=== PATIENT | female | born 1940 | race Caucasian/White ===

== ENCOUNTER → 2018-02-09 07:37 | Outpatient (CLI) | payer MEDICARE, SELFPAY ==
[2018-02-09 08:52] LABS: Add Manual Diff / Slide Review NO; Basophils Percent Auto 0.4 % (0-2); Eosinophils Percent Auto 2.8 % (2-4); Hematocrit 38.1 % (36-46); Lymphocytes Percent Auto 39.2 % (25-40); Mean Corpuscular HGB Conc 34.2 % (30-36); Mean Corpuscular Hemoglobin 33.1 PG (26-34); Mean Corpuscular Volume 96.9 fL (80-100); Monocytes Percent Auto 11.1 % (3-14); Neutrophils Absolute Auto 1200 /uL (3000-5900); Neutrophils Percent Auto 46.5 % (50-75); Platelet Count 122 X10^3/uL (150-400); Red Blood Cell Count 3.93 X10^6/uL (4.0-5.2); Red Cell Distribution Width 13.3 % (11.6-14.8); White Blood Cell Count 2.5 X10^3/uL (4.5-11.0)
[2018-02-09 09:10] LABS: Alanine Aminotransferase 30 IU/L (9-52); Albumin 4.1 g/dL (3.5-5.0); Albumin Globulin Ratio 1.4 (1.0-2.8); Alkaline Phosphatase 63 U/L (38-126); Aspartate Aminotransferase 25 IU/L (14-36); BUN Creatinine Ratio 22.5 (6-22); Bilirubin Total 0.6 mg/dL (0.2-1.3); Blood Urea Nitrogen 18 mg/dL (7-17); Calcium 9.6 mg/dL (8.4-10.2); Carbon Dioxide 32 mmol/L (22-32); Chloride 103 mmol/L (98-107); Cholesterol 183 mg/dL (140-199); Estimated Glomerular Filt Rate > 60.0 mL/min (>60); Glucose 110 mg/dL (80-110); HDL Cholesterol 53 mg/dL (40-60); HEMOLYSIS < 15 (0-50); LDL Cholesterol Calculated 109 mg/dL (<100); Potassium 4.5 mmol/L (3.4-5.1); Sodium 142 mmol/L (137-145); Total Protein 7.1 g/dL (6.3-8.2); Triglycerides 105 mg/dL (35-150)
[2018-02-09 09:37] LABS: TSH w/ Reflex to FT4 2.13 uIU/mL (0.47-4.68)
== END ==
PROVIDERS: PCP Family Medicine; Visit Provider Family Medicine
DX: D72.819 Decreased white blood cell count, unspecified (principal); D69.6 Thrombocytopenia, unspecified; R73.01 Impaired fasting glucose; E78.5 Hyperlipidemia, unspecified
CPT/HCPCS: 36415; 80053; 80061; 84443; 85025

== ENCOUNTER 2018-02-26 13:00 | Outpatient (RCR) | payer MEDICARE, SELFPAY ==
--- NOTE | 2017-12-31 15:03 | PT.OIE ---
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) Osteopenia (Chronic 02/21/17) Past Surgical History History of tonsillectomy S/P total abdominal hysterectomy and bilateral salpingo-oophorectomy Status post appendectomy Status post arthroscopy Status post biopsy Status post colonoscopy Status post hysterectomy Provider Visit Care Team Role Provider Type Iwona Samaniego MD Other Providers Physician Specialty: Orthopedic Surgery Address: [address] [place] [address], [id number] Email: [email or web address] Fabiana Brink DO Family Provider Physician Primary Care Provider Specialty: Family Practice Address: [address] [place] [address], [facility] Email: [email or web address] Geo Burkett MD Attending Provider Physician Specialty: Orthopedics Address: [address] [place] [address], [phone] Email: [email or web address] Physical Therapy Initial Evaluation PT-OP-A Visit Information Start: 12/31/17 07:26 Freq: Status: Active Protocol: Document 12/31/17 14:05 [facility] (Rec: 12/31/17 15:03 [facility] [id number]) Out-Patient Physical Therapy Visit Information Visit Information Visit Type Initial Evaluation Visit Note 2 visits this year Visit Start Time 13:45 Visit Stop Time 14:30 Total Visit Minutes 45 Visit Number G code 1 Number of NIGHT ASSISTANT Visits 0 PT-OP-B Current Condition Start: 12/31/17 07:26 Freq: Status: Active Protocol: Document 12/31/17 14:05 [facility] (Rec: 12/31/17 15:03 [facility] [id number]) Current Condition History of Current Condition History of Current Condition Pt had knee pain that started in September and reported she tried 1 PT session, which she had a lot of swelling after so stopped. She had a menisectomy on December 16 and followed up with her MD 2 days ago who took off the bandages . Pt is typically very active and is looking foward to being more functional. Treatment Goals Patient/Caregiver Goals To be able to do yoga, do full walk on [place] trail & up/down hill, do aqua aerobics. PT-OP-C Subjective Start: 12/31/17 07:26 Freq: Status: Active Protocol: Document 12/31/17 14:05 [facility] (Rec: 12/31/17 15:03 [facility] [id number]) Patient Questionnaires Lower Extremity Functional Scale LEFS Score 55 LEFS Impairment 20 to 39% Impaired (Score 48- 62) OP-PT Pain Assessment Location Left Knee Pain Location Details ant Intensity 5 Scale Used Numeric (1 - 10) Description Aching Frequency Occasional Other Pain Aggravating Factors at night after extended activity, stairs, walking faster Pain Alleviating Factors Cold Other Pain Alleviating Factors aspirin PT-OP-G Mobility & Gait Start: 12/31/17 07:26 Freq: Status: Active Protocol: Document 12/31/17 14:05 [facility] (Rec: 12/31/17 14:32 [facility] [id number]) OP Gait Assessment Comments Gait Comments Inc lat lean over LLE with dec push off and stance time PT-OP-J Posture/Palpation/Skin Start: 12/31/17 07:26 Freq: Status: Active Protocol: Document 12/31/17 14:05 [facility] (Rec: 12/31/17 15:03 [facility] [id number]) Skin Assessment Circumference Measurement 3 Location sup patella Measurement (Centimeters) 48.4 Comments 44.8 R 2 Location fib head Measurement (Centimeters) 42 Comments R 40 1 Location joint line Measurement (Centimeters) 43.2 Comments 40.2 R PT-OP-K Range of Motion Start: 12/31/17 07:26 Freq: Status: Active Protocol: Document 12/31/17 14:05 [facility] (Rec: 12/31/17 14:32 [facility] [id number]) Knee Goniometric Range of Motion Knee Measured in Degrees Left Patient Position Supine Flexion Active (degrees) 106 Extension Active (degrees) 8 PT-OP-M Strength Start: 12/31/17 07:26 Freq: Status: Active Protocol: Document 12/31/17 14:05 [facility] (Rec: 12/31/17 14:32 [facility] [id number]) Hip Strength Hip Manual Muscle Testing Right Flexion (L2) 5 Normal Extension (S1) 4- Good- Abduction 4- Good- External Rotation 4+ Good+ Internal Rotation 4+ Good+ Left Flexion (L2) 4- Good- Extension (S1) 4- Good- Abduction 4- Good- External Rotation 4- Good- Internal Rotation 4- Good- Knee Strength Knee Manual Muscle Testing Left Flexion (S2) 5 Normal Extension (L3) 4- Good- Comments R WNL Ankle/Foot Strength Ankle and Foot Manual Muscle Testing Right Reason Not Measured WFL Left Reason Not Measured WFL PT-OP-Q Treatments Start: 12/31/17 07:26 Freq: Status: Active Protocol: Document 12/31/17 14:05 [facility] (Rec: 12/31/17 14:32 [facility] [id number]) Therapeutic Exercises Supine Exercises 3 Supine Exercise Name heel slides w/core tight & 5 sec hold Side left Reps/Minutes 10 2 Supine Exercise Name quad set Side left Reps/Minutes 10 1 Supine Exercise Name SLR w/core activation Side left Reps/Minutes 10 Sidelying Exercises 1 Sidelying Exercise Name hip abd Side bilateral Reps/Minutes 10 Sitting Exercises 1 Sitting Exercise Name mini squat Side bilateral Therapeutic Activity Therapeutic Activity 1 Name sleeping Comments s/l and prone sleeping position PT-OP-T Assessment and Plan Start: 12/31/17 07:26 Freq: Status: Active Protocol: Document 12/31/17 14:05 [facility] (Rec: 12/31/17 15:03 [facility] [id number]) Physical Therapy Assessment Rehab Potential Rehabilitation Potential Good Evaluation Complexity Number of Personal Factors/Comorbidities 3 or More Number of Body Systems Impaired 4 or More Clinical Presentation at Evaluation Evolving Impairments Impairments Balance Edema Gait Pain ROM Soft Tissue Mobility Strength Goals Five Impairment rec activities Short Term Goal (STG) Pt will be able to participate in yoga exercises without inc pain. STG Duration 01/30/18 [employer] Goal (LTG) Pt will be able to participate in full walk with hills & [place] trail & do yoga & aqua aerobics. LTG Duration 03/02/18 Four Impairment MMT [employer] Goal (LTG) / to allow return to rec activities. LTG Duration 03/01/18 Three Impairment ROM Long-Term Goal (LTG) WNL to allow pt go up/down stairs LTG Duration 01/30/18 Two Impairment swelling Short Term Goal (STG) WNL circumference with pt doing appropriate edema management. STG Duration 01/30/18 One Impairment LEFS Long-Term Goal (LTG) Pt will have improved functional mobility as demonstrated by scoring 68/80. LTG Duration 03/02/18 Physical Therapy Plan Frequency and Duration Frequency of Treatment 2x/Week Duration of Treatment 2 months Plan of Care Start Date 12/31/17 Plan of Care End Date 03/02/18 Therapeutic Interventions Therapeutic Interventions Aquatic Therapy Balance Training Gait Training Home Exercise Program Joint Mobilizations Manual Therapy Soft Tissue Mobilization Taping Therapeutic Exercises Modalities Cold Pack/Ice Massage Electric Stimulation Hot Packs Ultrasound Next Visit Focus/Plan Next Note Type Treatment Note Next Visit Plan Recumbant bike, shuttle leg press, tball knee flex & glute strength Please Sign and Return: I have reviewed this Plan of Care and certify that the skilled therapy services above are required to meet the patient?s needs. Physician Signature Date Printed Name and Credentials Clinical Instructor Signature Printed Name and Credentials
--- NOTE | 2017-12-31 15:03 | PT.OPPOC ---
Current Diagnoses Complex tear of medial meniscus, current injury, left knee, initial encounter (12/31/17) Other tear of lateral meniscus, current injury, left knee, initial encounter (12/31/17) Provider Visit Care Team Role Provider Type Iwona Samaniego MD Other Providers Physician Specialty: Orthopedic Surgery Address: [address] [place] [address], [id number] Email: [email or web address] Fabiana Brink DO Family Provider Physician Primary Care Provider Specialty: Family Practice Address: [address] [place] [address], [id number] Email: [email or web address] Geo Burkett MD Attending Provider Physician Specialty: Orthopedics Address: [address] [place] [address], [id number] Email: [email or web address] Plan Of Care PT-OP-T Assessment and Plan Start: 12/31/17 07:26 Freq: Status: Active Protocol: Document 12/31/17 14:05 [facility] (Rec: 12/31/17 15:03 [facility] [id number]) Physical Therapy Assessment Rehab Potential Rehabilitation Potential Good Evaluation Complexity Number of Personal Factors/Comorbidities 3 or More Number of Body Systems Impaired 4 or More Clinical Presentation at Evaluation Evolving Impairments Impairments Balance Edema Gait Pain ROM Soft Tissue Mobility Strength Goals Five Impairment rec activities Short Term Goal (STG) Pt will be able to participate in yoga exercises without inc pain. STG Duration 01/30/18 [facility] Goal (LTG) Pt will be able to participate in full walk with hills & [place] [address] & do yoga & aqua aerobics. LTG Duration 03/02/18 Four Impairment MMT Wound Care Nurse Goal (LTG) 5/5 to allow return to rec activities. LTG Duration 03/01/18 Three Impairment ROM [facility] Goal (LTG) WNL to allow pt go up/down stairs LTG Duration 01/30/18 Two Impairment swelling Short Term Goal (STG) WNL circumference with pt doing appropriate edema management. STG Duration 01/30/18 One Impairment LEFS Wound Care Nurse Goal (LTG) Pt will have improved functional mobility as demonstrated by scoring 68/80. LTG Duration 03/02/18 Physical Therapy Plan Frequency and Duration Frequency of Treatment 2x/Week Duration of Treatment 2 months Plan of Care Start Date 12/31/17 Plan of Care End Date 03/02/18 Therapeutic Interventions Therapeutic Interventions Aquatic Therapy Balance Training Gait Training Home Exercise Program Joint Mobilizations Manual Therapy Soft Tissue Mobilization Taping Therapeutic Exercises Modalities Cold Pack/Ice Massage Electric Stimulation Hot Packs Ultrasound Next Visit Focus/Plan Next Note Type Treatment Note Next Visit Plan Recumbant bike, shuttle leg press, tball knee flex & glute strength Plan of Care Dates Plan of Care Start Date 12/31/17 Plan of Care End Date 03/02/18 Please Sign and Return: I have reviewed this Plan of Care and certify that the skilled therapy services above are required to meet the patient?s needs. Physician Signature Date Printed Name and Credentials Clinical Instructor Signature Printed Name and Credentials
--- NOTE | 2017-12-31 16:55 | PT.OTRE ---
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) Osteopenia (Chronic 02/21/17) Surgical History History of tonsillectomy S/P total abdominal hysterectomy and bilateral salpingo-oophorectomy Status post appendectomy Status post arthroscopy Status post biopsy Status post colonoscopy Status post hysterectomy Provider Visit Care Team Role Provider Type Iwona Samaniego MD Other Providers Physician Specialty: Orthopedic Surgery Address: [address] [place] [address], [phone] Email: [email or web address] Fabiana Brink DO Family Provider Physician Primary Care Provider Specialty: Family Practice Address: [address] [place] [address], [facility] Email: [email or web address] Geo Burkett MD Attending Provider Physician Specialty: Orthopedics Address: [address] [place] [address], [id number] Email: [email or web address] Physical Therapy Re-Evaluation PT-OP-A Visit Information Start: 12/31/17 07:26 Freq: Status: Active Protocol: Document 12/31/17 14:05 [facility] (Rec: 12/31/17 15:03 [facility] [id number]) Out-Patient Physical Therapy Visit Information Visit Information Visit Type Initial Evaluation Visit Note 2 visits this year Visit Start Time 13:45 Visit Stop Time 14:30 Total Visit Minutes 45 Visit Number G code 1 Number of LIMO DRIVER Visits 0 PT-OP-B Current Condition Start: 12/31/17 07:26 Freq: Status: Active Protocol: Document 12/31/17 14:05 [facility] (Rec: 12/31/17 15:03 [facility] [id number]) Current Condition History of Current Condition History of Current Condition Pt had knee pain that started in September and reported she tried 1 PT session, which she had a lot of swelling after so stopped. She had a menisectomy on December 16 and followed up with her MD 2 days ago who took off the bandages . Pt is typically very active and is looking foward to being more functional. Treatment Goals Patient/Caregiver Goals To be able to do yoga, do full walk on [place] [address] [place] & up/down hill, do aqua aerobics. PT-OP-C Subjective Start: 12/31/17 07:26 Freq: Status: Active Protocol: Document 12/31/17 14:05 [facility] (Rec: 12/31/17 15:03 [facility] [email or web address]) Patient Questionnaires Lower Extremity Functional Scale LEFS Score 55 LEFS Impairment 20 to 39% Impaired (Score 48- 62) OP-PT Pain Assessment Location Left Knee Pain Location Details ant Intensity 5 Scale Used Numeric (1 - 10) Description Aching Frequency Occasional Other Pain Aggravating Factors at night after extended activity, stairs, walking faster Pain Alleviating Factors Cold Other Pain Alleviating Factors aspirin PT-OP-G Mobility & Gait Start: 12/31/17 07:26 Freq: Status: Active Protocol: Document 12/31/17 14:05 [facility] (Rec: 12/31/17 14:32 [facility] [id number]) OP Gait Assessment Comments Gait Comments Inc lat lean over LLE with dec push off and stance time PT-OP-J Posture/Palpation/Skin Start: 12/31/17 07:26 Freq: Status: Active Protocol: Document 12/31/17 14:05 [facility] (Rec: 12/31/17 15:03 [facility] [email or web address]) Skin Assessment Circumference Measurement 3 Location sup patella Measurement (Centimeters) 48.4 Comments 44.8 R 2 Location fib head Measurement (Centimeters) 42 Comments R 40 1 Location joint line Measurement (Centimeters) 43.2 Comments 40.2 R PT-OP-K Range of Motion Start: 12/31/17 07:26 Freq: Status: Active Protocol: Document 12/31/17 14:05 [facility] (Rec: 12/31/17 14:32 [facility] [id number]) Knee Goniometric Range of Motion Knee Measured in Degrees Left Patient Position Supine Flexion Active (degrees) 106 Extension Active (degrees) 8 PT-OP-M Strength Start: 12/31/17 07:26 Freq: Status: Active Protocol: Document 12/31/17 14:05 [facility] (Rec: 12/31/17 14:32 [facility] [id number]) Hip Strength Hip Manual Muscle Testing Right Flexion (L2) 5 Normal Extension (S1) 4- Good- Abduction 4- Good- External Rotation 4+ Good+ Internal Rotation 4+ Good+ Left Flexion (L2) 4- Good- Extension (S1) 4- Good- Abduction 4- Good- External Rotation 4- Good- Internal Rotation 4- Good- Knee Strength Knee Manual Muscle Testing Left Flexion (S2) 5 Normal Extension (L3) 4- Good- Comments R WNL Ankle/Foot Strength Ankle and Foot Manual Muscle Testing Right Reason Not Measured WFL Left Reason Not Measured WFL PT-OP-Q Treatments Start: 12/31/17 07:26 Freq: Status: Active Protocol: Document 12/31/17 14:05 [facility] (Rec: 12/31/17 14:32 [facility] [id number]) Therapeutic Exercises Supine Exercises 3 Supine Exercise Name heel slides w/core tight & 5 sec hold Side left Reps/Minutes 10 2 Supine Exercise Name quad set Side left Reps/Minutes 10 1 Supine Exercise Name SLR w/core activation Side left Reps/Minutes 10 Sidelying Exercises 1 Sidelying Exercise Name hip abd Side bilateral Reps/Minutes 10 Sitting Exercises 1 Sitting Exercise Name mini squat Side bilateral Therapeutic Activity Therapeutic Activity 1 Name sleeping Comments s/l and prone sleeping position PT-OP-T Assessment and Plan Start: 12/31/17 07:26 Freq: Status: Active Protocol: Document 12/31/17 14:05 [facility] (Rec: 12/31/17 15:03 [facility] [id number]) Physical Therapy Assessment Rehab Potential Rehabilitation Potential Good Evaluation Complexity Number of Personal Factors/Comorbidities 3 or More Number of Body Systems Impaired 4 or More Clinical Presentation at Evaluation Evolving Impairments Impairments Balance Edema Gait Pain ROM Soft Tissue Mobility Strength Goals Five Impairment rec activities Short Term Goal (STG) Pt will be able to participate in yoga exercises without inc pain. STG Duration 01/30/18 Care Home Goal (LTG) Pt will be able to participate in full walk with hills & [place] [address] & do yoga & aqua aerobics. LTG Duration 03/02/18 Four Impairment MMT Project Consultant Goal (LTG) / to allow return to rec activities. LTG Duration 03/01/18 Three Impairment ROM Care Home Goal (LTG) WNL to allow pt go up/down stairs LTG Duration 01/30/18 Two Impairment swelling Short Term Goal (STG) WNL circumference with pt doing appropriate edema management. STG Duration 01/30/18 One Impairment LEFS Care Home Goal (LTG) Pt will have improved functional mobility as demonstrated by scoring 68/80. LTG Duration 03/02/18 Physical Therapy Plan Frequency and Duration Frequency of Treatment 2x/Week Duration of Treatment 2 months Plan of Care Start Date 12/31/17 Plan of Care End Date 03/02/18 Therapeutic Interventions Therapeutic Interventions Aquatic Therapy Balance Training Gait Training Home Exercise Program Joint Mobilizations Manual Therapy Soft Tissue Mobilization Taping Therapeutic Exercises Modalities Cold Pack/Ice Massage Electric Stimulation Hot Packs Ultrasound Next Visit Focus/Plan Next Note Type Treatment Note Next Visit Plan Recumbant bike, shuttle leg press, tball knee flex & glute strength Please Sign and Return: I have reviewed this Plan of Care and certify that the skilled therapy services above are required to meet the patient?s needs. Physician Signature Date Printed Name and Credentials Clinical Instructor Signature Printed Name and Credentials
--- NOTE | 2018-01-07 12:18 | PT.OTN ---
Current Diagnoses Complex tear of medial meniscus, current injury, left knee, initial encounter (01/06/18) Other tear of lateral meniscus, current injury, left knee, initial encounter (01/06/18) Physical Therapy Treatment Note PT-OP-A Visit Information Start: 12/31/17 07:26 Freq: Status: Active Protocol: Document 01/06/18 13:45 [facility] (Rec: 01/07/18 12:18 [facility] [id number]) Out-Patient Physical Therapy Visit Information Visit Information Visit Type Treatment Note Visit Note 3 visits this year ( one visit prior to surgery) Visit Start Time 13:45 Visit Stop Time 14:45 Total Visit Minutes 60 Visit Number 2 Number of PATTERN ATTENDANT Visits 0 PT-OP-B Current Condition Start: 12/31/17 07:26 Freq: Status: Active Protocol: Document 12/31/17 14:05 [facility] (Rec: 12/31/17 15:03 [facility] [id number]) Current Condition History of Current Condition History of Current Condition Pt had knee pain that started in September and reported she tried 1 PT session, which she had a lot of swelling after so stopped. She had a menisectomy on December 16 and followed up with her MD 2 days ago who took off the bandages . Pt is typically very active and is looking foward to being more functional. Treatment Goals Patient/Caregiver Goals To be able to do yoga, do full walk on [place] & up/down hill, do aqua aerobics. PT-OP-C Subjective Start: 12/31/17 07:26 Freq: Status: Active Protocol: Document 01/06/18 13:45 [facility] (Rec: 01/07/18 12:18 [facility] [email or web address]) OP-PT Subjective Patient Comments Patient Comments Rosalina reports her chief complaint of pain today is below her knee cap. She points to the patella tendon areal PT-OP-G Mobility & Gait Start: 12/31/17 07:26 Freq: Status: Active Protocol: Document 12/31/17 14:05 [facility] (Rec: 12/31/17 14:32 [facility] [id number]) OP Gait Assessment Comments Gait Comments Inc lat lean over LLE with dec push off and stance time PT-OP-J Posture/Palpation/Skin Start: 12/31/17 07:26 Freq: Status: Active Protocol: Document 12/31/17 14:05 [facility] (Rec: 12/31/17 15:03 [facility] [id number]) Skin Assessment Circumference Measurement 3 Location sup patella Measurement (Centimeters) 48.4 Comments 44.8 R 2 Location fib head Measurement (Centimeters) 42 Comments R 40 1 Location joint line Measurement (Centimeters) 43.2 Comments 40.2 R PT-OP-K Range of Motion Start: 12/31/17 07:26 Freq: Status: Active Protocol: Document 01/06/18 13:45 [facility] (Rec: 01/07/18 12:18 [facility] [email or web address]) Knee Goniometric Range of Motion Knee Measured in Degrees Left Flexion Active (degrees) 110 Extension Active (degrees) 8 PT-OP-M Strength Start: 12/31/17 07:26 Freq: Status: Active Protocol: Document 12/31/17 14:05 [facility] (Rec: 12/31/17 14:32 [facility] [id number]) Hip Strength Hip Manual Muscle Testing Right Flexion (L2) 5 Normal Extension (S1) 4- Good- Abduction 4- Good- External Rotation 4+ Good+ Internal Rotation 4+ Good+ Left Flexion (L2) 4- Good- Extension (S1) 4- Good- Abduction 4- Good- External Rotation 4- Good- Internal Rotation 4- Good- Knee Strength Knee Manual Muscle Testing Left Flexion (S2) 5 Normal Extension (L3) 4- Good- Comments R WNL Ankle/Foot Strength Ankle and Foot Manual Muscle Testing Right Reason Not Measured WFL Left Reason Not Measured WFL PT-OP-Q Treatments Start: 12/31/17 07:26 Freq: Status: Active Protocol: Document 01/06/18 13:45 [facility] (Rec: 01/07/18 12:18 [facility] [email or web address]) Cardio Equipment Recumbent Elliptical (Biodex) Duration (Minutes) 5 Resistance level 2 Gym Equipment Shuttle Rebound 1 Exercise Details shuttle squats Reps/Duration 50 # 20 reps B, 25# 15 reps left knee Therapeutic Exercises Supine Exercises 6 Supine Exercise Name long sitting calf stretch with strap Reps/Minutes hold 2 minutes 5 Supine Exercise Name bridges Reps/Minutes 2 sets of 10 reps 4 Supine Exercise Name TKE over ball Reps/Minutes 2 sets of 10 reps Comments emphasis on full knee extension and quad set 3 Supine Exercise Name heel slides w/core tight & 5 sec hold Side left Reps/Minutes 10 2 Supine Exercise Name quad set Side left Reps/Minutes 10 1 Supine Exercise Name SLR w/core activation Side left Reps/Minutes 10 Standing Exercises 1 Standing Exercise Name standing squats at bar Comments emphasis on hip hinge and proper knee aligment Manual Therapy Treatment Soft Tissue Mobilization 1 Body Location patella tendon TFM and patella mobs, STM left quadraceps Body Position Supine PT-OP-R Modalities Start: 12/31/17 07:26 Freq: Status: Active Protocol: Document 01/07/18 12:18 [facility] (Rec: 01/07/18 12:18 [facility] [email or web address]) Electric Stimulation Electric Stimulation Interferential Current (IFC) Body Location left knee Duration (Minutes) 15 Comments Ice on top and bottom of the knee during IFC PT-OP-T Assessment and Plan Start: 12/31/17 07:26 Freq: Status: Active Protocol: Document 01/06/18 13:45 [facility] (Rec: 01/07/18 12:18 [facility] [email or web address]) Physical Therapy Assessment Assessment Summary Assessment Rosalina responded well to the new exercises today and notes after her stretching and exercises she had decreased pain in her knee. I also did a trial of ICE and IFC following treatment today. Her knee flexion is better, she is still limited in extension so this was emphasized with today's treatment Physical Therapy Plan Frequency and Duration Frequency of Treatment 2x/Week Duration of Treatment 2 months Plan of Care Start Date 12/31/17 Plan of Care End Date 03/02/18 Therapeutic Interventions Therapeutic Interventions Aquatic Therapy Balance Training Gait Training Home Exercise Program Joint Mobilizations Manual Therapy Soft Tissue Mobilization Taping Therapeutic Exercises Modalities Cold Pack/Ice Massage Electric Stimulation Hot Packs Ultrasound Next Visit Focus/Plan Next Visit Plan continue progressing knee ROM and strengthening as tolerated Please Sign and Return: I have reviewed this Plan of Care and certify that the skilled therapy services above are required to meet the patient?s needs. Physician Signature Date Printed Name and Credentials Clinical Instructor Signature Printed Name and Credentials
--- NOTE | 2018-01-09 07:13 | PT.OTN ---
Current Diagnoses Complex tear of medial meniscus, current injury, left knee, initial encounter (01/08/18) Other tear of lateral meniscus, current injury, left knee, initial encounter (01/08/18) Physical Therapy Treatment Note PT-OP-A Visit Information Start: 12/31/17 07:26 Freq: Status: Active Protocol: Document 01/08/18 09:45 [facility] (Rec: 01/08/18 09:57 [facility]B [id number]) Out-Patient Physical Therapy Visit Information Visit Information Visit Type Treatment Note Visit Note 4 visits this year ( one visit prior to surgery) Visit Start Time 13:45 Visit Stop Time 14:45 Total Visit Minutes 60 Visit Number 3 Number of SNOW TECHNICIAN Visits 0 PT-OP-B Current Condition Start: 12/31/17 07:26 Freq: Status: Active Protocol: Document 12/31/17 14:05 [facility] (Rec: 12/31/17 15:03 [facility] [email or web address]) Current Condition History of Current Condition History of Current Condition Pt had knee pain that started in September and reported she tried 1 PT session, which she had a lot of swelling after so stopped. She had a menisectomy on December 16 and followed up with her MD 2 days ago who took off the bandages . Pt is typically very active and is looking foward to being more functional. Treatment Goals Patient/Caregiver Goals To be able to do yoga, do full walk on [place] [address] [place] & up/down hill, do aqua aerobics. PT-OP-C Subjective Start: 12/31/17 07:26 Freq: Status: Active Protocol: Document 01/08/18 09:45 [facility] (Rec: 01/08/18 09:57 AMB [id number]) OP-PT Subjective Patient Comments Patient Comments Yesterday went down to the [facility] and was on her feet for 5-6 hours, so knee is a bit swollen today. PT-OP-G Mobility & Gait Start: 12/31/17 07:26 Freq: Status: Active Protocol: Document 12/31/17 14:05 [facility] (Rec: 12/31/17 14:32 [facility] [id number]) OP Gait Assessment Comments Gait Comments Inc lat lean over LLE with dec push off and stance time PT-OP-J Posture/Palpation/Skin Start: 12/31/17 07:26 Freq: Status: Active Protocol: Document 12/31/17 14:05 [facility] (Rec: 12/31/17 15:03 [facility] [email or web address]) Skin Assessment Circumference Measurement 3 Location sup patella Measurement (Centimeters) 48.4 Comments 44.8 R 2 Location fib head Measurement (Centimeters) 42 Comments R 40 1 Location joint line Measurement (Centimeters) 43.2 Comments 40.2 R PT-OP-K Range of Motion Start: 12/31/17 07:26 Freq: Status: Active Protocol: Document 01/06/18 13:45 [facility] (Rec: 01/07/18 12:18 [facility] [email or web address]) Knee Goniometric Range of Motion Knee Measured in Degrees Left Flexion Active (degrees) 110 Extension Active (degrees) 8 PT-OP-M Strength Start: 12/31/17 07:26 Freq: Status: Active Protocol: Document 12/31/17 14:05 [facility] (Rec: 12/31/17 14:32 [facility] [id number]) Hip Strength Hip Manual Muscle Testing Right Flexion (L2) 5 Normal Extension (S1) 4- Good- Abduction 4- Good- External Rotation 4+ Good+ Internal Rotation 4+ Good+ Left Flexion (L2) 4- Good- Extension (S1) 4- Good- Abduction 4- Good- External Rotation 4- Good- Internal Rotation 4- Good- Knee Strength Knee Manual Muscle Testing Left Flexion (S2) 5 Normal Extension (L3) 4- Good- Comments R WNL Ankle/Foot Strength Ankle and Foot Manual Muscle Testing Right Reason Not Measured WFL Left Reason Not Measured WFL PT-OP-Q Treatments Start: 12/31/17 07:26 Freq: Status: Active Protocol: Document 01/08/18 09:45 [facility] (Rec: 01/08/18 10:27 AMB [id number]) Cardio Equipment Recumbent Elliptical (Biodex) Duration (Minutes) 5 Resistance level 4 Gym Equipment Shuttle Rebound 1 Exercise Details shuttle squats Reps/Duration 50 # 20 reps B, 25# 15 reps left knee Therapeutic Exercises Supine Exercises 5 Supine Exercise Name bridges Reps/Minutes 2 sets of 10 reps 2 Supine Exercise Name quad set Side left Reps/Minutes 10 1 Supine Exercise Name SLR w/core activation Side left Reps/Minutes 10 Standing Exercises 1 Standing Exercise Name standing squats at bar Comments emphasis on hip hinge and proper knee aligment Manual Therapy Treatment Soft Tissue Mobilization 1 Body Location patella tendon TFM and patella mobs, STM left quadraceps Body Position Supine PT-OP-R Modalities Start: 12/31/17 07:26 Freq: Status: Active Protocol: Document 01/08/18 09:45 [facility] (Rec: 01/09/18 07:13 [facility] [email or web address]) Electric Stimulation Electric Stimulation Interferential Current (IFC) Body Location left knee Duration (Minutes) 10 Comments Ice on top and bottom of the knee during IFC PT-OP-T Assessment and Plan Start: 12/31/17 07:26 Freq: Status: Active Protocol: Document 01/08/18 09:45 [facility] (Rec: 01/09/18 07:13 [facility] [email or web address]) Physical Therapy Assessment Goals Five Impairment rec activities Short Term Goal (STG) Pt will be able to participate in yoga exercises without inc pain. STG Duration 01/30/18 Mark Up Designer Goal (LTG) Pt will be able to participate in full walk with hills & [place] & do yoga & aqua aerobics. LTG Duration 03/02/18 Four Impairment MMT Fpc Goal (LTG) 5/5 to allow return to rec activities. LTG Duration 03/01/18 Three Impairment ROM Mark Up Designer Goal (LTG) WNL to allow pt go up/down stairs LTG Duration 01/30/18 Two Impairment swelling Short Term Goal (STG) WNL circumference with pt doing appropriate edema management. STG Duration 01/30/18 One Impairment LEFS Mark Up Designer Goal (LTG) Pt will have improved functional mobility as demonstrated by scoring 68/80. LTG Duration 03/02/18 Assessment Summary Assessment Rosalina with increased edema today after extensive walking/ stairs yesterday. Tolerated exercises well, to continue to work on knee ext. Physical Therapy Plan Frequency and Duration Frequency of Treatment 2x/Week Duration of Treatment 2 months Plan of Care Start Date 12/31/17 Plan of Care End Date 03/02/18 Next Visit Focus/Plan Next Note Type Treatment Note Next Visit Plan Progress knee range, squat form, glute strength Please Sign and Return: I have reviewed this Plan of Care and certify that the skilled therapy services above are required to meet the patient?s needs. Physician Signature Date Printed Name and Credentials Clinical Instructor Signature Printed Name and Credentials
--- NOTE | 2018-01-13 12:45 | PT.OTN ---
Current Diagnoses Complex tear of medial meniscus, current injury, left knee, initial encounter (01/13/18) Other tear of lateral meniscus, current injury, left knee, initial encounter (01/13/18) Physical Therapy Treatment Note PT-OP-A Visit Information Start: 12/31/17 07:26 Freq: Status: Active Protocol: Document 01/13/18 12:38 [facility] (Rec: 01/13/18 12:44 [facility] [email or web address]) Out-Patient Physical Therapy Visit Information Visit Information Visit Type Treatment Note Visit Note 4 visits this year ( one visit prior to surgery) Visit Start Time 11:15 Visit Stop Time 12:10 Total Visit Minutes 55 Visit Number 4 Number of HOME HEALTH SCHEDULER Visits 1 Evaluation Information Evaluation Date 12/31/17 PT-OP-B Current Condition Start: 12/31/17 07:26 Freq: Status: Active Protocol: Document 12/31/17 14:05 [facility] (Rec: 12/31/17 15:03 [facility] [email or web address]) Current Condition History of Current Condition History of Current Condition Pt had knee pain that started in September and reported she tried 1 PT session, which she had a lot of swelling after so stopped. She had a menisectomy on December 16 and followed up with her MD 2 days ago who took off the bandages . Pt is typically very active and is looking foward to being more functional. Treatment Goals Patient/Caregiver Goals To be able to do yoga, do full walk on [place] [address] [place] & up/down hill, do aqua aerobics. PT-OP-C Subjective Start: 12/31/17 07:26 Freq: Status: Active Protocol: Document 01/13/18 12:38 [facility] (Rec: 01/13/18 12:44 [facility] [email or web address]) OP-PT Subjective Patient Comments Patient Comments Pt states she was able to walk about a mile. She still sore and swollen, but improving overall. PT-OP-G Mobility & Gait Start: 12/31/17 07:26 Freq: Status: Active Protocol: Document 12/31/17 14:05 [facility] (Rec: 12/31/17 14:32 [facility] [id number]) OP Gait Assessment Comments Gait Comments Inc lat lean over LLE with dec push off and stance time PT-OP-J Posture/Palpation/Skin Start: 12/31/17 07:26 Freq: Status: Active Protocol: Document 12/31/17 14:05 [facility] (Rec: 12/31/17 15:03 [facility] [email or web address]) Skin Assessment Circumference Measurement 3 Location sup patella Measurement (Centimeters) 48.4 Comments 44.8 R 2 Location fib head Measurement (Centimeters) 42 Comments R 40 1 Location joint line Measurement (Centimeters) 43.2 Comments 40.2 R PT-OP-K Range of Motion Start: 12/31/17 07:26 Freq: Status: Active Protocol: Document 01/06/18 13:45 [facility] (Rec: 01/07/18 12:18 [facility] [email or web address]) Knee Goniometric Range of Motion Knee Measured in Degrees Left Flexion Active (degrees) 110 Extension Active (degrees) 8 PT-OP-M Strength Start: 12/31/17 07:26 Freq: Status: Active Protocol: Document 12/31/17 14:05 [facility] (Rec: 12/31/17 14:32 [facility] [id number]) Hip Strength Hip Manual Muscle Testing Right Flexion (L2) 5 Normal Extension (S1) 4- Good- Abduction 4- Good- External Rotation 4+ Good+ Internal Rotation 4+ Good+ Left Flexion (L2) 4- Good- Extension (S1) 4- Good- Abduction 4- Good- External Rotation 4- Good- Internal Rotation 4- Good- Knee Strength Knee Manual Muscle Testing Left Flexion (S2) 5 Normal Extension (L3) 4- Good- Comments R WNL Ankle/Foot Strength Ankle and Foot Manual Muscle Testing Right Reason Not Measured WFL Left Reason Not Measured WFL PT-OP-Q Treatments Start: 12/31/17 07:26 Freq: Status: Active Protocol: Document 01/13/18 12:38 [facility] (Rec: 01/13/18 12:44 [facility] [email or web address]) Cardio Equipment Recumbent Elliptical (Biodex) Duration (Minutes) 5 Resistance level 4 Gym Equipment Shuttle Rebound 1 Exercise Details shuttle squats Reps/Duration 67# 20 reps B, 37# 15 reps left knee Therapeutic Exercises Supine Exercises 5 Supine Exercise Name bridges Reps/Minutes 2 sets of 10 reps 1 Supine Exercise Name SLR w/core activation Side left Reps/Minutes 10 Sidelying Exercises 1 Sidelying Exercise Name hip abd Side bilateral Reps/Minutes 10 Standing Exercises 2 Standing Exercise Name TKE Side left Resistance level 2 Equipment Used Thera band Reps/Minutes 10 1 Standing Exercise Name standing squats at bar Comments emphasis on hip hinge and proper knee aligment Manual Therapy Treatment Soft Tissue Mobilization 1 Body Location patella tendon TFM and patella mobs, STM left quadraceps Body Position Supine PT-OP-R Modalities Start: 12/31/17 07:26 Freq: Status: Active Protocol: Document 01/13/18 12:38 [facility] (Rec: 01/13/18 12:44 [facility] [email or web address]) Electric Stimulation Electric Stimulation Interferential Current (IFC) Body Location left knee Duration (Minutes) 10 Patient Position Hooklying Combined With Heat/Cold Cold Pack Comments Ice on top and bottom of the knee during IFC PT-OP-T Assessment and Plan Start: 12/31/17 07:26 Freq: Status: Active Protocol: Document 01/13/18 12:38 [facility] (Rec: 01/13/18 12:44 [facility] [email or web address]) Physical Therapy Assessment Assessment Summary Assessment Pt progressing with ROM and strengthening. She need cues for squat form. Physical Therapy Plan Frequency and Duration Frequency of Treatment 2x/Week Duration of Treatment 2 months Plan of Care Start Date 12/31/17 Plan of Care End Date 03/02/18 Next Visit Focus/Plan Next Note Type Treatment Note Next Visit Plan Progress knee range, squat form, glute strength
--- NOTE | 2018-01-21 10:24 | PT.OTN ---
Current Diagnoses Complex tear of medial meniscus, current injury, left knee, initial encounter (01/21/18) Other tear of lateral meniscus, current injury, left knee, initial encounter (01/21/18) Physical Therapy Treatment Note PT-OP-A Visit Information Start: 12/31/17 07:26 Freq: Status: Active Protocol: Document 01/21/18 09:45 [facility] (Rec: 01/21/18 10:24 DCW [id number]) Out-Patient Physical Therapy Visit Information Visit Information Visit Type Treatment Note Visit Note 6 visits this year ( one visit prior to surgery) Visit Start Time 09:45 Visit Stop Time 10:40 Total Visit Minutes 55 Visit Number 5 Number of SHEET METAL DUCT INSTALLER Visits 1 Evaluation Information Evaluation Date 12/31/17 PT-OP-B Current Condition Start: 12/31/17 07:26 Freq: Status: Active Protocol: Document 12/31/17 14:05 [facility] (Rec: 12/31/17 15:03 [facility] [id number]) Current Condition History of Current Condition History of Current Condition Pt had knee pain that started in September and reported she tried 1 PT session, which she had a lot of swelling after so stopped. She had a menisectomy on December 16 and followed up with her MD 2 days ago who took off the bandages . Pt is typically very active and is looking foward to being more functional. Treatment Goals Patient/Caregiver Goals To be able to do yoga, do full walk on [place] & up/down hill, do aqua aerobics. PT-OP-C Subjective Start: 12/31/17 07:26 Freq: Status: Active Protocol: Document 01/21/18 09:45 [facility] (Rec: 01/21/18 10:24 DCW [id number]) OP-PT Subjective Patient Comments Patient Comments I think my swelling is finally going down, and I'm having less aching, so I think I'm finally on the road to recovery. PT-OP-G Mobility & Gait Start: 12/31/17 07:26 Freq: Status: Active Protocol: Document 12/31/17 14:05 [facility] (Rec: 12/31/17 14:32 [facility] [id number]) OP Gait Assessment Comments Gait Comments Inc lat lean over LLE with dec push off and stance time PT-OP-J Posture/Palpation/Skin Start: 12/31/17 07:26 Freq: Status: Active Protocol: Document 12/31/17 14:05 [facility] (Rec: 12/31/17 15:03 [facility] [email or web address]) Skin Assessment Circumference Measurement 3 Location sup patella Measurement (Centimeters) 48.4 Comments 44.8 R 2 Location fib head Measurement (Centimeters) 42 Comments R 40 1 Location joint line Measurement (Centimeters) 43.2 Comments 40.2 R PT-OP-K Range of Motion Start: 12/31/17 07:26 Freq: Status: Active Protocol: Document 01/06/18 13:45 [facility] (Rec: 01/07/18 12:18 [facility] [id number]) Knee Goniometric Range of Motion Knee Measured in Degrees Left Flexion Active (degrees) 110 Extension Active (degrees) 8 PT-OP-M Strength Start: 12/31/17 07:26 Freq: Status: Active Protocol: Document 12/31/17 14:05 [facility] (Rec: 12/31/17 14:32 [facility] [id number]) Hip Strength Hip Manual Muscle Testing Right Flexion (L2) 5 Normal Extension (S1) 4- Good- Abduction 4- Good- External Rotation 4+ Good+ Internal Rotation 4+ Good+ Left Flexion (L2) 4- Good- Extension (S1) 4- Good- Abduction 4- Good- External Rotation 4- Good- Internal Rotation 4- Good- Knee Strength Knee Manual Muscle Testing Left Flexion (S2) 5 Normal Extension (L3) 4- Good- Comments R WNL Ankle/Foot Strength Ankle and Foot Manual Muscle Testing Right Reason Not Measured WFL Left Reason Not Measured WFL PT-OP-Q Treatments Start: 12/31/17 07:26 Freq: Status: Active Protocol: Document 01/21/18 09:45 [facility] (Rec: 01/21/18 10:24 DCW [id number]) Cardio Equipment Recumbent Elliptical (Biodex) Duration (Minutes) 5 Resistance level 4 Gym Equipment Shuttle Rebound 1 Exercise Details shuttle squats Reps/Duration 67# 20 reps B, 37# 15 reps left knee Therapeutic Exercises Supine Exercises 5 Supine Exercise Name bridges Reps/Minutes 2 sets of 15 reps 1 Supine Exercise Name SLR w/core activation Side left Reps/Minutes 10 Sidelying Exercises 1 Sidelying Exercise Name hip abd Side bilateral Reps/Minutes 10 Standing Exercises 2 Standing Exercise Name TKE Side left Resistance level 3 Equipment Used Thera band Reps/Minutes 10 1 Standing Exercise Name standing squats at bar Comments emphasis on hip hinge and proper knee aligment Manual Therapy Treatment Soft Tissue Mobilization 1 Body Location patella tendon TFM and patella mobs, STM left quadraceps Body Position Supine PT-OP-R Modalities Start: 12/31/17 07:26 Freq: Status: Active Protocol: Document 01/21/18 09:45 [facility] (Rec: 01/21/18 10:24 [facility] [id number]) Electric Stimulation Electric Stimulation Interferential Current (IFC) Body Location left knee Duration (Minutes) 10 Patient Position Hooklying Combined With Heat/Cold Cold Pack Comments Ice on top and bottom of the knee during IFC PT-OP-T Assessment and Plan Start: 12/31/17 07:26 Freq: Status: Active Protocol: Document 01/21/18 09:45 [facility] (Rec: 01/21/18 10:24 [facility] [id number]) Physical Therapy Assessment Goals Five Impairment rec activities Short Term Goal (STG) Pt will be able to participate in yoga exercises without inc pain. STG Duration 01/30/18 Gliding Pilot Instructor Goal (LTG) Pt will be able to participate in full walk with hills & [place] & do yoga & aqua aerobics. LTG Duration 03/02/18 Four Impairment MMT Gliding Pilot Instructor Goal (LTG) 5/5 to allow return to rec activities. LTG Duration 03/01/18 Three Impairment ROM Jail Goal (LTG) WNL to allow pt go up/down stairs LTG Duration 01/30/18 Two Impairment swelling Short Term Goal (STG) WNL circumference with pt doing appropriate edema management. STG Duration 01/30/18 One Impairment LEFS Gliding Pilot Instructor Goal (LTG) Pt will have improved functional mobility as demonstrated by scoring 68/80. LTG Duration 03/02/18 Assessment Summary Assessment Pt continues to improve with strength and ROM, improved squat form with minimal verbal cues. Physical Therapy Plan Frequency and Duration Frequency of Treatment 2x/Week Duration of Treatment 2 months Plan of Care Start Date 12/31/17 Plan of Care End Date 03/02/18 Therapeutic Interventions Therapeutic Interventions Aquatic Therapy Balance Training Gait Training Home Exercise Program Joint Mobilizations Manual Therapy Soft Tissue Mobilization Taping Therapeutic Exercises Modalities Cold Pack/Ice Massage Electric Stimulation Hot Packs Ultrasound Next Visit Focus/Plan Next Note Type Treatment Note Next Visit Plan Progress knee range, squat form, glute strength
--- NOTE | 2018-01-26 16:20 | PT.OTN ---
Current Diagnoses Complex tear of medial meniscus, current injury, left knee, initial encounter (01/26/18) Other tear of lateral meniscus, current injury, left knee, initial encounter (01/26/18) Physical Therapy Treatment Note PT-OP-A Visit Information Start: 12/31/17 07:26 Freq: Status: Active Protocol: Document 01/26/18 16:14 [facility] (Rec: 01/26/18 16:20 [facility] [email or web address]) Out-Patient Physical Therapy Visit Information Visit Information Visit Type Treatment Note Visit Note 7 visits this year ( one visit prior to surgery) Visit Start Time 09:45 Visit Stop Time 10:40 Total Visit Minutes 55 Visit Number 6 Number of RAILROAD TRACK MECHANIC Visits 0 PT-OP-B Current Condition Start: 12/31/17 07:26 Freq: Status: Active Protocol: Document 12/31/17 14:05 [facility] (Rec: 12/31/17 15:03 [facility] [id number]) Current Condition History of Current Condition History of Current Condition Pt had knee pain that started in September and reported she tried 1 PT session, which she had a lot of swelling after so stopped. She had a menisectomy on December 16 and followed up with her MD 2 days ago who took off the bandages . Pt is typically very active and is looking foward to being more functional. Treatment Goals Patient/Caregiver Goals To be able to do yoga, do full walk on [place] & up/down hill, do aqua aerobics. PT-OP-C Subjective Start: 12/31/17 07:26 Freq: Status: Active Protocol: Document 01/26/18 16:14 [facility] (Rec: 01/26/18 16:20 [facility] [email or web address]) OP-PT Subjective Patient Comments Patient Comments Reports she feels like her progress is slower than she'd hope. She went to a [employer] game and stairs were difficult PT-OP-G Mobility & Gait Start: 12/31/17 07:26 Freq: Status: Active Protocol: Document 12/31/17 14:05 [facility] (Rec: 12/31/17 14:32 [facility] [id number]) OP Gait Assessment Comments Gait Comments Inc lat lean over LLE with dec push off and stance time PT-OP-J Posture/Palpation/Skin Start: 12/31/17 07:26 Freq: Status: Active Protocol: Document 12/31/17 14:05 [facility] (Rec: 12/31/17 15:03 [facility] [email or web address]) Skin Assessment Circumference Measurement 3 Location sup patella Measurement (Centimeters) 48.4 Comments 44.8 R 2 Location fib head Measurement (Centimeters) 42 Comments R 40 1 Location joint line Measurement (Centimeters) 43.2 Comments 40.2 R PT-OP-K Range of Motion Start: 12/31/17 07:26 Freq: Status: Active Protocol: Document 01/06/18 13:45 [facility] (Rec: 01/07/18 12:18 [facility] [email or web address]) Knee Goniometric Range of Motion Knee Measured in Degrees Left Flexion Active (degrees) 110 Extension Active (degrees) 8 PT-OP-M Strength Start: 12/31/17 07:26 Freq: Status: Active Protocol: Document 12/31/17 14:05 [facility] (Rec: 12/31/17 14:32 [facility] [id number]) Hip Strength Hip Manual Muscle Testing Right Flexion (L2) 5 Normal Extension (S1) 4- Good- Abduction 4- Good- External Rotation 4+ Good+ Internal Rotation 4+ Good+ Left Flexion (L2) 4- Good- Extension (S1) 4- Good- Abduction 4- Good- External Rotation 4- Good- Internal Rotation 4- Good- Knee Strength Knee Manual Muscle Testing Left Flexion (S2) 5 Normal Extension (L3) 4- Good- Comments R WNL Ankle/Foot Strength Ankle and Foot Manual Muscle Testing Right Reason Not Measured WFL Left Reason Not Measured WFL PT-OP-Q Treatments Start: 12/31/17 07:26 Freq: Status: Active Protocol: Document 01/26/18 16:14 [facility] (Rec: 01/26/18 16:20 [facility] [email or web address]) Therapeutic Exercises Standing Exercises 1 Standing Exercise Name standing squats at bar Comments emphasis on hip hinge and proper knee aligment Gait Training Gait Activity 1 Description up/down 6 in steps Device Used 1 rail Comments cueing for form & demo on form & importance Manual Therapy Treatment Soft Tissue Mobilization 2 Body Location HS Mobilization Type Rolling Sustained Pressure Comments FM with knee ext/flex 1 Body Location ant knee Mobilization Type Myofascial Release Comments plunger, circumfrential FM, over patellar mobs Self-Care/Home Management Treatment Education Other Education edu on knee mechanics & range PT-OP-R Modalities Start: 12/31/17 07:26 Freq: Status: Active Protocol: Document 01/26/18 16:14 [facility] (Rec: 01/26/18 16:20 [facility] [email or web address]) Hot Pack/Cold Pack Treatment Cold Pack Location knee Patient Position Hooklying Treatment Duration (minutes) 10 PT-OP-T Assessment and Plan Start: 12/31/17 07:26 Freq: Status: Active Protocol: Document 01/26/18 16:14 [facility] (Rec: 01/26/18 16:20 [facility] [email or web address]) Physical Therapy Assessment Goals Five Impairment rec activities Short Term Goal (STG) Pt will be able to participate in yoga exercises without inc pain. STG Duration 01/30/18 Pbx Supervisor Goal (LTG) Pt will be able to participate in full walk with hills & [place] & do yoga & aqua aerobics. LTG Duration 03/02/18 Four Impairment MMT Penitentiary Goal (LTG) 5/ to allow return to rec activities. LTG Duration 03/01/18 Three Impairment ROM Pbx Supervisor Goal (LTG) WNL to allow pt go up/down stairs LTG Duration 01/30/18 Two Impairment swelling Short Term Goal (STG) WNL circumference with pt doing appropriate edema management. STG Duration 01/30/18 One Impairment LEFS Pbx Supervisor Goal (LTG) Pt will have improved functional mobility as demonstrated by scoring 68/80. LTG Duration 03/02/18 Assessment Summary Assessment Pt improved with ROM & pain with ROM & stairs after manual therapy. With edu on positioning, pt was able to go up/down stairs & squat without pain. Physical Therapy Plan Frequency and Duration Frequency of Treatment 2x/Week Duration of Treatment 2 months Plan of Care Start Date 12/31/17 Plan of Care End Date 03/02/18 Next Visit Focus/Plan Next Note Type Treatment Note Next Visit Plan Progress knee range into ext & cont to work on squat & stair form
--- NOTE | 2018-01-29 10:33 | PT.OTN ---
Current Diagnoses Complex tear of medial meniscus, current injury, left knee, initial encounter (01/29/18) Other tear of lateral meniscus, current injury, left knee, initial encounter (01/29/18) Physical Therapy Treatment Note PT-OP-A Visit Information Start: 12/31/17 07:26 Freq: Status: Active Protocol: Document 01/29/18 09:46 [facility] (Rec: 01/29/18 10:32 [facility] [id number]) Out-Patient Physical Therapy Visit Information Visit Information Visit Type Treatment Note Visit Note 8 visits this year ( one visit prior to surgery) Visit Start Time 09:45 Visit Stop Time 10:40 Total Visit Minutes 55 Visit Number 7/ Number of MANAGING PRINCIPAL Visits 0 PT-OP-B Current Condition Start: 12/31/17 07:26 Freq: Status: Active Protocol: Document 12/31/17 14:05 [facility] (Rec: 12/31/17 15:03 [facility] [id number]) Current Condition History of Current Condition History of Current Condition Pt had knee pain that started in September and reported she tried 1 PT session, which she had a lot of swelling after so stopped. She had a menisectomy on December 16 and followed up with her MD 2 days ago who took off the bandages . Pt is typically very active and is looking foward to being more functional. Treatment Goals Patient/Caregiver Goals To be able to do yoga, do full walk on [place] & up/down hill, do aqua aerobics. PT-OP-C Subjective Start: 12/31/17 07:26 Freq: Status: Active Protocol: Document 01/29/18 09:46 [facility] (Rec: 01/29/18 10:33 [facility] [id number]) OP-PT Subjective Patient Comments Patient Comments Compliance with HEP & has been working on stairs Patient Reported Progress Improving PT-OP-G Mobility & Gait Start: 12/31/17 07:26 Freq: Status: Active Protocol: Document 12/31/17 14:05 [facility] (Rec: 12/31/17 14:32 [facility] [id number]) OP Gait Assessment Comments Gait Comments Inc lat lean over LLE with dec push off and stance time PT-OP-J Posture/Palpation/Skin Start: 12/31/17 07:26 Freq: Status: Active Protocol: Document 12/31/17 14:05 [facility] (Rec: 12/31/17 15:03 [facility] [email or web address]) Skin Assessment Circumference Measurement 3 Location sup patella Measurement (Centimeters) 48.4 Comments 44.8 R 2 Location fib head Measurement (Centimeters) 42 Comments R 40 1 Location joint line Measurement (Centimeters) 43.2 Comments 40.2 R PT-OP-K Range of Motion Start: 12/31/17 07:26 Freq: Status: Active Protocol: Document 01/06/18 13:45 [facility] (Rec: 01/07/18 12:18 [facility] [email or web address]) Knee Goniometric Range of Motion Knee Measured in Degrees Left Flexion Active (degrees) 110 Extension Active (degrees) 8 PT-OP-M Strength Start: 12/31/17 07:26 Freq: Status: Active Protocol: Document 12/31/17 14:05 [facility] (Rec: 12/31/17 14:32 [facility] [id number]) Hip Strength Hip Manual Muscle Testing Right Flexion (L2) 5 Normal Extension (S1) 4- Good- Abduction 4- Good- External Rotation 4+ Good+ Internal Rotation 4+ Good+ Left Flexion (L2) 4- Good- Extension (S1) 4- Good- Abduction 4- Good- External Rotation 4- Good- Internal Rotation 4- Good- Knee Strength Knee Manual Muscle Testing Left Flexion (S2) 5 Normal Extension (L3) 4- Good- Comments R WNL Ankle/Foot Strength Ankle and Foot Manual Muscle Testing Right Reason Not Measured WFL Left Reason Not Measured WFL PT-OP-Q Treatments Start: 12/31/17 07:26 Freq: Status: Active Protocol: Document 01/29/18 09:46 [facility] (Rec: 01/29/18 10:32 [facility] [id number]) Manual Therapy Treatment Soft Tissue Mobilization 2 Body Location HS Mobilization Type Rolling Sustained Pressure Comments FM with knee ext/flex & praying mantus 1 Body Location ant knee Mobilization Type Myofascial Release Comments In bertha test position Joint Mobilizations 2 Joint tibiofemoral Direction AP on femur & tibia with AP FM Comments w/neuro re edu for quad facilitation 1 Joint PF Direction med, sup, inf PT-OP-R Modalities Start: 12/31/17 07:26 Freq: Status: Active Protocol: Document 01/29/18 09:46 [facility] (Rec: 01/29/18 10:32 [facility] [id number]) Hot Pack/Cold Pack Treatment Cold Pack Location knee Patient Position Hooklying Treatment Duration (minutes) 10 PT-OP-T Assessment and Plan Start: 12/31/17 07:26 Freq: Status: Active Protocol: Document 01/29/18 09:46 [facility] (Rec: 01/29/18 10:32 [facility] [id number]) Physical Therapy Assessment Goals Five Impairment rec activities Short Term Goal (STG) Pt will be able to participate in yoga exercises without inc pain. STG Duration 01/30/18 Correction Goal (LTG) Pt will be able to participate in full walk with hills & [place] & do yoga & aqua aerobics. LTG Duration 03/02/18 Four Impairment MMT Correction Goal (LTG) 5/5 to allow return to rec activities. LTG Duration 03/01/18 Three Impairment ROM Char Belt Operator Goal (LTG) WNL to allow pt go up/down stairs LTG Duration 01/30/18 Two Impairment swelling Short Term Goal (STG) WNL circumference with pt doing appropriate edema management. STG Duration 01/30/18 One Impairment LEFS Char Belt Operator Goal (LTG) Pt will have improved functional mobility as demonstrated by scoring 68/80. LTG Duration 03/02/18 Assessment Summary Assessment Pt had improved quad activiation after manual rx & improved ext. She cont to have lack of terminal ext strength & ROM & is encouraged to cont her HEP. Physical Therapy Plan Frequency and Duration Frequency of Treatment 2x/Week Duration of Treatment 2 months Plan of Care Start Date 12/31/17 Plan of Care End Date 03/02/18 Next Visit Focus/Plan Next Note Type Treatment Note Next Visit Plan Progress knee range into ext & cont to work on squat & stair form
--- NOTE | 2018-02-11 16:53 | PT.OTN ---
Current Diagnoses Complex tear of medial meniscus, current injury, left knee, initial encounter (02/11/18) Other tear of lateral meniscus, current injury, left knee, initial encounter (02/11/18) Physical Therapy Treatment Note PT-OP-A Visit Information Start: 12/31/17 07:26 Freq: Status: Active Protocol: Document 02/11/18 16:32 [facility] (Rec: 02/11/18 16:53 [facility] [id number]) Out-Patient Physical Therapy Visit Information Visit Information Visit Type Treatment Note Visit Note 9 visits this year ( one visit prior to surgery) Visit Start Time 09:45 Visit Stop Time 10:40 Total Visit Minutes 55 Visit Number 8/10 Number of BUSINESS OFFICE SPECIALIST Visits 0 PT-OP-B Current Condition Start: 12/31/17 07:26 Freq: Status: Active Protocol: Document 12/31/17 14:05 [facility] (Rec: 12/31/17 15:03 [facility] [id number]) Current Condition History of Current Condition History of Current Condition Pt had knee pain that started in September and reported she tried 1 PT session, which she had a lot of swelling after so stopped. She had a menisectomy on December 16 and followed up with her MD 2 days ago who took off the bandages . Pt is typically very active and is looking foward to being more functional. Treatment Goals Patient/Caregiver Goals To be able to do yoga, do full walk on [place] & up/down hill, do aqua aerobics. PT-OP-C Subjective Start: 12/31/17 07:26 Freq: Status: Active Protocol: Document 02/11/18 16:32 [facility] (Rec: 02/11/18 16:53 [facility] [id number]) OP-PT Subjective Patient Comments Patient Comments Pt reports she has been doing very well since last sesison. Patient Reported Progress Improving PT-OP-G Mobility & Gait Start: 12/31/17 07:26 Freq: Status: Active Protocol: Document 12/31/17 14:05 [facility] (Rec: 12/31/17 14:32 [facility] [id number]) OP Gait Assessment Comments Gait Comments Inc lat lean over LLE with dec push off and stance time PT-OP-J Posture/Palpation/Skin Start: 12/31/17 07:26 Freq: Status: Active Protocol: Document 12/31/17 14:05 [facility] (Rec: 12/31/17 15:03 [facility] [id number]) Skin Assessment Circumference Measurement 3 Location sup patella Measurement (Centimeters) 48.4 Comments 44.8 R 2 Location fib head Measurement (Centimeters) 42 Comments R 40 1 Location joint line Measurement (Centimeters) 43.2 Comments 40.2 R PT-OP-K Range of Motion Start: 12/31/17 07:26 Freq: Status: Active Protocol: Document 01/06/18 13:45 [facility] (Rec: 01/07/18 12:18 [facility] [id number]) Knee Goniometric Range of Motion Knee Measured in Degrees Left Flexion Active (degrees) 110 Extension Active (degrees) 8 PT-OP-M Strength Start: 12/31/17 07:26 Freq: Status: Active Protocol: Document 12/31/17 14:05 [facility] (Rec: 12/31/17 14:32 [facility] [id number]) Hip Strength Hip Manual Muscle Testing Right Flexion (L2) 5 Normal Extension (S1) 4- Good- Abduction 4- Good- External Rotation 4+ Good+ Internal Rotation 4+ Good+ Left Flexion (L2) 4- Good- Extension (S1) 4- Good- Abduction 4- Good- External Rotation 4- Good- Internal Rotation 4- Good- Knee Strength Knee Manual Muscle Testing Left Flexion (S2) 5 Normal Extension (L3) 4- Good- Comments R WNL Ankle/Foot Strength Ankle and Foot Manual Muscle Testing Right Reason Not Measured WFL Left Reason Not Measured WFL PT-OP-Q Treatments Start: 12/31/17 07:26 Freq: Status: Active Protocol: Document 02/11/18 16:32 [facility] (Rec: 02/11/18 16:53 [facility] [id number]) Therapeutic Exercises Supine Exercises 6 Supine Exercise Name bertha test stretch Standing Exercises 3 Standing Exercise Name SLS Comments with proper alignment for stairs 1 Standing Exercise Name standing squats Comments chair behind Manual Therapy Treatment Soft Tissue Mobilization 2 Body Location HS Mobilization Type Rolling Sustained Pressure Comments FM with knee ext/flex & praying mantus 1 Body Location ant knee Mobilization Type Myofascial Release Comments in prone quad stretch Joint Mobilizations 3 Joint tib fib Direction PA FM 2 Joint tibiofemoral Direction AP on femur & tibia with AP& PA FM Comments w/neuro re edu for quad facilitation PT-OP-R Modalities Start: 12/31/17 07:26 Freq: Status: Active Protocol: Document 02/11/18 16:32 [facility] (Rec: 02/11/18 16:53 [facility] [id number]) Hot Pack/Cold Pack Treatment Cold Pack Location knee Patient Position Hooklying Treatment Duration (minutes) 10 PT-OP-T Assessment and Plan Start: 12/31/17 07:26 Freq: Status: Active Protocol: Document 02/11/18 16:32 [facility] (Rec: 02/11/18 16:53 [facility] [id number]) Physical Therapy Assessment Goals Five Impairment rec activities Short Term Goal (STG) Pt will be able to participate in yoga exercises without inc pain. STG Duration 01/30/18 Stone Setter Apprentice Goal (LTG) Pt will be able to participate in full walk with hills & [place] [address] & do yoga & aqua aerobics. LTG Duration 03/02/18 Four Impairment MMT Usp Goal (LTG) 11/29 to allow return to rec activities. LTG Duration 03/01/18 Two Impairment swelling Short Term Goal (STG) WNL circumference with pt doing appropriate edema management. STG Duration 01/30/18 One Impairment LEFS Stone Setter Apprentice Goal (LTG) Pt will have improved functional mobility as demonstrated by scoring 68/80. LTG Duration 03/02/18 Assessment Summary Assessment Pt is improving with range with therapy with start of 4- 120 and ending with 0-125. Pt improving with stairs, but has dec balance, making a controlled decent difficult. Physical Therapy Plan Frequency and Duration Frequency of Treatment 2x/Week Duration of Treatment 2 months Plan of Care Start Date 12/31/17 Plan of Care End Date 03/02/18 Next Visit Focus/Plan Next Note Type Treatment Note Next Visit Plan Advance ROM & try single leg squat
--- NOTE | 2018-02-18 14:50 | PT.OTN ---
Current Diagnoses Complex tear of medial meniscus, current injury, left knee, initial encounter (02/18/18) Other tear of lateral meniscus, current injury, left knee, initial encounter (02/18/18) Physical Therapy Treatment Note PT-OP-A Visit Information Start: 12/31/17 07:26 Freq: Status: Active Protocol: Document 02/18/18 12:20 [facility] (Rec: 02/18/18 14:48 [facility] [id number]) Out-Patient Physical Therapy Visit Information Visit Information Visit Type Progress Note Visit Note 10 visits this year ( one visit prior to surgery) Visit Start Time 12:15 Visit Stop Time 13:10 Total Visit Minutes 55 Visit Number 08/06 Number of PATIENT CASE COORDINATOR Visits 0 PT-OP-B Current Condition Start: 12/31/17 07:26 Freq: Status: Active Protocol: Document 12/31/17 14:05 [facility] (Rec: 12/31/17 15:03 [facility] [id number]) Current Condition History of Current Condition History of Current Condition Pt had knee pain that started in September and reported she tried 1 PT session, which she had a lot of swelling after so stopped. She had a menisectomy on December 16 and followed up with her MD 2 days ago who took off the bandages . Pt is typically very active and is looking foward to being more functional. Treatment Goals Patient/Caregiver Goals To be able to do yoga, do full walk on [place] [address] & up/down hill, do aqua aerobics. PT-OP-C Subjective Start: 12/31/17 07:26 Freq: Status: Active Protocol: Document 02/18/18 12:20 [facility] (Rec: 02/18/18 14:48 [facility] [id number]) Patient Questionnaires Lower Extremity Functional Scale LEFS Score 73 LEFS Impairment 1 to 19% Impaired (Score 63-79 ) PT-OP-G Mobility & Gait Start: 12/31/17 07:26 Freq: Status: Active Protocol: Document 12/31/17 14:05 [facility] (Rec: 12/31/17 14:32 [facility] [id number]) OP Gait Assessment Comments Gait Comments Inc lat lean over LLE with dec push off and stance time PT-OP-J Posture/Palpation/Skin Start: 12/31/17 07:26 Freq: Status: Active Protocol: Document 12/31/17 14:05 [facility] (Rec: 12/31/17 15:03 [facility] [id number]) Skin Assessment Circumference Measurement 3 Location sup patella Measurement (Centimeters) 48.4 Comments 44.8 R 2 Location fib head Measurement (Centimeters) 42 Comments R 40 1 Location joint line Measurement (Centimeters) 43.2 Comments 40.2 R PT-OP-K Range of Motion Start: 12/31/17 07:26 Freq: Status: Active Protocol: Document 02/18/18 12:20 [facility] (Rec: 02/18/18 14:48 [facility] [id number]) Knee Goniometric Range of Motion Knee Measured in Degrees Left Patient Position Supine Flexion Active (degrees) 127 Extension Active (degrees) 3 PT-OP-M Strength Start: 12/31/17 07:26 Freq: Status: Active Protocol: Document 02/18/18 12:20 [facility] (Rec: 02/18/18 14:48 [facility] [id number]) Hip Strength Hip Manual Muscle Testing Right Flexion (L2) 5 Normal Extension (S1) 4 Good Abduction 4 Good External Rotation 5 Normal Internal Rotation 5 Normal Left Flexion (L2) 5 Normal Extension (S1) 4 Good Abduction 4 Good Adduction 5 Normal External Rotation 4 Good Internal Rotation 5 Normal Knee Strength Knee Manual Muscle Testing Right Flexion (S2) 5 Normal Extension (L3) 5 Normal Left Flexion (S2) 5 Normal Extension (L3) 5 Normal Ankle/Foot Strength Ankle and Foot Manual Muscle Testing Right Dorsiflexion (L4) 5 Normal Plantarflexion (S1) 5 Normal Left Dorsiflexion (L4) 5 Normal Plantarflexion (S1) 5 Normal PT-OP-Q Treatments Start: 12/31/17 07:26 Freq: Status: Active Protocol: Document 02/18/18 12:20 [facility] (Rec: 02/18/18 14:48 [facility] [id number]) Therapeutic Exercises Supine Exercises 5 Supine Exercise Name bridge w/ alt march Sidelying Exercises 2 Sidelying Exercise Name clamshells Equipment Used L2 1 Sidelying Exercise Name abd along wall Reps/Minutes 10 Standing Exercises 4 Standing Exercise Name single leg heel raises Reps/Minutes 20 3 Standing Exercise Name SLS Comments with proper alignment for stairs 2 Standing Exercise Name tandem 1 Standing Exercise Name standing squats Equipment Used L1 around thighs Comments chair behind Gait Training Gait Activity 2 Description gait in mirror Comments cueing for toe off and push off without pelvis ER 1 Description up/down 6 in steps Device Used no rail Comments cueing for form & demo on form & importance & use of mirror Manual Therapy Treatment Soft Tissue Mobilization 1 Body Location ant knee Mobilization Type Myofascial Release Comments in prone quad stretch PT-OP-R Modalities Start: 12/31/17 07:26 Freq: Status: Active Protocol: Document 02/18/18 12:20 [facility] (Rec: 02/18/18 14:50 [facility] [id number]) Hot Pack/Cold Pack Treatment Cold Pack Location knee Patient Position Hooklying Treatment Duration (minutes) 10 PT-OP-T Assessment and Plan Start: 12/31/17 07:26 Freq: Status: Active Protocol: Document 02/18/18 12:20 [facility] (Rec: 02/18/18 14:48 [facility] [id number]) Physical Therapy Assessment Impairments Impairments Balance Edema Gait Pain ROM Soft Tissue Mobility Strength Goals Five Impairment rec activities Short Term Goal (STG) Pt will be able to participate in yoga exercises without inc pain. STG Duration 01/30/18 Sr. Pricing Analyst Goal (LTG) Pt will be able to participate in full walk with hills & [place] [address] & do yoga & aqua aerobics. LTG Duration 03/02/18 Four Impairment MMT Snf Goal (LTG) 5/ to allow return to rec activities. LTG Duration 03/01/18-progressing Three Impairment ROM Snf Goal (LTG) WNL to allow pt go up/down stairs LTG Duration achieved Two Impairment swelling Short Term Goal (STG) WNL circumference with pt doing appropriate edema management. STG Duration achieved One Impairment LEFS Snf Goal (LTG) Pt will have improved functional mobility as demonstrated by scoring 68/80. LTG Duration achieved Assessment Summary Assessment Pt had good range of 2-127 today. she was able to improve to better gait and stair pattern with edu and cueing. Physical Therapy Plan Frequency and Duration Frequency of Treatment 2x/Week Duration of Treatment 2 months Plan of Care Start Date 12/31/17 Plan of Care End Date 03/02/18 Next Visit Focus/Plan Next Note Type Treatment Note Next Visit Plan Advance ROM & try single leg squat
--- NOTE | 2018-02-18 14:53 | PT.OPPN ---
Current Diagnoses Complex tear of medial meniscus, current injury, left knee, initial encounter (02/18/18) Other tear of lateral meniscus, current injury, left knee, initial encounter (02/18/18) Physical Therapy Progress Note PT-OP-A Visit Information Start: 12/31/17 07:26 Freq: Status: Active Protocol: Document 02/18/18 12:20 [facility] (Rec: 02/18/18 14:48 [facility] [id number]) Out-Patient Physical Therapy Visit Information Visit Information Visit Type Progress Note Visit Note 10 visits this year ( one visit prior to surgery) Visit Start Time 12:15 Visit Stop Time 13:10 Total Visit Minutes 55 Visit Number 08/06 Number of CATH LAB TECH Visits 0 PT-OP-B Current Condition Start: 12/31/17 07:26 Freq: Status: Active Protocol: Document 12/31/17 14:05 [facility] (Rec: 12/31/17 15:03 [facility] [id number]) Current Condition History of Current Condition History of Current Condition Pt had knee pain that started in September and reported she tried 1 PT session, which she had a lot of swelling after so stopped. She had a menisectomy on December 16 and followed up with her MD 2 days ago who took off the bandages . Pt is typically very active and is looking foward to being more functional. Treatment Goals Patient/Caregiver Goals To be able to do yoga, do full walk on [place] [address] & up/down hill, do aqua aerobics. PT-OP-C Subjective Start: 12/31/17 07:26 Freq: Status: Active Protocol: Document 02/18/18 12:20 [facility] (Rec: 02/18/18 14:48 [facility] [id number]) Patient Questionnaires Lower Extremity Functional Scale LEFS Score 73 LEFS Impairment 1 to 19% Impaired (Score 63-79 ) PT-OP-G Mobility & Gait Start: 12/31/17 07:26 Freq: Status: Active Protocol: Document 12/31/17 14:05 [facility] (Rec: 12/31/17 14:32 [facility] [id number]) OP Gait Assessment Comments Gait Comments Inc lat lean over LLE with dec push off and stance time PT-OP-J Posture/Palpation/Skin Start: 12/31/17 07:26 Freq: Status: Active Protocol: Document 12/31/17 14:05 [facility] (Rec: 12/31/17 15:03 [facility] [id number]) Skin Assessment Circumference Measurement 3 Location sup patella Measurement (Centimeters) 48.4 Comments 44.8 R 2 Location fib head Measurement (Centimeters) 42 Comments R 40 1 Location joint line Measurement (Centimeters) 43.2 Comments 40.2 R PT-OP-K Range of Motion Start: 12/31/17 07:26 Freq: Status: Active Protocol: Document 02/18/18 12:20 [facility] (Rec: 02/18/18 14:48 [facility] [id number]) Knee Goniometric Range of Motion Knee Measured in Degrees Left Patient Position Supine Flexion Active (degrees) 127 Extension Active (degrees) 3 PT-OP-M Strength Start: 12/31/17 07:26 Freq: Status: Active Protocol: Document 02/18/18 12:20 [facility] (Rec: 02/18/18 14:48 [facility] [id number]) Hip Strength Hip Manual Muscle Testing Right Flexion (L2) 5 Normal Extension (S1) 4 Good Abduction 4 Good External Rotation 5 Normal Internal Rotation 5 Normal Left Flexion (L2) 5 Normal Extension (S1) 4 Good Abduction 4 Good Adduction 5 Normal External Rotation 4 Good Internal Rotation 5 Normal Knee Strength Knee Manual Muscle Testing Right Flexion (S2) 5 Normal Extension (L3) 5 Normal Left Flexion (S2) 5 Normal Extension (L3) 5 Normal Ankle/Foot Strength Ankle and Foot Manual Muscle Testing Right Dorsiflexion (L4) 5 Normal Plantarflexion (S1) 5 Normal Left Dorsiflexion (L4) 5 Normal Plantarflexion (S1) 5 Normal PT-OP-T Assessment and Plan Start: 12/31/17 07:26 Freq: Status: Active Protocol: Document 02/18/18 12:20 [facility] (Rec: 02/18/18 14:48 [facility] [id number]) Physical Therapy Assessment Impairments Impairments Balance Edema Gait Pain ROM Soft Tissue Mobility Strength Goals Five Impairment rec activities Short Term Goal (STG) Pt will be able to participate in yoga exercises without inc pain. STG Duration 03/14/18 Mcfp Goal (LTG) Pt will be able to participate in full walk with hills & [place] [address] & do yoga & aqua aerobics. LTG Duration 03/21/18 Four Impairment MMT Structural Design Engineer Goal (LTG) 5/5 to allow return to rec activities. LTG Duration 8/25/18-progressing Three Impairment ROM Structural Design Engineer Goal (LTG) WNL to allow pt go up/down stairs LTG Duration achieved Two Impairment swelling Short Term Goal (STG) WNL circumference with pt doing appropriate edema management. STG Duration achieved One Impairment LEFS Structural Design Engineer Goal (LTG) Pt will have improved functional mobility as demonstrated by scoring 68/80. LTG Duration achieved Assessment Summary Assessment Pt had good range of 2-127 today. she was able to improve to better gait and stair pattern with edu and cueing. Physical Therapy Plan Frequency and Duration Frequency of Treatment 1x/Week Duration of Treatment 1 months Plan of Care Start Date 02/18/18 Plan of Care End Date 03/21/18 Therapeutic Interventions Therapeutic Interventions Balance Training Gait Training Home Exercise Program Joint Mobilizations Manual Therapy Soft Tissue Mobilization Taping Therapeutic Exercises Modalities Cold Pack/Ice Massage Electric Stimulation Hot Packs Infrared Therapy Ultrasound Next Visit Focus/Plan Next Note Type Treatment Note Next Visit Plan Advance ROM & try single leg squat
--- NOTE | 2018-02-18 14:53 | PT.OPPOC ---
Current Diagnoses Complex tear of medial meniscus, current injury, left knee, initial encounter (02/18/18) Other tear of lateral meniscus, current injury, left knee, initial encounter (02/18/18) Provider Visit Care Team Role Provider Type Iwona Samaniego MD Other Providers Physician Specialty: Orthopedic Surgery Address: [address] [place] [address], [id number] Email: [email or web address] Fabiana Brink DO Family Provider Physician Primary Care Provider Specialty: Family Practice Address: [address] [place] [address], [id number] Email: [email or web address] Geo Burkett MD Attending Provider Physician Specialty: Orthopedics Address: [address] [place] [address], [id number] Email: [email or web address] Plan Of Care PT-OP-T Assessment and Plan Start: 12/31/17 07:26 Freq: Status: Active Protocol: Document 02/18/18 12:20 [facility] (Rec: 02/18/18 14:48 [facility] [id number]) Physical Therapy Assessment Impairments Impairments Balance Edema Gait Pain ROM Soft Tissue Mobility Strength Goals Five Impairment rec activities Short Term Goal (STG) Pt will be able to participate in yoga exercises without inc pain. STG Duration 03/14/18 Snf Goal (LTG) Pt will be able to participate in full walk with hills & [place] [address] & do yoga & aqua aerobics. LTG Duration 03/21/18 Four Impairment MMT Snf Goal (LTG) 5/5 to allow return to rec activities. LTG Duration 03/21/18-progressing Three Impairment ROM Specialist Physicians Goal (LTG) WNL to allow pt go up/down stairs LTG Duration achieved Two Impairment swelling Short Term Goal (STG) WNL circumference with pt doing appropriate edema management. STG Duration achieved One Impairment LEFS Snf Goal (LTG) Pt will have improved functional mobility as demonstrated by scoring 68/80. LTG Duration achieved Assessment Summary Assessment Pt had good range of 2-127 today. she was able to improve to better gait and stair pattern with edu and cueing. Physical Therapy Plan Frequency and Duration Frequency of Treatment 1x/Week Duration of Treatment 1 months Plan of Care Start Date 02/18/18 Plan of Care End Date 03/21/18 Therapeutic Interventions Therapeutic Interventions Balance Training Gait Training Home Exercise Program Joint Mobilizations Manual Therapy Soft Tissue Mobilization Taping Therapeutic Exercises Modalities Cold Pack/Ice Massage Electric Stimulation Hot Packs Infrared Therapy Ultrasound Next Visit Focus/Plan Next Note Type Treatment Note Next Visit Plan Advance ROM & try single leg squat Plan of Care Dates Plan of Care Start Date 02/18/18 Plan of Care End Date 03/21/18 Please Sign and Return: I have reviewed this Plan of Care and certify that the skilled therapy services above are required to meet the patient?s needs. Physician Signature Date Printed Name and Credentials Clinical Instructor Signature Printed Name and Credentials
--- NOTE | 2018-02-26 13:51 | PT.OTN ---
Current Diagnoses Complex tear of medial meniscus, current injury, left knee, initial encounter (02/26/18) Other tear of lateral meniscus, current injury, left knee, initial encounter (02/26/18) Physical Therapy Treatment Note PT-OP-A Visit Information Start: 12/31/17 07:26 Freq: Status: Active Protocol: Document 02/26/18 13:04 [facility] (Rec: 02/26/18 13:50 [facility] [id number]) Out-Patient Physical Therapy Visit Information Visit Information Visit Type Discharge Summary Visit Note 11 visits Visit Start Time 13:00 Visit Stop Time 13:43 Total Visit Minutes 43 Visit Number 09/06 PT-OP-B Current Condition Start: 12/31/17 07:26 Freq: Status: Active Protocol: Document 12/31/17 14:05 [facility] (Rec: 12/31/17 15:03 [facility] [id number]) Current Condition History of Current Condition History of Current Condition Pt had knee pain that started in September and reported she tried 1 PT session, which she had a lot of swelling after so stopped. She had a menisectomy on December 16 and followed up with her MD 2 days ago who took off the bandages . Pt is typically very active and is looking foward to being more functional. Treatment Goals Patient/Caregiver Goals To be able to do yoga, do full walk on [place] [address] [place] & up/down hill, do aqua aerobics. PT-OP-C Subjective Start: 12/31/17 07:26 Freq: Status: Active Protocol: Document 02/26/18 13:04 [facility] (Rec: 02/26/18 13:51 [facility] [id number]) OP-PT Subjective Patient Comments Patient Comments Reports Ravi TITUS has been sore w/ all time [place] her feet [place]. PT-OP-G Mobility & Gait Start: 12/31/17 07:26 Freq: Status: Active Protocol: Document 12/31/17 14:05 [facility] (Rec: 12/31/17 14:32 [facility] [id number]) OP Gait Assessment Comments Gait Comments Inc lat lean over LLE with dec push off and stance time PT-OP-J Posture/Palpation/Skin Start: 12/31/17 07:26 Freq: Status: Active Protocol: Document 12/31/17 14:05 [facility] (Rec: 12/31/17 15:03 [facility] [id number]) Skin Assessment Circumference Measurement 3 Location sup patella Measurement (Centimeters) 48.4 Comments 44.8 R 2 Location fib head Measurement (Centimeters) 42 Comments R 40 1 Location joint line Measurement (Centimeters) 43.2 Comments 40.2 R PT-OP-K Range of Motion Start: 12/31/17 07:26 Freq: Status: Active Protocol: Document 02/18/18 12:20 [facility] (Rec: 02/18/18 14:48 [facility] [id number]) Knee Goniometric Range of Motion Knee Measured in Degrees Left Patient Position Supine Flexion Active (degrees) 127 Extension Active (degrees) 3 PT-OP-M Strength Start: 12/31/17 07:26 Freq: Status: Active Protocol: Document 02/18/18 12:20 [facility] (Rec: 02/18/18 14:48 [facility] [id number]) Hip Strength Hip Manual Muscle Testing Right Flexion (L2) 5 Normal Extension (S1) 4 Good Abduction 4 Good External Rotation 5 Normal Internal Rotation 5 Normal Left Flexion (L2) 5 Normal Extension (S1) 4 Good Abduction 4 Good Adduction 5 Normal External Rotation 4 Good Internal Rotation 5 Normal Knee Strength Knee Manual Muscle Testing Right Flexion (S2) 5 Normal Extension (L3) 5 Normal Left Flexion (S2) 5 Normal Extension (L3) 5 Normal Ankle/Foot Strength Ankle and Foot Manual Muscle Testing Right Dorsiflexion (L4) 5 Normal Plantarflexion (S1) 5 Normal Left Dorsiflexion (L4) 5 Normal Plantarflexion (S1) 5 Normal PT-OP-Q Treatments Start: 12/31/17 07:26 Freq: Status: Active Protocol: Document 02/26/18 13:04 [facility] (Rec: 02/26/18 13:50 [facility] [id number]) Therapeutic Exercises Supine Exercises 2 Supine Exercise Name single leg diagonal abdominal series 1 Supine Exercise Name bridge with september Standing Exercises 5 Standing Exercise Name gait against wall. 1 Standing Exercise Name single leg squats Gait Training Gait Activity 2 Description gait in mirror Comments cueing for toe off and push off without pelvis ER Manual Therapy Treatment Soft Tissue Mobilization 3 Body Location L piriformis 2 Body Location HS Mobilization Type Rolling Sustained Pressure Comments FM with knee ext/flex & praying mantus Joint Mobilizations 5 Joint Sacrum Direction cadual FM 4 Joint hip L Direction on axis ER FM Comments neuro re edu after prolonged hold 1 Joint innominate L Direction caudal FM PT-OP-R Modalities Start: 12/31/17 07:26 Freq: Status: Active Protocol: Document 02/18/18 12:20 [facility] (Rec: 02/18/18 14:50 [facility] [id number]) Hot Pack/Cold Pack Treatment Cold Pack Location knee Patient Position Hooklying Treatment Duration (minutes) 10 PT-OP-T Assessment and Plan Start: 12/31/17 07:26 Freq: Status: Active Protocol: Document 02/26/18 13:04 [facility] (Rec: 02/26/18 13:50 [facility] [id number]) Physical Therapy Assessment Goals Five Impairment rec activities Short Term Goal (STG) Pt will be able to participate in yoga exercises without inc pain. STG Duration 03/14/18-has not tried yoga Ware[employer]ist Goal (LTG) Pt will be able to participate in full walk with hills & [place] & do yoga & aqua aerobics. LTG Duration 03/21/18- walking but has not tried yoga Four Impairment MMT [facility] Goal (LTG) 5/5 to allow return to rec activities. LTG Duration 03/21/1842-[id number] cont w/ HEP Assessment Summary Assessment Pt is indep with HEP and felt better in HS region after STM. pt to cont HEP at home. Physical Therapy Plan Discharge Physical Therapy Discharge Reasons Goals Met Discharge Comments most goals met and pt to cont with HEP for inc strength
== END 2018-03-02 16:11 ==
LOC: PHYS 13:00
PROVIDERS: Family Provider Family Medicine; PCP Family Medicine; Visit Provider Orthopaedic Surgery
DX: S83.282A Other tear of lateral meniscus, current injury, left knee, initial encounter (principal); S83.232A Complex tear of medial meniscus, current injury, left knee, initial encounter
CPT/HCPCS: 97014; 97110; 97116; 97140; 97164; G0283

== ENCOUNTER → 2018-10-09 12:08 | Outpatient (CLI) | payer MEDICARE, SELFPAY ==
[2018-10-09 12:47] LABS: Add Manual Diff / Slide Review NO; Basophils Absolute Auto 0 /uL (0-100); Basophils Percent Auto 0.2 % (0-2); Eosinophils Absolute Auto 100 /uL (0-450); Eosinophils Percent Auto 1.8 % (2-4); Hematocrit 38.5 % (36-46); Hemoglobin 13.1 g/dL (12.0-16.0); Lymphocytes Absolute Auto 1000 /uL (1100-4500); Mean Corpuscular HGB Conc 34.2 % (30-36); Mean Corpuscular Hemoglobin 33.6 PG (26-34); Mean Corpuscular Volume 98.3 fL (80-100); Monocytes Absolute Auto 500 /uL (0-900); Monocytes Percent Auto 10.8 % (3-14); Neutrophils Absolute Auto 2900 /uL (1500-7000); Neutrophils Percent Auto 65.2 % (50-75); Platelet Count 141 X10^3/uL (150-400); Red Blood Cell Count 3.91 X10^6/uL (4.0-5.2); Red Cell Distribution Width 13.1 % (11.6-14.8); White Blood Cell Count 4.4 X10^3/uL (4.5-11.0)
== END ==
PROVIDERS: PCP Family Medicine; Visit Provider Family Medicine
DX: D72.819 Decreased white blood cell count, unspecified (principal)
CPT/HCPCS: 36415; 85025

== ENCOUNTER 2019-01-06 06:58 | Emergency (ER) | payer MEDICARE, SELFPAY ==
[2019-01-06] VITALS (10 sets, daily range): BP systolic 125–153; BP diastolic 63–105; PULSE 54–61; RESP 11–24; TEMP 36.6; O2SAT 98–100; BMI 30.4
--- NOTE | 2019-01-06 07:08 | ED.CHESTPAIN ---
HPI - Chest Pain General Chief Complaint: Chest Pain Stated Complaint: Spasm in ribcage/chest area Time Seen by Provider: 01/06/19 07:03 Source: patient Mode of arrival: ambulatory Limitations: no limitations History of Present Illness HPI narrative: 78-year-old female who is relatively healthy here for evaluation of bilateral chest pain. Patient states that approximately 1 hour prior to arrival here in the emergency department she had a squeezing sensation in her bilateral chest. Not made worse by movement or breathing or palpation. She states that lasted approximately 20 minutes and then resolved completely on its own. Has never had anything like this in the past. She is currently symptom free. Related Data Home Medications Medication Instructions Recorded Confirmed cholecalciferol (vitamin D3) 1,000 1,000 unit PO DAILY 02/20/18 02/20/18 unit capsule cyanocobalamin (vitamin B-12) 1,000 mcg PO DAILY 02/20/18 02/20/18 1,000 mcg capsule Previous Rx's Medication Instructions Recorded rosuvastatin 5 mg tablet 5 mg PO DAILY #90 tab 04/13/18 Allergies Allergy/AdvReac Type Severity Reaction Status Date / Time No Known Drug Allergies Allergy Verified 02/20/18 10:53 Review of Systems Constitutional Denies fever(s) Cardiovascular Reports chest pain, Denies syncope, Denies rapid heart rate, Denies leg edema, Denies palpitations and Denies dyspnea Respiratory Denies cough and Denies dyspnea Gastrointestinal Gastrointestinal: Denies abdominal pain, Denies nausea and Denies vomiting Genitourinary Denies dysuria Musculoskeletal Denies myalgias and Denies arthralgias Integumentary/Breasts Denies rash Neurologic Denies confusion and Denies syncope Psychiatric Denies confusion Endocrine Denies palpitations Hematologic/Lymphatic Denies easy bleeding and Denies easy bruising Allergic/Immunologic Denies urticaria [facility] Medical History 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) Impaired fasting glucose (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) Hyperlipidemia (Chronic 04/14/14) 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) Osteopenia (Chronic 02/21/17) Abnormal Pap smear of cervix (Chronic ~1983) Cervicalgia (Chronic ~2013) Foot pain (Chronic ~2006) Goiter (Chronic ~2013) Neutropenia (Chronic ~2013) Other dietary vitamin B12 deficiency anemia (Chronic ~2013) Thrombocytopenia (Chronic) Vitamin B12 deficiency (Chronic ~2013) Basal cell carcinoma, leg (Resolved ~2013) Chickenpox (Resolved ~1949) Measles (Resolved ~1944) Mononucleosis (Resolved ~1979) Mumps (Resolved ~1946) Shingles (Resolved ~2013) Skin cancer (Resolved ~2013) Elevated LFTs (Inactive) Social History marital status: Smoking Status: Former smoker alcohol intake: current (1-2 A DAY ) substance use type: does not use Exam Initial Vital Signs Initial Vital Signs: Vital Signs Pulse Rate 61 01/06/19 07:00 Respiratory Rate 14 01/06/19 07:00 Blood Pressure 153/64 H 01/06/19 07:00 Pulse Oximetry 99 01/06/19 07:00 Const General: cooperative, comfortable, well developed, well groomed and No acute distress Orientation: alert, awake and oriented x3 HENMT Head: normal to inspection and normocephalic Resp Effort & Inspection: normal respiratory effort Auscultation: clear to auscultation bilaterally Cardio Rate: regular rate Rhythm: regular rhythm Pulses: radial pulses present GI Inspection: non-distended Palpation: soft Skin Lesions: no lesions Rashes: no rashes Neuro General: alert and awake Cognition: normal cognition Speech: speech normal Gait: normal gait Motor: muscle tone normal throughout Sensory Exam: no sensory deficits noted Extrem General: normal to inspection and capillary refill normal Psych Appearance: grossly normal and well kempt Scores GCS Renny coma scale eye opening: Spontaneous [place] coma scale verbal response: Orientated Renny coma scale motor response: Obey commands Renny coma scale total score: 15 HEART Score Heart Score history: Moderately Suspicious Heart Score EKG: Normal Heart Score Age: > or = 65 years old Heart Score risk factors: No known risk factors Heart Score troponin: < or = to normal limit Heart Score Total: 3 Course Orders Ordered: ED Orders 01/06/19 07:04 EKG-12 Lead Stat 01/06/19 07:08 XR chest 1V Stat 01/06/19 07:20 B Type Natriuretic Peptide Stat Complete Blood Count AUTO DIFF Stat Comprehensive Metabolic Panel Stat Lipase Stat Partial Thromboplastin Time Stat Prothrombin Time INR Stat Troponin I Stat 01/06/19 10:15 EKG-12 Lead Stat 01/06/19 10:16 Troponin I Stat Vital Signs - 8 hr 01/06/19 07:00 01/06/19 07:09 01/06/19 07:30 Temperature 97.8 F Pulse Rate 61 61 60 Respiratory Rate 14 20 16 Blood Pressure 153/64 H Blood Pressure [Right Arm] 153/64 H 133/64 Pulse Oximetry 99 98 99 01/06/19 08:00 01/06/19 08:30 01/06/19 09:00 Temperature Pulse Rate 57 L 55 L 56 L Respiratory Rate 14 12 11 L Blood Pressure Blood Pressure [Right Arm] 135/63 135/64 125/69 Pulse Oximetry 98 100 100 01/06/19 10:00 01/06/19 10:30 Temperature Pulse Rate 57 L 55 L Respiratory Rate 11 L 11 L Blood Pressure Blood Pressure [Right Arm] 140/65 133/63 Pulse Oximetry 100 100 MDM - Chest Pain Lab Data Attestation: I reviewed the patient's lab results. Result diagrams: 01/06/19 07:20 01/06/19 07:20 Lab Results 01/06/19 01/06/19 01/06/19 Range/Units 07:20 07:20 07:20 WBC 3.6 L (4.5-11.0) X10^3/uL RBC 3.88 L (4.0-5.2) X10^6/uL Hgb 13.2 (12.0-16.0) g/dL Hct 37.7 (36-46) % MCV 97.3 (80-100) fL MCH 34.1 H (26-34) PG MCHC 35.0 (30-36) % RDW 12.8 (11.6-14.8) % Plt Count 132 L (150-400) X10^3/uL Neut % (Auto) 51.0 (50-75) % Lymph % (Auto) 35.2 (25-40) % [place] % (Auto) 9.8 (3-14) % Eos % (Auto) 3.5 (2-4) % Baso % (Auto) 0.5 (0-2) % Neut # (Auto) 1800 (4667-3406) /uL Lymph # (Auto) 1300 (5699-0098) /uL [place] # (Auto) 300 (0-900) /uL Eos # (Auto) 100 (0-450) /uL Baso # (Auto) 0 (0-100) /uL PT 10.5 (10.1-12.7) SECONDS INR 0.9 (0.9-1.3) APTT 27 (26.4-36.2) SECONDS Sodium 140 (137-145) mmol/L Potassium 4.0 (3.4-5.1) mmol/L Chloride 103 (98-107) mmol/L Carbon Dioxide 30 (22-32) mmol/L BUN 21 H (7-17) mg/dL Creatinine 0.80 (0.52-1.04) mg/dL Estimated GFR > 60.0 (>60) mL/min BUN/Creatinine Ratio 26.3 H (6-22) Glucose 108 (80-110) mg/dL Calcium 9.9 (8.4-10.2) mg/dL Total Bilirubin 0.7 (0.2-1.3) mg/dL AST 124 H (14-36) IU/L ALT 80 H (9-52) IU/L Alkaline Phosphatase 73 (38-126) U/L Troponin I < 0.012 (0.01-0.034) ng/mL B-Natriuretic Peptide < 100 (<100) Total Protein 7.4 (6.3-8.2) g/dL Albumin 4.3 (3.5-5.0) g/dL Globulin 3.1 (1.7-4.1) g/dL Albumin/Globulin Ratio 1.4 (1.0-2.8) Lipase 869 H (23-300) U/L 01/06/19 Range/Units 10:16 WBC (4.5-11.0) X10^3/uL RBC (4.0-5.2) X10^6/uL Hgb (12.0-16.0) g/dL Hct (36-46) % MCV (80-100) fL MCH (26-34) PG MCHC (30-36) % RDW (11.6-14.8) % Plt Count (150-400) X10^3/uL Neut % (Auto) (50-75) % Lymph % (Auto) (25-40) % [place] % (Auto) (3-14) % Eos % (Auto) (2-4) % Baso % (Auto) (0-2) % Neut # (Auto) (6438-8961) /uL Lymph # (Auto) (8436-0601) /uL [place] # (Auto) (0-900) /uL Eos # (Auto) (0-450) /uL Baso # (Auto) (0-100) /uL PT (10.1-12.7) SECONDS INR (0.9-1.3) APTT (26.4-36.2) SECONDS Sodium (137-145) mmol/L Potassium (3.4-5.1) mmol/L Chloride (98-107) mmol/L Carbon Dioxide (22-32) mmol/L BUN (7-17) mg/dL Creatinine (0.52-1.04) mg/dL Estimated GFR (>60) mL/min BUN/Creatinine Ratio (6-22) Glucose (80-110) mg/dL Calcium (8.4-10.2) mg/dL Total Bilirubin (0.2-1.3) mg/dL AST (14-36) IU/L ALT (9-52) IU/L Alkaline Phosphatase (38-126) U/L Troponin I < 0.012 (0.01-0.034) ng/mL B-Natriuretic Peptide (<100) Total Protein (6.3-8.2) g/dL Albumin (3.5-5.0) g/dL Globulin (1.7-4.1) g/dL Albumin/Globulin Ratio (1.0-2.8) Lipase (23-300) U/L Imaging Data Chest x-ray: Radiologist's impression: [address] [address] XRay Report Signed Patient: Rosalina Mejia [facility]#: [id number] : 1940Acct:[id number] Age/Sex: 78 / FDate of Service: 01/06/19 Loc: ED Accession Number: [id number] Procedure: XR chest 1V Ordering Provider: Vinnie Ingram D.O. PROCEDURE: XR CHEST 1V INDICATIONS: Chest pain TECHNIQUE: One view of the chest was acquired. COMPARISON: None. FINDINGS: Surgical changes and devices: None. Lungs and pleura: Lungs are clear. No pleural effusions or pneumothorax. Mediastinum: Mediastinal contours appear normal. Heart size is normal. Bones and chest wall: No suspicious bony lesions. Overlying soft tissues appear unremarkable. IMPRESSION: No acute process. Dictated by: Pacheco Bridges M.D. on 01/06/2019 at 8:06 Approved by: Pacheco Bridges M.D. on 01/06/2019 at 8:07 ECG Data Attestation: I personally reviewed and interpreted this ECG as follows: Prior ECG tracings: not available for review Interpretation: Sinus bradycardia extend ventricular rate of 58 Normal axis Normal QRS Normal QTC No ST T wave changes Repeat EKG time 1007 hours Sinus bradycardia Ventricular rate of 52 Unchanged from prior EKG MDM Narrative Medical decision making narrative: Patient has been asymptomatic since being here in the emergency department. EKG is been negative x2. Troponins negative x2. Has a heart score of 3. We did discuss her elevated LFTs and lipase. She is not tender over these areas. Low suspicion for pancreatitis and gallbladder pathology. Informed her she needed to talk with her primary doctor regarding his potentially for a outpatient ultrasound. We also talked the importance of her following up with her primary doctor in order to obtain outpatient stress testing. We discussed return precautions and follow-up instructions. She expressed understanding and agreement plan. Discharge Plan Departure Patient Disposition: Home Clinical Impression: Atypical chest pain, Elevated lipase, Elevated liver enzymes Instructions: DI for Atypical Chest Pain Activity Restrictions/Additional Instructions: Recommend that you talk with your primary doctor regarding the indications for a stress test. If your symptoms worsen or return please return to the emergency department. Also talk with your primary doctor regarding your elevated liver enzymes and lipase. Prescriptions: No Action rosuvastatin [Crestor] 5 mg tablet 5 mg PO DAILY Qty: 90 RF: 0 cholecalciferol (vitamin D3) 1,000 unit capsule 1,000 unit PO DAILY RF: 0 cyanocobalamin (vitamin B-12) 1,000 mcg capsule 1,000 mcg PO DAILY RF: 0 Referrals: Fabiana Brink DO [Primary Care Provider] -
[2019-01-06 07:43] LABS: Add Manual Diff / Slide Review NO; Basophils Absolute Auto 0 /uL (0-100); Basophils Percent Auto 0.5 % (0-2); Eosinophils Absolute Auto 100 /uL (0-450); Eosinophils Percent Auto 3.5 % (2-4); Hematocrit 37.7 % (36-46); Hemoglobin 13.2 g/dL (12.0-16.0); Lymphocytes Absolute Auto 1300 /uL (1100-4500); Lymphocytes Percent Auto 35.2 % (25-40); Mean Corpuscular Hemoglobin 34.1 PG (26-34); Mean Corpuscular Volume 97.3 fL (80-100); Monocytes Absolute Auto 300 /uL (0-900); Monocytes Percent Auto 9.8 % (3-14); Neutrophils Absolute Auto 1800 /uL (1500-7000); Platelet Count 132 X10^3/uL (150-400); Red Blood Cell Count 3.88 X10^6/uL (4.0-5.2); Red Cell Distribution Width 12.8 % (11.6-14.8); White Blood Cell Count 3.6 X10^3/uL (4.5-11.0)
[2019-01-06 07:46] LABS: INR 0.9 (0.9-1.3); Prothrombin Time 10.5 SECONDS (10.1-12.7)
[2019-01-06 07:48] LABS: PTT Partial Thromboplastin Tim 27 SECONDS (26.4-36.2)
[2019-01-06 07:50] LABS: Alanine Aminotransferase 80 IU/L (9-52); Albumin 4.3 g/dL (3.5-5.0); Albumin Globulin Ratio 1.4 (1.0-2.8); Alkaline Phosphatase 73 U/L (38-126); Aspartate Aminotransferase 124 IU/L (14-36); BUN Creatinine Ratio 26.3 (6-22); Bilirubin Total 0.7 mg/dL (0.2-1.3); Blood Urea Nitrogen 21 mg/dL (7-17); Calcium 9.9 mg/dL (8.4-10.2); Carbon Dioxide 30 mmol/L (22-32); Chloride 103 mmol/L (98-107); Estimated Glomerular Filt Rate > 60.0 mL/min (>60); Globulin 3.1 g/dL (1.7-4.1); Glucose 108 mg/dL (80-110); HEMOLYSIS < 15 (0-50); Lipase 869 U/L (23-300); Sodium 140 mmol/L (137-145); Total Protein 7.4 g/dL (6.3-8.2)
[2019-01-06 07:56] LABS: B Type Natriuretic Peptide < 100 (<100)
[2019-01-06 08:02] LABS: Troponin I < 0.012 ng/mL (0.01-0.034)
--- NOTE | 2019-01-06 09:10 | PC.NURSE ---
MD wilfrid guerrero.
[2019-01-06 10:56] LABS: Troponin I < 0.012 ng/mL (0.01-0.034)
== END 2019-01-06 11:21 | disposition home or self-care (01) ==
PROVIDERS: Emergency Provider Emergency Medicine; PCP Family Medicine
DX: R07.89 Other chest pain (principal); R74.8 Abnormal levels of other serum enzymes; K85.90 Acute pancreatitis without necrosis or infection, unspecified; K86.1 Other chronic pancreatitis
CPT/HCPCS: 36415; 36591; 71045; 74177; 80053; 83690; 83880; 84484; 85025; 85610; 85730; 93005; 99283; 99285; Q9967

== ENCOUNTER → 2019-01-06 14:03 | Outpatient (CLI) | payer MEDICARE, SELFPAY ==
--- NOTE | 2019-01-06 | DI.CT.S_ITS ---
PROCEDURE: CT ABDOMEN PELVIS W CON INDICATIONS: Other chronic pancreatitis TECHNIQUE: After the administration of intravenous contrast, 5 mm thick sections acquired from the diaphragm to the symphysis. 5 mm coronal and sagittal reformats were acquired. For radiation dose reduction, the following was used: automated exposure control, adjustment of mA and/or kV according to patient size. COMPARISON: None. FINDINGS: Image quality: Excellent. ABDOMEN: Lung bases: Lung bases are clear. Heart size is normal. Solid organs: Liver is normal in size and enhancement. A 2.2 cm diameter calcified gallstone is present within the fundus. No gallbladder wall thickening or pericholecystic fluid.. Biliary system is non dilated. Pancreas enhances normally no findings to suggest pancreatic necrosis or peripancreatic free fluid. No pancreatic calcifications.. Spleen is normal in size and enhancement. No adrenal nodules. Kidneys demonstrate normal size and enhancement, without hydronephrosis. Peritoneum and bowel: Bowel loops demonstrate normal wall thickness and caliber. There are scattered sigmoid diverticula. No evidence for diverticulitis. No free fluid or air. Nodes and vessels: No retroperitoneal or mesenteric adenopathy by size criteria. Aorta and inferior vena cava are normal in size. Miscellaneous: No ventral hernias. PELVIS: Genitourinary: Bladder wall thickness is normal. Miscellaneous: No inguinal hernias or adenopathy. Bones: No suspicious bony lesions. No vertebral body compression fractures. IMPRESSION: 1. No acute intra-abdominal findings. Diverticulosis. No acute diverticulitis. 2. Normal CT appearance of the pancreas. No peripancreatic fluid collections, pancreatic necrosis, or pancreatic calcifications. 3. Cholelithiasis. No findings to suggest choledocholithiasis or acute cholecystitis. Dictated by: Stacy Oneal M.D. on 01/06/2019 at 16:13 Approved by: Stacy Oneal M.D. on 01/06/2019 at 16:18
== END ==
PROVIDERS: PCP Family Medicine; Visit Provider Family Medicine
DX: K86.1 Other chronic pancreatitis (principal)
CPT/HCPCS: 74177; Q9967

== ENCOUNTER → 2019-01-07 07:24 | Outpatient (CLI) | payer MEDICARE, SELFPAY ==
[2019-01-07 08:07] LABS: Alanine Aminotransferase 90 IU/L (9-52); Albumin 4.6 g/dL (3.5-5.0); Albumin Globulin Ratio 1.4 (1.0-2.8); Alkaline Phosphatase 75 U/L (38-126); Aspartate Aminotransferase 60 IU/L (14-36); BUN Creatinine Ratio 22.2 (6-22); Bilirubin Total 1.3 mg/dL (0.2-1.3); Blood Urea Nitrogen 20 mg/dL (7-17); Calcium 9.5 mg/dL (8.4-10.2); Carbon Dioxide 27 mmol/L (22-32); Chloride 102 mmol/L (98-107); Estimated Glomerular Filt Rate > 60.0 mL/min (>60); Globulin 3.4 g/dL (1.7-4.1); Glucose 105 mg/dL (80-110); Lipase 186 U/L (23-300); Sodium 139 mmol/L (137-145)
[2019-01-07 08:17] LABS: HEMOLYSIS 60 (0-50)
[2019-01-07 08:18] LABS: Potassium 4.6 mmol/L (3.4-5.1)
== END ==
PROVIDERS: PCP Family Medicine; Visit Provider Family Medicine
DX: K85.90 Acute pancreatitis without necrosis or infection, unspecified (principal)
CPT/HCPCS: 36415; 80053; 83690

== ENCOUNTER → 2019-01-07 14:28 | Outpatient (CLI) | payer MEDICARE, SELFPAY ==
--- NOTE | 2019-01-07 14:29 | DI.US.S_ITS ---
PROCEDURE: US ABDOMEN COMPLETE INDICATIONS: ELEVATED LFT'S, LIPASE TECHNIQUE: Real-time scanning was performed of the abdominal and retroperitoneal organs, with image documentation. COMPARISON: [facility], CT, CT ABDOMEN PELVIS W CON, 01/06/2019, 14:41. FINDINGS: Liver: The liver demonstrates normal size. The liver demonstrates generalized increased echogenicity. This decreases ultrasound sensitivity for detection of hepatic masses. Gallbladder: A gallstone is seen within the gallbladder. The gallbladder wall is not thickened, measuring 3 mm or less. No specific pericholecystic fluid is seen. The sonographic Pardo sign is negative. Biliary ducts: Intrahepatic bile ducts are non-dilated. Extrahepatic bile duct caliber measures 5-6 mm. Normal is 6-7 mm or less in diameter, or 10 mm or less post-cholecystectomy. Pancreas: Visualized portions of the pancreas are sonographically normal. Spleen: Spleen is normal in size and homogeneous in echotexture. Kidneys: Kidneys are normal in size and echotexture. Right kidney measures 9.9 cm long; left kidney measures 10.6 cm long. No hydronephrosis or nephrolithiasis. No solid masses. Aorta: Visualized aorta is normal in caliber at less than 3 cm. Iliacs: Proximal common iliac arteries are normal in caliber at less than 2.5 cm. IVC: Intrahepatic inferior vena cava is patent. Miscellaneous: No free abdominal fluid. IMPRESSION: A gallstone is seen, without additional sonographic signs of cholecystitis. Please correlate with physical examination findings, patient presentation, and laboratory values. The liver demonstrates increased echogenicity. This finding is nonspecific, yet it is most commonly attributed to fatty infiltration. Dictated by: Efrem Dailey M.D. on 01/07/2019 at 14:36 Approved by: Efrem Dailey M.D. on 01/07/2019 at 14:37
== END ==
PROVIDERS: PCP Family Medicine; Visit Provider Family Medicine
DX: R07.89 Other chest pain (principal); R74.8 Abnormal levels of other serum enzymes; K80.20 Calculus of gallbladder without cholecystitis without obstruction
CPT/HCPCS: 36415; 76700; 80053; 83690

== ENCOUNTER → 2019-02-17 08:28 | Outpatient (CLI) | payer MEDICARE, SELFPAY ==
[2019-02-17 09:42] LABS: Add Manual Diff / Slide Review NO; Basophils Absolute Auto 0 /uL (0-100); Basophils Percent Auto 0.5 % (0-2); Eosinophils Absolute Auto 100 /uL (0-450); Eosinophils Percent Auto 2.5 % (2-4); Hematocrit 36.9 % (36-46); Hemoglobin 12.9 g/dL (12.0-16.0); Lymphocytes Absolute Auto 900 /uL (1100-4500); Lymphocytes Percent Auto 27.3 % (25-40); Mean Corpuscular Hemoglobin 34.1 PG (26-34); Mean Corpuscular Volume 97.3 fL (80-100); Monocytes Absolute Auto 300 /uL (0-900); Monocytes Percent Auto 10.6 % (3-14); Neutrophils Absolute Auto 1900 /uL (1500-7000); Neutrophils Percent Auto 59.1 % (50-75); Platelet Count 120 X10^3/uL (150-400); Red Blood Cell Count 3.79 X10^6/uL (4.0-5.2); Red Cell Distribution Width 12.7 % (11.6-14.8); White Blood Cell Count 3.2 X10^3/uL (4.5-11.0)
[2019-02-17 09:52] LABS: Prothrombin Time 11.2 SECONDS (10.1-12.7)
[2019-02-17 09:55] LABS: PTT Partial Thromboplastin Tim 29 SECONDS (26.4-36.2)
[2019-02-17 10:20] LABS: Alanine Aminotransferase 20 IU/L (9-52); Albumin 4.2 g/dL (3.5-5.0); Albumin Globulin Ratio 1.3 (1.0-2.8); Alkaline Phosphatase 66 U/L (38-126); Aspartate Aminotransferase 28 IU/L (14-36); BUN Creatinine Ratio 24.4 (6-22); Bilirubin Total 0.7 mg/dL (0.2-1.3); Blood Urea Nitrogen 22 mg/dL (7-17); Calcium 9.7 mg/dL (8.4-10.2); Carbon Dioxide 30 mmol/L (22-32); Chloride 103 mmol/L (98-107); Cholesterol 190 mg/dL (140-199); Estimated Glomerular Filt Rate > 60.0 mL/min (>60); Globulin 3.3 g/dL (1.7-4.1); Glucose 114 mg/dL (80-110); HDL Cholesterol 54 mg/dL (40-60); HEMOLYSIS < 15 (0-50); LDL Cholesterol Calculated 113 mg/dL (<100); Potassium 4.4 mmol/L (3.4-5.1); Sodium 139 mmol/L (137-145); Total Protein 7.5 g/dL (6.3-8.2); Triglycerides 113 mg/dL (35-150)
[2019-02-17 10:42] LABS: Thyroid Stimulating Hormone 1.19 uIU/mL (0.47-4.68)
== END ==
PROVIDERS: PCP Family Medicine; Visit Provider Orthopaedic Surgery Orthopaedic Surgery of the Spine
DX: M43.16 Spondylolisthesis, lumbar region (principal); M48.062 Spinal stenosis, lumbar region with neurogenic claudication; Z01.818 Encounter for other preprocedural examination; D69.6 Thrombocytopenia, unspecified; D72.819 Decreased white blood cell count, unspecified; E78.5 Hyperlipidemia, unspecified
CPT/HCPCS: 80053; 80061; 84443; 85025; 85610; 85730; 93005

== ENCOUNTER 2019-03-04 06:22 | Inpatient (IN) | payer MEDICARE, SELFPAY ==
[2019-02-22 09:38] VITALS: BMI 29.6
[2019-03-04] VITALS (23 sets, daily range): BP systolic 108–131; BP diastolic 48–70; PULSE 63–77; RESP 8–20; TEMP 35.4–36.8; O2SAT 94–100; BMI 28.4
--- NOTE | 2019-03-04 | DI.RAD.S_ITS ---
PROCEDURE: XR LUMBAR SPINE 2-3V INDICATIONS: L2-3 TLIF TECHNIQUE: 2 fluoroscopic views of the lumbar spine were acquired intraoperatively. COMPARISON: CT abdomen and pelvis 01/06/2019. FINDINGS: Newly placed right paramedian intervertebral body spacer and pedicle screws at L2-L3. IMPRESSION: Satisfactory post procedural appearance. Dictated by: Amandeep Hearn M.D. on 03/04/2019 at 10:43 Approved by: Amandeep Hearn M.D. on 03/04/2019 at 10:47
[2019-03-04] MEDS: LACTATED RINGERS 1,000 ML 42 ML IV ×2 (07:10→10:22)
--- NOTE | 2019-03-04 07:37 | PM.PREOP ---
Pre-operative Note Interval Note History & Physical reviewed/Exam performed by Physician: Yes Changes to H&P: No
[2019-03-04] MEDS: CEFAZOLIN 2 GM/100 ML FROZ.PIGGY IV ×3 (07:47→23:35)
[2019-03-04] MEDS: ACETAMINOPHEN IV 1,000 MG/100 ML VIAL 400 MG IV (08:30)
--- NOTE | 2019-03-04 08:33 | SUR.OPER ---
Prone on spine table, head in foam head support, padded chest and pelvic supports, gel pad at knees, lower legs supported by pillows; nipples, genitalia and toes free of pressure, arms secured on foam padded arm boards at <90 degrees abduction. Tape over blanket at thigh secured to table.
[2019-03-04] MEDS: BUPIVACAINE 0.25% W/ EPI 30 ML VIAL INJ (08:43)
[2019-03-04] MEDS: BUPIVACAINE LIPOSOME 266 MG/20 ML VIAL INJ (08:46)
--- NOTE | 2019-03-04 10:36 | P.OP_ITS ---
Operative Date/Time/Diagnoses Date of procedure: 03/04/19 Time of procedure: 08:08 Pre-op diagnosis: 1. L2-3, L3-4 spinal stenosis 2. 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 L2-3 Postero-lateral and posterior interbody fusion 2. L2-3 interbody cage placement. 3. L2-3 decompressive laminectomy with bilateral facetecomies 4. L2-3 Posterior non-segmental instrumentation 5. L3-4 hemilaminectomy 6. [place] of bone marrow from iliac crest 7. Utilization of microsurgical technique and operating microscope Same procedure as scheduled: Yes Indications: Patient has been having chronic back pain and worsening lumbar radiculopathy. Patient failed multiple conservative management with worsening pain weakness and numbness in her lower extremity. Patient has been having difficulty performing activity of daily living. After discussing risks benefits of treatment options, patient elected proceed with surgery. Surgeon: Tasha Du Traffic Operations Manager: Eleni Arcos'Brien Click Yes if Unassisted: No Anesthesia Type: General Operative Notes Closure Type: primary Specimen(s): none sent Prosthetic devices, grafts, tissues, transplants, or devices: Globus revolve screws, Rise cage Estimated Blood Loss (mL): 50 Blood products transfused: none Procedure in detail: Patient was seen in the preoperative area. Risks and benefits of the surgery was discussed with the patient. Informed consent was obtained from the patient and placed in the chart. Surgical site was marked. Patient was taken to the operative room. General anesthesia was administered. Prophylactic antibiotic was given to the patient less than 30 min before the incision was made. Patient was placed into a prone position on the Flynn table. Patient's back was then prepped and draped in the sterile fashion. Time-out was performed at this time. Using AP and lateral C-arm imaging the interval between L2-3 L3-4 was identified and marked on patient's back. A 2 inch incision 2 in from midline was made on the right side first. The fascia was incised in line with skin incision. Globus MARS retractors was placed inside the incision and docked onto the L2 lamina. Using microsurgical technique and operating microscope, a L2 laminectomy and L2- 3 facetectomy was performed using a Kerrison rongeur. The disc space at L2-3 was identified. And a total diskectomy was performed at L2-3 level. The endplates were decorticated using a rasp and shaver. The total diskectomy and decortication was performed at L2-3 level in order to to accomplish a L2-3 fusion. The local bone from the laminectomy and facetectomy was saved for local bone grafting. After the total diskectomy and decortication was completed, Globus viacell bone graft material was combined with local bone that was harvested earlier. At this time, a separate skin is incision was made over the iliac crest. A Jamshidi needle was inserted into the iliac crest through a separate skin incision. 5 cc of bone marrow aspiration was obtained through the separate skin incision using a Jamshidi needle from the iliac crest. The bone marrow aspiration was combined with local bone and the via cell bone grafting material. The bone grafting material was placed into the L2-3 interbody space along with a expandable cage. The cage was expanded to its maximum height using the torque limiting screwdriver. At this time the MARS retractor was redirected over the L3 lamina. Using microsurgical technique and operating microscope, a L3-4 heminectomy was performed using the Kerrison rongeur. The ligamentum flavum was also resected at the side of the hemilaminectomy for further decompression of the epidural space. At this time a mirror image incision was made on the left side. The fascia was incised in line with the skin incision. Globus MARS retractor was inserted and docked onto the L2-3 posterolateral gutter. Using the power drill, posterior- lateral decortication was performed at L2-3 level until bleeding cortical bone was identified. The remaining bone grafting material was placed into the L2-3 posterior lateral gutter he order to accomplish posterolateral fusion at the L2- 3 level. Using the double C-arm technique, pedicle screws were placed into the L2 and L3 pedicles bilaterally. This was done by placing the Jamshidi needle into the pedicles, then placing the guidewires over the Jamshidi needle, and finally placing the cannulated screws over the guidewires bilaterally. After the pedicle screws were placed, 2 titanium rods was locked into the heads of the pedicle screws using locking caps and torque limiting screwdriver. After all the hardware was placed, and confirmed with AP and lateral C-arm imaging, the wound was then irrigated with sterile normal saline and packed with Ray-Morales gauze for 3 min to accomplish hemostasis. After the gauze was removed the deep fascia was closed with #1 Vicryl suture. The subcutaneous layer was closed with 2-0 Vicryl. The skin was closed with skin andrés. Patient tolerated the procedure well. There were no complications. Complications: none Condition: stable Disposition: PACU Plan for aftercare: Admit to inpatient hospital
[2019-03-04] MEDS: HYDROMORPHONE 2 MG INJ 0.25 MG IV ×8 (10:49→11:44)
[2019-03-04] MEDS: hydrOXYzine 50 MG/ML INJ 25 MG IM (11:20)
--- NOTE | 2019-03-04 11:37 | SUR.PHASEI ---
O2 sat 89-91% RA, 2lnc applied. sats 97%. Report to
--- NOTE | 2019-03-04 12:10 | SUR.PHASEI ---
Resumed care. VS stable.
--- NOTE | 2019-03-04 12:20 | SUR.PHASEI ---
Report called to Radha.
--- NOTE | 2019-03-04 12:27 | SUR.PHASEI ---
Pt RR 8 per min. Will keep pt in PACU per floor protocol.
--- NOTE | 2019-03-04 13:02 | SUR.PHASEI ---
pt awake, sats 99%ra. RR 12+/min.
--- NOTE | 2019-03-04 13:34 | SUR.PHASEI ---
Pt transferred to the floor. VS stable. IV saline locked. Belongings bag and black bag with patient. Report to Radha. Small amt of bloody drainage to steri-strips.
--- NOTE | 2019-03-04 13:53 | CM.DANOTE ---
DCP: Case received, EMR reviewed and met with patient. Introduced self and role. Family, and son and [id number] were also at bedside. Was able to obtain baseline health information from patient. DCP assessment completed with information currently available. Patient is a 78 year old female who admitted early this morning to the care of the orthopedic team. PCP: Dr. Brink. Payer: confirmed: Medicare/[employer]. Patient came to the hospital for a surgical procedure. She had a left hemilaminectomy L3-4. Patient had just come back from recovery. She had family in her room. , Leif, was at bedside. Also, son and [id number] were visiting from [place]. Patient is alert and oriented, was awake, laying in bed. She resides here in [place] with her spouse, Leif. Patient is independent at home, and has no DME at this time. They live in a home with a day-light basement, so she is able to stay on the main floor post surgery. P: DCP to follow closely. Goal of patient is home after surgery, with the support of her . Will see how patient does with physical therapy. Mirella Schmitt RN/Sexual Assault Nurse
[2019-03-04] MEDS: SODIUM CHLORIDE 0.9% 1,000 ML 100 ML IV (14:21)
[2019-03-04] MEDS: OXYCODONE IR 5 MG TABLET PO ×3 (16:33→23:22)
--- NOTE | 2019-03-04 17:35 | PT.IIE ---
Current Diagnoses Spondylolisthesis, lumbar region (03/04/19) Spinal stenosis, lumbar region with neurogenic claudication (03/04/19) Surgery Performed Operation Date: 03/04/19 07:45 Actual Procedures p L2-3 TLIF with posterior instrumentation, L3-4 hemilaminectomy Left - Tasha Du MD Surgical History (Last Updated 02/22/19 @ 10:07 by Rosalina Ahuja RN) Hx of arthroscopy of left knee (Acute ~2017) History of airway aspiration (Resolved ~07/19/14) History of tonsillectomy S/P total abdominal hysterectomy and bilateral salpingo-oophorectomy (~1989) Status post appendectomy (~1957) Status post arthroscopy (~2010) Status post biopsy (~2013) Status post colonoscopy (~2009) Status post hysterectomy (~1989) Medical History (Last Reviewed 01/06/19 @ 07:13 by Vinnie Ingram DO) 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) Impaired fasting glucose (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) Hyperlipidemia (Chronic 04/14/14) 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) Osteopenia (Chronic 02/21/17) Abnormal Pap smear of cervix (Chronic ~1983) Cervicalgia (Chronic ~2013) Foot pain (Chronic ~2006) Goiter (Chronic ~2013) Neutropenia (Chronic ~2013) Other dietary vitamin B12 deficiency anemia (Chronic ~2013) Thrombocytopenia (Chronic) Vitamin B12 deficiency (Chronic ~2013) Basal cell carcinoma, leg (Resolved ~2013) Chickenpox (Resolved ~1949) Measles (Resolved ~1944) Mononucleosis (Resolved ~1979) Mumps (Resolved ~1946) Shingles (Resolved ~2013) Skin cancer (Resolved ~2013) Elevated LFTs (Inactive) Physical Therapy Inpatient Evaluation/Re-Eval M1 PT/OT-IP Prior Functional Status Start: 03/04/19 17:25 Freq: NEEDED Status: Active Protocol: Document 03/04/19 17:25 BRITTANY (Rec: 03/04/19 17:35 BRITTANY [id number]) Medical Review Prior Functional Status Medical History Reviewed Yes Diet/Fluid Consistency Regular Communication Normal Mobility and Gait Indep Social History Household Members spouse Living Arrangements House Number of Floors (Floors) One Floor Home Environment Standard Height Toilet Home Equipment Front Wheel Walker Straight Cane Employment Status Retired M2 PT-IP Current Condition Start: 03/04/19 17:25 Freq: NEEDED Status: Active Protocol: Document 03/04/19 17:25 EA (Rec: 03/04/19 17:35 EA [id number]) Physical Therapy Current Condition Current Condition Evaluation Date 03/04/19 Onset Date s/p L2-L3, L3L-4 POSTELAT INTER BODY FUSION, W/ INSTRU AND LAMI Precautions Lumbar Precautions Log Roll Weight Bearing Status Weight Bearing Status Weight Bear as Tolerated M3 PT-IP Subjective Start: 03/04/19 17:25 Freq: NEEDED Status: Active Protocol: Document 03/04/19 17:25 EA (Rec: 03/04/19 17:35 EA [id number]) Subjective Physical Therapy Visit Type Type Initial Evaluation Visit Start Time 16:50 Visit Stop Time 17:20 Total Visit Minutes 30 Therapy Pain Assessment Pain When Pain Assessed At Rest M4 PT-IP Mobility and Gait Start: 03/04/19 17:25 Freq: NEEDED Status: Active Protocol: Document 03/04/19 17:25 EA (Rec: 03/04/19 17:35 EA [id number]) PT-Bed Mobility Assessment Rolling Type of Rolling Log Rolling Level of Assist Contact Guard Assistance Supine to Sit Supine to Sit Minimal Assistance Sit to Supine Sit to Supine Minimal Assistance Scooting Scooting to Edge of Bed Standby Assistance PT-Transfer Assessment Sit to and From Stand Sit to and from Stand Standby Assistance Equipment Transfer Assistive Device Front Wheeled Walker Orthotic/Prosthetic Devices or Brace: No Transfers Transfer Destination Bed Chair Toilet Transfer Ability Level of Assist Contact Guard Assistance Gait Assessment Gait Gait Assistance Required: Standby Assistance Able to Maintain Weight Bearing Status Yes During Gait Assistive Devices Assistive Device Front Wheeled Walker Gait Deviations General Gait Pattern Decreased Stride Length Decreased Feet Clearance Factors Limiting Gait Function Factors Limiting Gait Function Decreased Activity Tolerance PT-Balance Assessment Sitting Balance and Reactions Static Sitting Balance Ability Good Dynamic Sitting Balance Ability Good Standing Balance and Reactions Static Standing Balance Ability Good Dynamic Standing Balance Ability Fair M5 PT-IP Objective Assessments Start: 03/04/19 17:25 Freq: NEEDED Status: Active Protocol: Document 03/04/19 17:25 EA (Rec: 03/04/19 17:35 EA [id number]) Orientation Orientation/Cognition Level of Alertness Alert Orientation Name Month Year Language Function Ability No Deficits Noted Safety Awareness Understands Safety Issues Gross Range of Motion Upper Extremity ROM Assessment Within Functional Limits Lower Extremity ROM Assessment Within Functional Limits Strength Upper Extremity Strength Assessment Within Functional Limits Lower Extremity Strength Assessment Within Functional Limits Coordination Assessment Gross Coordination Gross Coordination WNL Assessment Foot Tapping Test Normal Performance Heel on Jose Test Normal Performance Sensation Assessment Sensation Gross Sensation WNL Light Touch Intact Proprioception (Position) Intact M6 PT-IP Treatment Start: 03/04/19 17:25 Freq: NEEDED Status: Active Protocol: Document 03/04/19 17:25 EA (Rec: 03/04/19 17:35 EA [id number]) Physical Therapy Treatment Exercises Exercises Ankle Pumps Education Education Provided Precautions Weight Bearing Status Post-Op Packet Safety M7 PT-IP Assessment and Plan Start: 03/04/19 17:25 Freq: NEEDED Status: Active Protocol: Document 03/04/19 17:25 EA (Rec: 03/04/19 17:35 EA [id number]) PT Summary Assessment and Plan Potential Rehabilitation Potential Good Status of Condition at Evaluation Stable Summary Impairments Pain Bed Mobility Transfers Gait Activity Tolerance Assessment Summary Pt demonstrates minimal difficulty with transfers and mobility due to pain and decreased tolerance. Pt requires assistance in all transfers and mobility for safety at this time. She will benefit with skilled PT to reach functional independence in transfers and mobility prior to discharge. She demonstrates good potential for recovery. Goals Bed Mobility Goal Independent Transfer Goal Independent Gait Goal Independent Gait Distance 70 FT Days to Meet Goals 2 Frequency of Treatment Frequency Of Treatment Twice a Day Treatment Plan Physical Therapy Treatment Plan Bed Mobility Training Transfer Training Gait Training Therapeutic Exercise Balance Retraining Post Op Education Discharge Planning Hot or Cold Pack Recommendations To Nursing Amount of Assist Needed 1 Person Assist Discharge Recommendations PT Discharge Recommendations Home with Assistance
[2019-03-04] MEDS: SENNOSIDES 8.6 MG TABLET 17.2 MG PO (20:02)
[2019-03-04] MEDS: DOCUSATE 100 MG CAPSULE PO (20:03)
--- NOTE | 2019-03-04 23:49 | PC.NURSE ---
Addendum entered by Maryjo Araiza R.N. 03/05/19 06:37: States pain is currently 5/10 after getting up to BSC; medicated with Oxycodone. Original Note: Patient is alert and oriented. Breath sounds CTA with RA sat of 99%. HRR. Denies nausea. BT present and states she has passed a little flatus. Able to turn self in bed. Gets up to BSC with walker and 1 assist; denies weakness/unsteadines. Dressing to back is CDI. CMS intact bilaterally. Complained of 5/10 sharp back/abdominal pain at shift change and was medicated with Oxycodone. Was wearing footie SCD's but refusing them overnight as they don't allow me to sleep; reminded of purpose and still declines so reminded to ankle wave when awake. Fall risk score is moderate; bed alarm is activated.
[2019-03-05] MEDS: SODIUM CHLORIDE 0.9% 1,000 ML 100 ML IV (01:29)
[2019-03-05 03:14] VITALS: BP 113/50; PULSE 71; RESP 18; TEMP 36.9; O2SAT 99
[2019-03-05] MEDS: OXYCODONE IR 5 MG TABLET PO ×2 (06:36→13:46)
[2019-03-05 08:00] VITALS: BP 126/55; PULSE 69; RESP 16; TEMP 37; O2SAT 95
[2019-03-05] MEDS: ROSUVASTATIN 10 MG TABLET 5 MG PO (08:58)
[2019-03-05] MEDS: CYANOCOBALAMIN (VITAMIN B-12) 500 MCG TABLET 1000 MCG PO (08:58)
[2019-03-05] MEDS: DOCUSATE 100 MG CAPSULE PO (08:58)
[2019-03-05] MEDS: CHOLECALCIFEROL (VITAMIN D3) 1,000 UNIT TABLET 5000 UNIT PO (08:59)
--- NOTE | 2019-03-05 09:19 | PM.PNPO.1 ---
Subjective Date Patient Seen: 03/05/19 Time Patient Seen: 09:19 Interval history: POD 1 s/p L2-[address] Du. Patient's pain has been well controlled. She has not been up with physical therapy yet. No complaints this morning. She is eating and voiding on her own. Exam Vital Signs (past 8 hours): - 03/05/19 03:14 03/05/19 08:00 Temperature 98.4 F 98.6 F Pulse Rate 71 69 Respiratory Rate 18 16 Blood Pressure 113/50 L 126/55 L Pulse Oximetry 99 95 Oxygen Delivery Method Room Air Oxygen Flow Rate 0 Narrative Exam Narrative: Patient is sitting up in bed in no acute distress. She is alert and oriented x3. Calves are soft, compressible, nontender bilaterally. Sensation intact to light touch throughout bilateral lower extremities. Dorsalis pedis pulses are symmetrical. Assessment & Plan Post-op Postoperative Procedures Operation Date: 03/04/19 07:45 Actual Procedures Side Surgeon p L2-3 TLIF with posterior instrumentation, L3-4 hemilaminectomy Left Tasha Du MD Patient will mobilize with physical therapy today. No excessive bending, lifting, or twisting. If patient's pain is adequately controlled, and she is mobilizing safely she should be able to go home either tonight or tomorrow morning. Quality VTE Deep Vein Thrombosis/Pulmonary Embolism Present on Admission: No
--- NOTE | 2019-03-05 09:53 | PT.IPTN ---
Current Diagnoses Spondylolisthesis, lumbar region (03/04/19) Spinal stenosis, lumbar region with neurogenic claudication (03/04/19) Surgery Performed Operation Date: 03/04/19 07:45 Actual Procedures p L2-3 TLIF with posterior instrumentation, L3-4 hemilaminectomy Left - Tasha Du MD Physical Therapy Treatment Note M2 PT-IP Current Condition Start: 03/04/19 17:25 Freq: NEEDED Status: Active Protocol: Document 03/04/19 17:25 EA (Rec: 03/04/19 17:35 EA [id number]) Physical Therapy Current Condition Current Condition Evaluation Date 03/04/19 Onset Date s/p L2-L3, L3L-4 POSTELAT INTER BODY FUSION, W/ INSTRU AND LAMI Precautions Lumbar Precautions Log Roll Weight Bearing Status Weight Bearing Status Weight Bear as Tolerated M3 PT-IP Subjective Start: 03/04/19 17:25 Freq: NEEDED Status: Active Protocol: Document 03/05/19 08:45 LJ (Rec: 03/05/19 09:53 LJ [id number]) Subjective Physical Therapy Visit Type Type Treatment Note Visit Start Time 08:45 Visit Stop Time 09:15 Total Visit Minutes 30 Notes Pt in bed willing to get up and walk M4 PT-IP Mobility and Gait Start: 03/04/19 17:25 Freq: NEEDED Status: Active Protocol: Document 03/05/19 08:45 LJ (Rec: 03/05/19 09:53 LJ [id number]) PT-Bed Mobility Assessment Rolling Type of Rolling Log Rolling Level of Assist Contact Guard Assistance Supine to Sit Supine to Sit Standby Assistance Head of Bed Elevated Bedrails Sit to Supine Sit to Supine Standby Assistance Head of Bed Elevated Bedrails Scooting Scooting to Edge of Bed Standby Assistance PT-Transfer Assessment Sit to and From Stand Sit to and from Stand Standby Assistance Equipment Transfer Assistive Device Front Wheeled Walker Orthotic/Prosthetic Devices or Brace: No Transfers Transfer Destination Bed Transfer Ability Level of Assist Contact Guard Assistance Comments Mobility Comments Pt moves slowly with SBA-CGA with bed mobility and transfers. No report of dizziness on standing. Requires rest breaks during activity d/t fatigue. Gait Assessment Gait Gait Assistance Required: Standby Assistance Able to Maintain Weight Bearing Status Yes During Gait Assistive Devices Assistive Device Front Wheeled Walker Gait Deviations General Gait Pattern Decreased Stride Length Decreased Feet Clearance Narrow Based Gait Factors Limiting Gait Function Factors Limiting Gait Function Decreased Activity Tolerance Decreased Strength Comments Gait Comments Pt ambulates slowly in hallway taking 2 standing rest breaks . Uses narrow DANIS but had no LOB. Fatigue quickly and requested to return to bed. Ambulated approx [address] M5 PT-IP Objective Assessments Start: 03/04/19 17:25 Freq: NEEDED Status: Active Protocol: Document 03/04/19 17:25 EA (Rec: 03/04/19 17:35 EA [id number]) Orientation Orientation/Cognition Level of Alertness Alert Orientation Name Month Year Language Function Ability No Deficits Noted Safety Awareness Understands Safety Issues Gross Range of Motion Upper Extremity ROM Assessment Within Functional Limits Lower Extremity ROM Assessment Within Functional Limits Strength Upper Extremity Strength Assessment Within Functional Limits Lower Extremity Strength Assessment Within Functional Limits Coordination Assessment Gross Coordination Gross Coordination WNL Assessment Foot Tapping Test Normal Performance Heel on Jose Test Normal Performance Sensation Assessment Sensation Gross Sensation WNL Light Touch Intact Proprioception (Position) Intact M6 PT-IP Treatment Start: 03/04/19 17:25 Freq: NEEDED Status: Active Protocol: Document 03/05/19 08:45 LJ (Rec: 03/05/19 09:53 LJ [id number]) Physical Therapy Treatment Exercises Exercises Ankle Pumps Gluteal Sets Quad Sets M7 PT-IP Assessment and Plan Start: 03/04/19 17:25 Freq: NEEDED Status: Active Protocol: Document 03/05/19 08:45 LJ (Rec: 03/05/19 09:53 LJ [id number]) PT Summary Assessment and Plan Potential Rehabilitation Potential Good Status of Condition at Evaluation Stable Summary Impairments Pain Bed Mobility Transfers Gait Activity Tolerance Assessment Summary Pt requiring SBA and cues with bed mobility and transfers. She moves slowly d/t fatigue. No complaint of dizziness or pain during bed mobility, transfers, or ambulation but gait distance is limited by weakness and fatigue. Goals Bed Mobility Goal Independent Transfer Goal Independent Gait Goal Independent Gait Distance 70 FT Days to Meet Goals 2 Frequency of Treatment Frequency Of Treatment Twice a Day Treatment Plan Physical Therapy Treatment Plan Bed Mobility Training Transfer Training Gait Training Therapeutic Exercise Balance Retraining Post Op Education Discharge Planning Hot or Cold Pack Discharge Recommendations PT Discharge Recommendations Home with Assistance
--- NOTE | 2019-03-05 10:12 | PC.NURSE ---
Pt is A&Ox3, she denies pain after having percolone at 0630. Ambulated in halls with P.T. and did well. Dressing to lower back with a couple of spots of drainage, extra dressing applied to back on noc shift to keep from soaking through old dressing. If pt goes home today, we will put a water proof dressing on her back for showering.
--- NOTE | 2019-03-05 14:47 | OT.IP.EVAL ---
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) Osteopenia (Chronic 02/21/17) Abnormal Pap smear of cervix (Chronic ~1983) Cervicalgia (Chronic ~2013) Foot pain (Chronic ~2006) Goiter (Chronic ~2013) Neutropenia (Chronic ~2013) Other dietary vitamin B12 deficiency anemia (Chronic ~2013) Thrombocytopenia (Chronic) Vitamin B12 deficiency (Chronic ~2013) Basal cell carcinoma, leg (Resolved ~2013) Chickenpox (Resolved ~1949) Measles (Resolved ~1944) Mononucleosis (Resolved ~1979) Mumps (Resolved ~1946) Shingles (Resolved ~2013) Skin cancer (Resolved ~2013) Elevated LFTs (Inactive) Surgical History (Last Updated 02/22/19 @ 10:07 by Rosalina Ahuja RN) Hx of arthroscopy of left knee (Acute ~2017) History of airway aspiration (Resolved ~07/19/14) History of tonsillectomy S/P total abdominal hysterectomy and bilateral salpingo-oophorectomy (~1989) Status post appendectomy (~1957) Status post arthroscopy (~2010) Status post biopsy (~2013) Status post colonoscopy (~2009) Status post hysterectomy (~1989) Occupational Therapy Inpatient Evaluation/Re-Eval M1 PT/OT-IP Prior Functional Status Start: 03/04/19 17:25 Freq: NEEDED Status: Active Protocol: Document 03/04/19 17:25 BRITTANY (Rec: 03/04/19 17:35 BRITTANY [id number]) Medical Review Prior Functional Status Medical History Reviewed Yes Diet/Fluid Consistency Regular Communication Normal Mobility and Gait Indep Social History Household Members spouse Living Arrangements House Number of Floors (Floors) One Floor Home Environment Standard Height Toilet Home Equipment Front Wheel Walker Straight Cane Employment Status Retired M1 PT/OT-IP Prior Functional Status Start: 03/05/19 13:55 Freq: NEEDED Status: Active Protocol: Document 03/05/19 13:55 [facility] (Rec: 03/05/19 14:43 [facility] [id number]) Medical Review Prior Functional Status Medical History Reviewed Yes Diet/Fluid Consistency Regular Communication Normal Mobility and Gait Indep Activities of Daily Living and IADL's Independent for ADL's and IADL 's with increased time. Social History Household Members spouse Living Arrangements House Number of Floors (Floors) One Floor Home Environment Standard Height Toilet Home Equipment Front Wheel Walker Straight Cane Employment Status Retired M2 OT-IP Current Condition Start: 03/05/19 13:55 Freq: Status: Active Protocol: Document 03/05/19 13:55 [facility] (Rec: 03/05/19 14:43 [facility] [id number]) Occupational Therapy Current Condition Current Condition Evaluation Date 03/05/19 Treatment Diagnosis L2-3, L3-4 post-lat body fusion. Decreased self care, weakness Diagnosis Onset Date 03/04/19 Post Operative Precautions Lumbar Precautions Log Roll No Twisting Limit Bending Lifting Restriction of 10 lbs Gait Belt above Incisional Area Weight Bearing Status Weight Bearing Status Weight Bear as Tolerated M3 OT- IP Subjective and Pain Start: 03/05/19 13:55 Freq: Status: Active Protocol: Document 03/05/19 13:55 [facility] (Rec: 03/05/19 14:43 [facility] [id number]) OT- Subjective Occupational Therapy Visit Type Type Initial Evaluation Visit Start Time 09:43 Visit Stop Time 10:40 Total Visit Minutes 96 Notes Pt seen for family training in PM from 1310 to 1349 for caregiver training. Occupational Therapy Visit Comments Patient Comments Pt agreeable to shower. Patient/Caregiver Goals Pt wants to go home today. OT Pain Assessment Pain When Pain Assessed During Mobility Pain Present Pain Present Pain Reported M4 OT- IP ADL's Start: 03/05/19 13:55 Freq: Status: Active Protocol: Document 03/05/19 13:55 [facility] (Rec: 03/05/19 14:43 [facility] [id number]) OT ADL-Grooming General Evaluation Grooming Ability Standby Assistance Areas Needing Assistance Retrieving/Set-up of Grooming Items Comments OT Grooming Comments Pt needing reminders to keep FWW in front of her . Suggested best to get FWW as able to get closer to the sink versus 4WW. OT ADL-Oral Care General Eval Oral Care Ability Independent OT ADL-Dressing General Eval Upper Body Dressing Ability Independent Lower Body Dressing Ability Moderate Assistance Areas Needing Assistance Socks Shoes Assistive Devices Dressing Assistive Devices Program Control Analyst Comments OT Dressing Comments Pt needing assist to get shoe up over her heel. Pt needing to use risk reduction counselor to assist to get pants/brief her feet. OT ADL-Toileting General Evaluation Toileting Ability Standby Assistance Comments OT Toileting Comments Pt has left counter to asisst and would best to have BSC as pt heavily use of hands to help get to standing. Pt's not able to find BSC, therefore for increased ease to stand educated to lean forwards at hips and asisst by pushing on FWW handles to stand while there to stabilize FWW and able to give pt assist form gait belt if needed. OT ADL-Bathing Bathing Type Bathing Type Shower General Evaluation Bathing Ability Moderate Assistance Areas Needing Assistance Wash/Dry Upper Body Wash/Dry Lower Extremities Devices Bathing Equipment Long Handled Sponge or Practical Nurse Clinical Coordinator Held Shower Sprayer Shower Chair with Arms Comments OT Bathing Comments Pt able to simulate stepping over tub but needing assist from therapist for balance and to also hold to shower wall. Suggested best to have shower chair and to assist due to decreased balance and ability to stand due to weakness in her legs. M5 OT- IP IADL's Start: 03/05/19 13:55 Freq: Status: Active Protocol: Document 03/05/19 13:55 [facility] (Rec: 03/05/19 14:43 [facility] [id number]) OT-Instrumental Activities of Daily Living Home Safety Awareness Home Safety Comments Pt a bit forgetful which may be influenced from medications , therefore Pt's will assist with all IADL needs. M6 OT- IP Functional Cognition Start: 03/05/19 13:55 Freq: Status: Active Protocol: Document 03/05/19 13:55 [facility] (Rec: 03/05/19 14:43 [facility] [id number]) Cognitive Factors Limiting Selfcare Function Cognitive Ability Level of Alertness Alert Confusional State Patient Orientation Name Age Birthday Month Date Year Day of Week Place Situation Attention Span Ability Capable of Focused Attention Capable of Sustained Attention Ability to Follow Commands Able to Follow One Step Commands Memory Description Short Term Impaired Safety Awareness Decreased Ability to Apply Precautions Underestimates Need for Assistance Problem Solving Ability Unable to Identify Errors Needs Assist to Identify Solutions Executive Function Ability Unable to Filter Distractions Unable to Remember Details Cognitive Comments Cognitive Assessment Comments Pt needing step by step instructions for safety and incorporation for back precautions. Pt's has good understanding for pt's mobility needs. OT- Vision and Hearing OT- Hearing Assessment OT- Hearing Assessment WFL M7 OT- IP Mobility and Balance Start: 03/05/19 13:55 Freq: Status: Active Protocol: Document 03/05/19 13:55 [facility] (Rec: 03/05/19 14:43 [facility] [id number]) OT- Bed Mobility Assessment Rolling Type of Rolling Roll to Left Level of Assistance Standby Assistance Supine to Sit Supine to Sit Assist Standby Assistance Minimal Assistance Sit to Supine Sit to Supine Assist Minimal Assistance OT-Transfer Assessment Sit to and From Stand Sit to and from Stand Contact Guard Assistance Minimal Assistance Transfers Transfer Ability Standby Assistance Contact Guard Assistance Technique Transfer Destination Bed Chair Shower Stall Toilet Transfer Technique Stand Step Pivot Devices Transfer Assistive Devices Gait Belt Front Wheeled Walker Comments Mobility Comments Pt has most difficulty coming to stand and tends to not be able to coordinate movements to lean forwards at the hip and straighten her legs to stand. Pt needing assist to stand from lower surfaces , educated and able to safely assist pt for needs. OT- Balance Assessment Sitting Balance and Reactions Static Sitting Balance Ability Normal Dynamic Sitting Balance Ability Normal Standing Balance and Reactions Static Standing Balance Ability Good Dynamic Standing Balance Ability Fair M8 OT- IP Objective Assessments Start: 03/05/19 13:55 Freq: Status: Active Protocol: Document 03/05/19 13:55 [facility] (Rec: 03/05/19 14:43 [facility] [id number]) OT Gross Range of Motion Upper Extremity Range of Motion Assessment Within Functional Limits OT Strength Upper Extremity Strength Assessment Within Functional Limits OT-Muscle Tone Assessment Muscle Tone WNL Yes M9 OT- IP Assessment and Plan Start: 03/05/19 13:55 Freq: Status: Active Protocol: Document 03/05/19 13:55 [facility] (Rec: 03/05/19 14:43 [facility] [id number]) OT Summary Assessment and Plan Potential Rehabilitation Potential Good Analytic Complexity at Evaluation Low Summary OT Impairments Pain Strength Balance Functional Cognition Functional Mobility Dressing Toileting Bathing Toilet Transfers Shower Transfers Progress Towards Goals Progressing Toward Goals Assessment Summary Pt low complexity and main barriers are decreased ability to come to stand due to BLE weakness and pain, decreased ability to do ADl's, and needing step by step instructions for safety, sequencing to come to stand. Pt would highly benefit from outpt PT to work on overall trunk control and BLE strenghtening pending surgeon' s follow up. Goals Dressing Goal Standby Assistance Toileting Goal Standby Assistance Bathing Goal Minimal Assistance Toilet Transfer Goal Standby Assistance Shower Transfer Goal Contact Guard Assistance Patient/Caregiver Education Goal Demonstrate Post-Op Precautions Caregiver Independent Assisting Patient Days to Meet Goals 2 Frequency of Treatment Frequency Of Treatment Once a Day Treatment Plan OT Treatment Plan ADL Training Functional Cognition Training Functional Mobility Patient/Family Education Discharge Planning Other Treatment Recommendations and Next Continue with family training Treatment Focus with emphasis on bed mobility and incorporation of back precautions. Discharge Recommendations OT Discharge Recommendations Home with Assistance Home Equipment Needs BSC, FWW, lower body adaptive equipment issued,
--- NOTE | 2019-03-05 15:17 | CM.DPC ---
Addendum entered by Jacquelyn Santo LPN 03/05/19 15:22: PRESTON#1: noted and with signature yester by pt [id number]. [facility]. Original Note: DCP: continued: cased received, EMR reviewed. Discussed in Team Rounds. PT and OT were ordered. updated EMR review now shows that josy Arreaga was here and ok'd pt for d/c. OT and PT supported this plan and worked with pt as well as with her today. Went to room to check in with pt and her . They had already left for home.
== END 2019-03-05 14:00 | disposition home or self-care (01) | DRG 455 ==
PROVIDERS: Admitting Provider Orthopaedic Surgery Orthopaedic Surgery of the Spine; PCP Family Medicine; Visit Provider Orthopaedic Surgery Orthopaedic Surgery of the Spine
PROC: 0SG00AJ Fusion of Lumbar Vertebral Joint with Interbody Fusion Device, Posterior Approach, Anterior Column, Open Approach (ICD-10-PCS; principal; 2019-03-04 07:45)
DX: M48.062 Spinal stenosis, lumbar region with neurogenic claudication (principal); M47.816 Spondylosis without myelopathy or radiculopathy, lumbar region; E78.5 Hyperlipidemia, unspecified; F17.210 Nicotine dependence, cigarettes, uncomplicated
CPT/HCPCS: 72100; 76000; 97110; 97116; 97161; 97165; 97530; 97535; C1776; C9290; J0131; J0330; J0690; J1100; J1170; J2405; J2704; J3010; J3410

== ENCOUNTER 2019-05-27 09:00 | Outpatient (RCR) | payer MEDICARE, SELFPAY ==
[2019-03-04 14:13] VITALS: BMI 28.4
--- NOTE | 2019-04-12 08:15 | PT.OPPOC ---
Current Diagnoses Spondylolisthesis, lumbar region (04/12/19) Spinal stenosis, lumbar region with neurogenic claudication (04/12/19) Visit Care Team Role Provider Type Fabiana Brink DO Primary Care Provider Physician Specialty: Family [facility] Address: [address] [place] [address], [address], [place], [address] Email: [email or web address] Tasha Du MD Attending Provider Physician Specialty: Orthopedic Surgery Address: [address] [place] [address], [id number] Email: [email or web address] Plan Of Care PT-OP-T Assessment and Plan Start: 04/12/19 08:03 Freq: Status: Active Protocol: Document 04/12/19 08:15 DLM (Rec: 04/12/19 11:49 [facility] [id number]) Physical Therapy Assessment Rehab Potential Rehabilitation Potential Good Evaluation Complexity Number of Personal Factors/Comorbidities 1-2 Number of Body Systems Impaired 4 or More Clinical Presentation at Evaluation Evolving Impairments Impairments Activity Tolerance,Functional Activities,Functional Mobility ,Gait,Pain,ROM,Soft Tissue Mobility,Strength Other Impairments post-op restrictions Goals Three Impairment No HEP Short Term Goal (STG) Tolerate regular exercises for HEP STG Duration 3 weeks Assistant Winemaker Goal (LTG) Independent with HEP LTG Duration 6 weeks Two Impairment Core Weakness with pain Short Term Goal (STG) Be able to sit-stand with good core stability and no increase in back pain STG Duration 4 weeks Detention Goal (LTG) Be able to get in/out of car without increased back pain LTG Duration 6 weeks One Impairment LE weakness Short Term Goal (STG) Increase LE strength to at least 4-/5 STG Duration 4 weeks Detention Goal (LTG) Increase LE strength to at least 4/5 LTG Duration 6 weeks Assessment Summary Assessment Rosalina presents to physical therapy s/p lumbar surgery. She reports her LE radicular symptoms fully resolves after surgery. She reports mild pain and weakness at this time. Clinical testing detected core weakness and LE weakness. She could benefit from Physical Therapy to address the identified impairments. Her strengthening will be progressed slowly due to post- op precautions. She verbalizes a good understanding of her current post-op restrictions. Physical Therapy Plan Frequency and Duration Frequency of Treatment 2x/Week Duration of Treatment 6 weeks Plan of Care Start Date 04/12/19 Plan of Care End Date 05/27/19 Therapeutic Interventions Therapeutic Interventions Gait Training,Home Exercise Program,Manual Therapy,Patient /Caregiver Education,Self-Care /Home Management,Soft Tissue Mobilization,Therapeutic Activities,Therapeutic Exercises Modalities Cold Pack/Ice Massage,Electric Stimulation,Hot Packs Next Visit Focus/Plan Next Note Type Treatment Note Next Visit Plan slowly advance her HEP, add gentle hip flexion stretch as tolerated by pain, add LE strengthening- heel raises, leg press with light weight, hip abduction... Plan of Care Dates Plan of Care Start Date 04/12/19 Plan of Care End Date 05/27/19
--- NOTE | 2019-04-12 08:15 | PT.OIE ---
Current Diagnoses Spondylolisthesis, lumbar region (04/12/19) Spinal stenosis, lumbar region with neurogenic claudication (04/12/19) Past Medical History (Last Updated 04/12/19 @ 11:04 by Julia Higgins, PT) Abnormal Pap smear of cervix (Chronic ~1983) Basal cell carcinoma, leg (Resolved ~2013) Cervicalgia (Chronic ~2013) Chickenpox (Resolved ~1949) Elevated LFTs (Inactive) Foot pain (Chronic ~2006) Goiter (Chronic ~2013) Hyperlipidemia (Chronic 04/14/14) Impaired fasting glucose (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) 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) Lumbago (Acute) Measles (Resolved ~1944) 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) Mononucleosis (Resolved ~1979) Mumps (Resolved ~1946) Neutropenia (Chronic ~2013) Osteopenia (Chronic 02/21/17) Other dietary vitamin B12 deficiency anemia (Chronic ~2013) Shingles (Resolved ~2013) Skin cancer (Resolved ~2013) Thrombocytopenia (Chronic) Vitamin B12 deficiency (Chronic ~2013) Past Surgical History (Last Updated 04/12/19 @ 11:05 by Julia Higgins, PT) History of airway aspiration (Resolved ~07/19/14) History of tonsillectomy Hx of arthroscopy of left knee (Acute ~2017) S/P total abdominal hysterectomy and bilateral salpingo-oophorectomy (~1989) Status post appendectomy (~1957) Status post arthroscopy (~2010) Status post biopsy (~2013) Status post colonoscopy (~2009) Status post hysterectomy (~1989) Status post lumbar surgery (Acute 03/04/19) Visit Care Team Role Provider Type Fabiana Brink DO Primary Care Provider Physician Specialty: Family Practice Address: [address] [place] [address], [facility] [address], [place], [address] Email: [email or web address] Tasha Du MD Attending Provider Physician Specialty: Orthopedic Surgery Address: [address] [place] [address], [id number] Email: [email or web address] Physical Therapy Initial Evaluation PT-OP-A Visit Information Start: 04/12/19 08:03 Freq: Status: Active Protocol: Document 04/12/19 08:15 DLM (Rec: 04/12/19 11:49 DLM [id number]) Out-Patient Physical Therapy Visit Information Visit Information Visit Type Initial Evaluation Visit Start Time 08:15 Visit Stop Time 09:05 Total Visit Minutes 50 Visit Number 1 Number of TON CONTAINER FILLER Visits 0 Evaluation Information Evaluation Date 04/12/19 Precautions Precautions Surgery 03/04/19- L2-3 TLIF with cage placement and non- segmental instrumentation, L3- 4 hemilaminectomy PT-OP-B Current Condition Start: 04/12/19 08:03 Freq: Status: Active Protocol: Document 04/12/19 08:15 DLM (Rec: 04/12/19 11:49 DL [id number]) Current Condition History of Current Condition Onset Date 03/04/19 Current Complaints low back pain and weakness History of Current Condition Before surgery she had low back pain and pain into bilateral LE's. After surgery her leg pain was gone. She feels she has been healing well. She continues to have mild back pain and describes leg weakness. Prior Treatments and Tests surgery 03/04/19 Future Testing and Treatments Planned Has follow-up with surgeon in 2 months Treatment Goals Patient/Caregiver Goals She wants her legs to be stronger, less pain getting out of bed, easier to stand up Prior Functional Status Baseline Function- ADL's Independent Baseline Function- Mobility Independent Baseline Function- Gait Independent without device, community distances Baseline Function- Work/School retired Current Functional Impairments (Reported) Functional Limitations- ADL's Independent with modifications , uses a senior security analyst, has rigger helper for cleaning the house, she can not pick things up from the floor, she is limited in her ability to bend over Functional Limitations- Mobility/Gait Independent gait without device, has gradually been increasing her distances since surgery. She is having difficulty getting out of bed. She is having difficulty with sit to stand. Leg weakness makes getting out of car difficult. Functional Limitations- Work/School retired Functional Limitations- Other Having some back pain at night when sleeping that wakes her up, especially when changing positions Personal Factors Other Personal Factors That May Effect seen in PT in 2018 for knee Therapy/Recovery pain PT-OP-C Subjective Start: 04/12/19 08:03 Freq: Status: Active Protocol: Document 04/12/19 08:15 DLM (Rec: 04/12/19 11:49 [facility] [id number]) OP-PT Subjective Patient Comments Patient Comments Her surgeon progressed her lifting restriction to 20# at her follow-up visit. Patient Reported Progress Improving Patient Questionnaires Oswestry Low Back Index Oswestry Score 30% Oswestry Impairment 20 to 39% Impaired (Score 20- 39) OP-PT Pain Assessment Pain Assessment Grid Paper Pain Assessment Grid Completed Yes: copy in paper chart Location Lower Posterior Back Pain Location Details central Intensity 1 Scale Used Numeric (1 - 10) Description Aching,With Movement Frequency Intermittent Pain Aggravating Factors Changing Position,Activity, Bending Pain Alleviating Factors Sitting,Rest Home Pain Medication Use Pain Medications Used No Pain Behaviors Pain Behaviors Facial Grimacing PT-OP-F Manual Assessment Start: 04/12/19 08:03 Freq: Status: Active Protocol: Document 04/12/19 08:15 DLM (Rec: 04/12/19 11:49 [facility] [id number]) Manual Assessments Soft Tissue Assessment Soft Tissue Mobility Assessment Incisions are closed, mild tightness around incisions PT-OP-G Mobility & Gait Start: 04/12/19 08:03 Freq: Status: Active Protocol: Document 04/12/19 08:15 DLM (Rec: 04/12/19 11:49 [facility] [id number]) OP Mobility Evaluation Bed Mobility Rolling Independent, slow pace, mild pain Supine to and from Sit independent, no increase pain with sit to sidelying, increased pain with sidelying to sit, she is unable to bridge to change positions with back pain Transfers Sit to Stand increased back pain with sit to stand Floor Transfers pt reports she can not currently do this, will hold this activity until back surgery has healed more OP Gait Assessment Gait Gait Assistance Required: Independent Assistive Devices Assistive Device None Gait Deviations General Gait Pattern Antalgic Factors Limiting Gait Function Factors Limiting Gait Function Decreased Strength Comments Gait Comments decreased push-off on left PT-OP-J Posture/Palpation/Skin Start: 04/12/19 08:03 Freq: Status: Active Protocol: Document 04/12/19 08:15 DLM (Rec: 04/12/19 11:49 [facility] [id number]) Posture Evaluation Position Standing Evaluation View Posterior Comments Posture Comments erect posture PT-OP-K Range of Motion Start: 04/12/19 08:03 Freq: Status: Active Protocol: Document 04/12/19 08:15 DLM (Rec: 04/12/19 11:49 DLM [id number]) Lumbar Spine Range of Motion Lumbar Spine Active ROM Limitations Pain Comments post-op precautions, she has increased back pain with flexion sitting and standing , all motions are functional for mobility, did not assess end range motions this visit Shoulder Goniometric Range of Motion Shoulder ROM Limitations Comments mild shoulder end range stiffness with elevation, no pain reported PT-OP-L Special Tests Start: 04/12/19 08:03 Freq: Status: Active Protocol: Document 04/12/19 08:15 DLM (Rec: 04/13/19 19:18 DLM [id number]) Special Tests Lumbar Spine Special Tests Darren Test Results tightness bilaterally Straight Leg Raise Test Results negative bilaterally PT-OP-M Strength Start: 04/12/19 08:03 Freq: Status: Active Protocol: Document 04/12/19 08:15 DLM (Rec: 04/12/19 11:49 DLM [id number]) Trunk Strength Trunk Manual Muscle Testing Testing Position Sitting Flexion 4- Good- Extension 3+ Fair+ Rotation Left 4 Good Rotation Right 4 Good Lateral Flexion Left 4 Good Lateral Flexion Right 4 Good Comments caution used to avoid pain due to post-op precautions Hip Strength Hip Manual Muscle Testing Right Flexion (L2) 3+ Fair+ Extension (S1) 3+ Fair+ Abduction 3 Fair Adduction 4 Good Left Flexion (L2) 3+ Fair+ Extension (S1) 4- Good- Abduction 3+ Fair+ Adduction 4 Good Comments pain with resisted hip flexion Knee Strength Knee Manual Muscle Testing Right Flexion (S2) 5 Normal Extension (L3) 5 Normal Left Flexion (S2) 5 Normal Extension (L3) 5 Normal Ankle/Foot Strength Ankle and Foot Manual Muscle Testing Right Dorsiflexion (L4) 5 Normal Left Dorsiflexion (L4) 5 Normal Plantarflexion (S1) 4 Good PT-OP-Q Treatments Start: 04/12/19 08:03 Freq: Status: Active Protocol: Document 04/12/19 08:15 DLM (Rec: 04/12/19 11:49 DLM [id number]) Therapeutic Exercises Supine Exercises 4 Supine Exercise Name Hamstring stretch Resistance active Reps/Minutes 3 reps each side, 20 sec hold Comments foot to ceiling, knee flexion to rest between reps 3 Supine Exercise Name Hip adduction in hooklying Side bilateral Resistance isometric Equipment Used pillow between knees Reps/Minutes 5 sec hold, 10 reps 2 Supine Exercise Name Hip abduction in hooklying Side bilateral Resistance L1 exercise band Reps/Minutes 10 reps Comments focus on control 1 Supine Exercise Name Core, TVA isometric Resistance isometric Equipment Used Hooklying Reps/Minutes 5 sec hold, 10 reps Sitting Exercises 1 Sitting Exercise Name hip hinge with core isometric Comments to use functionally during sit to stand to decrease back pain Therapeutic Activity Therapeutic Activity 1 Name safe body mechanics for mobility Comments reviewed sidelying to/from sit and sit-stand to minimize back pain, verbally reviewed car transfers to manage back pain Self-Care/Home Management Treatment Education Patient Education Home Exercise Program,Pain Management,Posture Other Education provided L1 exercise band for home use PT-OP-T Assessment and Plan Start: 04/12/19 08:03 Freq: Status: Active Protocol: Document 04/12/19 08:15 DLM (Rec: 04/12/19 11:49 DL [id number]) Physical Therapy Assessment Rehab Potential Rehabilitation Potential Good Evaluation Complexity Number of Personal Factors/Comorbidities 1-2 Number of Body Systems Impaired 4 or More Clinical Presentation at Evaluation Evolving Impairments Impairments Activity Tolerance,Functional Activities,Functional Mobility ,Gait,Pain,ROM,Soft Tissue Mobility,Strength Other Impairments post-op restrictions Goals Three Impairment No HEP Short Term Goal (STG) Tolerate regular exercises for HEP STG Duration 3 weeks Longterm Goal (LTG) Independent with HEP LTG Duration 6 weeks Two Impairment Core Weakness with pain Short Term Goal (STG) Be able to sit-stand with good core stability and no increase in back pain STG Duration 4 weeks Longterm Goal (LTG) Be able to get in/out of car without increased back pain LTG Duration 6 weeks One Impairment LE weakness Short Term Goal (STG) Increase LE strength to at least 4-/5 STG Duration 4 weeks Friction Paint Machine Tender Goal (LTG) Increase LE strength to at least 4/5 LTG Duration 6 weeks Assessment Summary Assessment Rosalina presents to physical therapy s/p lumbar surgery. She reports her LE radicular symptoms fully resolves after surgery. She reports mild pain and weakness at this time. Clinical testing detected core weakness and LE weakness. She could benefit from Physical Therapy to address the identified impairments. Her strengthening will be progressed slowly due to post- op precautions. She verbalizes a good understanding of her current post-op restrictions. Physical Therapy Plan Frequency and Duration Frequency of Treatment 2x/Week Duration of Treatment 6 weeks Plan of Care Start Date 04/12/19 Plan of Care End Date 05/27/19 Therapeutic Interventions Therapeutic Interventions Gait Training,Home Exercise Program,Manual Therapy,Patient /Caregiver Education,Self-Care /Home Management,Soft Tissue Mobilization,Therapeutic Activities,Therapeutic Exercises Modalities Cold Pack/Ice Massage,Electric Stimulation,Hot Packs Next Visit Focus/Plan Next Note Type Treatment Note Next Visit Plan slowly advance her HEP, add gentle hip flexion stretch as tolerated by pain, add LE strengthening- heel raises, leg press with light weight, hip abduction...
--- NOTE | 2019-04-14 17:43 | PT.OTN ---
Current Diagnoses Spondylolisthesis, lumbar region (04/14/19) Spinal stenosis, lumbar region with neurogenic claudication (04/14/19) Physical Therapy Treatment Note PT-OP-A Visit Information Start: 04/12/19 08:03 Freq: Status: Active Protocol: Document 04/14/19 15:55 HH (Rec: 04/14/19 17:42 HH [email or web address]) Out-Patient Physical Therapy Visit Information Visit Information Visit Type Treatment Note Visit Start Time 15:55 Visit Stop Time 16:50 Total Visit Minutes 55 Visit Number 2 Number of NEUROLOGY SPECIALIST Visits 0 PT-OP-B Current Condition Start: 04/12/19 08:03 Freq: Status: Active Protocol: Document 04/12/19 08:15 DLM (Rec: 04/12/19 11:49 DLM [id number]) Current Condition History of Current Condition Onset Date 03/04/19 Current Complaints low back pain and weakness History of Current Condition Before surgery she had low back pain and pain into bilateral LE's. After surgery her leg pain was gone. She feels she has been healing well. She continues to have mild back pain and describes leg weakness. Prior Treatments and Tests surgery 03/04/19 Future Testing and Treatments Planned Has follow-up with surgeon in 2 months Treatment Goals Patient/Caregiver Goals She wants her legs to be stronger, less pain getting out of bed, easier to stand up Prior Functional Status Baseline Function- ADL's Independent Baseline Function- Mobility Independent Baseline Function- Gait Independent without device, community distances Baseline Function- Work/School retired Current Functional Impairments (Reported) Functional Limitations- ADL's Independent with modifications , uses a underwear finisher, has substation operator helper generation for cleaning the house, she can not pick things up from the floor, she is limited in her ability to bend over Functional Limitations- Mobility/Gait Independent gait without device, has gradually been increasing her distances since surgery. She is having difficulty getting out of bed. She is having difficulty with sit to stand. Leg weakness makes getting out of car difficult. Functional Limitations- Work/School retired Functional Limitations- Other Having some back pain at night when sleeping that wakes her up, especially when changing positions Personal Factors Other Personal Factors That May Effect seen in PT in 2018 for knee Therapy/Recovery pain PT-OP-C Subjective Start: 04/12/19 08:03 Freq: Status: Active Protocol: Document 04/14/19 15:55 HH (Rec: 04/14/19 17:42 HH [email or web address]) OP-PT Subjective Patient Comments Patient Comments pt saw Dr. Du last Friday who is pleased of her progress. No restrictions at this point except lifting >20 lbs. Pt's primary concern at this point is sit <>stand and car transfer. PT-OP-F Manual Assessment Start: 04/12/19 08:03 Freq: Status: Active Protocol: Document 04/12/19 08:15 DLM (Rec: 04/12/19 11:49 DLM [id number]) Manual Assessments Soft Tissue Assessment Soft Tissue Mobility Assessment Incisions are closed, mild tightness around incisions PT-OP-G Mobility & Gait Start: 04/12/19 08:03 Freq: Status: Active Protocol: Document 04/12/19 08:15 DLM (Rec: 04/12/19 11:49 DLM [id number]) OP Mobility Evaluation Bed Mobility Rolling Independent, slow pace, mild pain Supine to and from Sit independent, no increase pain with sit to sidelying, increased pain with sidelying to sit, she is unable to bridge to change positions with back pain Transfers Sit to Stand increased back pain with sit to stand Floor Transfers pt reports she can not currently do this, will hold this activity until back surgery has healed more OP Gait Assessment Gait Gait Assistance Required: Independent Assistive Devices Assistive Device None Gait Deviations General Gait Pattern Antalgic Factors Limiting Gait Function Factors Limiting Gait Function Decreased Strength Comments Gait Comments decreased push-off on left PT-OP-J Posture/Palpation/Skin Start: 04/12/19 08:03 Freq: Status: Active Protocol: Document 04/12/19 08:15 DLM (Rec: 04/12/19 11:49 DLM [id number]) Posture Evaluation Position Standing Evaluation View Posterior Comments Posture Comments erect posture PT-OP-K Range of Motion Start: 04/12/19 08:03 Freq: Status: Active Protocol: Document 04/12/19 08:15 DLM (Rec: 04/12/19 11:49 DLM [id number]) Lumbar Spine Range of Motion Lumbar Spine Active ROM Limitations Pain Comments post-op precautions, she has increased back pain with flexion sitting and standing , all motions are functional for mobility, did not assess end range motions this visit Shoulder Goniometric Range of Motion Shoulder ROM Limitations Comments mild shoulder end range stiffness with elevation, no pain reported PT-OP-L Special Tests Start: 04/12/19 08:03 Freq: Status: Active Protocol: Document 04/12/19 08:15 DLM (Rec: 04/13/19 19:18 DL [id number]) Special Tests Lumbar Spine Special Tests Darren Test Results tightness bilaterally Straight Leg Raise Test Results negative bilaterally PT-OP-M Strength Start: 04/12/19 08:03 Freq: Status: Active Protocol: Document 04/12/19 08:15 DLM (Rec: 04/12/19 11:49 DL [id number]) Trunk Strength Trunk Manual Muscle Testing Testing Position Sitting Flexion 4- Good- Extension 3+ Fair+ Rotation Left 4 Good Rotation Right 4 Good Lateral Flexion Left 4 Good Lateral Flexion Right 4 Good Comments caution used to avoid pain due to post-op precautions Hip Strength Hip Manual Muscle Testing Right Flexion (L2) 3+ Fair+ Extension (S1) 3+ Fair+ Abduction 3 Fair Adduction 4 Good Left Flexion (L2) 3+ Fair+ Extension (S1) 4- Good- Abduction 3+ Fair+ Adduction 4 Good Comments pain with resisted hip flexion Knee Strength Knee Manual Muscle Testing Right Flexion (S2) 5 Normal Extension (L3) 5 Normal Left Flexion (S2) 5 Normal Extension (L3) 5 Normal Ankle/Foot Strength Ankle and Foot Manual Muscle Testing Right Dorsiflexion (L4) 5 Normal Left Dorsiflexion (L4) 5 Normal Plantarflexion (S1) 4 Good PT-OP-Q Treatments Start: 04/12/19 08:03 Freq: Status: Active Protocol: Document 04/14/19 15:55 HH (Rec: 04/14/19 17:42 HH [email or web address]) Cardio Equipment Recumbent Stepper (Sci-Fit) Duration (Minutes) 6 Gym Equipment Shuttle Recovery B squat Resistance #62 Shuttle Recovery Platform Stable Reps/Time heel push off Therapeutic Exercises Supine Exercises bridge with PPT Supine Exercise Name ball squeeze Side bilateral Reps/Minutes 8 x 4 Comments butt slightly off table only 4 Supine Exercise Name Hamstring stretch Resistance active Reps/Minutes 3 reps each side, 20 sec hold Comments foot to ceiling, knee flexion to rest between reps Sidelying Exercises clamshell Side bilateral Reps/Minutes 8 x2 Comments cues on hip block and keeping neutral spine Sitting Exercises 1 Sitting Exercise Name hip hinge with core isometric Equipment Used from 23 inches table Reps/Minutes 4 x 2 Comments to use functionally during sit to stand to decrease back pain Standing Exercises heel raise Side bilateral Equipment Used stairs Reps/Minutes 12 x 2 Manual Therapy Treatment Soft Tissue Mobilization QL Mobilization Type Sustained Pressure,Trigger Point Release Intensity/Depth Moderate Body Position Sidelying scar mob Mobilization Type Instrument Assisted Intensity/Depth Moderate Body Position Sidelying PT-OP-R Modalities Start: 04/12/19 08:03 Freq: Status: Active Protocol: Document 04/14/19 15:55 HH (Rec: 04/14/19 17:43 HH [email or web address]) Hot Pack/Cold Pack Treatment moist heat Patient Position Hooklying Treatment Duration (minutes) 11 Patient Tolerance Good PT-OP-T Assessment and Plan Start: 04/12/19 08:03 Freq: Status: Active Protocol: Document 04/14/19 15:55 HH (Rec: 04/14/19 17:42 [email or web address]) Physical Therapy Assessment Goals Three Impairment No HEP Short Term Goal (STG) Tolerate regular exercises for HEP STG Duration 3 weeks Military Communications Specialist Goal (LTG) Independent with HEP LTG Duration 6 weeks Two Impairment Core Weakness with pain Short Term Goal (STG) Be able to sit-stand with good core stability and no increase in back pain STG Duration 4 weeks Military Communications Specialist Goal (LTG) Be able to get in/out of car without increased back pain LTG Duration 6 weeks One Impairment LE weakness Short Term Goal (STG) Increase LE strength to at least 4-/5 STG Duration 4 weeks Military Communications Specialist Goal (LTG) Increase LE strength to at least 4/5 LTG Duration 6 weeks Assessment Summary Assessment Pt magy tx well with manual therapy on surgical area. Primarily focused on IASTM to reduce tissue sensitivity. Pt did c/o back discomfort / pain during STS from regular chair and leg press >62 lbs, but no pain during STS from 24inch table and leg press for 62#. HEP includes STS, bridge with ball squeeze, heel raise and clamshell. Physical Therapy Plan Next Visit Focus/Plan Next Note Type Treatment Note Next Visit Plan assess pt's symptoms and review HEP slowly advance her HEP, add gentle hip flexion stretch as tolerated by pain, add LE strengthening- heel raises, leg press with light weight, hip abduction...
--- NOTE | 2019-04-20 16:42 | PT.OTN ---
Current Diagnoses Spondylolisthesis, lumbar region (04/20/19) Spinal stenosis, lumbar region with neurogenic claudication (04/20/19) Physical Therapy Treatment Note PT-OP-A Visit Information Start: 04/12/19 08:03 Freq: Status: Active Protocol: Document 04/20/19 13:50 HH (Rec: 04/20/19 16:42 HH [email or web address]) Out-Patient Physical Therapy Visit Information Visit Information Visit Type Treatment Note Visit Start Time 13:50 Visit Stop Time 14:36 Total Visit Minutes 46 Visit Number 3 Number of STEM MAKER Visits 0 PT-OP-B Current Condition Start: 04/12/19 08:03 Freq: Status: Active Protocol: Document 04/12/19 08:15 DLM (Rec: 04/12/19 11:49 DLM [id number]) Current Condition History of Current Condition Onset Date 03/04/19 Current Complaints low back pain and weakness History of Current Condition Before surgery she had low back pain and pain into bilateral LE's. After surgery her leg pain was gone. She feels she has been healing well. She continues to have mild back pain and describes leg weakness. Prior Treatments and Tests surgery 03/04/19 Future Testing and Treatments Planned Has follow-up with surgeon in 2 months Treatment Goals Patient/Caregiver Goals She wants her legs to be stronger, less pain getting out of bed, easier to stand up Prior Functional Status Baseline Function- ADL's Independent Baseline Function- Mobility Independent Baseline Function- Gait Independent without device, community distances Baseline Function- Work/School retired Current Functional Impairments (Reported) Functional Limitations- ADL's Independent with modifications , uses a pbx teacher, has drop hammer operator helper for cleaning the house, she can not pick things up from the floor, she is limited in her ability to bend over Functional Limitations- Mobility/Gait Independent gait without device, has gradually been increasing her distances since surgery. She is having difficulty getting out of bed. She is having difficulty with sit to stand. Leg weakness makes getting out of car difficult. Functional Limitations- Work/School retired Functional Limitations- Other Having some back pain at night when sleeping that wakes her up, especially when changing positions Personal Factors Other Personal Factors That May Effect seen in PT in 2018 for knee Therapy/Recovery pain PT-OP-C Subjective Start: 04/12/19 08:03 Freq: Status: Active Protocol: Document 04/20/19 13:50 HH (Rec: 04/20/19 16:42 HH [email or web address]) OP-PT Subjective Patient Comments Patient Comments Itzel been doing my exercises but my back is getting sore on L side. PT-OP-F Manual Assessment Start: 04/12/19 08:03 Freq: Status: Active Protocol: Document 04/12/19 08:15 DLM (Rec: 04/12/19 11:49 DLM [id number]) Manual Assessments Soft Tissue Assessment Soft Tissue Mobility Assessment Incisions are closed, mild tightness around incisions PT-OP-G Mobility & Gait Start: 04/12/19 08:03 Freq: Status: Active Protocol: Document 04/12/19 08:15 DLM (Rec: 04/12/19 11:49 DLM [id number]) OP Mobility Evaluation Bed Mobility Rolling Independent, slow pace, mild pain Supine to and from Sit independent, no increase pain with sit to sidelying, increased pain with sidelying to sit, she is unable to bridge to change positions with back pain Transfers Sit to Stand increased back pain with sit to stand Floor Transfers pt reports she can not currently do this, will hold this activity until back surgery has healed more OP Gait Assessment Gait Gait Assistance Required: Independent Assistive Devices Assistive Device None Gait Deviations General Gait Pattern Antalgic Factors Limiting Gait Function Factors Limiting Gait Function Decreased Strength Comments Gait Comments decreased push-off on left PT-OP-J Posture/Palpation/Skin Start: 04/12/19 08:03 Freq: Status: Active Protocol: Document 04/12/19 08:15 DLM (Rec: 04/12/19 11:49 DLM [id number]) Posture Evaluation Position Standing Evaluation View Posterior Comments Posture Comments erect posture PT-OP-K Range of Motion Start: 04/12/19 08:03 Freq: Status: Active Protocol: Document 04/12/19 08:15 DLM (Rec: 04/12/19 11:49 DLM [id number]) Lumbar Spine Range of Motion Lumbar Spine Active ROM Limitations Pain Comments post-op precautions, she has increased back pain with flexion sitting and standing , all motions are functional for mobility, did not assess end range motions this visit Shoulder Goniometric Range of Motion Shoulder ROM Limitations Comments mild shoulder end range stiffness with elevation, no pain reported PT-OP-L Special Tests Start: 04/12/19 08:03 Freq: Status: Active Protocol: Document 04/12/19 08:15 DLM (Rec: 04/13/19 19:18 DLM [id number]) Special Tests Lumbar Spine Special Tests Darren Test Results tightness bilaterally Straight Leg Raise Test Results negative bilaterally PT-OP-M Strength Start: 04/12/19 08:03 Freq: Status: Active Protocol: Document 04/12/19 08:15 DLM (Rec: 04/12/19 11:49 DLM [id number]) Trunk Strength Trunk Manual Muscle Testing Testing Position Sitting Flexion 4- Good- Extension 3+ Fair+ Rotation Left 4 Good Rotation Right 4 Good Lateral Flexion Left 4 Good Lateral Flexion Right 4 Good Comments caution used to avoid pain due to post-op precautions Hip Strength Hip Manual Muscle Testing Right Flexion (L2) 3+ Fair+ Extension (S1) 3+ Fair+ Abduction 3 Fair Adduction 4 Good Left Flexion (L2) 3+ Fair+ Extension (S1) 4- Good- Abduction 3+ Fair+ Adduction 4 Good Comments pain with resisted hip flexion Knee Strength Knee Manual Muscle Testing Right Flexion (S2) 5 Normal Extension (L3) 5 Normal Left Flexion (S2) 5 Normal Extension (L3) 5 Normal Ankle/Foot Strength Ankle and Foot Manual Muscle Testing Right Dorsiflexion (L4) 5 Normal Left Dorsiflexion (L4) 5 Normal Plantarflexion (S1) 4 Good PT-OP-Q Treatments Start: 04/12/19 08:03 Freq: Status: Active Protocol: Document 04/20/19 13:50 HH (Rec: 04/20/19 16:42 HH [email or web address]) Cardio Equipment Recumbent Stepper (Sci-Fit) Duration (Minutes) 6 Gym Equipment Shuttle Recovery B squat Resistance #75 Shuttle Recovery Platform Stable Reps/Time 10 x3 heel push off Therapeutic Exercises Supine Exercises bridge with PPT Supine Exercise Name ball squeeze Side bilateral Reps/Minutes 8 x 4 Comments butt slightly off table only Sidelying Exercises clamshell Side bilateral Reps/Minutes 8 x2 Comments cues to prevent hip and trunk rotation Standing Exercises sit to stand Standing Exercise Name with hands touched on grab bar Side bilateral Equipment Used grab bar Reps/Minutes 6 x 5 Comments cues on hip hinge and rpevent knee valgus Manual Therapy Treatment Soft Tissue Mobilization QL Body Location on L side Mobilization Type Sustained Pressure,Trigger Point Release Intensity/Depth Moderate Body Position Sidelying scar mob Mobilization Type Instrument Assisted Intensity/Depth Moderate Body Position Sidelying PT-OP-R Modalities Start: 04/12/19 08:03 Freq: Status: Active Protocol: Document 04/20/19 13:50 HH (Rec: 04/20/19 16:42 HH [email or web address]) Hot Pack/Cold Pack Treatment moist heat Patient Position Hooklying Treatment Duration (minutes) 10 Patient Tolerance Good PT-OP-T Assessment and Plan Start: 04/12/19 08:03 Freq: Status: Active Protocol: Document 04/20/19 13:50 HH (Rec: 04/20/19 16:42 HH [email or web address]) Physical Therapy Assessment Goals Three Impairment No HEP Short Term Goal (STG) Tolerate regular exercises for HEP STG Duration 3 weeks Jail Goal (LTG) Independent with HEP LTG Duration 6 weeks Two Impairment Core Weakness with pain Short Term Goal (STG) Be able to sit-stand with good core stability and no increase in back pain STG Duration 4 weeks Jail Goal (LTG) Be able to get in/out of car without increased back pain LTG Duration 6 weeks One Impairment LE weakness Short Term Goal (STG) Increase LE strength to at least 4-/5 STG Duration 4 weeks Jail Goal (LTG) Increase LE strength to at least 4/5 LTG Duration 6 weeks Assessment Summary Assessment Found pt has poor single leg balance bilaterally along with trendenlenberg gait on L side (R=5s, L= 2 s). Pt explained she never noticed. Pt c/o increased soreness since last visit and from HEP. Pt used trunk rotation during clamshell today and was corrected after. Recommended her to add pain free STS from high chair with UE support if needed. Physical Therapy Plan Next Visit Focus/Plan Next Note Type Treatment Note Next Visit Plan assess pt's symptoms and review HEP slowly advance her HEP, add gentle hip flexion stretch as tolerated by pain, add LE strengthening- heel raises, leg press with light weight, hip abduction... single balance ex with hurdles
--- NOTE | 2019-04-22 15:37 | PT.OTN ---
Current Diagnoses Spondylolisthesis, lumbar region (04/22/19) Spinal stenosis, lumbar region with neurogenic claudication (04/22/19) Physical Therapy Treatment Note PT-OP-A Visit Information Start: 04/12/19 08:03 Freq: Status: Active Protocol: Document 04/22/19 13:47 HH (Rec: 04/22/19 15:37 HH [email or web address]) Out-Patient Physical Therapy Visit Information Visit Information Visit Type Treatment Note Visit Start Time 13:47 Visit Stop Time 14:35 Total Visit Minutes 48 Visit Number 4 Number of CITY DISPATCHER Visits 0 PT-OP-B Current Condition Start: 04/12/19 08:03 Freq: Status: Active Protocol: Document 04/12/19 08:15 DLM (Rec: 04/12/19 11:49 DLM [id number]) Current Condition History of Current Condition Onset Date 03/04/19 Current Complaints low back pain and weakness History of Current Condition Before surgery she had low back pain and pain into bilateral LE's. After surgery her leg pain was gone. She feels she has been healing well. She continues to have mild back pain and describes leg weakness. Prior Treatments and Tests surgery 03/04/19 Future Testing and Treatments Planned Has follow-up with surgeon in 2 months Treatment Goals Patient/Caregiver Goals She wants her legs to be stronger, less pain getting out of bed, easier to stand up Prior Functional Status Baseline Function- ADL's Independent Baseline Function- Mobility Independent Baseline Function- Gait Independent without device, community distances Baseline Function- Work/School retired Current Functional Impairments (Reported) Functional Limitations- ADL's Independent with modifications , uses a nail specialist, has pumper helper for cleaning the house, she can not pick things up from the floor, she is limited in her ability to bend over Functional Limitations- Mobility/Gait Independent gait without device, has gradually been increasing her distances since surgery. She is having difficulty getting out of bed. She is having difficulty with sit to stand. Leg weakness makes getting out of car difficult. Functional Limitations- Work/School retired Functional Limitations- Other Having some back pain at night when sleeping that wakes her up, especially when changing positions Personal Factors Other Personal Factors That May Effect seen in PT in 2018 for knee Therapy/Recovery pain PT-OP-C Subjective Start: 04/12/19 08:03 Freq: Status: Active Protocol: Document 04/22/19 13:47 HH (Rec: 04/22/19 15:37 HH [email or web address]) OP-PT Subjective Patient Comments Patient Comments My back didnt bother me after i fixed my clamshell and doing STS with hip hinge. Patient Reported Progress Improving PT-OP-F Manual Assessment Start: 04/12/19 08:03 Freq: Status: Active Protocol: Document 04/12/19 08:15 DLM (Rec: 04/12/19 11:49 DLM [id number]) Manual Assessments Soft Tissue Assessment Soft Tissue Mobility Assessment Incisions are closed, mild tightness around incisions PT-OP-G Mobility & Gait Start: 04/12/19 08:03 Freq: Status: Active Protocol: Document 04/12/19 08:15 DLM (Rec: 04/12/19 11:49 DLM [id number]) OP Mobility Evaluation Bed Mobility Rolling Independent, slow pace, mild pain Supine to and from Sit independent, no increase pain with sit to sidelying, increased pain with sidelying to sit, she is unable to bridge to change positions with back pain Transfers Sit to Stand increased back pain with sit to stand Floor Transfers pt reports she can not currently do this, will hold this activity until back surgery has healed more OP Gait Assessment Gait Gait Assistance Required: Independent Assistive Devices Assistive Device None Gait Deviations General Gait Pattern Antalgic Factors Limiting Gait Function Factors Limiting Gait Function Decreased Strength Comments Gait Comments decreased push-off on left PT-OP-J Posture/Palpation/Skin Start: 04/12/19 08:03 Freq: Status: Active Protocol: Document 04/12/19 08:15 DLM (Rec: 04/12/19 11:49 DLM [id number]) Posture Evaluation Position Standing Evaluation View Posterior Comments Posture Comments erect posture PT-OP-K Range of Motion Start: 04/12/19 08:03 Freq: Status: Active Protocol: Document 04/12/19 08:15 DLM (Rec: 04/12/19 11:49 DLM [id number]) Lumbar Spine Range of Motion Lumbar Spine Active ROM Limitations Pain Comments post-op precautions, she has increased back pain with flexion sitting and standing , all motions are functional for mobility, did not assess end range motions this visit Shoulder Goniometric Range of Motion Shoulder ROM Limitations Comments mild shoulder end range stiffness with elevation, no pain reported PT-OP-L Special Tests Start: 04/12/19 08:03 Freq: Status: Active Protocol: Document 04/12/19 08:15 DLM (Rec: 04/13/19 19:18 DLM [id number]) Special Tests Lumbar Spine Special Tests Darren Test Results tightness bilaterally Straight Leg Raise Test Results negative bilaterally PT-OP-M Strength Start: 04/12/19 08:03 Freq: Status: Active Protocol: Document 04/12/19 08:15 DLM (Rec: 04/12/19 11:49 DLM [id number]) Trunk Strength Trunk Manual Muscle Testing Testing Position Sitting Flexion 4- Good- Extension 3+ Fair+ Rotation Left 4 Good Rotation Right 4 Good Lateral Flexion Left 4 Good Lateral Flexion Right 4 Good Comments caution used to avoid pain due to post-op precautions Hip Strength Hip Manual Muscle Testing Right Flexion (L2) 3+ Fair+ Extension (S1) 3+ Fair+ Abduction 3 Fair Adduction 4 Good Left Flexion (L2) 3+ Fair+ Extension (S1) 4- Good- Abduction 3+ Fair+ Adduction 4 Good Comments pain with resisted hip flexion Knee Strength Knee Manual Muscle Testing Right Flexion (S2) 5 Normal Extension (L3) 5 Normal Left Flexion (S2) 5 Normal Extension (L3) 5 Normal Ankle/Foot Strength Ankle and Foot Manual Muscle Testing Right Dorsiflexion (L4) 5 Normal Left Dorsiflexion (L4) 5 Normal Plantarflexion (S1) 4 Good PT-OP-Q Treatments Start: 04/12/19 08:03 Freq: Status: Active Protocol: Document 04/22/19 13:47 HH (Rec: 04/22/19 15:37 HH [email or web address]) Cardio Equipment Recumbent Stepper (Sci-Fit) Duration (Minutes) 6 Gym Equipment Shuttle Recovery B squat Resistance #100 Shuttle Recovery Platform Stable Reps/Time 12 x3 heel push off Therapeutic Exercises Standing Exercises hip hinge Side bilateral Equipment Used with PVC pipe Reps/Minutes 5 mins Comments cues on hip and knee bent with neutral spine. sit to stand Standing Exercise Name without UE Side bilateral Equipment Used grab bar Reps/Minutes 6 x 5 Comments cues on hip hinge and rpevent knee valgus Neuro Re-Education Treatment Balance Activities marching in place Equipment within //bars Reps/Duration 10 mins Comments cues on maintaining straightline without lateral weight shift. hurdles Details for single leg balance Surface ground level Equipment within //bars Reps/Duration 14 mins Comments cues on maintaining straightline without lateral weight shift. PT-OP-R Modalities Start: 04/12/19 08:03 Freq: Status: Active Protocol: Document 04/20/19 13:50 HH (Rec: 04/20/19 16:42 HH [email or web address]) Hot Pack/Cold Pack Treatment moist heat Patient Position Hooklying Treatment Duration (minutes) 10 Patient Tolerance Good PT-OP-T Assessment and Plan Start: 04/12/19 08:03 Freq: Status: Active Protocol: Document 04/22/19 13:47 HH (Rec: 04/22/19 15:37 HH [email or web address]) Physical Therapy Assessment Goals Three Impairment No HEP Short Term Goal (STG) Tolerate regular exercises for HEP STG Duration 3 weeks Airdrop Systems Technician Goal (LTG) Independent with HEP LTG Duration 6 weeks Two Impairment Core Weakness with pain Short Term Goal (STG) Be able to sit-stand with good core stability and no increase in back pain STG Duration 4 weeks Airdrop Systems Technician Goal (LTG) Be able to get in/out of car without increased back pain LTG Duration 6 weeks One Impairment LE weakness Short Term Goal (STG) Increase LE strength to at least 4-/5 STG Duration 4 weeks [facility] Goal (LTG) Increase LE strength to at least 4/5 LTG Duration 6 weeks Assessment Summary Assessment Pt showed improved B leg strength on leg press. Pt reports her L back pain/ soreness tends to go away with abdominal brace. Practiced single leg stance and hip hinge pattern today. Noticeable lateral weight shift who needs cues to maintain straight upright posture. Physical Therapy Plan Next Visit Focus/Plan Next Note Type Treatment Note Next Visit Plan assess pt's symptoms and review HEP( hip hinge) slowly advance her HEP, add gentle hip flexion stretch as tolerated by pain, add LE strengthening- heel raises, leg press with light weight, hip abduction... single balance ex with hurdles gait training
--- NOTE | 2019-04-27 17:15 | PT.OTN ---
Current Diagnoses Spondylolisthesis, lumbar region (04/27/19) Spinal stenosis, lumbar region with neurogenic claudication (04/27/19) Physical Therapy Treatment Note PT-OP-A Visit Information Start: 04/12/19 08:03 Freq: Status: Active Protocol: Document 04/27/19 17:11 GGD (Rec: 04/27/19 17:15 GGD [email or web address]) Out-Patient Physical Therapy Visit Information Visit Information Visit Type Treatment Note Visit Start Time 15:15 Visit Stop Time 16:00 Total Visit Minutes 45 Visit Number 5 Number of COUNTERSINKER BALANCE SCREW HOLE Visits 1 Evaluation Information Evaluation Date 04/12/19 PT-OP-B Current Condition Start: 04/12/19 08:03 Freq: Status: Active Protocol: Document 04/12/19 08:15 DLM (Rec: 04/12/19 11:49 DLM [id number]) Current Condition History of Current Condition Onset Date 03/04/19 Current Complaints low back pain and weakness History of Current Condition Before surgery she had low back pain and pain into bilateral LE's. After surgery her leg pain was gone. She feels she has been healing well. She continues to have mild back pain and describes leg weakness. Prior Treatments and Tests surgery 03/04/19 Future Testing and Treatments Planned Has follow-up with surgeon in 2 months Treatment Goals Patient/Caregiver Goals She wants her legs to be stronger, less pain getting out of bed, easier to stand up Prior Functional Status Baseline Function- ADL's Independent Baseline Function- Mobility Independent Baseline Function- Gait Independent without device, community distances Baseline Function- Work/School retired Current Functional Impairments (Reported) Functional Limitations- ADL's Independent with modifications , uses a creative art director, has drier helper for cleaning the house, she can not pick things up from the floor, she is limited in her ability to bend over Functional Limitations- Mobility/Gait Independent gait without device, has gradually been increasing her distances since surgery. She is having difficulty getting out of bed. She is having difficulty with sit to stand. Leg weakness makes getting out of car difficult. Functional Limitations- Work/School retired Functional Limitations- Other Having some back pain at night when sleeping that wakes her up, especially when changing positions Personal Factors Other Personal Factors That May Effect seen in PT in 2018 for knee Therapy/Recovery pain PT-OP-C Subjective Start: 04/12/19 08:03 Freq: Status: Active Protocol: Document 04/27/19 17:11 GGD (Rec: 04/27/19 17:15 GGD [email or web address]) OP-PT Subjective Patient Comments Patient Comments Pt states her back hurt after doing HEP last night. PT-OP-F Manual Assessment Start: 04/12/19 08:03 Freq: Status: Active Protocol: Document 04/12/19 08:15 DLM (Rec: 04/12/19 11:49 DLM [id number]) Manual Assessments Soft Tissue Assessment Soft Tissue Mobility Assessment Incisions are closed, mild tightness around incisions PT-OP-G Mobility & Gait Start: 04/12/19 08:03 Freq: Status: Active Protocol: Document 04/12/19 08:15 DLM (Rec: 04/12/19 11:49 DLM [id number]) OP Mobility Evaluation Bed Mobility Rolling Independent, slow pace, mild pain Supine to and from Sit independent, no increase pain with sit to sidelying, increased pain with sidelying to sit, she is unable to bridge to change positions with back pain Transfers Sit to Stand increased back pain with sit to stand Floor Transfers pt reports she can not currently do this, will hold this activity until back surgery has healed more OP Gait Assessment Gait Gait Assistance Required: Independent Assistive Devices Assistive Device None Gait Deviations General Gait Pattern Antalgic Factors Limiting Gait Function Factors Limiting Gait Function Decreased Strength Comments Gait Comments decreased push-off on left PT-OP-J Posture/Palpation/Skin Start: 04/12/19 08:03 Freq: Status: Active Protocol: Document 04/12/19 08:15 DLM (Rec: 04/12/19 11:49 DLM [id number]) Posture Evaluation Position Standing Evaluation View Posterior Comments Posture Comments erect posture PT-OP-K Range of Motion Start: 04/12/19 08:03 Freq: Status: Active Protocol: Document 04/12/19 08:15 DLM (Rec: 04/12/19 11:49 DLM [id number]) Lumbar Spine Range of Motion Lumbar Spine Active ROM Limitations Pain Comments post-op precautions, she has increased back pain with flexion sitting and standing , all motions are functional for mobility, did not assess end range motions this visit Shoulder Goniometric Range of Motion Shoulder ROM Limitations Comments mild shoulder end range stiffness with elevation, no pain reported PT-OP-L Special Tests Start: 04/12/19 08:03 Freq: Status: Active Protocol: Document 04/12/19 08:15 DLM (Rec: 04/13/19 19:18 DLM [id number]) Special Tests Lumbar Spine Special Tests Darren Test Results tightness bilaterally Straight Leg Raise Test Results negative bilaterally PT-OP-M Strength Start: 04/12/19 08:03 Freq: Status: Active Protocol: Document 04/12/19 08:15 DLM (Rec: 04/12/19 11:49 DLM [id number]) Trunk Strength Trunk Manual Muscle Testing Testing Position Sitting Flexion 4- Good- Extension 3+ Fair+ Rotation Left 4 Good Rotation Right 4 Good Lateral Flexion Left 4 Good Lateral Flexion Right 4 Good Comments caution used to avoid pain due to post-op precautions Hip Strength Hip Manual Muscle Testing Right Flexion (L2) 3+ Fair+ Extension (S1) 3+ Fair+ Abduction 3 Fair Adduction 4 Good Left Flexion (L2) 3+ Fair+ Extension (S1) 4- Good- Abduction 3+ Fair+ Adduction 4 Good Comments pain with resisted hip flexion Knee Strength Knee Manual Muscle Testing Right Flexion (S2) 5 Normal Extension (L3) 5 Normal Left Flexion (S2) 5 Normal Extension (L3) 5 Normal Ankle/Foot Strength Ankle and Foot Manual Muscle Testing Right Dorsiflexion (L4) 5 Normal Left Dorsiflexion (L4) 5 Normal Plantarflexion (S1) 4 Good PT-OP-Q Treatments Start: 04/12/19 08:03 Freq: Status: Active Protocol: Document 04/27/19 17:11 GGD (Rec: 04/27/19 17:15 GGD [email or web address]) Gym Equipment Shuttle Recovery B squat Resistance #100 Shuttle Recovery Platform Stable Reps/Time 12 x3 heel push off Therapeutic Exercises Supine Exercises LTR Supine Exercise Name Lower trunk rotation Side bilateral Reps/Minutes 10 bridge with PPT Supine Exercise Name ball squeeze Side bilateral Reps/Minutes 10 Comments cues 3 Supine Exercise Name Hip adduction in hooklying Side bilateral Resistance isometric Equipment Used pillow between knees Reps/Minutes 5 sec hold, 10 reps 1 Supine Exercise Name Core, TVA isometric Resistance isometric Equipment Used Hooklying Reps/Minutes 5 sec hold, 10 reps Sidelying Exercises clamshell Side bilateral Reps/Minutes 20 Comments cues to prevent hip and trunk rotation Standing Exercises sit to stand Standing Exercise Name without UE Side bilateral Comments cues on hip hinge and rpevent knee valgus Self-Care/Home Management Treatment Education Patient Education Body Mechanics,Posture Other Education sleep posture and body mechanics PT-OP-R Modalities Start: 04/12/19 08:03 Freq: Status: Active Protocol: Document 04/20/19 13:50 HH (Rec: 04/20/19 16:42 HH [email or web address]) Hot Pack/Cold Pack Treatment moist heat Patient Position Hooklying Treatment Duration (minutes) 10 Patient Tolerance Good PT-OP-T Assessment and Plan Start: 04/12/19 08:03 Freq: Status: Active Protocol: Document 04/27/19 17:11 GGD (Rec: 04/27/19 17:15 GGD [email or web address]) Physical Therapy Assessment Goals Three Impairment No HEP Short Term Goal (STG) Tolerate regular exercises for HEP STG Duration 3 weeks Correction Goal (LTG) Independent with HEP LTG Duration 6 weeks Two Impairment Core Weakness with pain Short Term Goal (STG) Be able to sit-stand with good core stability and no increase in back pain STG Duration 4 weeks Correction Goal (LTG) Be able to get in/out of car without increased back pain LTG Duration 6 weeks One Impairment LE weakness Short Term Goal (STG) Increase LE strength to at least 4-/5 STG Duration 4 weeks Erp Implementation Consultant Goal (LTG) Increase LE strength to at least 4/5 LTG Duration 6 weeks Physical Therapy Plan Frequency and Duration Frequency of Treatment 2x/Week Duration of Treatment 6 weeks Plan of Care Start Date 04/12/19 Plan of Care End Date 05/27/19 Next Visit Focus/Plan Next Note Type Treatment Note Next Visit Plan assess pt's symptoms and review HEP( hip hinge) slowly advance her HEP, add gentle hip flexion stretch as tolerated by pain, review sleep position
--- NOTE | 2019-05-06 11:32 | PT.OTN ---
Current Diagnoses Spondylolisthesis, lumbar region (05/06/19) Spinal stenosis, lumbar region with neurogenic claudication (05/06/19) Physical Therapy Treatment Note PT-OP-A Visit Information Start: 04/12/19 08:03 Freq: Status: Active Protocol: Document 05/06/19 10:30 HH (Rec: 05/06/19 11:32 HH [email or web address]) Out-Patient Physical Therapy Visit Information Visit Information Visit Type Treatment Note Visit Start Time 10:30 Visit Stop Time 11:17 Total Visit Minutes 47 Visit Number 6 Number of METAL MOULDER'S ASSISTANT Visits 0 PT-OP-B Current Condition Start: 04/12/19 08:03 Freq: Status: Active Protocol: Document 04/12/19 08:15 DLM (Rec: 04/12/19 11:49 DLM [id number]) Current Condition History of Current Condition Onset Date 03/04/19 Current Complaints low back pain and weakness History of Current Condition Before surgery she had low back pain and pain into bilateral LE's. After surgery her leg pain was gone. She feels she has been healing well. She continues to have mild back pain and describes leg weakness. Prior Treatments and Tests surgery 03/04/19 Future Testing and Treatments Planned Has follow-up with surgeon in 2 months Treatment Goals Patient/Caregiver Goals She wants her legs to be stronger, less pain getting out of bed, easier to stand up Prior Functional Status Baseline Function- ADL's Independent Baseline Function- Mobility Independent Baseline Function- Gait Independent without device, community distances Baseline Function- Work/School retired Current Functional Impairments (Reported) Functional Limitations- ADL's Independent with modifications , uses a computer forensic examiner, has assayer helper for cleaning the house, she can not pick things up from the floor, she is limited in her ability to bend over Functional Limitations- Mobility/Gait Independent gait without device, has gradually been increasing her distances since surgery. She is having difficulty getting out of bed. She is having difficulty with sit to stand. Leg weakness makes getting out of car difficult. Functional Limitations- Work/School retired Functional Limitations- Other Having some back pain at night when sleeping that wakes her up, especially when changing positions Personal Factors Other Personal Factors That May Effect seen in PT in 2018 for knee Therapy/Recovery pain PT-OP-C Subjective Start: 04/12/19 08:03 Freq: Status: Active Protocol: Document 05/06/19 10:30 HH (Rec: 05/06/19 11:32 HH [email or web address]) OP-PT Subjective Patient Comments Patient Comments 'My back is still getting sore from doing bridging and clam shell. But overall im getting stronger and balance seems to get better PT-OP-F Manual Assessment Start: 04/12/19 08:03 Freq: Status: Active Protocol: Document 04/12/19 08:15 DLM (Rec: 04/12/19 11:49 DLM [id number]) Manual Assessments Soft Tissue Assessment Soft Tissue Mobility Assessment Incisions are closed, mild tightness around incisions PT-OP-G Mobility & Gait Start: 04/12/19 08:03 Freq: Status: Active Protocol: Document 04/12/19 08:15 DLM (Rec: 04/12/19 11:49 DLM [id number]) OP Mobility Evaluation Bed Mobility Rolling Independent, slow pace, mild pain Supine to and from Sit independent, no increase pain with sit to sidelying, increased pain with sidelying to sit, she is unable to bridge to change positions with back pain Transfers Sit to Stand increased back pain with sit to stand Floor Transfers pt reports she can not currently do this, will hold this activity until back surgery has healed more OP Gait Assessment Gait Gait Assistance Required: Independent Assistive Devices Assistive Device None Gait Deviations General Gait Pattern Antalgic Factors Limiting Gait Function Factors Limiting Gait Function Decreased Strength Comments Gait Comments decreased push-off on left PT-OP-J Posture/Palpation/Skin Start: 04/12/19 08:03 Freq: Status: Active Protocol: Document 04/12/19 08:15 DLM (Rec: 04/12/19 11:49 DLM [id number]) Posture Evaluation Position Standing Evaluation View Posterior Comments Posture Comments erect posture PT-OP-K Range of Motion Start: 04/12/19 08:03 Freq: Status: Active Protocol: Document 04/12/19 08:15 DLM (Rec: 04/12/19 11:49 DLM [id number]) Lumbar Spine Range of Motion Lumbar Spine Active ROM Limitations Pain Comments post-op precautions, she has increased back pain with flexion sitting and standing , all motions are functional for mobility, did not assess end range motions this visit Shoulder Goniometric Range of Motion Shoulder ROM Limitations Comments mild shoulder end range stiffness with elevation, no pain reported PT-OP-L Special Tests Start: 04/12/19 08:03 Freq: Status: Active Protocol: Document 04/12/19 08:15 DLM (Rec: 04/13/19 19:18 DLM [id number]) Special Tests Lumbar Spine Special Tests Darren Test Results tightness bilaterally Straight Leg Raise Test Results negative bilaterally PT-OP-M Strength Start: 04/12/19 08:03 Freq: Status: Active Protocol: Document 04/12/19 08:15 DLM (Rec: 04/12/19 11:49 DLM [id number]) Trunk Strength Trunk Manual Muscle Testing Testing Position Sitting Flexion 4- Good- Extension 3+ Fair+ Rotation Left 4 Good Rotation Right 4 Good Lateral Flexion Left 4 Good Lateral Flexion Right 4 Good Comments caution used to avoid pain due to post-op precautions Hip Strength Hip Manual Muscle Testing Right Flexion (L2) 3+ Fair+ Extension (S1) 3+ Fair+ Abduction 3 Fair Adduction 4 Good Left Flexion (L2) 3+ Fair+ Extension (S1) 4- Good- Abduction 3+ Fair+ Adduction 4 Good Comments pain with resisted hip flexion Knee Strength Knee Manual Muscle Testing Right Flexion (S2) 5 Normal Extension (L3) 5 Normal Left Flexion (S2) 5 Normal Extension (L3) 5 Normal Ankle/Foot Strength Ankle and Foot Manual Muscle Testing Right Dorsiflexion (L4) 5 Normal Left Dorsiflexion (L4) 5 Normal Plantarflexion (S1) 4 Good PT-OP-Q Treatments Start: 04/12/19 08:03 Freq: Status: Active Protocol: Document 05/06/19 10:30 HH (Rec: 05/06/19 11:32 HH [email or web address]) Cardio Equipment Recumbent Stepper (Sci-Fit) Duration (Minutes) 6 Therapeutic Exercises Supine Exercises LTR Supine Exercise Name Lower trunk rotation for HEP Side bilateral Reps/Minutes 10 Comments cues on flat back against table Sitting Exercises seated trunk extension Sitting Exercise Name arms acrossed shoulders Side bilateral Reps/Minutes 8 x 2 Comments cues on isolated thoracic extension Standing Exercises standing hip external rotation Side bilateral Equipment Used yellow band Reps/Minutes 10 x 4 Comments hip hinge position sit to stand Standing Exercise Name without UE Side bilateral Comments cues on hip hinge and rpevent knee valgus Neuro Re-Education Treatment Balance Activities single leg stance Details with mirror for visual cues Surface ground level Equipment within //bars Comments cues on maintaining straightline without lateral weight shift. marching in place Equipment within //bars Reps/Duration 10 mins Comments cues on maintaining straightline without lateral weight shift. hurdles Details for single leg balance Surface ground level Equipment within //bars Reps/Duration 10 mins Comments cues on maintaining straightline without lateral weight shift. PT-OP-R Modalities Start: 04/12/19 08:03 Freq: Status: Active Protocol: Document 04/20/19 13:50 HH (Rec: 04/20/19 16:42 HH [email or web address]) Hot Pack/Cold Pack Treatment moist heat Patient Position Hooklying Treatment Duration (minutes) 10 Patient Tolerance Good PT-OP-T Assessment and Plan Start: 04/12/19 08:03 Freq: Status: Active Protocol: Document 05/06/19 10:30 HH (Rec: 05/06/19 11:32 HH [email or web address]) Physical Therapy Assessment Goals Three Impairment No HEP Short Term Goal (STG) Tolerate regular exercises for HEP STG Duration 3 weeks Parimutuel Ticket Seller Goal (LTG) Independent with HEP LTG Duration 6 weeks Two Impairment Core Weakness with pain Short Term Goal (STG) Be able to sit-stand with good core stability and no increase in back pain STG Duration 4 weeks Fpc Goal (LTG) Be able to get in/out of car without increased back pain LTG Duration 6 weeks One Impairment LE weakness Short Term Goal (STG) Increase LE strength to at least 4-/5 STG Duration 4 weeks Fpc Goal (LTG) Increase LE strength to at least 4/5 LTG Duration 6 weeks Assessment Summary Assessment Pt cont c/o back discomfort during bridging and clamshell. Noticed pt tends to have lumbar spine involvements during any hip strengthening/ ROM ex. Replaced HEP with new standing hip ER, single leg stance, sit to stand, LTR, and seated trunk extension to improve movement isolation and hip stability. Physical Therapy Plan Next Visit Focus/Plan Next Note Type Treatment Note Next Visit Plan assess pt's symptoms and review new HEPs slowly advance her HEP, progress balance ex/ hip strengthening ex as magy trunk stability ex as magy, bird dog, cat camel...
--- NOTE | 2019-05-10 12:44 | PT.OTN ---
Current Diagnoses Spondylolisthesis, lumbar region (05/10/19) Spinal stenosis, lumbar region with neurogenic claudication (05/10/19) Physical Therapy Treatment Note PT-OP-A Visit Information Start: 04/12/19 08:03 Freq: Status: Active Protocol: Document 05/10/19 12:00 DCW (Rec: 05/10/19 12:42 DCW [id number]) Out-Patient Physical Therapy Visit Information Visit Information Visit Type Treatment Note Visit Start Time 12:00 Visit Stop Time 12:45 Total Visit Minutes 45 Visit Number 7 Number of AERIAL APPLICATOR PILOT Visits 0 Evaluation Information Evaluation Date 04/12/19 PT-OP-B Current Condition Start: 04/12/19 08:03 Freq: Status: Active Protocol: Document 04/12/19 08:15 DLM (Rec: 04/12/19 11:49 DLM [id number]) Current Condition History of Current Condition Onset Date 03/04/19 Current Complaints low back pain and weakness History of Current Condition Before surgery she had low back pain and pain into bilateral LE's. After surgery her leg pain was gone. She feels she has been healing well. She continues to have mild back pain and describes leg weakness. Prior Treatments and Tests surgery 03/04/19 Future Testing and Treatments Planned Has follow-up with surgeon in 2 months Treatment Goals Patient/Caregiver Goals She wants her legs to be stronger, less pain getting out of bed, easier to stand up Prior Functional Status Baseline Function- ADL's Independent Baseline Function- Mobility Independent Baseline Function- Gait Independent without device, community distances Baseline Function- Work/School retired Current Functional Impairments (Reported) Functional Limitations- ADL's Independent with modifications , uses a c architect, has shop mechanic helper for cleaning the house, she can not pick things up from the floor, she is limited in her ability to bend over Functional Limitations- Mobility/Gait Independent gait without device, has gradually been increasing her distances since surgery. She is having difficulty getting out of bed. She is having difficulty with sit to stand. Leg weakness makes getting out of car difficult. Functional Limitations- Work/School retired Functional Limitations- Other Having some back pain at night when sleeping that wakes her up, especially when changing positions Personal Factors Other Personal Factors That May Effect seen in PT in 2018 for knee Therapy/Recovery pain PT-OP-C Subjective Start: 04/12/19 08:03 Freq: Status: Active Protocol: Document 05/10/19 12:00 DCW (Rec: 05/10/19 12:42 DCW [id number]) OP-PT Subjective Patient Comments Patient Comments Pt reports she was doing vacuuming over the weekend, which really bothered her back . PT-OP-F Manual Assessment Start: 04/12/19 08:03 Freq: Status: Active Protocol: Document 04/12/19 08:15 DLM (Rec: 04/12/19 11:49 DLM [id number]) Manual Assessments Soft Tissue Assessment Soft Tissue Mobility Assessment Incisions are closed, mild tightness around incisions PT-OP-G Mobility & Gait Start: 04/12/19 08:03 Freq: Status: Active Protocol: Document 04/12/19 08:15 DLM (Rec: 04/12/19 11:49 DLM [id number]) OP Mobility Evaluation Bed Mobility Rolling Independent, slow pace, mild pain Supine to and from Sit independent, no increase pain with sit to sidelying, increased pain with sidelying to sit, she is unable to bridge to change positions with back pain Transfers Sit to Stand increased back pain with sit to stand Floor Transfers pt reports she can not currently do this, will hold this activity until back surgery has healed more OP Gait Assessment Gait Gait Assistance Required: Independent Assistive Devices Assistive Device None Gait Deviations General Gait Pattern Antalgic Factors Limiting Gait Function Factors Limiting Gait Function Decreased Strength Comments Gait Comments decreased push-off on left PT-OP-J Posture/Palpation/Skin Start: 04/12/19 08:03 Freq: Status: Active Protocol: Document 04/12/19 08:15 DLM (Rec: 04/12/19 11:49 DLM [id number]) Posture Evaluation Position Standing Evaluation View Posterior Comments Posture Comments erect posture PT-OP-K Range of Motion Start: 04/12/19 08:03 Freq: Status: Active Protocol: Document 04/12/19 08:15 DLM (Rec: 04/12/19 11:49 DLM [id number]) Lumbar Spine Range of Motion Lumbar Spine Active ROM Limitations Pain Comments post-op precautions, she has increased back pain with flexion sitting and standing , all motions are functional for mobility, did not assess end range motions this visit Shoulder Goniometric Range of Motion Shoulder ROM Limitations Comments mild shoulder end range stiffness with elevation, no pain reported PT-OP-L Special Tests Start: 04/12/19 08:03 Freq: Status: Active Protocol: Document 04/12/19 08:15 DLM (Rec: 04/13/19 19:18 DLM [id number]) Special Tests Lumbar Spine Special Tests Darren Test Results tightness bilaterally Straight Leg Raise Test Results negative bilaterally PT-OP-M Strength Start: 04/12/19 08:03 Freq: Status: Active Protocol: Document 04/12/19 08:15 DLM (Rec: 04/12/19 11:49 DL [id number]) Trunk Strength Trunk Manual Muscle Testing Testing Position Sitting Flexion 4- Good- Extension 3+ Fair+ Rotation Left 4 Good Rotation Right 4 Good Lateral Flexion Left 4 Good Lateral Flexion Right 4 Good Comments caution used to avoid pain due to post-op precautions Hip Strength Hip Manual Muscle Testing Right Flexion (L2) 3+ Fair+ Extension (S1) 3+ Fair+ Abduction 3 Fair Adduction 4 Good Left Flexion (L2) 3+ Fair+ Extension (S1) 4- Good- Abduction 3+ Fair+ Adduction 4 Good Comments pain with resisted hip flexion Knee Strength Knee Manual Muscle Testing Right Flexion (S2) 5 Normal Extension (L3) 5 Normal Left Flexion (S2) 5 Normal Extension (L3) 5 Normal Ankle/Foot Strength Ankle and Foot Manual Muscle Testing Right Dorsiflexion (L4) 5 Normal Left Dorsiflexion (L4) 5 Normal Plantarflexion (S1) 4 Good PT-OP-Q Treatments Start: 04/12/19 08:03 Freq: Status: Active Protocol: Document 05/10/19 12:00 DCW (Rec: 05/10/19 12:42 DCW [id number]) Cardio Equipment Recumbent Stepper (Sci-Fit) Duration (Minutes) 6 Resistance 3 Seat Position 12 Gym Equipment Shuttle Recovery B squat Resistance #100 Shuttle Recovery Platform Stable Reps/Time 12 x3 heel push off Therapeutic Ball Seated Trunk Rotation Exercise Details Trunk Rotation vs Resistance Ball Size/Color Green - 65 cm Lv 1 T-band Body Position Sitting Therapeutic Exercises Supine Exercises LTR Supine Exercise Name Lower trunk rotation for HEP Side bilateral Reps/Minutes 10 Comments cues on flat back against table 1 Supine Exercise Name Core, TVA isometric Resistance isometric Equipment Used Hooklying Reps/Minutes 5 sec hold, 10 reps Standing Exercises sit to stand Standing Exercise Name without UE Side bilateral Comments cues on hip hinge and prevent knee valgus 5 Standing Exercise Name Resisted Side-stepping Resistance Yellow Equipment Used T-band Neuro Re-Education Treatment Balance Activities single leg stance Details with mirror for visual cues Surface ground level Equipment within //bars Comments cues on maintaining straightline without lateral weight shift. marching in place Equipment within //bars Reps/Duration 10 mins Comments cues on maintaining straightline without lateral weight shift. hurdles Details for single leg balance Surface ground level Equipment within //bars Reps/Duration 10 mins Comments cues on maintaining straightline without lateral weight shift. PT-OP-R Modalities Start: 04/12/19 08:03 Freq: Status: Active Protocol: Document 04/20/19 13:50 HH (Rec: 04/20/19 16:42 HH [email or web address]) Hot Pack/Cold Pack Treatment moist heat Patient Position Hooklying Treatment Duration (minutes) 10 Patient Tolerance Good PT-OP-T Assessment and Plan Start: 04/12/19 08:03 Freq: Status: Active Protocol: Document 05/10/19 12:00 DCW (Rec: 05/10/19 12:42 DCW [id number]) Physical Therapy Assessment Goals Three Impairment No HEP Short Term Goal (STG) Tolerate regular exercises for HEP STG Duration 3 weeks Government Relations Manager Goal (LTG) Independent with HEP LTG Duration 6 weeks Two Impairment Core Weakness with pain Short Term Goal (STG) Be able to sit-stand with good core stability and no increase in back pain STG Duration 4 weeks Mcfp Goal (LTG) Be able to get in/out of car without increased back pain LTG Duration 6 weeks One Impairment LE weakness Short Term Goal (STG) Increase LE strength to at least 4-/5 STG Duration 4 weeks Government Relations Manager Goal (LTG) Increase LE strength to at least 4/5 LTG Duration 6 weeks Assessment Summary Assessment Pt tolerated treatment very well today, had no complaints of pain or difficulty during her exercises today. Physical Therapy Plan Frequency and Duration Frequency of Treatment 2x/Week Duration of Treatment 6 weeks Plan of Care Start Date 04/12/19 Plan of Care End Date 05/27/19 Next Visit Focus/Plan Next Note Type Treatment Note Next Visit Plan assess pt's symptoms and review HEP( hip hinge) slowly advance her HEP, add gentle hip flexion stretch as tolerated by pain, review sleep position
--- NOTE | 2019-05-12 16:45 | PT.OTN ---
Current Diagnoses Spondylolisthesis, lumbar region (05/12/19) Spinal stenosis, lumbar region with neurogenic claudication (05/12/19) Physical Therapy Treatment Note PT-OP-A Visit Information Start: 04/12/19 08:03 Freq: Status: Active Protocol: Document 05/12/19 13:03 JG (Rec: 05/12/19 15:37 JG [email or web address]) Out-Patient Physical Therapy Visit Information Visit Information Visit Type Treatment Note Visit Start Time 13:03 Visit Stop Time 13:48 Total Visit Minutes 45 Visit Number 8 Number of BOOK REVIEWER Visits 0 PT-OP-B Current Condition Start: 04/12/19 08:03 Freq: Status: Active Protocol: Document 04/12/19 08:15 DLM (Rec: 04/12/19 11:49 DLM [id number]) Current Condition History of Current Condition Onset Date 03/04/19 Current Complaints low back pain and weakness History of Current Condition Before surgery she had low back pain and pain into bilateral LE's. After surgery her leg pain was gone. She feels she has been healing well. She continues to have mild back pain and describes leg weakness. Prior Treatments and Tests surgery 03/04/19 Future Testing and Treatments Planned Has follow-up with surgeon in 2 months Treatment Goals Patient/Caregiver Goals She wants her legs to be stronger, less pain getting out of bed, easier to stand up Prior Functional Status Baseline Function- ADL's Independent Baseline Function- Mobility Independent Baseline Function- Gait Independent without device, community distances Baseline Function- Work/School retired Current Functional Impairments (Reported) Functional Limitations- ADL's Independent with modifications , uses a presentation designer, has refinery operator helper cracking unit for cleaning the house, she can not pick things up from the floor, she is limited in her ability to bend over Functional Limitations- Mobility/Gait Independent gait without device, has gradually been increasing her distances since surgery. She is having difficulty getting out of bed. She is having difficulty with sit to stand. Leg weakness makes getting out of car difficult. Functional Limitations- Work/School retired Functional Limitations- Other Having some back pain at night when sleeping that wakes her up, especially when changing positions Personal Factors Other Personal Factors That May Effect seen in PT in 2018 for knee Therapy/Recovery pain PT-OP-C Subjective Start: 04/12/19 08:03 Freq: Status: Active Protocol: Document 05/12/19 13:03 JG (Rec: 05/12/19 15:37 JG [id number]) OP-PT Subjective Patient Comments Patient Comments Pt reports overall back is feeling much better but still gets twinges in L/S with pressure when lying down and when getting in and out of car . Reports feeling good with HEP. PT-OP-F Manual Assessment Start: 04/12/19 08:03 Freq: Status: Active Protocol: Document 04/12/19 08:15 DLM (Rec: 04/12/19 11:49 DL [id number]) Manual Assessments Soft Tissue Assessment Soft Tissue Mobility Assessment Incisions are closed, mild tightness around incisions PT-OP-G Mobility & Gait Start: 04/12/19 08:03 Freq: Status: Active Protocol: Document 04/12/19 08:15 DLM (Rec: 04/12/19 11:49 DL [id number]) OP Mobility Evaluation Bed Mobility Rolling Independent, slow pace, mild pain Supine to and from Sit independent, no increase pain with sit to sidelying, increased pain with sidelying to sit, she is unable to bridge to change positions with back pain Transfers Sit to Stand increased back pain with sit to stand Floor Transfers pt reports she can not currently do this, will hold this activity until back surgery has healed more OP Gait Assessment Gait Gait Assistance Required: Independent Assistive Devices Assistive Device None Gait Deviations General Gait Pattern Antalgic Factors Limiting Gait Function Factors Limiting Gait Function Decreased Strength Comments Gait Comments decreased push-off on left PT-OP-J Posture/Palpation/Skin Start: 04/12/19 08:03 Freq: Status: Active Protocol: Document 04/12/19 08:15 DLM (Rec: 04/12/19 11:49 DL [id number]) Posture Evaluation Position Standing Evaluation View Posterior Comments Posture Comments erect posture PT-OP-K Range of Motion Start: 04/12/19 08:03 Freq: Status: Active Protocol: Document 04/12/19 08:15 DLM (Rec: 04/12/19 11:49 DLM [id number]) Lumbar Spine Range of Motion Lumbar Spine Active ROM Limitations Pain Comments post-op precautions, she has increased back pain with flexion sitting and standing , all motions are functional for mobility, did not assess end range motions this visit Shoulder Goniometric Range of Motion Shoulder ROM Limitations Comments mild shoulder end range stiffness with elevation, no pain reported PT-OP-L Special Tests Start: 04/12/19 08:03 Freq: Status: Active Protocol: Document 04/12/19 08:15 DLM (Rec: 04/13/19 19:18 DLM [id number]) Special Tests Lumbar Spine Special Tests Darren Test Results tightness bilaterally Straight Leg Raise Test Results negative bilaterally PT-OP-M Strength Start: 04/12/19 08:03 Freq: Status: Active Protocol: Document 04/12/19 08:15 DLM (Rec: 04/12/19 11:49 DL [id number]) Trunk Strength Trunk Manual Muscle Testing Testing Position Sitting Flexion 4- Good- Extension 3+ Fair+ Rotation Left 4 Good Rotation Right 4 Good Lateral Flexion Left 4 Good Lateral Flexion Right 4 Good Comments caution used to avoid pain due to post-op precautions Hip Strength Hip Manual Muscle Testing Right Flexion (L2) 3+ Fair+ Extension (S1) 3+ Fair+ Abduction 3 Fair Adduction 4 Good Left Flexion (L2) 3+ Fair+ Extension (S1) 4- Good- Abduction 3+ Fair+ Adduction 4 Good Comments pain with resisted hip flexion Knee Strength Knee Manual Muscle Testing Right Flexion (S2) 5 Normal Extension (L3) 5 Normal Left Flexion (S2) 5 Normal Extension (L3) 5 Normal Ankle/Foot Strength Ankle and Foot Manual Muscle Testing Right Dorsiflexion (L4) 5 Normal Left Dorsiflexion (L4) 5 Normal Plantarflexion (S1) 4 Good PT-OP-Q Treatments Start: 04/12/19 08:03 Freq: Status: Active Protocol: Document 05/12/19 13:03 JG (Rec: 05/12/19 15:37 JG [email or web address]) Cardio Equipment Treadmill Duration (Minutes) 7 Speed 1.5 Other Single hand hold support, cuing for even stride length Gym Equipment Shuttle Recovery B squat Resistance #100 Shuttle Recovery Platform Stable Reps/Time 1x20 50# followed by 3x20 100# with yellow band around knees Therapeutic Exercises Supine Exercises Marching Side bilateral Reps/Minutes 2x10 Comments cue to keep L/S flat, difficult with holding B LEs up LTR Supine Exercise Name Lower trunk rotation for HEP Side bilateral Reps/Minutes 2x10 Comments Started with hip/knee at 90, regressed to feet on table due to difficulty Standing Exercises high knee walk Side bilateral Equipment Used mirror for cueing Reps/Minutes 8 mins Comments cueing on avoiding excessive lateral weight shift Neuro Re-Education Treatment Balance Activities Toe taps Details with domes Surface ground level Equipment single bar Reps/Duration 10x3 Comments tap R/L/central, handhold support as needed single leg stance Surface green foam pad Equipment single bar Reps/Duration 5x10 bilateral Comments cues on maintaining level pelvis, fingertip support Movement Re-Education Movement Re-education Activities Slow walking with emphasis on keeping pelvis level, 10x4 steps bilateral PT-OP-R Modalities Start: 04/12/19 08:03 Freq: Status: Active Protocol: Document 04/20/19 13:50 HH (Rec: 04/20/19 16:42 HH [email or web address]) Hot Pack/Cold Pack Treatment moist heat Patient Position Hooklying Treatment Duration (minutes) 10 Patient Tolerance Good PT-OP-T Assessment and Plan Start: 04/12/19 08:03 Freq: Status: Active Protocol: Document 05/12/19 13:03 JG (Rec: 05/12/19 15:37 JG [email or web address]) Physical Therapy Assessment Goals Three Impairment No HEP Short Term Goal (STG) Tolerate regular exercises for HEP STG Duration 3 weeks Solar Installation Helper Goal (LTG) Independent with HEP LTG Duration 6 weeks Two Impairment Core Weakness with pain Short Term Goal (STG) Be able to sit-stand with good core stability and no increase in back pain STG Duration 4 weeks [facility]dc Goal (LTG) Be able to get in/out of car without increased back pain LTG Duration 6 weeks One Impairment LE weakness Short Term Goal (STG) Increase LE strength to at least 4-/5 STG Duration 4 weeks Solar Installation Helper Goal (LTG) Increase LE strength to at least 4/5 LTG Duration 6 weeks Assessment Summary Assessment Pt demonstrates improved hip control with single leg stance activities. Cont reliance on ankle and hip strategies for balance R>L. Pt demonstrates continued limitation with rotational core stability and endurance. Will focus on rotation control and strength, along with back extensors strength (maybe isometric) Physical Therapy Plan Next Visit Focus/Plan Next Note Type Treatment Note Next Visit Plan assess pt's symptoms and review HEP rotational stability slowly advance her HEP, progress balance ex/hip strengthening ex as magy by pain and strength/endurance Progress core rotational stability exercises
--- NOTE | 2019-05-18 09:47 | PT.OTN ---
Current Diagnoses Spondylolisthesis, lumbar region (05/18/19) Spinal stenosis, lumbar region with neurogenic claudication (05/18/19) Physical Therapy Treatment Note PT-OP-A Visit Information Start: 04/12/19 08:03 Freq: Status: Active Protocol: Document 05/18/19 09:00 HH (Rec: 05/18/19 09:47 HH [id number]) Out-Patient Physical Therapy Visit Information Visit Information Visit Type Progress Note Visit Start Time 09:00 Visit Stop Time 09:44 Total Visit Minutes 44 Visit Number 9 Number of POST MANAGER Visits 0 PT-OP-B Current Condition Start: 04/12/19 08:03 Freq: Status: Active Protocol: Document 04/12/19 08:15 DLM (Rec: 04/12/19 11:49 DLM [id number]) Current Condition History of Current Condition Onset Date 03/04/19 Current Complaints low back pain and weakness History of Current Condition Before surgery she had low back pain and pain into bilateral LE's. After surgery her leg pain was gone. She feels she has been healing well. She continues to have mild back pain and describes leg weakness. Prior Treatments and Tests surgery 03/04/19 Future Testing and Treatments Planned Has follow-up with surgeon in 2 months Treatment Goals Patient/Caregiver Goals She wants her legs to be stronger, less pain getting out of bed, easier to stand up Prior Functional Status Baseline Function- ADL's Independent Baseline Function- Mobility Independent Baseline Function- Gait Independent without device, community distances Baseline Function- Work/School retired Current Functional Impairments (Reported) Functional Limitations- ADL's Independent with modifications , uses a verification lead, has brewer helper for cleaning the house, she can not pick things up from the floor, she is limited in her ability to bend over Functional Limitations- Mobility/Gait Independent gait without device, has gradually been increasing her distances since surgery. She is having difficulty getting out of bed. She is having difficulty with sit to stand. Leg weakness makes getting out of car difficult. Functional Limitations- Work/School retired Functional Limitations- Other Having some back pain at night when sleeping that wakes her up, especially when changing positions Personal Factors Other Personal Factors That May Effect seen in PT in 2018 for knee Therapy/Recovery pain PT-OP-C Subjective Start: 04/12/19 08:03 Freq: Status: Active Protocol: Document 05/18/19 09:00 HH (Rec: 05/18/19 09:47 HH [id number]) OP-PT Subjective Patient Comments Patient Comments Its getting easier getting in and out of the car. No pain for standing up/ down. But i do want to work on my squat to poultry picking machine tender up objects easier. Patient Reported Progress Improving PT-OP-F Manual Assessment Start: 04/12/19 08:03 Freq: Status: Active Protocol: Document 04/12/19 08:15 DLM (Rec: 04/12/19 11:49 DL [id number]) Manual Assessments Soft Tissue Assessment Soft Tissue Mobility Assessment Incisions are closed, mild tightness around incisions PT-OP-G Mobility & Gait Start: 04/12/19 08:03 Freq: Status: Active Protocol: Document 04/12/19 08:15 DLM (Rec: 04/12/19 11:49 DL [id number]) OP Mobility Evaluation Bed Mobility Rolling Independent, slow pace, mild pain Supine to and from Sit independent, no increase pain with sit to sidelying, increased pain with sidelying to sit, she is unable to bridge to change positions with back pain Transfers Sit to Stand increased back pain with sit to stand Floor Transfers pt reports she can not currently do this, will hold this activity until back surgery has healed more OP Gait Assessment Gait Gait Assistance Required: Independent Assistive Devices Assistive Device None Gait Deviations General Gait Pattern Antalgic Factors Limiting Gait Function Factors Limiting Gait Function Decreased Strength Comments Gait Comments decreased push-off on left PT-OP-J Posture/Palpation/Skin Start: 04/12/19 08:03 Freq: Status: Active Protocol: Document 04/12/19 08:15 DLM (Rec: 04/12/19 11:49 DL [id number]) Posture Evaluation Position Standing Evaluation View Posterior Comments Posture Comments erect posture PT-OP-K Range of Motion Start: 04/12/19 08:03 Freq: Status: Active Protocol: Document 04/12/19 08:15 DLM (Rec: 04/12/19 11:49 DL [id number]) Lumbar Spine Range of Motion Lumbar Spine Active ROM Limitations Pain Comments post-op precautions, she has increased back pain with flexion sitting and standing , all motions are functional for mobility, did not assess end range motions this visit Shoulder Goniometric Range of Motion Shoulder ROM Limitations Comments mild shoulder end range stiffness with elevation, no pain reported PT-OP-L Special Tests Start: 04/12/19 08:03 Freq: Status: Active Protocol: Document 04/12/19 08:15 DLM (Rec: 04/13/19 19:18 DL [id number]) Special Tests Lumbar Spine Special Tests Darren Test Results tightness bilaterally Straight Leg Raise Test Results negative bilaterally PT-OP-M Strength Start: 04/12/19 08:03 Freq: Status: Active Protocol: Document 04/12/19 08:15 DLM (Rec: 04/12/19 11:49 DL [id number]) Trunk Strength Trunk Manual Muscle Testing Testing Position Sitting Flexion 4- Good- Extension 3+ Fair+ Rotation Left 4 Good Rotation Right 4 Good Lateral Flexion Left 4 Good Lateral Flexion Right 4 Good Comments caution used to avoid pain due to post-op precautions Hip Strength Hip Manual Muscle Testing Right Flexion (L2) 3+ Fair+ Extension (S1) 3+ Fair+ Abduction 3 Fair Adduction 4 Good Left Flexion (L2) 3+ Fair+ Extension (S1) 4- Good- Abduction 3+ Fair+ Adduction 4 Good Comments pain with resisted hip flexion Knee Strength Knee Manual Muscle Testing Right Flexion (S2) 5 Normal Extension (L3) 5 Normal Left Flexion (S2) 5 Normal Extension (L3) 5 Normal Ankle/Foot Strength Ankle and Foot Manual Muscle Testing Right Dorsiflexion (L4) 5 Normal Left Dorsiflexion (L4) 5 Normal Plantarflexion (S1) 4 Good PT-OP-Q Treatments Start: 04/12/19 08:03 Freq: Status: Active Protocol: Document 05/18/19 09:00 (Rec: 05/18/19 09:47 [id number]) Cardio Equipment Treadmill Duration (Minutes) 7 Speed 1.7 Other Single hand hold support, cuing for even stride length Therapeutic Exercises Supine Exercises supine LTR (knee hold) Supine Exercise Name 90/90 position Reps/Minutes 8 x 3 Comments LTR, cues on flat back Therapeutic Activity Therapeutic Activity weighted object transfer between surface Name 5 lbs Reps/Minutes 6 mins Comments use small steps to turn, stand step pivot ball picking Name balls on top of cones Reps/Minutes 10 mins Comments cues on neutral spine, hip hinge pattern. reaching across midline. seated legs poultry picking machine tender Name on low table Reps/Minutes 12 mins Comments mimic car transfers with hip flexion and trunk rotation reaching across midline Name seated Reps/Minutes 5 mins Comments reach for balls (on top of cones) cues on engaging abdominals PT-OP-R Modalities Start: 04/12/19 08:03 Freq: Status: Active Protocol: Document 04/20/19 13:50 HH (Rec: 04/20/19 16:42 HH [id number]) Hot Pack/Cold Pack Treatment moist heat Patient Position Hooklying Treatment Duration (minutes) 10 Patient Tolerance Good PT-OP-T Assessment and Plan Start: 04/12/19 08:03 Freq: Status: Active Protocol: Document 05/18/19 09:00 HH (Rec: 05/18/19 09:47 HH [id number]) Physical Therapy Assessment Goals bending over Impairment increase in pain with bending over activities. Care Home Goal (LTG) Pt will not have increase in back pain during bend over activities such as vacuuming, dish washing, object picking from floor LTG Duration 4 weeks. Three Care Home Goal (LTG) 05/18 goal. Pt has been compliant to daily ex without increase in pain Two Vending Machine Technician Goal (LTG) 05/18 goal met . Able to sit to stand / car transfer with no pain or increase in pain. One Care Home Goal (LTG) cont to progress. 05/18 pt has been able to perform B leg press up to 100 lbs x 10- 12 reps Assessment Summary Assessment Pt overall progress as expected. Met all short term goals so far. cont focus on graded exposure today with bend over activities and car transfers. Pt demonstrates improved hip hinge pattern, abdominal engagement and strength. Pt did not c/o increase in pain/discomfort for the entire session. Physical Therapy Plan Next Visit Focus/Plan Next Note Type Treatment Note Next Visit Plan reassess body mechanics for bend over, rotational activities. supine
--- NOTE | 2019-05-25 09:47 | PT.OTN ---
Current Diagnoses Spondylolisthesis, lumbar region (05/25/19) Spinal stenosis, lumbar region with neurogenic claudication (05/25/19) Physical Therapy Treatment Note PT-OP-A Visit Information Start: 04/12/19 08:03 Freq: Status: Active Protocol: Document 05/25/19 09:00 HH (Rec: 05/25/19 09:47 [id number]) Out-Patient Physical Therapy Visit Information Visit Information Visit Type Treatment Note Visit Note SPT Fran leads treatment session Visit Start Time 09:00 Visit Stop Time 09:45 Total Visit Minutes 45 Visit Number 06/15 Number of ENGAGEMENT SPECIALIST Visits 0 PT-OP-B Current Condition Start: 04/12/19 08:03 Freq: Status: Active Protocol: Document 04/12/19 08:15 DLM (Rec: 04/12/19 11:49 DLM [id number]) Current Condition History of Current Condition Onset Date 03/04/19 Current Complaints low back pain and weakness History of Current Condition Before surgery she had low back pain and pain into bilateral LE's. After surgery her leg pain was gone. She feels she has been healing well. She continues to have mild back pain and describes leg weakness. Prior Treatments and Tests surgery 03/04/19 Future Testing and Treatments Planned Has follow-up with surgeon in 2 months Treatment Goals Patient/Caregiver Goals She wants her legs to be stronger, less pain getting out of bed, easier to stand up Prior Functional Status Baseline Function- ADL's Independent Baseline Function- Mobility Independent Baseline Function- Gait Independent without device, community distances Baseline Function- Work/School retired Current Functional Impairments (Reported) Functional Limitations- ADL's Independent with modifications , uses a inspector wire products, has wirer helper for cleaning the house, she can not pick things up from the floor, she is limited in her ability to bend over Functional Limitations- Mobility/Gait Independent gait without device, has gradually been increasing her distances since surgery. She is having difficulty getting out of bed. She is having difficulty with sit to stand. Leg weakness makes getting out of car difficult. Functional Limitations- Work/School retired Functional Limitations- Other Having some back pain at night when sleeping that wakes her up, especially when changing positions Personal Factors Other Personal Factors That May Effect seen in PT in 2018 for knee Therapy/Recovery pain PT-OP-C Subjective Start: 04/12/19 08:03 Freq: Status: Active Protocol: Document 05/25/19 09:00 HH (Rec: 05/25/19 09:47 HH [id number]) OP-PT Subjective Patient Comments Patient Comments I was doing very good since last visit. Getting in and out of the car doesnt bother me as long as im cautious about my techniques. But i did some garage cleaning yesterday and it makes my back very sore today. Patient Reported Progress Improving PT-OP-F Manual Assessment Start: 04/12/19 08:03 Freq: Status: Active Protocol: Document 04/12/19 08:15 DLM (Rec: 04/12/19 11:49 DLM [id number]) Manual Assessments Soft Tissue Assessment Soft Tissue Mobility Assessment Incisions are closed, mild tightness around incisions PT-OP-G Mobility & Gait Start: 04/12/19 08:03 Freq: Status: Active Protocol: Document 04/12/19 08:15 DLM (Rec: 04/12/19 11:49 DLM [id number]) OP Mobility Evaluation Bed Mobility Rolling Independent, slow pace, mild pain Supine to and from Sit independent, no increase pain with sit to sidelying, increased pain with sidelying to sit, she is unable to bridge to change positions with back pain Transfers Sit to Stand increased back pain with sit to stand Floor Transfers pt reports she can not currently do this, will hold this activity until back surgery has healed more OP Gait Assessment Gait Gait Assistance Required: Independent Assistive Devices Assistive Device None Gait Deviations General Gait Pattern Antalgic Factors Limiting Gait Function Factors Limiting Gait Function Decreased Strength Comments Gait Comments decreased push-off on left PT-OP-J Posture/Palpation/Skin Start: 04/12/19 08:03 Freq: Status: Active Protocol: Document 04/12/19 08:15 DLM (Rec: 04/12/19 11:49 DLM [id number]) Posture Evaluation Position Standing Evaluation View Posterior Comments Posture Comments erect posture PT-OP-K Range of Motion Start: 04/12/19 08:03 Freq: Status: Active Protocol: Document 04/12/19 08:15 DLM (Rec: 04/12/19 11:49 DLM [id number]) Lumbar Spine Range of Motion Lumbar Spine Active ROM Limitations Pain Comments post-op precautions, she has increased back pain with flexion sitting and standing , all motions are functional for mobility, did not assess end range motions this visit Shoulder Goniometric Range of Motion Shoulder ROM Limitations Comments mild shoulder end range stiffness with elevation, no pain reported PT-OP-L Special Tests Start: 04/12/19 08:03 Freq: Status: Active Protocol: Document 04/12/19 08:15 DLM (Rec: 04/13/19 19:18 DLM [id number]) Special Tests Lumbar Spine Special Tests Darren Test Results tightness bilaterally Straight Leg Raise Test Results negative bilaterally PT-OP-M Strength Start: 04/12/19 08:03 Freq: Status: Active Protocol: Document 04/12/19 08:15 DLM (Rec: 04/12/19 11:49 DLM [id number]) Trunk Strength Trunk Manual Muscle Testing Testing Position Sitting Flexion 4- Good- Extension 3+ Fair+ Rotation Left 4 Good Rotation Right 4 Good Lateral Flexion Left 4 Good Lateral Flexion Right 4 Good Comments caution used to avoid pain due to post-op precautions Hip Strength Hip Manual Muscle Testing Right Flexion (L2) 3+ Fair+ Extension (S1) 3+ Fair+ Abduction 3 Fair Adduction 4 Good Left Flexion (L2) 3+ Fair+ Extension (S1) 4- Good- Abduction 3+ Fair+ Adduction 4 Good Comments pain with resisted hip flexion Knee Strength Knee Manual Muscle Testing Right Flexion (S2) 5 Normal Extension (L3) 5 Normal Left Flexion (S2) 5 Normal Extension (L3) 5 Normal Ankle/Foot Strength Ankle and Foot Manual Muscle Testing Right Dorsiflexion (L4) 5 Normal Left Dorsiflexion (L4) 5 Normal Plantarflexion (S1) 4 Good PT-OP-Q Treatments Start: 04/12/19 08:03 Freq: Status: Active Protocol: Document 05/25/19 09:00 HH (Rec: 05/25/19 09:47 HH [id number]) Therapeutic Exercises Supine Exercises tennis ball self release Supine Exercise Name L distal paraspinals/ QL Side left Reps/Minutes 5 mins Comments with trunk rotation. LTR Supine Exercise Name LTR with hip 90 degrees Reps/Minutes 8 x2 Comments slow eccentric control Therapeutic Activity Therapeutic Activity bed rolling Name use of ipsilateral LE to push off for rolling Reps/Minutes 5 x 3 sit to stand Name 8 x 3 ball picking Name balls on top of cones Reps/Minutes 12 Comments cues on neutral spine, hip hinge pattern. reaching across midline. Manual Therapy Treatment Soft Tissue Mobilization QL Mobilization Type Sustained Pressure,Trigger Point Release Intensity/Depth Superficial Body Position Sidelying Joint Mobilizations L SIJ Direction distraction Grade II Body Position Sidelying PT-OP-R Modalities Start: 04/12/19 08:03 Freq: Status: Active Protocol: Document 05/25/19 09:00 HH (Rec: 05/25/19 09:47 HH [id number]) Hot Pack/Cold Pack Treatment moist heat Location lumbar Patient Position Hooklying Treatment Duration (minutes) 10 Patient Tolerance Good PT-OP-T Assessment and Plan Start: 04/12/19 08:03 Freq: Status: Active Protocol: Document 05/25/19 09:00 HH (Rec: 05/25/19 09:47 [id number]) Physical Therapy Assessment Goals bending over Impairment increase in pain with bending over activities. [facility] Goal (LTG) Pt will not have increase in back pain during bend over activities such as vacuuming, dish washing, object picking from floor LTG Duration 4 weeks. Three Impairment No HEP Short Term Goal (STG) Tolerate regular exercises for HEP STG Duration 3 weeks [facility] Goal (LTG) Independent with HEP LTG Duration 6 weeks Two Impairment Core Weakness with pain Short Term Goal (STG) Be able to sit-stand with good core stability and no increase in back pain STG Duration 4 weeks [facility] Goal (LTG) Be able to get in/out of car without increased back pain LTG Duration 6 weeks One Impairment LE weakness Short Term Goal (STG) Increase LE strength to at least 4-/5 STG Duration 4 weeks Scale Tester Goal (LTG) Increase LE strength to at least 4/5 LTG Duration 6 weeks Assessment Summary Assessment Pt has increased symptoms today after garage cleaning today. Pt c/o her LB has discomfort with bend over activities, along with mild grower sign during object picking from cones. Tx focuses on lumbar musculature relaxation, core muscle engagment during functional activities (ball picking, hip hinge STS). Added tennis ball self release for L SIJ and paraspinals. Pt reports of relief at the end of session. Physical Therapy Plan Next Visit Focus/Plan Next Note Type Discharge Summary Next Visit Plan possible D/C review hip hinge for STS, ball sheepskin pickler, ball release cont L hip stability and ankle stability training
--- NOTE | 2019-05-27 09:46 | PT.OTN ---
Current Diagnoses Spondylolisthesis, lumbar region (05/27/19) Spinal stenosis, lumbar region with neurogenic claudication (05/27/19) Physical Therapy Treatment Note PT-OP-A Visit Information Start: 04/12/19 08:03 Freq: Status: Active Protocol: Document 05/27/19 09:02 HH (Rec: 05/27/19 09:45 [id number]) Out-Patient Physical Therapy Visit Information Visit Information Visit Type Discharge Summary Visit Note SPT Jose leads tx session Visit Start Time 09:02 Visit Stop Time 09:45 Total Visit Minutes 43 Visit Number 07/15 Number of EVIDENCE CUSTODIAN Visits 0 PT-OP-B Current Condition Start: 04/12/19 08:03 Freq: Status: Active Protocol: Document 04/12/19 08:15 DLM (Rec: 04/12/19 11:49 DLM [id number]) Current Condition History of Current Condition Onset Date 03/04/19 Current Complaints low back pain and weakness History of Current Condition Before surgery she had low back pain and pain into bilateral LE's. After surgery her leg pain was gone. She feels she has been healing well. She continues to have mild back pain and describes leg weakness. 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 She is having difficulty getting out of bed. She is having difficulty with sit to stand. Leg weakness makes getting out of car difficult. Functional Limitations- Work/School retired Functional Limitations- Other Having some back pain at night when sleeping that wakes her up, especially when changing positions Personal Factors Other Personal Factors That May Effect seen in PT in 2018 for knee Therapy/Recovery pain PT-OP-C Subjective Start: 04/12/19 08:03 Freq: Status: Active Protocol: Document 05/27/19 09:02 HH (Rec: 05/27/19 09:45 HH [id number]) OP-PT Subjective Patient Comments Patient Comments car transfer is getting better and rolling in bed with single leg push off helps me a lot. I think im ready to be d/c from PT. Patient Reported Progress Improving PT-OP-F Manual Assessment Start: 04/12/19 08:03 Freq: Status: Active Protocol: Document 04/12/19 08:15 DLM (Rec: 04/12/19 11:49 DLM [id number]) Manual Assessments Soft Tissue Assessment Soft Tissue Mobility Assessment Incisions are closed, mild tightness around incisions PT-OP-G Mobility & Gait Start: 04/12/19 08:03 Freq: Status: Active Protocol: Document 04/12/19 08:15 DLM (Rec: 04/12/19 11:49 DLM [id number]) OP Mobility Evaluation Bed Mobility Rolling Independent, slow pace, mild pain Supine to and from Sit independent, no increase pain with sit to sidelying, increased pain with sidelying to sit, she is unable to bridge to change positions with back pain Transfers Sit to Stand increased back pain with sit to stand Floor Transfers pt reports she can not currently do this, will hold this activity until back surgery has healed more OP Gait Assessment Gait Gait Assistance Required: Independent Assistive Devices Assistive Device None Gait Deviations General Gait Pattern Antalgic Factors Limiting Gait Function Factors Limiting Gait Function Decreased Strength Comments Gait Comments decreased push-off on left PT-OP-J Posture/Palpation/Skin Start: 04/12/19 08:03 Freq: Status: Active Protocol: Document 04/12/19 08:15 DLM (Rec: 04/12/19 11:49 DLM [id number]) Posture Evaluation Position Standing Evaluation View Posterior Comments Posture Comments erect posture PT-OP-K Range of Motion Start: 04/12/19 08:03 Freq: Status: Active Protocol: Document 04/12/19 08:15 DLM (Rec: 04/12/19 11:49 DLM [id number]) Lumbar Spine Range of Motion Lumbar Spine Active ROM Limitations Pain Comments post-op precautions, she has increased back pain with flexion sitting and standing , all motions are functional for mobility, did not assess end range motions this visit Shoulder Goniometric Range of Motion Shoulder ROM Limitations Comments mild shoulder end range stiffness with elevation, no pain reported PT-OP-L Special Tests Start: 04/12/19 08:03 Freq: Status: Active Protocol: Document 04/12/19 08:15 DLM (Rec: 04/13/19 19:18 DL [id number]) Special Tests Lumbar Spine Special Tests Darren Test Results tightness bilaterally Straight Leg Raise Test Results negative bilaterally PT-OP-M Strength Start: 04/12/19 08:03 Freq: Status: Active Protocol: Document 04/12/19 08:15 DLM (Rec: 04/12/19 11:49 DL [id number]) Trunk Strength Trunk Manual Muscle Testing Testing Position Sitting Flexion 4- Good- Extension 3+ Fair+ Rotation Left 4 Good Rotation Right 4 Good Lateral Flexion Left 4 Good Lateral Flexion Right 4 Good Comments caution used to avoid pain due to post-op precautions Hip Strength Hip Manual Muscle Testing Right Flexion (L2) 3+ Fair+ Extension (S1) 3+ Fair+ Abduction 3 Fair Adduction 4 Good Left Flexion (L2) 3+ Fair+ Extension (S1) 4- Good- Abduction 3+ Fair+ Adduction 4 Good Comments pain with resisted hip flexion Knee Strength Knee Manual Muscle Testing Right Flexion (S2) 5 Normal Extension (L3) 5 Normal Left Flexion (S2) 5 Normal Extension (L3) 5 Normal Ankle/Foot Strength Ankle and Foot Manual Muscle Testing Right Dorsiflexion (L4) 5 Normal Left Dorsiflexion (L4) 5 Normal Plantarflexion (S1) 4 Good PT-OP-Q Treatments Start: 04/12/19 08:03 Freq: Status: Active Protocol: Document 05/27/19 09:02 (Rec: 05/27/19 09:43 [id number]) Cardio Equipment Treadmill Duration (Minutes) 5 Speed 1.7 Other w/o UE and Single hand hold support, cuing for even stride length Therapeutic Exercises Supine Exercises tennis ball self release Supine Exercise Name L distal paraspinals/ QL Side left Reps/Minutes 5 mins Comments with trunk rotation. supine LTR (knee hold) Side bilateral Reps/Minutes 8x2 Comments HEP Standing Exercises bend over hip hinge hold Standing Exercise Name bend over hold Side bilateral Reps/Minutes 5secs hold Comments cues on hip hinge hip abd walk Resistance yellow band Comments band around knees, hip hinge position standing tennis ball release Standing Exercise Name ball at L QL and paraspinals Equipment Used tennis ball toe tap Standing Exercise Name slight hip bend (SLS) Reps/Minutes 5 mins Comments on cones Therapeutic Activity Therapeutic Activity car transfer Name at the corner of the table Comments with ankle weight 1lb ankle weight. sit to stand Name 8 x 3 Comments 4 inch box underneath R foot PT-OP-R Modalities Start: 04/12/19 08:03 Freq: Status: Active Protocol: Document 05/25/19 09:00 HH (Rec: 05/25/19 09:47 HH [id number]) Hot Pack/Cold Pack Treatment moist heat Location lumbar Patient Position Hooklying Treatment Duration (minutes) 10 Patient Tolerance Good PT-OP-T Assessment and Plan Start: 04/12/19 08:03 Freq: Status: Active Protocol: Document 05/27/19 09:02 HH (Rec: 05/27/19 09:43 [id number]) Physical Therapy Assessment Goals bending over Impairment increase in pain with bending over activities. Correction Goal (LTG) 05/27: goal met. Pt reports pain is more controlled with bend over activities as long as with good bodymechanics. Pt will not have increase in back pain during bend over activities such as vacuuming, dish washing, object picking from floor LTG Duration 4 weeks. Three Impairment No HEP Short Term Goal (STG) Tolerate regular exercises for HEP STG Duration 3 weeks Metal Furniture Repairer Goal (LTG) 05/27 : goal met Independent with HEP LTG Duration 6 weeks Two Impairment Core Weakness with pain Short Term Goal (STG) Be able to sit-stand with good core stability and no increase in back pain STG Duration 4 weeks Metal Furniture Repairer Goal (LTG) goal met 05/27: pt reports no increase of discomfort for car transfer and bed mobility Be able to get in/out of car without increased back pain LTG Duration 6 weeks One Impairment LE weakness Short Term Goal (STG) Increase LE strength to at least 4-/5 STG Duration 4 weeks Metal Furniture Repairer Goal (LTG) cont to progress: L hip ab 4-/ 5 , and ext 4/5, R hip 4+/5 grossly. Increase LE strength to at least 4/5 LTG Duration 6 weeks Progress Towards Goals Progress Towards Goals Goals Met Assessment Summary Assessment Pt reached most of her rehab goals. Reports pain is well controlled now without increased pain except prolonged bend over activities . There's still weakness noticed at L hip stabilizers. HEP master list is given : bend over hold, supine LTR, tennis ball release, toe tap, hip abd walk. Physical Therapy Plan Discharge Physical Therapy Discharge Reasons Goals Met
== END 2019-05-27 10:40 ==
LOC: PHYS 09:00
PROVIDERS: PCP Family Medicine; Visit Provider Orthopaedic Surgery Orthopaedic Surgery of the Spine
DX: M48.062 Spinal stenosis, lumbar region with neurogenic claudication (principal); M43.16 Spondylolisthesis, lumbar region
CPT/HCPCS: 97010; 97110; 97112; 97140; 97162; 97530; 97535

== ENCOUNTER 2019-12-13 10:30 | Outpatient (RCR) | payer MEDICARE, SELFPAY ==
[2019-03-04 14:13] VITALS: BMI 28.4
--- NOTE | 2019-12-08 17:39 | PT.OIE ---
Current Diagnoses Benign paroxysmal vertigo, unspecified ear (12/08/19) Past Medical History (Last Updated 04/12/19 @ 11:04 by Julia Higgins, PT) Abnormal Pap smear of cervix (Chronic ~1983) Basal cell carcinoma, leg (Resolved ~2013) Cervicalgia (Chronic ~2013) Chickenpox (Resolved ~1949) Elevated LFTs (Inactive) Foot pain (Chronic ~2006) Goiter (Chronic ~2013) Hyperlipidemia (Chronic 04/14/14) Impaired fasting glucose (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) 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) Lumbago (Acute) Measles (Resolved ~1944) 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) Mononucleosis (Resolved ~1979) Mumps (Resolved ~1946) Neutropenia (Chronic ~2013) Osteopenia (Chronic 02/21/17) Other dietary vitamin B12 deficiency anemia (Chronic ~2013) Shingles (Resolved ~2013) Skin cancer (Resolved ~2013) Thrombocytopenia (Chronic) Vitamin B12 deficiency (Chronic ~2013) Past Surgical History (Last Updated 04/12/19 @ 11:05 by Julia Higgins, PT) History of airway aspiration (Resolved ~07/19/14) History of tonsillectomy Hx of arthroscopy of left knee (Acute ~2017) S/P total abdominal hysterectomy and bilateral salpingo-oophorectomy (~1989) Status post appendectomy (~1957) Status post arthroscopy (~2010) Status post biopsy (~2013) Status post colonoscopy (~2009) Status post hysterectomy (~1989) Status post lumbar surgery (Acute 03/04/19) Visit Care Team Role Provider Type Fabiana Brink DO Attending Provider Physician Family Provider Primary Care Provider Referring Provider Specialty: Family Practice Address: [address] [place] [address], [address], [facility] Email: [email or web address] Physical Therapy Initial Evaluation PT-OP-A Visit Information Start: 12/08/19 16:32 Freq: Status: Active Protocol: Document 12/08/19 16:45 DCW (Rec: 12/08/19 17:39 DCW [id number]) Out-Patient Physical Therapy Visit Information Visit Information Visit Type Initial Evaluation Visit Start Time 16:45 Visit Stop Time 17:20 Total Visit Minutes 35 Visit Number 1 Number of HAT FINISHING MATERIALS PREPARER Visits 0 Evaluation Information Evaluation Date 12/08/19 PT-OP-B Current Condition Start: 12/08/19 16:32 Freq: Status: Active Protocol: Document 12/08/19 16:45 DCW (Rec: 12/08/19 17:39 DCW [id number]) Current Condition History of Current Condition Onset Date Three months Current Complaints Position-dependent dizziness History of Current Condition Pt is an 79 year old female complaining of a three month history of motion-induced vertigo. Pt reports episodes last a few minutes. Symptoms are provoked by lying back in bed, it feels like back in the day, after you drank too much and need to put a foot on the floor to stop the spinning. Pt denies recent hearing changes, tinnitus, diplopia, dysarthria, discoordination, or decreased mentation/consciousness. Pt denies hx of HTN, diabetes, arrhythmia, head trauma, seizure, migraines, CVA, anxiety/panic disorders, depression, or excessive smoking or drinking. Pt was previously seen at this clinic last year following lumbar surgery, and notes her back feels great. Pt notes she was seen by Dr Brink in September, who did a little head turn thing while I was laying down, and that seemed to help a lot , but there is still some spinning left over. Treatment Goals Patient/Caregiver Goals Eliminate positional vertigo PT-OP-C Subjective Start: 12/08/19 16:32 Freq: Status: Active Protocol: Document 12/08/19 16:45 DCW (Rec: 12/08/19 17:39 DCW [id number]) OP-PT Subjective Patient Comments Patient Comments I haven't fallen, because it only happens when I'm already laying down, but I don't want it to get bad enough that I do fall. Patient Reported Progress Improving Patient Questionnaires Dizziness Handicap Inventory DHI Score 10% OP-PT Pain Assessment Pain Assessment Grid Paper Pain Assessment Grid Completed N/A PT-OP-O Vestibular Start: 12/08/19 16:32 Freq: Status: Active Protocol: Document 12/08/19 16:45 DCW (Rec: 12/08/19 17:39 DCW [id number]) Vestibular Assessment Auditory Tests Turpin Test Negative Rinne Test Negative Air Conduction Results Equal Visual Testing Smooth Pursuits Horizontal WNL Smooth Pursuits Vertical WNL Saccades Horizontal WNL Heave Test Positive Bilateral Thrust Head Positive Bilateral Positional Testing Juanjo-Hallpike Positive Right,Negative Left, Upbeating,< 60 Seconds Comments Vestibular Comments Thrust/Heave tests: Mildly positive bilaterally During right Juanjo-Hallpike test , pt complained of vertigo and demonstrated up-beating, torsional nystagmus lasting approximately 10 seconds PT-OP-Q Treatments Start: 12/08/19 16:32 Freq: Status: Active Protocol: Document 12/08/19 16:45 DCW (Rec: 12/08/19 17:39 [facility] [id number]) Canalithic Repositioning BPPV Treatment Awais Affected Canal(s) R posterior Reps x2 PT-OP-T Assessment and Plan Start: 12/08/19 16:32 Freq: Status: Active Protocol: Document 12/08/19 16:45 DCW (Rec: 12/08/19 17:39 [facility] [id number]) Physical Therapy Assessment Rehab Potential Rehabilitation Potential Excellent Evaluation Complexity Number of Personal Factors/Comorbidities 0 Number of Body Systems Impaired 1-2 Clinical Presentation at Evaluation Stable Impairments Impairments Balance,Vestibular Goals Two Impairment Positive right Juanjo-Hallpike Short Term Goal (STG) Pt to demonstrate negative positional testing bilaterally STG Duration 12/22/19 One Impairment Pt experiences vertigo when lying back in bed Short Term Goal (STG) Pt to perform all necessary bed mobility with no symptoms of vertigo STG Duration 12/22/19 Assessment Summary Assessment During right [place]-Hallpike test , pt complained of vertigo and demonstrated up-beating, torsional nystagmus lasting approximately 10 seconds, consistent with diagnosis of right-sided posterior canal BPPV, canalithiasis-type. Pt was treated with a right-sided Awais maneuver. Pt complained of symptoms in the first and third position, which is normally indicative of a successful treatment. Further positional testing showed mild residual up-beating, torsional nystagmus. A second Awais maneuver was then performed. Pt was educated on BPPV, expectations for treatment, possible recurrence (BPPV has a ~50% recurrence rate in the five years following treatment), and post -Awais restrictions. Pt to return in ~1 week for a follow -up appointment, and intermittently afterward as indicated for treatment of BPPV. Physical Therapy Plan Frequency and Duration Frequency of Treatment 1x/Week Duration of Treatment 4 weeks Plan of Care Start Date 12/08/19 Plan of Care End Date 01/05/20 Therapeutic Interventions Therapeutic Interventions Balance Training,Canalithic Repositioning,Vestibular Rehabilitation Next Visit Focus/Plan Next Note Type Treatment Note Next Visit Plan Further positional testing, CRM as needed
--- NOTE | 2019-12-08 17:39 | PT.OPPOC ---
Physical, Occupational & Speech Therapy At [facility] Current Diagnoses Benign paroxysmal vertigo, unspecified ear (12/08/19) Visit Care Team Role Provider Type Fabiana Brink DO Attending Provider Physician Family Provider Primary Care Provider Referring Provider Specialty: Family Practice Address: [address] [place] [address], [address], [facility] Email: [email or web address] Plan Of Care PT-OP-T Assessment and Plan Start: 12/08/19 16:32 Freq: Status: Active Protocol: Document 12/08/19 16:45 DCW (Rec: 12/08/19 17:39 DCW [id number]) Physical Therapy Assessment Rehab Potential Rehabilitation Potential Excellent Evaluation Complexity Number of Personal Factors/Comorbidities 0 Number of Body Systems Impaired 1-2 Clinical Presentation at Evaluation Stable Impairments Impairments Balance,Vestibular Goals Two Impairment Positive right Juanjo-Hallpike Short Term Goal (STG) Pt to demonstrate negative positional testing bilaterally STG Duration 12/22/19 One Impairment Pt experiences vertigo when lying back in bed Short Term Goal (STG) Pt to perform all necessary bed mobility with no symptoms of vertigo STG Duration 12/22/19 Assessment Summary Assessment During right [place]-Hallpike test , pt complained of vertigo and demonstrated up-beating, torsional nystagmus lasting approximately 10 seconds, consistent with diagnosis of right-sided posterior canal BPPV, canalithiasis-type. Pt was treated with a right-sided Awais maneuver. Pt complained of symptoms in the first and third position, which is normally indicative of a successful treatment. Further positional testing showed mild residual up-beating, torsional nystagmus. A second Awais maneuver was then performed. Pt was educated on BPPV, expectations for treatment, possible recurrence (BPPV has a ~50% recurrence rate in the five years following treatment), and post -Awais restrictions. Pt to return in ~1 week for a follow -up appointment, and intermittently afterward as indicated for treatment of BPPV. Physical Therapy Plan Frequency and Duration Frequency of Treatment 1x/Week Duration of Treatment 4 weeks Plan of Care Start Date 12/08/19 Plan of Care End Date 01/05/20 Therapeutic Interventions Therapeutic Interventions Balance Training,Canalithic Repositioning,Vestibular Rehabilitation Next Visit Focus/Plan Next Note Type Treatment Note Next Visit Plan Further positional testing, CRM as needed Plan of Care Dates Plan of Care Start Date 12/08/19 Plan of Care End Date 01/05/20 Electronically Signed by: Jose A Espino, PT 12/08/19 7199 Please Sign and Return: I have reviewed this Plan of Care and certify that the skilled therapy services above are required to meet the patient?s needs. Physician Signature Date Printed Name and Credentials Clinical Instructor Signature Printed Name and Credentials
--- NOTE | 2019-12-13 11:07 | PT.OTN ---
Current Diagnoses Benign paroxysmal vertigo, unspecified ear (12/13/19) Physical Therapy Treatment Note PT-OP-A Visit Information Start: 12/08/19 16:32 Freq: Status: Active Protocol: Document 12/13/19 10:30 DCW (Rec: 12/13/19 11:06 DCW [id number]) Out-Patient Physical Therapy Visit Information Visit Information Visit Type Treatment Note Visit Start Time 10:30 Visit Stop Time 10:55 Total Visit Minutes 25 Visit Number 2 Number of RADIOLOGICAL METALLURGIST Visits 0 Evaluation Information Evaluation Date 12/08/19 PT-OP-B Current Condition Start: 12/08/19 16:32 Freq: Status: Active Protocol: Document 12/08/19 16:45 DCW (Rec: 12/08/19 17:39 DCW [id number]) Current Condition History of Current Condition Onset Date Three months Current Complaints Position-dependent dizziness History of Current Condition Pt is an 79 year old female complaining of a three month history of motion-induced vertigo. Pt reports episodes last a few minutes. Symptoms are provoked by lying back in bed, it feels like back in the day, after you drank too much and need to put a foot on the floor to stop the spinning. Pt denies recent hearing changes, tinnitus, diplopia, dysarthria, discoordination, or decreased mentation/consciousness. Pt denies hx of HTN, diabetes, arrhythmia, head trauma, seizure, migraines, CVA, anxiety/panic disorders, depression, or excessive smoking or drinking. Pt was previously seen at this clinic last year following lumbar surgery, and notes her back feels great. Pt notes she was seen by Dr Brink in September, who did a little head turn thing while I was laying down, and that seemed to help a lot , but there is still some spinning left over. Treatment Goals Patient/Caregiver Goals Eliminate positional vertigo PT-OP-C Subjective Start: 12/08/19 16:32 Freq: Status: Active Protocol: Document 12/13/19 10:30 DCW (Rec: 12/13/19 11:06 DCW [id number]) OP-PT Subjective Patient Comments Patient Comments I've had one episode since I last saw you. I think it was Friday morning. PT-OP-O Vestibular Start: 12/08/19 16:32 Freq: Status: Active Protocol: Document 12/13/19 10:30 DCW (Rec: 12/13/19 11:06 DCW [id number]) Vestibular Assessment Positional Testing Juanjo-Hallpike Positive Right,Negative Left, Upbeating,< 60 Seconds Comments Vestibular Comments During right Juanjo-Hallpike test , pt complained of mild vertigo and demonstrated minimal up-beating, torsional nystagmus lasting approximately 5 seconds PT-OP-Q Treatments Start: 12/08/19 16:32 Freq: Status: Active Protocol: Document 12/13/19 10:30 DCW (Rec: 12/13/19 11:06 DCW [id number]) Canalithic Repositioning BPPV Treatment Awais Affected Canal(s) R posterior Reps x2 PT-OP-T Assessment and Plan Start: 12/08/19 16:32 Freq: Status: Active Protocol: Document 12/13/19 10:30 DCW (Rec: 12/13/19 11:06 DCW [id number]) Physical Therapy Assessment Impairments Impairments Balance,Vestibular Goals Two Impairment Positive right Juanjo-Hallpike Short Term Goal (STG) Pt to demonstrate negative positional testing bilaterally STG Duration 12/22/19 One Impairment Pt experiences vertigo when lying back in bed Short Term Goal (STG) Pt to perform all necessary bed mobility with no symptoms of vertigo STG Duration 12/22/19 Assessment Summary Assessment During right Juanjo-Hallpike test , pt complained of mild vertigo and demonstrated minimal up-beating, torsional nystagmus lasting approximately 5 seconds, consistent with diagnosis of right-sided posterior canal BPPV, canalithiasis-type. Pt was treated with a right-sided Awais maneuver. Pt complained of symptoms in the first and third position, which is normally indicative of a successful treatment. Further positional testing showed approximately 3 beats of residual up-beating, torsional nystagmus. A second Awais maneuver was then performed. Pt was further educated on BPPV, expectations for treatment, possible recurrence (BPPV has a ~50% recurrence rate in the five years following treatment), and post -Awais restrictions. Pt tolerated CRM well, and by end of session felt much better. Pt instructed to call for a follow-up if symptoms continue . If pt does not call back within the next month, pt will be discharged at that time. Physical Therapy Plan Frequency and Duration Frequency of Treatment 1x/Week Duration of Treatment 4 weeks Plan of Care Start Date 12/08/19 Plan of Care End Date 01/05/20 Therapeutic Interventions Therapeutic Interventions Balance Training,Canalithic Repositioning,Vestibular Rehabilitation Next Visit Focus/Plan Next Note Type Treatment Note Next Visit Plan Further positional testing, CRM as needed
--- NOTE | 2020-03-08 17:33 | PT.OPDS ---
Current Diagnoses Benign paroxysmal vertigo, unspecified ear (12/13/19) Visit Care Team Role Provider Type Fabiana Brink DO Attending Provider Physician Family Provider Primary Care Provider Referring Provider Specialty: Family Practice Address: [address] [place] [address], [address], [address] Email: [email or web address] Visit Number Visit Number 2 Discharge Summary PT-OP-B Current Condition Start: 12/08/19 16:32 Freq: Status: Active Protocol: Document 12/08/19 16:45 DCW (Rec: 12/08/19 17:39 DCW [id number]) Current Condition History of Current Condition Onset Date Three months Current Complaints Position-dependent dizziness History of Current Condition Pt is an 79 year old female complaining of a three month history of motion-induced vertigo. Pt reports episodes last a few minutes. Symptoms are provoked by lying back in bed, it feels like back in the day, after you drank too much and need to put a foot on the floor to stop the spinning. Pt denies recent hearing changes, tinnitus, diplopia, dysarthria, discoordination, or decreased mentation/consciousness. Pt denies hx of HTN, diabetes, arrhythmia, head trauma, seizure, migraines, CVA, anxiety/panic disorders, depression, or excessive smoking or drinking. Pt was previously seen at this clinic last year following lumbar surgery, and notes her back feels great. Pt notes she was seen by Dr Brink in September, who did a little head turn thing while I was laying down, and that seemed to help a lot , but there is still some spinning left over. Treatment Goals Patient/Caregiver Goals Eliminate positional vertigo PT-OP-C Subjective Start: 12/08/19 16:32 Freq: Status: Active Protocol: Document 12/13/19 10:30 DCW (Rec: 12/13/19 11:06 DCW [id number]) OP-PT Subjective Patient Comments Patient Comments I've had one episode since I last saw you. I think it was Friday morning. PT-OP-O Vestibular Start: 12/08/19 16:32 Freq: Status: Active Protocol: Document 12/13/19 10:30 DCW (Rec: 12/13/19 11:06 [facility] [id number]) Vestibular Assessment Positional Testing Juanjo-Hallpike Positive Right,Negative Left, Upbeating,< 60 Seconds Comments Vestibular Comments During right [place]-Hallpike test , pt complained of mild vertigo and demonstrated minimal up-beating, torsional nystagmus lasting approximately 5 seconds PT-OP-T Assessment and Plan Start: 12/08/19 16:32 Freq: Status: Active Protocol: Document 03/08/20 17:31 DCW (Rec: 03/08/20 17:33 DCW [id number]) Physical Therapy Assessment Assessment Summary Assessment Pt was instructed to call for a follow-up appointment in one month if symptoms continued. Pt has now not been seen in nearly three months. Pt will be discharged at this time, and will need a new referral in order to return to skilled therapy, if needed.
== END 2020-03-09 08:18 ==
LOC: PHYS 10:30
PROVIDERS: Family Provider Family Medicine; PCP Family Medicine; Referring Provider Family Medicine; Visit Provider Family Medicine
DX: H81.10 Benign paroxysmal vertigo, unspecified ear (principal)
CPT/HCPCS: 95992; 97140; 97161

== ENCOUNTER → 2020-01-10 15:15 | Outpatient (CLI) | payer MEDICARE, SELFPAY ==
[2019-03-04 14:13] VITALS: BMI 28.4
[2020-01-10 15:57] LABS: Add Manual Diff / Slide Review NO; Basophils Absolute Auto 0 /uL (0-100); Basophils Percent Auto 0.8 % (0-2); Eosinophils Absolute Auto 100 /uL (0-450); Eosinophils Percent Auto 3.3 % (2-4); Hematocrit 36.8 % (36-46); Lymphocytes Absolute Auto 1100 /uL (1100-4500); Lymphocytes Percent Auto 37.1 % (25-40); Mean Corpuscular HGB Conc 35.3 % (30-36); Mean Corpuscular Hemoglobin 34.2 PG (26-34); Monocytes Absolute Auto 300 /uL (0-900); Monocytes Percent Auto 11.1 % (3-14); Neutrophils Absolute Auto 1400 /uL (1500-7000); Neutrophils Percent Auto 47.7 % (50-75); Platelet Count 109 X10^3/uL (150-400); Red Cell Distribution Width 13.1 % (11.6-14.8); White Blood Cell Count 2.8 X10^3/uL (4.5-11.0)
[2020-01-10 16:08] LABS: Alanine Aminotransferase 28 IU/L (<35); Albumin 4.5 g/dL (3.5-5.0); Albumin Globulin Ratio 1.7 (1.0-2.8); Alkaline Phosphatase 68 U/L (38-126); Aspartate Aminotransferase 36 IU/L (14-36); BUN Creatinine Ratio 24.4 (6-22); Bilirubin Total 0.7 mg/dL (0.2-1.3); Blood Urea Nitrogen 20 mg/dL (7-17); Calcium 9.8 mg/dL (8.4-10.2); Carbon Dioxide 27 mmol/L (22-32); Chloride 105 mmol/L (98-107); Estimated Glomerular Filt Rate > 60.0 mL/min (>60); Globulin 2.6 g/dL (1.7-4.1); Glucose 99 mg/dL (80-110); HEMOLYSIS < 15 (0-50); Lactate Dehydrogenase 485 U/L (313-618); Potassium 4.5 mmol/L (3.4-5.1); Sodium 138 mmol/L (137-145); Total Protein 7.1 g/dL (6.3-8.2)
[2020-01-12 14:17] LABS: Beta-2-Microglobulin 1.8 mg/L (0.6-2.4)
[2020-01-12 14:48] LABS: Albumin 3.9 g/dL (2.9-4.4); Alpha-1-Globulin 0.2 g/dL (0.0-0.4); Alpha-2-Globulin 0.4 g/dL (0.4-1.0); Gamma Globulin 1.2 g/dL (0.4-1.8); Globulin Total 2.6 g/dL (2.2-3.9); Immunoglobulin A, Serum 41 mg/dL (64-422); Immunoglobulin G,Serum 1220 mg/dL (586-1602); Immunoglobulin M, Serum 149 mg/dL (26-217); Protein, Total 6.5 g/dL (6.0-8.5)
[2020-02-06 14:11] LABS: Free Kappa Lt Chains, Serum 21.3
== END ==
PROVIDERS: Family Provider Family Medicine; PCP Family Medicine; Referring Provider Internal Medicine Hematology & Oncology; Visit Provider Internal Medicine Hematology & Oncology
DX: D47.2 Monoclonal gammopathy (principal)
CPT/HCPCS: 36415; 80053; 82232; 82784; 83615; 83883; 84155; 84165; 85025; 86334

== ENCOUNTER → 2020-04-26 11:16 | Outpatient (CLI) | payer MEDICARE, SELFPAY ==
[2019-03-04 14:13] VITALS: BMI 28.4
[2020-04-26 12:30] LABS: Add Manual Diff / Slide Review NO; Basophils Absolute Auto 0 /uL (0-100); Basophils Percent Auto 0.4 % (0-2); Eosinophils Absolute Auto 100 /uL (0-450); Hematocrit 37.4 % (36-46); Hemoglobin 12.8 g/dL (12.0-16.0); Lymphocytes Absolute Auto 1300 /uL (1100-4500); Lymphocytes Percent Auto 30.2 % (25-40); Mean Corpuscular HGB Conc 34.4 % (30-36); Mean Corpuscular Hemoglobin 33.8 PG (26-34); Mean Corpuscular Volume 98.5 fL (80-100); Monocytes Absolute Auto 400 /uL (0-900); Monocytes Percent Auto 10.3 % (3-14); Neutrophils Absolute Auto 2400 /uL (1500-7000); Neutrophils Percent Auto 57.1 % (50-75); Platelet Count 117 X10^3/uL (150-400); Red Blood Cell Count 3.79 X10^6/uL (4.0-5.2); White Blood Cell Count 4.2 X10^3/uL (4.5-11.0)
[2020-04-26 12:46] LABS: Alanine Aminotransferase 24 IU/L (<35); Albumin 4.3 g/dL (3.5-5.0); Albumin Globulin Ratio 1.4 (1.0-2.8); Alkaline Phosphatase 63 U/L (38-126); Aspartate Aminotransferase 29 IU/L (14-36); BUN Creatinine Ratio 24.1 (6-22); Bilirubin Total 0.6 mg/dL (0.2-1.3); Blood Urea Nitrogen 20 mg/dL (7-17); Calcium 10.1 mg/dL (8.4-10.2); Carbon Dioxide 30 mmol/L (22-32); Chloride 104 mmol/L (98-107); Estimated Glomerular Filt Rate > 60.0 mL/min (>60); Glucose 99 mg/dL (80-110); HEMOLYSIS < 15 (0-50); Potassium 4.3 mmol/L (3.4-5.1); Sodium 138 mmol/L (137-145); Total Protein 7.3 g/dL (6.3-8.2)
[2020-04-26 13:35] LABS: Vitamin B12 866 pg/mL (239-931)
== END ==
PROVIDERS: Family Provider Family Medicine; PCP Family Medicine; Referring Provider Internal Medicine Hematology & Oncology; Visit Provider Internal Medicine Hematology & Oncology
DX: D47.2 Monoclonal gammopathy (principal); D69.6 Thrombocytopenia, unspecified; D51.9 Vitamin B12 deficiency anemia, unspecified; N18.9 Chronic kidney disease, unspecified; D63.1 Anemia in chronic kidney disease; D46.20 Refractory anemia with excess of blasts, unspecified
CPT/HCPCS: 36415; 80053; 82607; 85025

== ENCOUNTER → 2020-08-28 11:51 | Outpatient (CLI) | payer MEDICARE, SELFPAY ==
[2019-03-04 14:13] VITALS: BMI 28.4
[2020-08-28 12:48] LABS: Add Manual Diff / Slide Review NO; Basophils Absolute Auto 0 /uL (0-100); Basophils Percent Auto 0.5 % (0-2); Eosinophils Absolute Auto 100 /uL (0-450); Eosinophils Percent Auto 2.2 % (2-4); Hematocrit 37.4 % (36-46); Hemoglobin 13.1 g/dL (12.0-16.0); Lymphocytes Absolute Auto 1200 /uL (1100-4500); Lymphocytes Percent Auto 36.5 % (25-40); Mean Corpuscular Hemoglobin 34.2 PG (26-34); Mean Corpuscular Volume 97.9 fL (80-100); Monocytes Absolute Auto 400 /uL (0-900); Monocytes Percent Auto 12.1 % (3-14); Neutrophils Absolute Auto 1600 /uL (1500-7000); Neutrophils Percent Auto 48.7 % (50-75); Platelet Count 114 X10^3/uL (150-400); Red Blood Cell Count 3.82 X10^6/uL (4.0-5.2); Red Cell Distribution Width 12.9 % (11.6-14.8); White Blood Cell Count 3.3 X10^3/uL (4.5-11.0)
[2020-08-28 13:16] LABS: Alanine Aminotransferase 26 IU/L (<35); Albumin 4.4 g/dL (3.5-5.0); Albumin Globulin Ratio 1.6 (1.0-2.8); Alkaline Phosphatase 63 U/L (38-126); Aspartate Aminotransferase 31 IU/L (14-36); BUN Creatinine Ratio 21.8 (6-22); Bilirubin Total 0.6 mg/dL (0.2-1.3); Blood Urea Nitrogen 19 mg/dL (7-17); Calcium 9.7 mg/dL (8.4-10.2); Carbon Dioxide 31 mmol/L (22-32); Chloride 103 mmol/L (98-107); Estimated Glomerular Filt Rate > 60.0 mL/min (>60); Globulin 2.7 g/dL (1.7-4.1); Glucose 91 mg/dL (80-110); HEMOLYSIS < 15 (0-50); Potassium 4.6 mmol/L (3.4-5.1); Sodium 138 mmol/L (137-145); Total Protein 7.1 g/dL (6.3-8.2)
[2020-08-29 05:51] LABS: IGA 41 mg/dL (64-422); IGG 1212 mg/dL (586-1602); IGM 147 mg/dL (26-217)
[2020-08-29 14:08] LABS: Free Kappa Lt Chains, Serum 23.8 mg/L (3.3-19.4); Free Lambda Lt Chains,Serum 12.4 mg/L (5.7-26.3)
[2020-08-30 17:51] LABS: Albumin 3.9 g/dL (2.9-4.4); Alpha-1-Globulin 0.2 g/dL (0.0-0.4); Alpha-2-Globulin 0.5 g/dL (0.4-1.0); Gamma Globulin 1.3 g/dL (0.4-1.8); Globulin Total 2.9 g/dL (2.2-3.9); Protein, Total 6.8 g/dL (6.0-8.5)
== END ==
PROVIDERS: Family Provider Family Medicine; PCP Family Medicine; Referring Provider Internal Medicine Hematology & Oncology; Visit Provider Internal Medicine Hematology & Oncology
DX: D69.6 Thrombocytopenia, unspecified (principal); D51.8 Other vitamin B12 deficiency anemias; D63.1 Anemia in chronic kidney disease; D46.20 Refractory anemia with excess of blasts, unspecified; D47.2 Monoclonal gammopathy; D72.810 Lymphocytopenia
CPT/HCPCS: 36415; 80053; 82784; 83883; 84155; 84165; 85025

== ENCOUNTER → 2020-10-18 08:22 | Outpatient (CLI) | payer MEDICARE, SELFPAY ==
[2019-03-04 14:13] VITALS: BMI 28.4
--- NOTE | 2020-10-18 08:23 | DI.MG.S_ITS ---
BILATERAL DIGITAL SCREENING MAMMOGRAM 3D/2D WITH CAD: 10/18/2020 CLINICAL: Routine screening. Comparison is made to exams dated: 09/28/2019 mammogram, 09/25/2018 mammogram, and 08/29/2017 mammogram - [facility]. The tissue of both breasts is predominantly fatty. Current study was also evaluated with a Computer Aided Detection (CAD) system. No significant masses, calcifications, or other findings are seen in either breast. There has been no significant interval change. IMPRESSION: NEGATIVE There is no mammographic evidence of malignancy. A 1 year screening mammogram is recommended. This exam was interpreted at Station ID: [id number]. NOTE: For mammograms, a report in lay terms will be sent to the patient. Approximately 15% of breast malignancies will not be visualized mammographically. In the management of a palpable breast mass, a negative mammogram must not discourage biopsy of a clinically suspicious lesion. Electronically Signed By: Brando Loo M.D., jr/sarah:10/18/2020 08:55:35 letter sent: Normal Exam ACR BI-RADS Category 1: Negative [id number]
== END ==
PROVIDERS: Family Provider Family Medicine; PCP Family Medicine; Referring Provider Family Medicine; Visit Provider Family Medicine
DX: Z12.31 Encounter for screening mammogram for malignant neoplasm of breast (principal)
CPT/HCPCS: 77063; 77067

== ENCOUNTER → 2020-11-01 09:03 | Outpatient (CLI) | payer MEDICARE, SELFPAY ==
[2019-03-04 14:13] VITALS: BMI 28.4
[2020-11-01 10:45] LABS: Cholesterol 175 mg/dL (140-199); HDL Cholesterol 63 mg/dL (40-60); LDL Cholesterol Calculated 91 mg/dL (<100); Triglycerides 106 mg/dL (35-150)
== END ==
PROVIDERS: Family Provider Family Medicine; PCP Family Medicine; Referring Provider Family Medicine; Visit Provider Family Medicine
DX: E78.5 Hyperlipidemia, unspecified (principal)
CPT/HCPCS: 36415; 80061

== ENCOUNTER → 2020-12-18 13:42 | Outpatient (CLI) | payer MEDICARE, SELFPAY ==
[2019-03-04 14:13] VITALS: BMI 28.4
--- NOTE | 2020-12-18 13:45 | DI.RAD.S_ITS ---
PROCEDURE: XR CHEST 2V INDICATIONS: chest pain TECHNIQUE: 2 views of the chest were acquired. COMPARISON: [facility], , XR CHEST 1V, 01/06/2019, 7:30. [facility], , CHEST 1 VIEW, 01/09/2007, 11:59. FINDINGS: Surgical changes and devices: None. Lungs and pleura: Lungs are clear. No pleural effusions or pneumothorax. Mediastinum: Mediastinal contours are normal. Heart size is normal. Bones and chest wall: No suspicious bony abnormalities. Soft tissues appear unremarkable. IMPRESSION: Normal for age, source of current chest pain symptoms is not seen. Dictated by: Fidel Catherine M.D. on 12/18/2020 at 16:47 Approved by: Fidel Catherine M.D. on 12/18/2020 at 16:48
== END ==
PROVIDERS: Family Provider Family Medicine; PCP Family Medicine; Referring Provider Family Medicine; Visit Provider Family Medicine
DX: R07.9 Chest pain, unspecified (principal)
CPT/HCPCS: 71046

== ENCOUNTER → 2021-04-16 09:05 | Outpatient (CLI) | payer MEDICARE, SELFPAY ==
[2019-03-04 14:13] VITALS: BMI 28.4
[2021-03-30 09:00] VITALS: BMI 28.4
--- NOTE | 2021-04-17 09:13 | PM.TREADMILL ---
Cardiac Stress Test Report Referral & Results Date Patient Seen: 04/17/21 Time Patient Seen: 08:45 Requesting provider: Fabiana Brink Indication: Dyspnea on exertion Rest ECG: NSR Procedure Note: Today following both written and verbal informed consent the patient was exercised according to a standard Fazal protocol patient went for a total of 7 minutes achieving a maximum heart rate of 175 maximum systolic blood pressure of 180. This is approximately 10.1 METs. Exercise was terminated at this point because of fatigue. Patient was also given Cardiolite through a previously started Hep-Lock IV by the heating and cooling technician approximately 1 minute prior to the cessation of exercise. Normal hemodynamic response to exercise. Excellent exercise capacity (FA I -20% on active scale). No signs or symptoms of angina. No EKG changes, but baseline artifact may have obscured subtle changes. Impression: Low probability for ischemia. Perfusion imaging pending. Please note: Actual ECG tracings can be found in the PACS system.
--- NOTE | 2021-04-18 05:21 | DI.NM.S_ITS ---
DATE OF SERVICE: PROCEDURE: Exercise perfusion study. INDICATIONS: Dyspnea on exertion. RADIOPHARMACEUTICAL: 25.3 millicurie technetium-99m Myoview IV was injected at stress and 26.5 millicurie technetium-99m Myoview IV was injected at rest. CARDIAC STRESS: The patient underwent exercise perfusion study under the supervision of the attending staff. The patient walked on Fazal protocol for 7 minutes and achieved 126% of target heart rate, normal blood pressure response. Baseline blood pressure 130/78 mmHg. Maximum blood pressure 180/78. The patient achieved 10.1 METS of workload and functional aerobic impairment -20%. Baseline rhythm was sinus. During stress, no convincing ischemic changes seen. No significant arrhythmias seen. The patient did not have any anginal symptoms. [place] fatigue. RAW DATA: There is adequate myocardial uptake. GATED STUDY: Stress LV ejection fraction 80% without any obvious wall motion abnormalities. Resting end-diastolic volume 77 mL. TID ratio 1.03, which is within normal limits. Lung/heart ratio 0.16, which is within normal limits. MYOCARDIAL PERFUSION SCAN: Stress supine, resting supine and stress prone images were compared to each other. There was normal myocardial perfusion. CONCLUSION: This is a normal myocardial perfusion study. The patient walked on Fazal protocol for 7 minutes. Excellent exercise tolerance. Normal hemodynamic response. No ischemic EKG changes seen. Preserved left ventricular function. Overall, this is a low-risk myocardial perfusion scan. Rosalina Mejia - Veronica/reed doc#: [id number]/job#: [id number] dd: 04/17/2021 17:27:00 dt: 04/18/2021 05:08:00 DICTATING MD/COPIES TO: Areli Tomas MD COPIES MNE: PHUC;
== END ==
PROVIDERS: Family Provider Family Medicine; PCP Family Medicine; Referring Provider Family Medicine; Visit Provider Family Medicine
DX: R06.09 Other forms of dyspnea (principal); R06.02 Shortness of breath; Z20.822 Contact with and (suspected) exposure to COVID-19
CPT/HCPCS: 78452; 87635; 93016; 93017; 93018; C9803; A9502

== ENCOUNTER → 2021-04-16 11:03 | Outpatient (CLI) | payer MEDICARE, SELFPAY ==
[2021-03-30 09:00] VITALS: BMI 28.4
[2021-04-16 14:10] LABS: COVID19 -Nasal RAPID Negative (Negative)
== END ==
PROVIDERS: Family Provider Family Medicine; PCP Family Medicine; Visit Provider Nurse Practitioner Family
DX: Z20.822 Contact with and (suspected) exposure to COVID-19 (principal)
CPT/HCPCS: 87635

== ENCOUNTER → 2021-06-26 08:32 | Outpatient (CLI) | payer MEDICARE, SELFPAY ==
[2021-03-30 09:00] VITALS: BMI 28.4
[2021-06-26 09:03] LABS: Add Manual Diff / Slide Review NO; Basophils Absolute Auto 0 /uL (0-100); Eosinophils Absolute Auto 100 /uL (0-450); Eosinophils Percent Auto 2.9 % (2-4); Hemoglobin 12.8 g/dL (12.0-16.0); Lymphocytes Absolute Auto 1200 /uL (1100-4500); Lymphocytes Percent Auto 40.7 % (25-40); Mean Corpuscular HGB Conc 34.7 % (30-36); Mean Corpuscular Volume 98.1 fL (80-100); Monocytes Absolute Auto 400 /uL (0-900); Monocytes Percent Auto 12.2 % (3-14); Neutrophils Absolute Auto 1300 /uL (1500-7000); Neutrophils Percent Auto 43.2 % (50-75); Platelet Count 114 X10^3/uL (150-400); Red Blood Cell Count 3.78 X10^6/uL (4.0-5.2); Red Cell Distribution Width 12.8 % (11.6-14.8); White Blood Cell Count 2.9 X10^3/uL (4.5-11.0)
[2021-06-26 09:47] LABS: Alanine Aminotransferase 25 IU/L (<35); Albumin 4.1 g/dL (3.5-5.0); Albumin Globulin Ratio 1.6 (1.0-2.8); Alkaline Phosphatase 65 U/L (38-126); Aspartate Aminotransferase 30 IU/L (14-36); BUN Creatinine Ratio 26.1 (6-22); Bilirubin Total 0.8 mg/dL (0.2-1.3); Blood Urea Nitrogen 24 mg/dL (7-17); Calcium 9.6 mg/dL (8.4-10.2); Carbon Dioxide 27 mmol/L (22-32); Chloride 105 mmol/L (98-107); Estimated Glomerular Filt Rate 58.6 mL/min (>60); Globulin 2.6 g/dL (1.7-4.1); Glucose 112 mg/dL (80-110); HEMOLYSIS < 15 (0-50); Lipase 257 U/L (23-300); Sodium 139 mmol/L (137-145); Total Protein 6.7 g/dL (6.3-8.2)
== END ==
PROVIDERS: Family Provider Family Medicine; PCP Family Medicine; Referring Provider Registered Nurse; Visit Provider Registered Nurse
DX: R10.9 Unspecified abdominal pain (principal); R63.0 Anorexia
CPT/HCPCS: 36415; 80053; 83690; 85025

== ENCOUNTER → 2021-07-04 06:55 | Outpatient (CLI) | payer MEDICARE, SELFPAY ==
[2021-03-30 09:00] VITALS: BMI 28.4
--- NOTE | 2021-07-04 06:56 | DI.US.S_ITS ---
PROCEDURE: US ABDOMEN COMPLETE INDICATIONS: LOSS OF APPETITE TECHNIQUE: Real-time scanning was performed of the abdominal and retroperitoneal organs, with image documentation. COMPARISON: [facility], , US ABDOMEN COMPLETE, 01/07/2019, 14:56. FINDINGS: Liver: Liver is normal in size and homogeneous in echotexture. Gallbladder: A 3.4 cm nonmobile gallstone can be seen within the gallbladder fundus. The gallbladder wall is not thickened, measuring 3 mm or less. No specific pericholecystic fluid is seen. The sonographic Pardo sign is negative. Biliary ducts: Intrahepatic bile ducts are non-dilated. Extrahepatic bile duct caliber measures 6 mm. Normal is 6-7 mm or less in diameter, or 10 mm or less post-cholecystectomy. Pancreas: Visualized portions of the pancreas are sonographically normal. Spleen: Spleen is normal in size and homogeneous in echotexture. Kidneys: Kidneys are normal in size and echotexture. Right kidney measures 11.6 cm long; left kidney measures 11 cm long. No hydronephrosis or nephrolithiasis. No solid masses. Aorta: Visualized aorta is normal in caliber at less than 3 cm. Iliacs: Proximal common iliac arteries are normal in caliber at less than 2.5 cm. IVC: Intrahepatic inferior vena cava is patent. Miscellaneous: No free abdominal fluid. IMPRESSION: A single 3.4 cm nonmobile gallstone is seen within the gallbladder fundus, yet without additional sonographic signs of cholecystitis. Negative for biliary dilatation. Please correlate with physical examination findings, patient presentation, and laboratory values. Dictated by: Efrem Dailey M.D. on 07/04/2021 at 12:24 Approved by: Efrem Dailey M.D. on 07/04/2021 at 12:25
== END ==
PROVIDERS: Family Provider Family Medicine; PCP Family Medicine; Referring Provider Registered Nurse; Visit Provider Registered Nurse
DX: K80.20 Calculus of gallbladder without cholecystitis without obstruction (principal); R10.9 Unspecified abdominal pain; R63.0 Anorexia
CPT/HCPCS: 76700

== ENCOUNTER → 2021-08-03 11:19 | Outpatient (CLI) | payer MEDICARE, SELFPAY ==
[2021-03-30 09:00] VITALS: BMI 28.4
[2021-08-03 14:13] LABS: COVID19 -Nasal RAPID POSITIVE (Negative)
== END ==
PROVIDERS: Family Provider Family Medicine; PCP Family Medicine; Visit Provider Nurse Practitioner Critical Care Medicine
DX: U07.1 COVID-19 (principal); Z20.822 Contact with and (suspected) exposure to COVID-19; J34.89 Other specified disorders of nose and nasal sinuses
CPT/HCPCS: 87635

== ENCOUNTER → 2021-10-19 10:08 | Outpatient (CLI) | payer MEDICARE, SELFPAY ==
[2021-03-30 09:00] VITALS: BMI 28.4
--- NOTE | 2021-10-19 10:12 | DI.MG.S_ITS ---
BILATERAL DIGITAL SCREENING MAMMOGRAM 3D/2D WITH CAD: 10/19/2021 CLINICAL: Routine screening. Comparison is made to exams dated: 10/18/2020 mammogram - [facility], 09/28/2019 mammogram, and 09/25/2018 mammogram - [facility]. The tissue of both breasts is predominantly fatty. Current study was also evaluated with a Computer Aided Detection (CAD) system. No significant masses, calcifications, or other findings are seen in either breast. There has been no significant interval change. IMPRESSION: NEGATIVE There is no mammographic evidence of malignancy. A 1 year screening mammogram is recommended. This exam was interpreted at Station ID: [id number]. NOTE: For mammograms, a report in lay terms will be sent to the patient. Approximately 15% of breast malignancies will not be visualized mammographically. In the management of a palpable breast mass, a negative mammogram must not discourage biopsy of a clinically suspicious lesion. Electronically Signed By: Brando Loo M.D., jr/sarah:10/19/2021 10:35:37 letter sent: Normal Exam ACR BI-RADS Category 1: Negative 3341F
== END ==
PROVIDERS: Family Provider Family Medicine; PCP Family Medicine; Referring Provider Family Medicine; Visit Provider Family Medicine
DX: Z12.31 Encounter for screening mammogram for malignant neoplasm of breast (principal)
CPT/HCPCS: 77063; 77067

== ENCOUNTER → 2021-10-23 09:24 | Outpatient (CLI) | payer MEDICARE, SELFPAY ==
[2021-03-30 09:00] VITALS: BMI 28.4
[2021-10-23 10:09] LABS: COVID19 -Nasal RAPID Negative (Negative)
== END ==
PROVIDERS: Family Provider Family Medicine; PCP Family Medicine; Visit Provider Surgery
DX: Z01.812 Encounter for preprocedural laboratory examination (principal); Z20.822 Contact with and (suspected) exposure to COVID-19
CPT/HCPCS: 87635; C9803

== ENCOUNTER 2021-10-24 09:12 | Day surgery (SDC) | payer MEDICARE, SELFPAY ==
[2021-03-30 09:00] VITALS: BMI 28.4
[2021-10-18 14:35] VITALS: BMI 28.8
[2021-10-24] VITALS (9 sets, daily range): BP systolic 113–146; BP diastolic 57–70; PULSE 55–72; RESP 14–16; TEMP 36–36.7; O2SAT 95–98; BMI 29.5
--- NOTE | 2021-10-24 | PATH_ITS ---
[facility] Accession Number: [id number] No. of containers..01 Tissue . 01 Material submitted: . gallbladder - GALLBLADDER . 02 Diagnosis: Gallbladder, Cholecystectomy: Cholelithiasis with chronic cholecystitis. No evidence of neoplasm. MRV 10/29/2021 1052 Local . 02 Electronically signed: . Syd Padilla MD, PhD, Pathologist NPI- [id number] . 01 Gross description: . Received in one part. . Received in formalin, labeled Rosalina Mejia and designated 1. Gallbladder, is an 8.0 x 3.5 x 3.0 cm, intact, and distended gallbladder. The cystic duct margin is inked black. The serosa is green-pink with a moderate amount of attached fat and mild focal adhesions. The wall is 0.1-0.2 cm thick. The mucosa is green, velvety, and bile-stained, focally attenuated in the upper portion underlying a large cholelith. The lumen is filled with green bile and contains one 3.7 cm, green-brown, ovoid cholelith. No additional lesions are identified. Associate Entertainment Editor sections to include the inked cystic duct margin en face are submitted in cassette A1. ([id number]) /FRR 10/27/2021 1716 Local . 02 Pathologist provided ICD-10: K80.60 . 02 CPT . 469216 Specimen Comment: A courtesy copy of this report has been sent to [phone] Performed at: 01 [facility] [address] [place] [address] [address] [facility], [place], [place] [id number] MD Geo Contreras MD Phone: [phone] Performed at: 02 [facility] [id number] [place] [id number] MD Maryan Wan MD Phone: [phone]
[2021-10-24] MEDS: ACETAMINOPHEN 325 MG TABLET 975 MG PO (10:17)
--- NOTE | 2021-10-24 10:28 | PM.HP.1 ---
History of Present Illness History of Present Illness Date Patient Seen: 10/24/21 Time Patient Seen: 10:28 Chief complaint: SDC Narrative: 80-year-old woman with history of biliary colic here for elective cholecystectomy. Workup includes an ultrasound of the abdomen which demonstrates a 3-1/2 cm stone within the fundus of the gallbladder. Please refer to the H&P from June 2021 for further detail. Patient History Medical History Abdominal pain Abnormal Pap smear of cervix (~1983) Anemia (~2014) Appetite impaired Basal cell carcinoma, leg (~2013) BPPV (benign paroxysmal positional vertigo) Cancer of blood vessel (~2014) Cervicalgia (~2013) Chickenpox (~1949) Chronic back pain COVID-19 virus infection (08/03/21) Elevated LFTs Foot pain (~2006) Goiter (~2013) Hepatitis A Hyperlipidemia (04/14/14) Impaired fasting glucose (08/24/13) Leukopenia (08/24/13) Lumbago MDS (myelodysplastic syndrome) Measles (~1944) 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) Mononucleosis (~1979) Mumps (~1946) Neutropenia (~2013) Obesity Osteopenia (02/21/17) Other dietary vitamin B12 deficiency anemia (~2013) Screening for malignant neoplasm of colon Shingles (~2013) Skin cancer (~2013) Thrombocytopenia Vitamin B12 deficiency (~2013) Surgical History Anesthesia History of airway aspiration (~07/19/14) History of cholecystectomy (~09/2021) History of tonsillectomy Hx of arthroscopy of left knee (~2017) S/P total abdominal hysterectomy and bilateral salpingo-oophorectomy (~1989) Status post appendectomy (~1957) Status post arthroscopy (~2010) Status post biopsy (~2013) Status post colonoscopy (~2009) Status post hysterectomy (~1989) Status post lumbar surgery (03/04/19) Family & Social History Family History Father Dementia CAD (coronary artery disease) Mother Pancreatic cancer Sister Osteoarthritis Dementia Mental health problem Grandfather Parkinson's disease Social History: household members spouse Tobacco & Substance use: Smoking Status Former smoker alcohol intake current alcohol intake frequency 0-2 drinks per day Substance Use Type does not use Meds Home Medications and Allergies Home Medications Medication Instructions Recorded Confirmed Type cholecalciferol (vitamin D3) 25 5,000 unit PO DAILY 02/20/18 10/24/21 History mcg (1,000 unit) capsule cyanocobalamin (vitamin B-12) 1,000 mcg PO DAILY 02/20/18 10/24/21 History 1,000 mcg capsule rosuvastatin 5 mg tablet (Crestor) 5 mg PO 3XW #90 tab 12/19/20 10/24/21 Rx acetaminophen 325 mg capsule 650 mg PO QID PRN #60 cap 10/24/21 Rx (Tylenol) oxycodone 5 mg tablet See Rx Instructions .ROUTE 10/24/21 Rx .COMPLEX PRN #30 tab Allergies Allergy/AdvReac Type Severity Reaction Status Date / Time No Known Drug Allergies Allergy Verified 07/19/21 09:07 Exam Narrative Exam Narrative: Gen-Elderly woman alert and oriented Chest-Non labored resp Abdomen-Soft Assessment & Plan Assessment and plan (1) Cholelithiasis: Qualifiers: Cholelithiasis location: gallbladder Qualified Code(s): K80.20 - Calculus of gallbladder without cholecystitis without obstruction Status: Chronic Assessment & Plan narrative: 80 y.o woman with biliary colic here for elective cholecystectomy. Operation was again discussed with the patient. Operative risks including bleeding, infection, damage to surrounding structures, bile duct injury/week, enterotomy were discussed. Her questions have been answered she is in agreement with this plan. Time Spent With Patient Critical Care time: I spent a total of [] minutes of critical care time on this patient's care today; this time is exclusive of procedural time.
[2021-10-24] MEDS: LACTATED RINGERS 1,000 ML 100 ML IV (10:33)
[2021-10-24] MEDS: CEFAZOLIN 2 GM/20 ML SYRINGE IV (10:55)
--- NOTE | 2021-10-24 11:19 | SUR.OPER ---
Supine on padded OR bed, head on pillow, safety belt at thigh, left arm padded and tucked at side. Right arm secured on padded arm board <90 degrees abduction. Legs uncrossed. Padded footboard in place. Tape over blanket to secure lower legs.
[2021-10-24] MEDS: BUPIVACAINE 0.25% (PF) VIAL 30 ML INJ (11:28)
[2021-10-24] MEDS: SCOPOLAMINE 1 PATCH TOP (12:30)
--- NOTE | 2021-10-24 12:45 | P.OP_ITS ---
Operative Date/Time/Diagnoses Date of procedure: 10/24/21 Time of procedure: 12:45 Pre-op diagnosis: Biliary colic Post-op diagnosis: same Procedure & Clinicians Procedure: Lysis of adhesions Laparoscopic cholecystectomy Same procedure as scheduled: Yes Indications: Symptomatic cholelithiasis. Ultrasound demonstrated 3.5 cm gallstone Surgeon: Cj Frey Click Yes if Unassisted: Yes Anesthesia Type: General Operative Notes Findings: Large gallstone stuck within the neck of the gallbladder. Extensive midline intra-abdominal adhesions Specimen(s): other (Gallbladder) Estimated Blood Loss (mL): 50 Procedure in detail: The patient was placed supine on the table and bilateral lower extremity compression devices were applied. Anesthesia was induced they were intubated with an endotracheal tube and received 2g of Ancef. A time-out was performed. They were prepped and draped in sterile fashion. An infraumbilical incision was made, the umbilical stalk was elevated and the fascia was sharply incised entering the abdomen atraumatically. A blunt tip 12mm balloon trocar was then inserted, pneumoperitoneum was established and inspection of the abdomen demonstrated no evidence of injury. There were extensive intra abdominal adhesions particulary to the midline from a previous laparotomy. An 11 mm port was placed high in the epigastrim placing the scope into the trocar carefully advancing into the abdomen under direct visualization. Additional 5 mm ports were placed in the RUQ. The adhesions to the midline were carefully taken down. The gallbladder was identified beneath the omenum which was well adhered to it consistent with chronic cholecystitis. It was exposed and then it was grasped by the fundus and retracted over the liver and retracted laterally by the infundibulum. Using electrocautery the lateral plane between the gallbladder and the liver was opened towards the fundus. The gallbladder was then retracted laterally and the medial plane was developed in the same manner. With the gallbladder mobilized the bottom of the cystic plate was visualized. The hepa tocystic triangle was meticulosly skeletonized of all fat and fibrous tissue from both the front and the back. Only two structures were then clearly seen entering the gallbladder the cystic duct and the cystic artery. With the critical view of safety fully established the cystic duct was clipped twice proximally and once distally using the 10 mm Weck Hemoclip applied under direct visualization and then sharply divided. The cystic artery was divided in the same fashion. The gallbladder was removed from the liver bed using electro cautery. The liver bed was then inspected for hemostasis and this was achieved. The abdomen was irrigated with sterile saline and inspection was made that showed the clips in good position. The specimen was removed using Endo-Catch. The abdomen was desufflated. The umbilical fascia was closed with 0 Vicryl in a [id number] fashion under direct visualization. Skin incisions were irrigated and closed with 4-0 Monocryl. 30 ml of 0.25% bupivacaine was infiltrated into the subcutaneous tissue of the incisions. The wounds were sealed with Dermabond. Patient emerged from anesthesia was extubated and transferred to recovery in stable condition. The sponge and instrument count at the end of the operation was correct. Complications: none Post-operative Condition: stable Disposition: same day surgery
[2021-10-24] MEDS: OXYCODONE IR 5 MG TABLET PO (13:07)
== END 2021-10-24 13:43 | disposition home or self-care (01) ==
PROVIDERS: Family Provider Family Medicine; PCP Family Medicine; Referring Provider Surgery; Visit Provider Surgery
PROC: 0FT44ZZ Resection of Gallbladder, Percutaneous Endoscopic Approach (ICD-10-PCS; CPT 47562; principal; 2021-10-24 10:45)
DX: K80.10 Calculus of gallbladder with chronic cholecystitis without obstruction (principal)
CPT/HCPCS: 47562; 82962; J0690; J1100; J1885; J2405; J2704; J3010

== ENCOUNTER → 2021-11-12 13:49 | Outpatient (CLI) | payer MEDICARE, SELFPAY ==
[2021-03-30 09:00] VITALS: BMI 28.4
[2021-11-12 14:19] LABS: Add Manual Diff / Slide Review NO; Basophils Absolute Auto 0 /uL (0-100); Basophils Percent Auto 0.2 % (0-2); Eosinophils Absolute Auto 0 /uL (0-450); Eosinophils Percent Auto 0.3 % (2-4); Hematocrit 37.2 % (36-46); Lymphocytes Absolute Auto 500 /uL (1100-4500); Lymphocytes Percent Auto 6.9 % (25-40); Mean Corpuscular HGB Conc 34.9 % (30-36); Mean Corpuscular Hemoglobin 34.1 PG (26-34); Mean Corpuscular Volume 97.8 fL (80-100); Monocytes Absolute Auto 500 /uL (0-900); Monocytes Percent Auto 6.9 % (3-14); Neutrophils Absolute Auto 5700 /uL (1500-7000); Neutrophils Percent Auto 85.7 % (50-75); Platelet Count 141 X10^3/uL (150-400); Red Blood Cell Count 3.81 X10^6/uL (4.0-5.2); White Blood Cell Count 6.6 X10^3/uL (4.5-11.0)
[2021-11-12 14:30] LABS: Alanine Aminotransferase 35 IU/L (<35); Albumin 4.3 g/dL (3.5-5.0); Albumin Globulin Ratio 1.4 (1.0-2.8); Alkaline Phosphatase 71 U/L (38-126); Aspartate Aminotransferase 36 IU/L (14-36); Bilirubin Total 0.8 mg/dL (0.2-1.3); Blood Urea Nitrogen 20 mg/dL (7-17); Calcium 9.4 mg/dL (8.4-10.2); Carbon Dioxide 30 mmol/L (22-32); Chloride 105 mmol/L (98-107); Estimated Glomerular Filt Rate > 60 mL/min (>60); Glucose 134 mg/dL (80-110); HEMOLYSIS < 15 (0-50); Potassium 4.2 mmol/L (3.4-5.1); Sodium 139 mmol/L (137-145); Total Protein 7.3 g/dL (6.3-8.2)
== END ==
PROVIDERS: Family Provider Family Medicine; PCP Family Medicine; Referring Provider Family Medicine; Visit Provider Family Medicine
DX: D46.9 Myelodysplastic syndrome, unspecified (principal); K62.5 Hemorrhage of anus and rectum; K80.20 Calculus of gallbladder without cholecystitis without obstruction
CPT/HCPCS: 36415; 80053; 85025

== ENCOUNTER → 2021-12-03 10:45 | Outpatient (CLI) | payer MEDICARE, SELFPAY ==
[2021-03-30 09:00] VITALS: BMI 28.4
--- NOTE | 2021-12-03 10:47 | DI.RAD.S_ITS ---
PROCEDURE: XR DEXA AXIAL SKELETON INDICATIONS: follow up bone density COMPARISON: [facility], CR, DEXA AXIAL SKELETON, 01/17/2017, 15:45. FINDINGS: This blank DEXA report has been sent in error by the PACS system. The correct and complete report will be forthcoming in 1-2 days. Thank you for your patience and understanding. Dictated by: James Chaudhry M.D. on 12/03/2021 at 12:54 Approved by: James Chaudhry M.D. on 12/03/2021 at 12:54
== END ==
PROVIDERS: Family Provider Family Medicine; PCP Family Medicine; Referring Provider Family Medicine; Visit Provider Family Medicine
DX: Z78.0 Asymptomatic menopausal state; Z90.710 Acquired absence of both cervix and uterus; M85.89 Other specified disorders of bone density and structure, multiple sites
CPT/HCPCS: 77080

== ENCOUNTER → 2022-01-29 13:39 | Outpatient (CLI) | payer MEDICARE, SELFPAY ==
[2021-03-30 09:00] VITALS: BMI 28.4
--- NOTE | 2022-01-29 13:41 | DI.CT.S_ITS ---
PROCEDURE: CT PEL WO CON INDICATIONS: chronic right inguinal pain TECHNIQUE: After the administration of oral contrast, 5 mm thick sections acquired from the iliac crests to the symphysis. 5 mm coronal and sagittal reformats were then performed. For radiation dose reduction, the following was used: automated exposure control, adjustment of mA and/or kV according to patient size. COMPARISON: [facility], CT, CT ABDOMEN PELVIS W CON, 01/06/2019, 14:41. FINDINGS: Image quality: Excellent. Peritoneum and bowel: Visualized bowel loops demonstrate normal wall thickness and caliber. Moderate sigmoid diverticulosis without evidence of acute diverticulitis. No free fluid or air. Genitourinary: Bladder wall thickness is normal. The uterus is not visualized and is presumed surgically absent. Nodes and vessels: No iliac, pelvic, or inguinal adenopathy by size criteria. Iliac vessels demonstrate normal size. Bones: No suspicious bony lesions. Pelvic ring and hip joints appear intact. Miscellaneous: No inguinal hernias. IMPRESSION: 1. Moderate colonic diverticulosis without evidence of acute diverticulitis. 2. No acute pelvic abnormality visualized by CT. 3. If symptoms persist, follow-up MRI could be attempted for re-evaluation if clinically indicated. Dictated by: Juan Pablo Perry M.D. on 01/29/2022 at 17:59 Approved by: Juan Pablo Perry M.D. on 01/29/2022 at 18:08
== END ==
PROVIDERS: Family Provider Family Medicine; PCP Family Medicine; Referring Provider Pediatrics; Visit Provider Pediatrics
DX: R10.31 Right lower quadrant pain (principal); G89.29 Other chronic pain; K57.30 Diverticulosis of large intestine without perforation or abscess without bleeding
CPT/HCPCS: 72192

== ENCOUNTER → 2022-09-27 15:16 | Outpatient (CLI) | payer MEDICARE, SELFPAY ==
[2021-03-30 09:00] VITALS: BMI 28.4
--- NOTE | 2022-09-27 15:18 | DI.RAD.S_ITS ---
PROCEDURE: XR HIP W PEL IF DONE RT 2V INDICATIONS: right hip pain TECHNIQUE: AP pelvis with lateral view(s) of the right hip(s). COMPARISON: None. FINDINGS: Bones: No fractures or dislocations. Pelvic ring appears intact. No suspicious bony lesions. Soft tissues: The visualized bowel gas pattern is normal. No suspicious soft tissue calcifications. IMPRESSION: Minimal hip joint narrowing bilaterally, no definite source of asymmetric right-sided predominant hip pain is found otherwise. Dictated by: Fidel Catherine M.D. on 09/27/2022 at 15:58 Approved by: Fidel Catherine M.D. on 09/27/2022 at 15:59
== END ==
PROVIDERS: Family Provider Family Medicine; PCP Family Medicine; Referring Provider Family Medicine; Visit Provider Family Medicine
DX: M25.551 Pain in right hip (principal)
CPT/HCPCS: 73502

== ENCOUNTER 2023-01-09 09:30 | Outpatient (RCR) | payer MEDICARE, SELFPAY ==
[2021-03-30 09:00] VITALS: BMI 28.4
--- NOTE | 2022-11-26 17:49 | PT.OIE ---
Current Diagnoses Unilateral primary osteoarthritis, unspecified hip (11/26/22) Pain in right hip (11/26/22) Past Medical History (Last Updated 04/22/22 @ 07:44 by Luis Law MD) Abdominal pain Abnormal Pap smear of cervix (~1983) Anemia (~2014) Appetite impaired Basal cell carcinoma, leg (~2013) BPPV (benign paroxysmal positional vertigo) Cancer of blood vessel (~2014) Cervicalgia (~2013) Chickenpox (~1949) Chronic back pain Chronic pain of right inguinal region COVID-19 virus infection (08/03/21) Diverticulosis Elevated LFTs Foot pain (~2006) Goiter (~2013) Hepatitis A Hyperlipidemia (04/14/14) Impaired fasting glucose (08/24/13) Leukopenia (08/24/13) Lumbago MDS (myelodysplastic syndrome) Measles (~1944) 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) Mononucleosis (~1979) Mumps (~1946) Neutropenia (~2013) Obesity Osteopenia (02/21/17) Other dietary vitamin B12 deficiency anemia (~2013) Screening for malignant neoplasm of colon Shingles (~2013) Skin cancer (~2013) Thrombocytopenia Vitamin B12 deficiency (~2013) Past Surgical History (Last Reviewed 10/24/21 @ 10:29 by Cj Frey MD) Anesthesia History of airway aspiration (~07/19/14) History of cholecystectomy (~09/2021) History of tonsillectomy Hx of arthroscopy of left knee (~2017) S/P total abdominal hysterectomy and bilateral salpingo-oophorectomy (~1989) Status post appendectomy (~1957) Status post arthroscopy (~2010) Status post biopsy (~2013) Status post colonoscopy (~2009) Status post hysterectomy (~1989) Status post lumbar surgery (03/04/19) Visit Care Team Role Provider Type Fabiana Brink DO Family Provider Physician Specialty: [facility] Address: [address] [place] [address], [address], [place], [address] Email: [email or web address] Ace Kumar MD Attending Provider Physician Primary Care Provider Referring Provider Specialty: [facility] Address: [address] [place] [address], [facility] Email: [email or web address] Physical Therapy Initial Evaluation PT-OP-A Visit Information Start: 11/26/22 17:19 Freq: Status: Active Protocol: Document 11/26/22 14:00 DCW (Rec: 11/26/22 17:38 DCW [id number]) Out-Patient Physical Therapy Visit Information Visit Information Visit Type Initial Evaluation Visit Start Time 14:00 Visit Stop Time 14:45 Total Visit Minutes 45 Visit Number 1 Number of HAT STEAMER Visits 0 Evaluation Information Evaluation Date 11/26/22 PT-OP-B Current Condition Start: 11/26/22 17:19 Freq: Status: Active Protocol: Document 11/26/22 14:00 DCW (Rec: 11/26/22 17:38 DCW [id number]) Current Condition History of Current Condition Onset Date 2-3 month history Current Complaints right hip pain History of Current Condition Pt is an 82 year old female presenting with a 2-3 month history of mild right hip pain . Pt reports that pain is mostly there all the time, nothing seems to make it better or worse. Does notice it slight more at night, but thinks that is mainly because she has no other distractions, doesn't really think it is worse at night. Notes it is not bad enough that it keeps her from doing anything, I just ignore it. Does not feel like there is any associated weakness or change in gait. Prior Treatments and Tests Hip x-ray: IMPRESSION: Minimal hip joint narrowing bilaterally, no definite source of asymmetric right- sided predominant hip pain is found otherwise. per Fidel Catherine M.D. on 09/27/2022 Treatment Goals Patient/Caregiver Goals Pt is going on a trip to [facility] in December, wants to be able to keep up with her son during the trip. PT-OP-C Subjective Start: 11/26/22 17:19 Freq: Status: Active Protocol: Document 11/26/22 14:00 DCW (Rec: 11/26/22 17:38 DCW [id number]) OP-PT Subjective Patient Comments Patient Comments It just feels like a pinch. Patient Reported Progress Same Patient Questionnaires Lower Extremity Functional Scale LEFS Score 67/80 = 83.75% LEFS Impairment 1 to 19% Impaired (Score 63-79 ) OP-PT Pain Assessment Pain Assessment Grid Paper Pain Assessment Grid Completed Yes Location Right Anterior Hip Intensity 2 Scale Used Numeric (0 - 10) Description Pinching Frequency Frequent Pain Aggravating Factors None Pain Alleviating Factors None PT-OP-F Manual Assessment Start: 11/26/22 17:19 Freq: Status: Active Protocol: Document 11/26/22 14:00 DCW (Rec: 11/26/22 17:38 DCW [id number]) Manual Assessments Joint Mobility Assessment Joint Mobility Assessment Good mobility and joint feel through full passive range of motion PT-OP-K Range of Motion Start: 11/26/22 17:19 Freq: Status: Active Protocol: Document 11/26/22 14:00 DCW (Rec: 11/26/22 17:38 DCW [id number]) Hip Goniometric Range of Motion Hip Right Passive Hip ROM WFL Yes Testing Position Supine Comments No limitations in ROM with muscle tone, joint structure, or pain. PT-OP-L Special Tests Start: 11/26/22 17:19 Freq: Status: Active Protocol: Document 11/26/22 14:00 DCW (Rec: 11/26/22 17:38 DCW [id number]) Special Tests Hip Special Tests Darren Test Results Hip flexor tiness Scour Test Test Results very slight increase in minor discomfort Piriformis Test Results Mild tightness PEGGY Test Results Negative PT-OP-M Strength Start: 11/26/22 17:19 Freq: Status: Active Protocol: Document 11/26/22 14:00 DCW (Rec: 11/26/22 17:38 DCW [id number]) Hip Strength Hip Manual Muscle Testing Right Flexion (L2) 4 Good Abduction 4 Good Adduction 4 Good External Rotation 4- Good- Internal Rotation 4- Good- Left Flexion (L2) 4+ Good+ Abduction 4+ Good+ Adduction 4+ Good+ External Rotation 4+ Good+ Internal Rotation 4+ Good+ PT-OP-Q Treatments Start: 11/26/22 17:19 Freq: Status: Active Protocol: Document 11/26/22 14:00 DCW (Rec: 11/26/22 17:38 DCW [id number]) Therapeutic Exercises Supine Exercises Psoas stretch Supine Exercise Name leg off table Side right Sidelying Exercises Clamshell Sidelying Exercise Name Clamshell Side right Sitting Exercises Piriformis stretch Sitting Exercise Name Seated figure-4 Side right PT-OP-T Assessment and Plan Start: 11/26/22 17:19 Freq: Status: Active Protocol: Document 11/26/22 14:00 DCW (Rec: 11/26/22 17:49 DCW [id number]) Physical Therapy Assessment Rehab Potential Rehabilitation Potential Excellent Evaluation Complexity Number of Personal Factors/Comorbidities 1-2 Number of Body Systems Impaired 1-2 Clinical Presentation at Evaluation Stable Impairments Impairments Pain,Strength Goals Two Impairment Pt experiencing constant 2/10 right hip pain Vp Respiratory Goal (LTG) Pt to increase R hip strength to at least 4+/5 in all planes in order to improve stability of right hip and reduce hip pain to 0/10 LTG Duration 01/26/23 One Impairment Pt does not have an appropriate home exercise program Short Term Goal (STG) Pt to be independent and compliant with an appropriate HEP STG Duration 12/28/22 Assessment Summary Assessment Pt presents with referring diagnosis of mild hip degenerative changes/ osteoarthritis. Pt is experiencing fairly low-level symptoms, and has minor, yet constant, pain in her anterior hip. Very difficult to replicate any specific pain with testing today, some very little increase in general soreness with scour testing. Pt also shows some mild weakness in all planes in her right hip, specifically with internal and external rotation . Pt will likely benefit from ~4-8 total visits in order to review proper stretching and strengthening techniques to improve mobility and stability of right hip. Pt a little anxious that her hip pain will limit her mobility or worsen with upcoming trip to [place], motivated to work hard independently to improve pain. Physical Therapy Plan Frequency and Duration Frequency of Treatment 1x/Week Plan of Care Start Date 11/26/22 Plan of Care End Date 01/26/23 Therapeutic Interventions Therapeutic Interventions Home Exercise Program,Joint Mobilizations,Manual Therapy, Patient/Caregiver Education, Self-Care/Home Management,Soft Tissue Mobilization, Therapeutic Activities, Therapeutic Exercises Next Visit Focus/Plan Next Note Type Treatment Note Next Visit Plan Hip strengthening, flexibility training
--- NOTE | 2022-11-26 17:49 | PT.OPPOC ---
Physical, Occupational & Speech Therapy At [facility] Current Diagnoses Unilateral primary osteoarthritis, unspecified hip (11/26/22) Pain in right hip (11/26/22) Visit Care Team Role Provider Type Fabiana Brink DO Family Provider Physician Specialty: [facility] Practice Address: [address] [place] [address], [address], [place], [address] Email: [email or web address] Ace Kumar MD Attending Provider Physician Primary Care Provider Referring Provider Specialty: [facility] Address: [address] [place] [address], [id number] Email: [email or web address] Plan Of Care PT-OP-T Assessment and Plan Start: 11/26/22 17:19 Freq: Status: Active Protocol: Document 11/26/22 14:00 DCW (Rec: 11/26/22 17:49 DCW [id number]) Physical Therapy Assessment Rehab Potential Rehabilitation Potential Excellent Evaluation Complexity Number of Personal Factors/Comorbidities 1-2 Number of Body Systems Impaired 1-2 Clinical Presentation at Evaluation Stable Impairments Impairments Pain,Strength Goals Two Impairment Pt experiencing constant 2/10 right hip pain Intermediate Goal (LTG) Pt to increase R hip strength to at least 4+/5 in all planes in order to improve stability of right hip and reduce hip pain to 0/10 LTG Duration 01/26/23 One Impairment Pt does not have an appropriate home exercise program Short Term Goal (STG) Pt to be independent and compliant with an appropriate HEP STG Duration 12/28/22 Assessment Summary Assessment Pt presents with referring diagnosis of mild hip degenerative changes/ osteoarthritis. Pt is experiencing fairly low-level symptoms, and has minor, yet constant, pain in her anterior hip. Very difficult to replicate any specific pain with testing today, some very little increase in general soreness with scour testing. Pt also shows some mild weakness in all planes in her right hip, specifically with internal and external rotation . Pt will likely benefit from ~4-8 total visits in order to review proper stretching and strengthening techniques to improve mobility and stability of right hip. Pt a little anxious that her hip pain will limit her mobility or worsen with upcoming trip to [place], motivated to work hard independently to improve pain. Physical Therapy Plan Frequency and Duration Frequency of Treatment 1x/Week Plan of Care Start Date 11/26/22 Plan of Care End Date 01/26/23 Therapeutic Interventions Therapeutic Interventions Home Exercise Program,Joint Mobilizations,Manual Therapy, Patient/Caregiver Education, Self-Care/Home Management,Soft Tissue Mobilization, Therapeutic Activities, Therapeutic Exercises Next Visit Focus/Plan Next Note Type Treatment Note Next Visit Plan Hip strengthening, flexibility training Plan of Care Dates Plan of Care Start Date 11/26/22 Plan of Care End Date 01/26/23 Electronically Signed by: Jose A Espino, PT 11/26/22 8652 If you are in agreement with this Plan of Care, please return a signed and dated copy. I have reviewed this Plan of Care and certify that the skilled therapy services above are required to meet the patient?s needs. Physician Signature Date Printed Name and Credentials Clinical Instructor Signature Printed Name and Credentials
--- NOTE | 2022-12-26 10:14 | PT.OTN ---
Current Diagnoses Unilateral primary osteoarthritis, unspecified hip (12/26/22) Pain in right hip (12/26/22) Physical Therapy Treatment Note PT-OP-A Visit Information Start: 11/26/22 17:19 Freq: Status: Active Protocol: Document 12/26/22 09:30 DCW (Rec: 12/26/22 10:13 DC [id number]) Out-Patient Physical Therapy Visit Information Visit Information Visit Type Treatment Note Visit Start Time 09:30 Visit Stop Time 10:15 Total Visit Minutes 45 Visit Number 2 Number of PUBLIC SERVICES LIBRARIAN Visits 0 Evaluation Information Evaluation Date 11/26/22 PT-OP-B Current Condition Start: 11/26/22 17:19 Freq: Status: Active Protocol: Document 11/26/22 14:00 DCW (Rec: 11/26/22 17:38 DCW [id number]) Current Condition History of Current Condition Onset Date 2-3 month history Current Complaints right hip pain History of Current Condition Pt is an 82 year old female presenting with a 2-3 month history of mild right hip pain . Pt reports that pain is mostly there all the time, nothing seems to make it better or worse. Does notice it slight more at night, but thinks that is mainly because she has no other distractions, doesn't really think it is worse at night. Notes it is not bad enough that it keeps her from doing anything, I just ignore it. Does not feel like there is any associated weakness or change in gait. Prior Treatments and Tests Hip x-ray: IMPRESSION: Minimal hip joint narrowing bilaterally, no definite source of asymmetric right- sided predominant hip pain is found otherwise. per Fidel Catherine M.D. on 09/27/2022 Treatment Goals Patient/Caregiver Goals Pt is going on a trip to [facility] in December, wants to be able to keep up with her son during the trip. PT-OP-C Subjective Start: 11/26/22 17:19 Freq: Status: Active Protocol: Document 12/26/22 09:30 DCW (Rec: 12/26/22 10:13 DCW [id number]) OP-PT Subjective Patient Comments Patient Comments It comes and goes. I've been doing my exercises, and it's doing better than it was before, but it still twinges sometimes. PT-OP-F Manual Assessment Start: 05/02/23 17:19 Freq: Status: Active Protocol: Document 11/26/22 14:00 DCW (Rec: 11/26/22 17:38 DCW [id number]) Manual Assessments Joint Mobility Assessment Joint Mobility Assessment Good mobility and joint feel through full passive range of motion PT-OP-K Range of Motion Start: 11/26/22 17:19 Freq: Status: Active Protocol: Document 11/26/22 14:00 DCW (Rec: 11/26/22 17:38 DCW [id number]) Hip Goniometric Range of Motion Hip Right Passive Hip ROM WFL Yes Testing Position Supine Comments No limitations in ROM with muscle tone, joint structure, or pain. PT-OP-L Special Tests Start: 11/26/22 17:19 Freq: Status: Active Protocol: Document 11/26/22 14:00 DCW (Rec: 11/26/22 17:38 DCW [id number]) Special Tests Hip Special Tests Darren Test Results Hip flexor tiness Scour Test Test Results very slight increase in minor discomfort Piriformis Test Results Mild tightness PEGGY Test Results Negative PT-OP-M Strength Start: 11/26/22 17:19 Freq: Status: Active Protocol: Document 11/26/22 14:00 DCW (Rec: 11/26/22 17:38 DCW [id number]) Hip Strength Hip Manual Muscle Testing Right Flexion (L2) 4 Good Abduction 4 Good Adduction 4 Good External Rotation 4- Good- Internal Rotation 4- Good- Left Flexion (L2) 4+ Good+ Abduction 4+ Good+ Adduction 4+ Good+ External Rotation 4+ Good+ Internal Rotation 4+ Good+ PT-OP-Q Treatments Start: 11/26/22 17:19 Freq: Status: Active Protocol: Document 12/26/22 09:30 DCW (Rec: 12/26/22 10:13 DCW [id number]) Cardio Equipment Recumbent Elliptical (AMVONET) Duration (Minutes) 5 Resistance 5 Seat Position 9 Gym Equipment Shuttle Recovery Unilateral Squats Resistance 50# Shuttle Recovery Platform Stable B squat Resistance 75# Shuttle Recovery Platform Stable Therapeutic Exercises Supine Exercises Piriformis Stretch Supine Exercise Name Figure-4 Psoas stretch Supine Exercise Name leg off table Side right Sidelying Exercises Reverse Clamshell Sidelying Exercise Name Reverse Clamshell Side bilateral Clamshell Sidelying Exercise Name Clamshell Side bilateral Standing Exercises Step-ups Standing Exercise Name Step-ups Side bilateral Equipment Used 6 Hip Extension Standing Exercise Name Hip Extension Side bilateral Resistance Red loop Other Exercises Resisted Ambulation Other Exercise Name Resisted side-stepping Resistance Red loop PT-OP-T Assessment and Plan Start: 11/26/22 17:19 Freq: Status: Active Protocol: Document 12/26/22 09:30 DCW (Rec: 12/26/22 10:13 DCW [id number]) Physical Therapy Assessment Impairments Impairments Pain,Strength Goals Two Impairment Pt experiencing constant 2/10 right hip pain Correction Goal (LTG) Pt to increase R hip strength to at least 4+/5 in all planes in order to improve stability of right hip and reduce hip pain to 0/10 LTG Duration 01/26/23 One Impairment Pt does not have an appropriate home exercise program Short Term Goal (STG) Pt to be independent and compliant with an appropriate HEP STG Duration 12/28/22 Assessment Summary Assessment Pt pain is much less constant currently, feeling much better overall, has been compliant with her HEP, although required slight changes today upon review due to incorrect technique. Pt is leaving for her trip to [place] tomorrow, is hoping her hip continues to have decreased pain. Physical Therapy Plan Frequency and Duration Frequency of Treatment 1x/Week Plan of Care Start Date 11/26/22 Plan of Care End Date 01/26/23 Therapeutic Interventions Therapeutic Interventions Home Exercise Program,Joint Mobilizations,Manual Therapy, Patient/Caregiver Education, Self-Care/Home Management,Soft Tissue Mobilization, Therapeutic Activities, Therapeutic Exercises Next Visit Focus/Plan Next Note Type Treatment Note Next Visit Plan Hip strengthening, flexibility training
--- NOTE | 2023-01-09 09:59 | PT.OTN ---
Current Diagnoses Unilateral primary osteoarthritis, unspecified hip (01/09/23) Pain in right hip (01/09/23) Physical Therapy Treatment Note PT-OP-A Visit Information Start: 11/26/22 17:19 Freq: Status: Active Protocol: Document 01/09/23 09:30 DCW (Rec: 01/09/23 09:58 DCW [id number]) Out-Patient Physical Therapy Visit Information Visit Information Visit Type Discharge Summary Visit Start Time 09:30 Visit Stop Time 10:00 Total Visit Minutes 30 Visit Number 3 Number of PRODUCT DESIGN MANAGER Visits 0 Evaluation Information Evaluation Date 11/26/22 PT-OP-B Current Condition Start: 11/26/22 17:19 Freq: Status: Active Protocol: Document 11/26/22 14:00 DCW (Rec: 11/26/22 17:38 DCW [id number]) Current Condition History of Current Condition Onset Date 2-3 month history Current Complaints right hip pain History of Current Condition Pt is an 82 year old female presenting with a 2-3 month history of mild right hip pain . Pt reports that pain is mostly there all the time, nothing seems to make it better or worse. Does notice it slight more at night, but thinks that is mainly because she has no other distractions, doesn't really think it is worse at night. Notes it is not bad enough that it keeps her from doing anything, I just ignore it. Does not feel like there is any associated weakness or change in gait. Prior Treatments and Tests Hip x-ray: IMPRESSION: Minimal hip joint narrowing bilaterally, no definite source of asymmetric right- sided predominant hip pain is found otherwise. per Fidel Catherine M.D. on 09/27/2022 Treatment Goals Patient/Caregiver Goals Pt is going on a trip to [facility] in December, wants to be able to keep up with her son during the trip. PT-OP-C Subjective Start: 11/26/22 17:19 Freq: Status: Active Protocol: Document 01/09/23 09:30 DCW (Rec: 01/09/23 09:58 DCW [id number]) OP-PT Subjective Patient Comments Patient Comments I'm just home from vacation. I didn't do my exercises most of the time, but I was out walking and going up hills, so I stayed active. PT-OP-F Manual Assessment Start: 11/26/22 17:19 Freq: Status: Active Protocol: Document 11/26/22 14:00 DCW (Rec: 11/26/22 17:38 DCW [id number]) Manual Assessments Joint Mobility Assessment Joint Mobility Assessment Good mobility and joint feel through full passive range of motion PT-OP-K Range of Motion Start: 11/26/22 17:19 Freq: Status: Active Protocol: Document 11/26/22 14:00 DCW (Rec: 11/26/22 17:38 DCW [id number]) Hip Goniometric Range of Motion Hip Right Passive Hip ROM WFL Yes Testing Position Supine Comments No limitations in ROM with muscle tone, joint structure, or pain. PT-OP-L Special Tests Start: 11/26/22 17:19 Freq: Status: Active Protocol: Document 11/26/22 14:00 DCW (Rec: 11/26/22 17:38 DCW [id number]) Special Tests Hip Special Tests Darren Test Results Hip flexor tiness Scour Test Test Results very slight increase in minor discomfort Piriformis Test Results Mild tightness PEGGY Test Results Negative PT-OP-M Strength Start: 11/26/22 17:19 Freq: Status: Active Protocol: Document 01/09/23 09:30 DCW (Rec: 01/09/23 09:59 DCW [id number]) Hip Strength Hip Manual Muscle Testing Right Flexion (L2) 4+ Good+ Abduction 4+ Good+ Adduction 4+ Good+ External Rotation 4+ Good+ Internal Rotation 4+ Good+ Left Flexion (L2) 4+ Good+ Abduction 4+ Good+ Adduction 4+ Good+ External Rotation 4+ Good+ Internal Rotation 4+ Good+ PT-OP-Q Treatments Start: 11/26/22 17:19 Freq: Status: Active Protocol: Document 01/09/23 09:30 DCW (Rec: 01/09/23 09:58 DCW [id number]) Cardio Equipment Recumbent Elliptical ([employer]) Duration (Minutes) 5 Resistance 5 Seat Position 9 Gym Equipment Shuttle Recovery Unilateral Squats Resistance 50# (two new) Shuttle Recovery Platform Stable B squat Resistance 75# (three new) Shuttle Recovery Platform Stable Therapeutic Exercises Standing Exercises Hip Extension Standing Exercise Name Hip Extension Side bilateral Resistance Red loop Other Exercises Resisted Ambulation Other Exercise Name Resisted side-stepping Resistance Red loop PT-OP-T Assessment and Plan Start: 11/26/22 17:19 Freq: Status: Active Protocol: Document 01/09/23 09:30 DCW (Rec: 01/09/23 09:58 DCW [id number]) Physical Therapy Assessment Impairments Impairments Pain,Strength Goals Two Impairment Pt experiencing constant 2/10 right hip pain Food Operations Manager Goal (LTG) Pt to increase R hip strength to at least 4+/5 in all planes in order to improve stability of right hip and reduce hip pain to 0/10 LTG Duration Met One Impairment Pt does not have an appropriate home exercise program Short Term Goal (STG) Pt to be independent and compliant with an appropriate HEP STG Duration Met Progress Towards Goals Progress Towards Goals Goals Met Assessment Summary Assessment Pt returns from her trip feeling pretty much asymptomatic, no longer experiencing any hip pain or weakness. Was able to walk around during her vacation with no difficulty. Pt has also met all goals, and is appropriate for discharge at this time. Physical Therapy Plan Frequency and Duration Frequency of Treatment 1x/Week Plan of Care Start Date 11/26/22 Plan of Care End Date 01/26/23 Therapeutic Interventions Therapeutic Interventions Home Exercise Program,Joint Mobilizations,Manual Therapy, Patient/Caregiver Education, Self-Care/Home Management,Soft Tissue Mobilization, Therapeutic Activities, Therapeutic Exercises Discharge Physical Therapy Discharge Reasons Goals Met Next Visit Focus/Plan Next Note Type Treatment Note Next Visit Plan Hip strengthening, flexibility training
== END 2023-01-09 14:54 | disposition home or self-care (01) ==
LOC: PHYS 09:30
PROVIDERS: Family Provider Family Medicine; PCP Family Medicine; Referring Provider Family Medicine; Visit Provider Family Medicine
DX: M16.10 Unilateral primary osteoarthritis, unspecified hip (principal); M25.551 Pain in right hip
CPT/HCPCS: 97110; 97161

== ENCOUNTER → 2023-01-22 07:34 | Outpatient (CLI) | payer MEDICARE, SELFPAY ==
[2021-03-30 09:00] VITALS: BMI 28.4
== END ==
PROVIDERS: Family Provider Family Medicine; PCP Family Medicine; Visit Provider Physician Assistant
DX: J02.9 Acute pharyngitis, unspecified (principal)
CPT/HCPCS: 87070

== ENCOUNTER → 2023-04-30 15:21 | Outpatient (CLI) | payer MEDICARE, SELFPAY ==
[2021-03-30 09:00] VITALS: BMI 28.4
--- NOTE | 2023-04-30 | DI.MG.S_ITS ---
BILATERAL DIGITAL SCREENING MAMMOGRAM 3D/2D WITH CAD: 04/30/2023 CLINICAL: Routine screening. Comparison is made to exams dated: 10/19/2021 mammogram, 10/18/2020 mammogram - [facility], and 09/28/2019 mammogram - [facility]. There are scattered areas of fibroglandular density in both breasts (category b / 25%-50% glandular tissue). Current study was also evaluated with a Computer Aided Detection (CAD) system. No significant masses, calcifications, or other findings are seen in either breast. There has been no significant interval change. IMPRESSION: NEGATIVE There is no mammographic evidence of malignancy. A 1 year screening mammogram is recommended. Based on the Tyrer Cuzick model (a risk assessment model) the patient's lifetime risk is 0.3% and her 10 year risk is 0.0%. According to the ACR, ACS, and NCCN guidelines, an annual breast MRI exam along with mammogram is recommended if the patient's lifetime risk is 20% or greater. This exam was interpreted at Station ID: [id number]. NOTE: For mammograms, a report in lay terms will be sent to the patient. Approximately 15% of breast malignancies will not be visualized mammographically. In the management of a palpable breast mass, a negative mammogram must not discourage biopsy of a clinically suspicious lesion. Electronically Signed By: Stacy brar/sarah:05/01/2023 16:08:58 letter sent: Normal Exam ACR BI-RADS Category 1: Negative [id number]
== END ==
PROVIDERS: Family Provider Family Medicine; PCP Family Medicine; Referring Provider Family Medicine; Visit Provider Family Medicine
DX: Z12.31 Encounter for screening mammogram for malignant neoplasm of breast (principal)
CPT/HCPCS: 77063; 77067

== ENCOUNTER → 2023-05-16 09:15 | Outpatient (CLI) | payer MEDICARE, SELFPAY ==
[2021-03-30 09:00] VITALS: BMI 28.4
== END ==
PROVIDERS: Family Provider Family Medicine; PCP Family Medicine; Visit Provider Physician Assistant
DX: L01.00 Impetigo, unspecified (principal)
CPT/HCPCS: 87070; 87077; 87147; 87186; 87205

== ENCOUNTER → 2024-01-21 09:21 | Outpatient (CLI) | payer MEDICARE, SELFPAY ==
[2021-03-30 09:00] VITALS: BMI 28.4
[2024-01-21 10:47] LABS: Add Manual Diff / Slide Review NO; Basophils Absolute Auto 0 /uL (0-100); Basophils Percent Auto 0.5 % (0-2); Eosinophils Absolute Auto 100 /uL (0-450); Eosinophils Percent Auto 4.2 % (2-4); Hematocrit 35.8 % (36-46); Hemoglobin 12.5 g/dL (12.0-16.0); Lymphocytes Absolute Auto 1200 /uL (1100-4500); Lymphocytes Percent Auto 33.5 % (25-40); Mean Corpuscular HGB Conc 34.8 % (30-36); Mean Corpuscular Hemoglobin 34.9 PG (26-34); Mean Corpuscular Volume 100.3 fL (80-100); Monocytes Absolute Auto 400 /uL (0-900); Monocytes Percent Auto 11.7 % (3-14); Neutrophils Absolute Auto 1700 /uL (1500-7000); Neutrophils Percent Auto 50.1 % (50-75); Platelet Count 113 X10^3/uL (150-400); Red Blood Cell Count 3.57 X10^6/uL (4.0-5.2); Red Cell Distribution Width 13.3 % (11.6-14.8); White Blood Cell Count 3.5 X10^3/uL (4.5-11.0)
[2024-01-21 11:25] LABS: Alanine Aminotransferase 28 IU/L (<35); Albumin 4.1 g/dL (3.5-5.0); Albumin Globulin Ratio 1.5 (1.0-2.8); Alkaline Phosphatase 61 U/L (38-126); Aspartate Aminotransferase 31 IU/L (14-36); BUN Creatinine Ratio 29.8 (6-22); Bilirubin Total 0.7 mg/dL (0.2-1.3); Blood Urea Nitrogen 25 mg/dL (7-17); Calcium 9.4 mg/dL (8.4-10.2); Carbon Dioxide 28 mmol/L (22-32); Chloride 108 mmol/L (98-107); Cholesterol 203 mg/dL (140-199); Estimated Glomerular Filt Rate > 60 mL/min (>60); Globulin 2.8 g/dL (1.7-4.1); Glucose 111 mg/dL (80-110); HDL Cholesterol 75 mg/dL (40-60); HEMOLYSIS < 15 (0-50); LDL Cholesterol Calculated 110 mg/dL (<100); Potassium 4.6 mmol/L (3.4-5.1); Sodium 138 mmol/L (137-145); Total Protein 6.9 g/dL (6.3-8.2); Triglycerides 91 mg/dL (35-150)
[2024-01-22 03:36] LABS: Apolipoprotein B 96 mg/dL (<90)
[2024-01-22 16:24] LABS: Hep C Virus Ab w/Reflex Quant NEGATIVE s/c (NEGATIVE)
== END ==
LOC: LAB 09:24
PROVIDERS: Family Provider Family Medicine; PCP Family Medicine; Referring Provider Family Medicine; Visit Provider Family Medicine
DX: Z00.00 Encounter for general adult medical examination without abnormal findings (principal); D47.2 Monoclonal gammopathy; E78.5 Hyperlipidemia, unspecified; K57.90 Diverticulosis of intestine, part unspecified, without perforation or abscess without bleeding; D69.6 Thrombocytopenia, unspecified; D61.818 Other pancytopenia; D46.9 Myelodysplastic syndrome, unspecified
CPT/HCPCS: 36415; 80053; 80061; 82172; 84443; 85025; 86803

== ENCOUNTER → 2024-02-09 15:08 | Outpatient (CLI) | payer MEDICARE, SELFPAY ==
[2021-03-30 09:00] VITALS: BMI 28.4
--- NOTE | 2024-02-09 15:10 | DI.US.S_ITS ---
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 COMPARISON: [facility], , US ABDOMEN COMPLETE, 07/04/2021, 7:09. FINDINGS: No sonographic evidence for right inguinal hernia. Prominent right inguinal lymph node likely reactive. IMPRESSION: No sonographic evidence for inguinal hernia Dictated by: Aureliano Broderick M.D. on 02/09/2024 at 18:20 Approved by: Aureliano Broderick M.D. on 02/09/2024 at 18:21
== END ==
PROVIDERS: Family Provider Family Medicine; PCP Family Medicine; Referring Provider Student in an Organized Health Care Education/Training Program; Visit Provider Student in an Organized Health Care Education/Training Program
DX: R10.31 Right lower quadrant pain (principal)
CPT/HCPCS: 76705

== ENCOUNTER → 2024-02-18 06:41 | Outpatient (CLI) | payer MEDICARE, SELFPAY ==
[2021-03-30 09:00] VITALS: BMI 28.4
--- NOTE | 2024-02-18 06:43 | DI.RAD.S_ITS ---
PROCEDURE: XR HIP W PEL IF DONE RT 2V INDICATIONS: right groin pain TECHNIQUE: AP pelvis with two views of the hips. COMPARISON: [facility], CR, XR HIP W PEL IF DONE RT 2V, 09/27/2022, 16:31. FINDINGS: Bones: No fractures or dislocations. Pelvic ring appears intact. No suspicious bony lesions. Osteoarthritic lesions to the hip joints, SI joints and partially visualized lower lumbar spine. Partially visualized posterior spinal fusion of the lumbar spine. Degenerative changes at the pubic symphysis. The bones are diffusely osteopenic. Soft tissues: The visualized bowel gas pattern is normal. No suspicious soft tissue calcifications. IMPRESSION: 1. No acute bony abnormality. 2. 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 Dictated by: Bar Figueredo M.D. on 02/18/2024 at 9:58 Approved by: Bar Figueredo M.D. on 02/18/2024 at 10:03
== END ==
PROVIDERS: Family Provider Family Medicine; PCP Family Medicine; Referring Provider Family Medicine; Visit Provider Family Medicine
DX: R10.32 Left lower quadrant pain (principal); R10.31 Right lower quadrant pain
CPT/HCPCS: 73502

== ENCOUNTER → 2024-03-10 13:59 | Outpatient (CLI) | payer MEDICARE, SELFPAY ==
[2021-03-30 09:00] VITALS: BMI 28.4
[2024-03-10 15:05] LABS: Add Manual Diff / Slide Review NO; Basophils Absolute Auto 0 /uL (0-100); Basophils Percent Auto 0.5 % (0-2); Eosinophils Absolute Auto 100 /uL (0-450); Eosinophils Percent Auto 2.9 % (2-4); Hematocrit 36.9 % (36-46); Hemoglobin 12.7 g/dL (12.0-16.0); Lymphocytes Absolute Auto 1300 /uL (1100-4500); Lymphocytes Percent Auto 34.6 % (25-40); Mean Corpuscular HGB Conc 34.5 % (30-36); Mean Corpuscular Volume 101.6 fL (80-100); Monocytes Absolute Auto 300 /uL (0-900); Monocytes Percent Auto 8.1 % (3-14); Neutrophils Absolute Auto 2000 /uL (1500-7000); Neutrophils Percent Auto 53.9 % (50-75); Platelet Count 108 X10^3/uL (150-400); Red Blood Cell Count 3.63 X10^6/uL (4.0-5.2); Red Cell Distribution Width 12.9 % (11.6-14.8); White Blood Cell Count 3.8 X10^3/uL (4.5-11.0)
[2024-03-10 15:34] LABS: Alanine Aminotransferase 27 IU/L (<35); Albumin 4.4 g/dL (3.5-5.0); Albumin Globulin Ratio 1.8 (1.0-2.8); Alkaline Phosphatase 70 U/L (38-126); Aspartate Aminotransferase 32 IU/L (14-36); BUN Creatinine Ratio 26.7 (6-22); Bilirubin Total 0.6 mg/dL (0.2-1.3); Blood Urea Nitrogen 24 mg/dL (7-17); Calcium 9.6 mg/dL (8.4-10.2); Carbon Dioxide 26 mmol/L (22-32); Chloride 104 mmol/L (98-107); Estimated Glomerular Filt Rate > 60 mL/min (>60); Globulin 2.5 g/dL (1.7-4.1); Glucose 136 mg/dL (80-110); HEMOLYSIS < 15 (0-50); Lactate Dehydrogenase 225 U/L (120-246); Potassium 4.2 mmol/L (3.4-5.1); Sodium 138 mmol/L (137-145); Total Protein 6.9 g/dL (6.3-8.2)
== END ==
LOC: LAB 14:01
PROVIDERS: Family Provider Family Medicine; PCP Family Medicine; Referring Provider Nurse Practitioner; Visit Provider Nurse Practitioner
DX: D64.9 Anemia, unspecified (principal); D46.9 Myelodysplastic syndrome, unspecified; D47.2 Monoclonal gammopathy; Z09 Encounter for follow-up examination after completed treatment for conditions other than malignant neoplasm
CPT/HCPCS: 36415; 80053; 82232; 82784; 83615; 83883; 84155; 84165; 85025; 86334

== ENCOUNTER → 2024-07-14 11:10 | Outpatient (CLI) | payer MEDICARE, SELFPAY ==
[2021-03-30 09:00] VITALS: BMI 28.4
[2024-07-14 12:20] LABS: Add Manual Diff / Slide Review NO; Basophils Absolute Auto 0 /uL (0-100); Basophils Percent Auto 0.4 % (0-2); Eosinophils Absolute Auto 100 /uL (0-450); Eosinophils Percent Auto 1.7 % (2-4); Hematocrit 38.3 % (36-46); Hemoglobin 12.9 g/dL (12.0-16.0); Lymphocytes Absolute Auto 1400 /uL (1100-4500); Lymphocytes Percent Auto 39.9 % (25-40); Mean Corpuscular HGB Conc 33.6 % (30-36); Mean Corpuscular Hemoglobin 34.6 PG (26-34); Mean Corpuscular Volume 102.9 fL (80-100); Monocytes Absolute Auto 400 /uL (0-900); Monocytes Percent Auto 11.4 % (3-14); Neutrophils Absolute Auto 1600 /uL (1500-7000); Neutrophils Percent Auto 46.6 % (50-75); Platelet Count 109 X10^3/uL (150-400); Red Blood Cell Count 3.72 X10^6/uL (4.0-5.2); Red Cell Distribution Width 13.2 % (11.6-14.8); White Blood Cell Count 3.4 X10^3/uL (4.5-11.0)
[2024-07-14 12:40] LABS: Alanine Aminotransferase 26 IU/L (<35); Albumin 4.4 g/dL (3.5-5.0); Albumin Globulin Ratio 1.6 (1.0-2.8); Alkaline Phosphatase 65 U/L (38-126); Aspartate Aminotransferase 32 IU/L (14-36); BUN Creatinine Ratio 28.6 (6-22); Bilirubin Total 0.8 mg/dL (0.2-1.3); Blood Urea Nitrogen 26 mg/dL (7-17); Calcium 9.9 mg/dL (8.4-10.2); Carbon Dioxide 29 mmol/L (22-32); Chloride 106 mmol/L (98-107); Estimated Glomerular Filt Rate > 60 mL/min (>60); Globulin 2.7 g/dL (1.7-4.1); Glucose 73 mg/dL (80-110); HEMOLYSIS < 15 (0-50); Lactate Dehydrogenase 239 U/L (120-246); Potassium 4.2 mmol/L (3.4-5.1); Sodium 139 mmol/L (137-145); Total Protein 7.1 g/dL (6.3-8.2)
[2024-07-15 21:10] LABS: Free Kappa Lt Chains, Serum 19.6 mg/L (3.3-19.4)
== END ==
LOC: LAB 11:13
PROVIDERS: Family Provider Family Medicine; PCP Family Medicine; Referring Provider Internal Medicine Hematology & Oncology; Visit Provider Internal Medicine Hematology & Oncology
DX: Z09 Encounter for follow-up examination after completed treatment for conditions other than malignant neoplasm (principal); D46.9 Myelodysplastic syndrome, unspecified; D47.2 Monoclonal gammopathy
CPT/HCPCS: 36415; 80053; 82232; 82784; 83615; 83883; 84155; 84165; 85025; 86334

== ENCOUNTER → 2024-11-11 11:34 | Outpatient (CLI) | payer MEDICARE, SELFPAY ==
[2021-03-30 09:00] VITALS: BMI 28.4
--- NOTE | 2024-11-11 11:37 | DI.RAD.S_ITS ---
PROCEDURE: XR LUMBAR SPINE 2-3V INDICATIONS: acute on chronic low back pain TECHNIQUE: 3 views of the lumbar spine were acquired. COMPARISON: None. FINDINGS: Lumbar spine curvature and alignment: Slight leftward curve noted. Bones: There are no osseous abnormalities. Disc spaces: Anterior/posterior L2-3 fusion provided by interbody spacer, pedicle screws and short interbody struts appreciated. No postsurgical complication. Severe L3-4 degenerative disc disease noted. There is moderate L4-5 and L5-S1 degenerative facet disease Intervertebral foramen: Grossly normal in width. Soft tissues: No soft tissue swelling, calcification or mass. IMPRESSION: L2-3 anterior/posterior fusion anatomic alignment no complication Degeneration Dictated by: Mihir Strange M.D. on 11/12/2024 at 12:21 Approved by: Mihir Strange M.D. on 11/12/2024 at 12:22
== END ==
PROVIDERS: Family Provider Family Medicine; PCP Family Medicine; Referring Provider Family Medicine; Visit Provider Family Medicine
DX: M51.369 Other intervertebral disc degeneration, lumbar region without mention of lumbar back pain or lower extremity pain (principal); M47.816 Spondylosis without myelopathy or radiculopathy, lumbar region; M47.817 Spondylosis without myelopathy or radiculopathy, lumbosacral region; G89.29 Other chronic pain; Z98.1 Arthrodesis status
CPT/HCPCS: 72100

== ENCOUNTER → 2024-11-23 14:34 | Outpatient (CLI) | payer MEDICARE, SELFPAY ==
[2021-03-30 09:00] VITALS: BMI 28.4
--- NOTE | 2024-11-23 14:36 | DI.MG.S_ITS ---
MM screening mammo BI: 11/23/2024. BI-RADS: 1 CLINICAL: 83-year old female for bilateral screening mammogram. No Tyrer-Cuzick risk score calculation due to patient's age being over 85 years old. No personal or first-degree family history of breast cancer. PRIOR EXAMS 04/30/2023, 10/19/2021, 10/18/2020. MAMMOGRAPHY TECHNIQUE: 2D and 3D (tomosynthesis) digital mammographic views obtained, with additional images as needed for full coverage. Current study was also evaluated with a Computer Aided Detection (CAD) system. DENSITY B. There are scattered areas of fibroglandular density. MAMMOGRAPHY FINDINGS Bilateral: No suspicious mass, asymmetry, microcalcification, or other abnormality seen. No significant change from comparison. IMPRESSION: * No evidence of malignancy. RECOMMENDATIONS Bilateral * Annual screening mammography. OVERALL ASSESSMENT CATEGORY BI-RADS-1: Negative. The [employer] recommends annual screening mammography beginning at age 40 for women with average risk of breast cancer. ELECTRONICALLY SIGNED: Juan Pablo Gómez M.D. on 11/24/2024 at 09:51:05 AM PT Interpreting Station ID: [id number]
== END ==
PROVIDERS: PCP Family Medicine; Referring Provider Family Medicine; Visit Provider Family Medicine
DX: Z12.31 Encounter for screening mammogram for malignant neoplasm of breast (principal)
CPT/HCPCS: 77063; 77067

== ENCOUNTER 2025-02-02 14:30 | Outpatient (RCR) | payer MEDICARE, SELFPAY ==
[2021-03-30 09:00] VITALS: BMI 28.4
--- NOTE | 2024-12-14 13:46 | PT.OIE ---
Current Diagnoses Other chronic pain (12/14/24) Low back pain, unspecified (12/14/24) Past Medical History (Last Reviewed 02/09/24 @ 15:54 by Laverne Cao PA-C) Abdominal pain Abnormal Pap smear of cervix (~1983) Anemia (~2014) Appetite impaired Basal cell carcinoma, leg (~2013) BPPV (benign paroxysmal positional vertigo) Cancer of blood vessel (~2014) Cervicalgia (~2013) Chickenpox (~1949) Chronic back pain Chronic pain of right inguinal region COVID-19 virus infection (08/03/21) Diverticulosis Elevated LFTs Foot pain (~2006) Goiter (~2013) Hepatitis A Hyperlipidemia (04/14/14) Impaired fasting glucose (08/24/13) Leukopenia (08/24/13) Lumbago MDS (myelodysplastic syndrome) Measles (~1944) 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) Mononucleosis (~1979) Mumps (~1946) Neutropenia (~2013) Obesity Osteopenia (02/21/17) Other dietary vitamin B12 deficiency anemia (~2013) Screening for malignant neoplasm of colon Shingles (~2013) Skin cancer (~2013) Thrombocytopenia Vitamin B12 deficiency (~2013) Past Surgical History (Last Reviewed 02/09/24 @ 15:54 by Laverne Cao PA-C) Anesthesia History of airway aspiration (~07/19/14) History of cholecystectomy (~09/2021) History of tonsillectomy Hx of arthroscopy of left knee (~2017) S/P total abdominal hysterectomy and bilateral salpingo-oophorectomy (~1989) Status post appendectomy (~1957) Status post arthroscopy (~2010) Status post biopsy (~2013) Status post colonoscopy (~2009) Status post hysterectomy (~1989) Status post lumbar surgery (03/04/19) Visit Care Team Role Provider Type Ace Kumar MD Attending Provider Physician Primary Care Provider Referring Provider Specialty: [facility] Address: [address] [place] [address], [facility] Email: [email or web address] Physical Therapy Initial Evaluation PT-OP-A Visit Information Start: 12/14/24 09:41 Freq: Status: Active Protocol: Document 12/14/24 09:43 MB (Rec: 12/14/24 10:27 MB Desktop) Out-Patient Physical Therapy Visit Information Visit Information Visit Type Initial Evaluation Visit Note 08/15 before KX Visit Start Time 09:43 Visit Stop Time 10:23 Visit Number 1 Number of GRANULATING BLENDER Visits 0 Evaluation Information Evaluation Date 12/14/24 Precautions Precautions Fall risk, bruising and history of myelodysplastic syndrome PT-OP-B Current Condition Start: 12/14/24 09:41 Freq: Status: Active Protocol: Document 12/14/24 09:43 MB (Rec: 12/14/24 10:27 MB Desktop) Current Condition History of Current Condition Onset Date A little bit longer than a month Current Complaints B calf pain and back pain, all around discomfort around SI to anterior History of Current Condition Pt reports that a little more than a month ago, she started waking up d/t back ache and it hasn't gone away. Pt has a history of myelodysplastic syndrome, L2-3 disc surgery, has frequent falls and she assists him. He is not using RW as trained by OPPT. He hasn't been falling as much later. Pt has a history of right groin pain and PT sees a PT record in the chart but cannot access it this morning. This PT worked with pt's , Naeem, with pt's participation, and pt did have some trouble recalling training and education during 's PT course. Pt has appointment with Dr. Birch 03/11 about back pain. Prior Treatments and Tests Lumbar x-ray 11/11/24: L2-3 anterior/posterior fusion anatomic alignment no complication Degeneration Hip x-ray January 2025: IMPRESSION: 1. No acute bony abnormality. 2. 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 Treatment Goals Patient/Caregiver Goals To decrease pain and to strengthen the whole area PT-OP-C Subjective Start: 12/14/24 09:41 Freq: Status: Active Protocol: Document 12/14/24 09:43 MB (Rec: 12/14/24 10:27 MB Desktop) OP-PT Subjective Patient Comments Patient Comments See history of current condition Patient Questionnaires Oswestry Low Back Index Oswestry Score 10 Oswestry Impairment 20 to 39% Impaired (Score 20- 39) PT-OP-G Mobility & Gait Start: 12/14/24 09:41 Freq: Status: Active Protocol: Document 12/14/24 09:43 MB (Rec: 12/14/24 10:27 MB Desktop) OP Gait Assessment Comments Gait Comments Gait training without AD: antalgic, flexed posture at hips and trunk, minimal arm swing with less arm movement forward and back and more arm movement with elbows bent and side to side, stiffness in upper spine and LB and SI joints. Pt states she has plantar fasciitis in right foot and she is wearing one orthotic and so ed pt to take out. PT-OP-J Posture/Palpation/Skin Start: 12/14/24 09:41 Freq: Status: Active Protocol: Document 12/14/24 09:43 MB (Rec: 12/14/24 10:27 MB Desktop) Posture Evaluation Comments Posture Comments Standing posture with shoes off: forward head, forward and rounded shoulders, Dowager's hump, mild left convexity of spine, left scapular winging and highter than the right, reduced lumbar lordosis, right iliac crest is higher than the left. Spinal movement in standing: Flexion: fingertips 8 from the floor and repeated flexion is okay but causes some discomfort in glutes Extension: 15 deg and no increased symptoms with repeated extension SB: stiffer on the right side to the right with SI area, right movement 15 deg and left 20 deg PT-OP-M Strength Start: 12/14/24 09:41 Freq: Status: Active Protocol: Document 12/14/24 09:43 MB (Rec: 12/14/24 10:27 MB Desktop) Hip Strength Hip Manual Muscle Testing Left Flexion (L2) 4+ Good+ Extension (S1) 4- Good- Abduction 4 Good Adduction 4+ Good+ Right Flexion (L2) 4+ Good+ Extension (S1) 4+ Good+ Abduction 4+ Good+ Adduction 4 Good Comments MMT in supine today. Pt denies numbness and tingling and just c/o pain in back of legs when she has symptoms. Knee Strength Knee Manual Muscle Testing Left Flexion (S2) 4 Good Extension (L3) 5 Normal Right Flexion (S2) 4 Good Extension (L3) 5 Normal Ankle/Foot Strength Ankle and Foot Manual Muscle Testing Right Dorsiflexion (L4) 5 Normal Left Dorsiflexion (L4) 5 Normal Toe Strength Toe Manual Muscle Testing Left Great Toe Extension 5 Normal Right Great Toe Extension 5 Normal PT-OP-Q Treatments Start: 12/14/24 09:41 Freq: Status: Active Protocol: Document 12/14/24 09:43 MB (Rec: 12/14/24 10:27 MB Desktop) Therapeutic Exercises Supine Exercises Pelvic realignment exercises Supine Exercise Name HEP and handout today Side bilateral Equipment Used Blue ball, towel last exercises Reps/Minutes 5 reps, 3 sec hold all exercises in order Comments Knees bent, feet together ball squeeze iso, knee opp ankle iso, thigh press Self-Care/Home Management Treatment Education Patient Education Body Mechanics,Fall Risk,Home Exercise Program,Joint Protection,Pain Management, Posture Other Education Log rolling ed and practice today, ed in benefits of using ice and heat, benefits of using pillow between legs to help support LB and SI joints in side lying, ed in sequence of PT to include alignment, posture, manual, flexibility, strengthening and balance and working alignment to help a new homeostasis for body posture, gentle is better PT-OP-T Assessment and Plan Start: 12/14/24 09:41 Freq: Status: Active Protocol: Document 12/14/24 09:43 MB (Rec: 12/14/24 10:27 MB Desktop) Physical Therapy Assessment Rehab Potential Rehabilitation Potential Fair Evaluation Complexity Number of Personal Factors/Comorbidities 1-2 Number of Body Systems Impaired 3 Clinical Presentation at Evaluation Evolving Impairments Impairments Balance,Functional Activities, Functional Mobility,Gait,Pain, Posture,ROM,Soft Tissue Mobility,Strength Goals 4 Impairment Lack of HEP Signals Analyst Goal (LTG) Pt will perform progressive HEP with I including pelvic realignment, posture, flexibility, breathing, strengthening and balance exercises to improve symptoms. LTG Duration 8 weeks 3 Impairment Evidence of imbalance Fpc Goal (LTG) Pt will perform WNLs on FGA or other standardized balance test to decrease fall risk. LTG Duration 8 weeks 2 Impairment Slow and painful gait Fpc Goal (LTG) Pt will gait train at least 1, 176 feet in 6 minutes to improve community ambulation. LTG Duration 8 weeks 1 Impairment Oswestry reflects 20% impairment Signals Analyst Goal (LTG) Pt will present with an Oswestry score reflecting no more than 10% impairment to improve quality of life and pain. LTG Duration 8 weeks Assessment Summary Assessment Pt is an 84 y/o female presenting with progressive B calf, posterior thigh, low back and wrapping around pelvis anterior pain. She has a remote history of L2-3 disc surgery and also has history of myelodysplastic syndrome. 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 This PT was was able to work with pt and her during his OPPT course and pt also demonstrated some challenges with memory, recall, and following through with PT recommendations. This may be a challenge for her OPPT course . Pt presents with postural changes, pelvic obliquities, painful and slow gait and hip weakness. Pt will benefit from PT to improve these deficits. Physical Therapy Plan Frequency and Duration Frequency of Treatment 2x/Week Duration of treatment (weeks) 8 Plan of Care Start Date 12/14/24 Plan of Care End Date 02/14/25 Therapeutic Interventions Therapeutic Interventions Balance Training,Canalithic Repositioning,Coordination Training,Gait Training,Home Exercise Program,Joint Mobilizations,Manual Therapy, Neuromuscular Re-education, Patient/Caregiver Education, Self-Care/Home Management,Soft Tissue Mobilization,Taping, Therapeutic Activities, Therapeutic Exercises Modalities Cold Pack/Ice Massage,Electric Stimulation,Hot Packs, Ultrasound Other Referrals/Consults Referrals/Consults Recommended Consider EMG if radiculopathy is ongoing concern Next Visit Focus/Plan Next Note Type Treatment Note Next Visit Plan Review pelvic realignment exercises, initiate manual work, practice log rolling, consider DKTC and diaphragm breathing Flexibility exercises should be very gentle given possible radiculopathy and can try open book, gentle hamstring stretch in hook lying with hands/towel behind leg and gentle extension and flexion of knee, AP Progress core, LE strengthening and balance
--- NOTE | 2024-12-17 16:46 | PT.OTN ---
Current Diagnoses Other chronic pain (12/17/24) Low back pain, unspecified (12/17/24) Physical Therapy Treatment Note PT-OP-A Visit Information Start: 12/14/24 09:41 Freq: Status: Active Protocol: Document 12/17/24 16:23 MILK DRIER (Rec: 12/17/24 16:46 MILK DRIER Laptop) Out-Patient Physical Therapy Visit Information Visit Information Visit Type Treatment Note Visit Start Time 09:47 Visit Stop Time 10:28 Visit Number 2 Number of MANAGER READING Visits 0 Evaluation Information Evaluation Date 12/14/24 Precautions Precautions Fall risk, bruising and history of myelodysplastic syndrome PT-OP-B Current Condition Start: 12/14/24 09:41 Freq: Status: Active Protocol: Document 12/14/24 09:43 MB (Rec: 12/14/24 10:27 MB Desktop) Current Condition History of Current Condition Onset Date A little bit longer than a month Current Complaints B calf pain and back pain, all around discomfort around SI to anterior History of Current Condition Pt reports that a little more than a month ago, she started waking up d/t back ache and it hasn't gone away. Pt has a history of myelodysplastic syndrome, L2-3 disc surgery, has frequent falls and she assists him. He is not using RW as trained by OPPT. He hasn't been falling as much later. Pt has a history of right groin pain and PT sees a PT record in the chart but cannot access it this morning. This PT worked with pt's , Naeem, with pt's participation, and pt did have some trouble recalling training and education during 's PT course. Pt has appointment with Dr. Birch 03/11 about back pain. Prior Treatments and Tests Lumbar x-ray 11/11/24: L2-3 anterior/posterior fusion anatomic alignment no complication Degeneration Hip x-ray January 2025: IMPRESSION: 1. No acute bony abnormality. 2. 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 Treatment Goals Patient/Caregiver Goals To decrease pain and to strengthen the whole area PT-OP-C Subjective Start: 12/14/24 09:41 Freq: Status: Active Protocol: Document 12/17/24 16:23 MILK DRIER (Rec: 12/17/24 16:46 MILK DRIER Laptop) OP-PT Subjective Patient Comments Patient Comments Pt reports no changes since last PT session, has practiced her HEP but wants to review a few. Patient Reported Progress Same PT-OP-G Mobility & Gait Start: 12/14/24 09:41 Freq: Status: Active Protocol: Document 12/14/24 09:43 MB (Rec: 12/14/24 10:27 MB Desktop) OP Gait Assessment Comments Gait Comments Gait training without AD: antalgic, flexed posture at hips and trunk, minimal arm swing with less arm movement forward and back and more arm movement with elbows bent and side to side, stiffness in upper spine and LB and SI joints. Pt states she has plantar fasciitis in right foot and she is wearing one orthotic and so ed pt to take out. PT-OP-J Posture/Palpation/Skin Start: 12/14/24 09:41 Freq: Status: Active Protocol: Document 12/14/24 09:43 MB (Rec: 12/14/24 10:27 MB Desktop) Posture Evaluation Comments Posture Comments Standing posture with shoes off: forward head, forward and rounded shoulders, Dowager's hump, mild left convexity of spine, left scapular winging and highter than the right, reduced lumbar lordosis, right iliac crest is higher than the left. Spinal movement in standing: Flexion: fingertips 8 from the floor and repeated flexion is okay but causes some discomfort in glutes Extension: 15 deg and no increased symptoms with repeated extension SB: stiffer on the right side to the right with SI area, right movement 15 deg and left 20 deg PT-OP-M Strength Start: 12/14/24 09:41 Freq: Status: Active Protocol: Document 12/14/24 09:43 MB (Rec: 12/14/24 10:27 MB Desktop) Hip Strength Hip Manual Muscle Testing Left Flexion (L2) 4+ Good+ Extension (S1) 4- Good- Abduction 4 Good Adduction 4+ Good+ Right Flexion (L2) 4+ Good+ Extension (S1) 4+ Good+ Abduction 4+ Good+ Adduction 4 Good Comments MMT in supine today. Pt denies numbness and tingling and just c/o pain in back of legs when she has symptoms. Knee Strength Knee Manual Muscle Testing Left Flexion (S2) 4 Good Extension (L3) 5 Normal Right Flexion (S2) 4 Good Extension (L3) 5 Normal Ankle/Foot Strength Ankle and Foot Manual Muscle Testing Right Dorsiflexion (L4) 5 Normal Left Dorsiflexion (L4) 5 Normal Toe Strength Toe Manual Muscle Testing Left Great Toe Extension 5 Normal Right Great Toe Extension 5 Normal PT-OP-Q Treatments Start: 12/14/24 09:41 Freq: Status: Active Protocol: Document 12/17/24 16:23 MILK DRIER (Rec: 12/17/24 16:46 MILK DRIER Laptop) Therapeutic Exercises Supine Exercises DKTC Supine Exercise Name DKTC Side bilateral Reps/Minutes 1 min x3 Comments pain with hip >90 degrees, no pain and stretch <90 degrees Stretch Supine Exercise Name HS Side right Equipment Used towel with manual resistance Reps/Minutes 30sx2 Comments gentle stretch, VC to relax Pelvic realignment exercises Supine Exercise Name HEP review of iso thigh press Side bilateral Equipment Used towel Reps/Minutes 3s hold, 5x2 Therapeutic Activity Therapeutic Activity Log Roll Name Supine<>sit and log roll Reps/Minutes x3 Comments Educated on reason for log roll, practiced bed mobility on mat table with mod cueing for sequence, spv Manual Therapy Treatment Consent Patient gave verbal consent for manual Yes treatment Soft Tissue Mobilization Glute med Body Location R glute med, piriformis, TFL Mobilization Type Myofascial Release,Rolling, Trigger Point Release Intensity/Depth Superficial Body Position L sidelying Comments significant trigger points to R glute med PT-OP-T Assessment and Plan Start: 12/14/24 09:41 Freq: Status: Active Protocol: Document 12/17/24 16:23 MILK DRIER (Rec: 12/17/24 16:46 MILK DRIER Laptop) Physical Therapy Assessment Impairments Impairments Balance,Functional Activities, Functional Mobility,Gait,Pain, Posture,ROM,Soft Tissue Mobility,Strength Goals 4 Impairment Lack of HEP Alf Goal (LTG) Pt will perform progressive HEP with I including pelvic realignment, posture, flexibility, breathing, strengthening and balance exercises to improve symptoms. LTG Duration 8 weeks 3 Impairment Evidence of imbalance Alf Goal (LTG) Pt will perform WNLs on FGA or other standardized balance test to decrease fall risk. LTG Duration 8 weeks 2 Impairment Slow and painful gait Insurance Billing Specialist Goal (LTG) Pt will gait train at least 1, 176 feet in 6 minutes to improve community ambulation. LTG Duration 8 weeks 1 Impairment Oswestry reflects 20% impairment Alf Goal (LTG) Pt will present with an Oswestry score reflecting no more than 10% impairment to improve quality of life and pain. LTG Duration 8 weeks Assessment Summary Assessment Pt tolerated gentle lumbar and hip stretching this session with reports of mild pain to B gastrocs but pain decreases with lessened stretch. Pt applied log rolling well with few cues, would benefit from continued training for full follow through at home. Physical Therapy Plan Frequency and Duration Frequency of Treatment 2x/Week Duration of treatment (weeks) 8 Plan of Care Start Date 12/14/24 Plan of Care End Date 02/14/25 Therapeutic Interventions Therapeutic Interventions Balance Training,Canalithic Repositioning,Coordination Training,Gait Training,Home Exercise Program,Joint Mobilizations,Manual Therapy, Neuromuscular Re-education, Patient/Caregiver Education, Self-Care/Home Management,Soft Tissue Mobilization,Taping, Therapeutic Activities, Therapeutic Exercises Modalities Cold Pack/Ice Massage,Electric Stimulation,Hot Packs, Ultrasound Next Visit Focus/Plan Next Note Type Treatment Note Next Visit Plan Review HEP, continue STM to R glute med/piriformis, review log roll, initiate core strengthening via PPT, B glute and glute med strengthening
--- NOTE | 2024-12-21 10:28 | PT.OTN ---
Current Diagnoses Other chronic pain (12/21/24) Low back pain, unspecified (12/21/24) Physical Therapy Treatment Note PT-OP-A Visit Information Start: 12/14/24 09:41 Freq: Status: Active Protocol: Document 12/21/24 09:47 MB (Rec: 12/21/24 10:16 MB Desktop) Out-Patient Physical Therapy Visit Information Visit Information Visit Type Treatment Note Visit Note 10/13 before KX Visit Start Time 09:47 Visit Stop Time 10: Visit Number 3 Number of CLINIC COORDINATOR Visits 0 Evaluation Information Evaluation Date 12/14/24 Precautions Precautions Fall risk, bruising and history of myelodysplastic syndrome PT-OP-B Current Condition Start: 12/14/24 09:41 Freq: Status: Active Protocol: Document 12/14/24 09:43 MB (Rec: 12/14/24 10:27 MB Desktop) Current Condition History of Current Condition Onset Date A little bit longer than a month Current Complaints B calf pain and back pain, all around discomfort around SI to anterior History of Current Condition Pt reports that a little more than a month ago, she started waking up d/t back ache and it hasn't gone away. Pt has a history of myelodysplastic syndrome, L2-3 disc surgery, has frequent falls and she assists him. He is not using RW as trained by OPPT. He hasn't been falling as much later. Pt has a history of right groin pain and PT sees a PT record in the chart but cannot access it this morning. This PT worked with pt's , Naeem, with pt's participation, and pt did have some trouble recalling training and education during 's PT course. Pt has appointment with Dr. Birch 03/11 about back pain. Prior Treatments and Tests Lumbar x-ray 11/11/24: L2-3 anterior/posterior fusion anatomic alignment no complication Degeneration Hip x-ray January 2025: IMPRESSION: 1. No acute bony abnormality. 2. 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 Treatment Goals Patient/Caregiver Goals To decrease pain and to strengthen the whole area PT-OP-C Subjective Start: 12/14/24 09:41 Freq: Status: Active Protocol: Document 12/21/24 09:47 MB (Rec: 12/21/24 10:16 MB Desktop) OP-PT Subjective Patient Comments Patient Comments No changes since last PT session. PT-OP-G Mobility & Gait Start: 12/14/24 09:41 Freq: Status: Active Protocol: Document 12/14/24 09:43 MB (Rec: 12/14/24 10:27 MB Desktop) OP Gait Assessment Comments Gait Comments Gait training without AD: antalgic, flexed posture at hips and trunk, minimal arm swing with less arm movement forward and back and more arm movement with elbows bent and side to side, stiffness in upper spine and LB and SI joints. Pt states she has plantar fasciitis in right foot and she is wearing one orthotic and so ed pt to take out. PT-OP-J Posture/Palpation/Skin Start: 12/14/24 09:41 Freq: Status: Active Protocol: Document 12/14/24 09:43 MB (Rec: 12/14/24 10:27 MB Desktop) Posture Evaluation Comments Posture Comments Standing posture with shoes off: forward head, forward and rounded shoulders, Dowager's hump, mild left convexity of spine, left scapular winging and highter than the right, reduced lumbar lordosis, right iliac crest is higher than the left. Spinal movement in standing: Flexion: fingertips 8 from the floor and repeated flexion is okay but causes some discomfort in glutes Extension: 15 deg and no increased symptoms with repeated extension SB: stiffer on the right side to the right with SI area, right movement 15 deg and left 20 deg PT-OP-M Strength Start: 12/14/24 09:41 Freq: Status: Active Protocol: Document 12/14/24 09:43 MB (Rec: 12/14/24 10:27 MB Desktop) Hip Strength Hip Manual Muscle Testing Left Flexion (L2) 4+ Good+ Extension (S1) 4- Good- Abduction 4 Good Adduction 4+ Good+ Right Flexion (L2) 4+ Good+ Extension (S1) 4+ Good+ Abduction 4+ Good+ Adduction 4 Good Comments MMT in supine today. Pt denies numbness and tingling and just c/o pain in back of legs when she has symptoms. Knee Strength Knee Manual Muscle Testing Left Flexion (S2) 4 Good Extension (L3) 5 Normal Right Flexion (S2) 4 Good Extension (L3) 5 Normal Ankle/Foot Strength Ankle and Foot Manual Muscle Testing Right Dorsiflexion (L4) 5 Normal Left Dorsiflexion (L4) 5 Normal Toe Strength Toe Manual Muscle Testing Left Great Toe Extension 5 Normal Right Great Toe Extension 5 Normal PT-OP-Q Treatments Start: 12/14/24 09:41 Freq: Status: Active Protocol: Document 12/21/24 09:47 MB (Rec: 12/21/24 10:16 MB Desktop) Therapeutic Exercises Supine Exercises Knee rocking in hook lying Supine Exercise Name Added to HEP today Side bilateral Comments Ed to perform gentle and not to go too far side to side DKTC Supine Exercise Name Not added to HEP given complaints Side bilateral Equipment Used Towel Reps/Minutes Extended hold Comments Pt report some burning behind thighs Stretch Supine Exercise Name HS for HEP and handout today Side bilateral Equipment Used Towel behind thigh, two pillows under head Reps/Minutes 30 APs Therapeutic Activity Therapeutic Activity Log Roll Comments Performed on and off plinth today Manual Therapy Treatment Consent Patient gave verbal consent for manual Yes treatment Other Other Manual Treatments Pt in B side lying: gentle grade II rib mobs, STM B paraspinals, QL, TFL, hip rotators, glutes, hamstrings, vastus lateralis and PFs PT-OP-T Assessment and Plan Start: 12/14/24 09:41 Freq: Status: Active Protocol: Document 12/21/24 09:47 MB (Rec: 12/21/24 10:16 MB Desktop) Physical Therapy Assessment Rehab Potential Rehabilitation Potential Fair Evaluation Complexity Number of Personal Factors/Comorbidities 1-2 Number of Body Systems Impaired 3 Clinical Presentation at Evaluation Evolving Impairments Impairments Balance,Functional Activities, Functional Mobility,Gait,Pain, Posture,ROM,Soft Tissue Mobility,Strength Goals 4 Impairment Lack of HEP Skin Lifter Bacon Goal (LTG) Pt will perform progressive HEP with I including pelvic realignment, posture, flexibility, breathing, strengthening and balance exercises to improve symptoms. LTG Duration 8 weeks 3 Impairment Evidence of imbalance Intermediate Goal (LTG) Pt will perform WNLs on FGA or other standardized balance test to decrease fall risk. LTG Duration 8 weeks 2 Impairment Slow and painful gait Intermediate Goal (LTG) Pt will gait train at least 1, 176 feet in 6 minutes to improve community ambulation. LTG Duration 8 weeks 1 Impairment Oswestry reflects 20% impairment Skin Lifter [place] Goal (LTG) Pt will present with an Oswestry score reflecting no more than 10% impairment to improve quality of life and pain. LTG Duration 8 weeks Assessment Summary Assessment Pt requires increased cues and encouragement for proper HEP performance and so just added two exercises today. Physical Therapy Plan Frequency and Duration Frequency of Treatment 2x/Week Duration of treatment (weeks) 8 Plan of Care Start Date 12/14/24 Plan of Care End Date 02/14/25 Therapeutic Interventions Therapeutic Interventions Balance Training,Canalithic Repositioning,Coordination Training,Gait Training,Home Exercise Program,Joint Mobilizations,Manual Therapy, Neuromuscular Re-education, Patient/Caregiver Education, Self-Care/Home Management,Soft Tissue Mobilization,Taping, Therapeutic Activities, Therapeutic Exercises Modalities Cold Pack/Ice Massage,Electric Stimulation,Hot Packs, Ultrasound Other Referrals/Consults Referrals/Consults Recommended Consider EMG if radiculopathy is ongoing concern Next Visit Focus/Plan Next Note Type Treatment Note Next Visit Plan Flexibility exercises should be very gentle given possible radiculopathy and consider adding open book next Progress core, LE strengthening and balance
--- NOTE | 2024-12-24 10:38 | PT.OTN ---
Current Diagnoses Other chronic pain (12/24/24) Low back pain, unspecified (12/24/24) Physical Therapy Treatment Note PT-OP-A Visit Information Start: 12/14/24 09:41 Freq: Status: Active Protocol: Document 12/24/24 08:51 AB (Rec: 12/24/24 10:38 AB Laptop) Out-Patient Physical Therapy Visit Information Visit Information Visit Type Treatment Note Visit Note 10/13 before KX Visit Start Time 09:47 Visit Stop Time 10:32 Visit Number 4 ( PN due by 01/14/2025) Number of BARRATTE OPERATOR Visits 1 Precautions Precautions Fall risk, bruising and history of myelodysplastic syndrome PT-OP-B Current Condition Start: 12/14/24 09:41 Freq: Status: Active Protocol: Document 12/14/24 09:43 MB (Rec: 12/14/24 10:27 MB Desktop) Current Condition History of Current Condition Onset Date A little bit longer than a month Current Complaints B calf pain and back pain, all around discomfort around SI to anterior History of Current Condition Pt reports that a little more than a month ago, she started waking up d/t back ache and it hasn't gone away. Pt has a history of myelodysplastic syndrome, L2-3 disc surgery, has frequent falls and she assists him. He is not using RW as trained by OPPT. He hasn't been falling as much later. Pt has a history of right groin pain and PT sees a PT record in the chart but cannot access it this morning. This PT worked with pt's , Naeem, with pt's participation, and pt did have some trouble recalling training and education during 's PT course. Pt has appointment with Dr. Birch 03/11 about back pain. Prior Treatments and Tests Lumbar x-ray 11/11/24: L2-3 anterior/posterior fusion anatomic alignment no complication Degeneration Hip x-ray January 2025: IMPRESSION: 1. No acute bony abnormality. 2. 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 Treatment Goals Patient/Caregiver Goals To decrease pain and to strengthen the whole area PT-OP-C Subjective Start: 12/14/24 09:41 Freq: Status: Active Protocol: Document 12/24/24 08:51 AB (Rec: 12/24/24 10:38 AB Laptop) OP-PT Subjective Patient Comments Patient Comments Patient reports she is the same. Patient reports having a plantar fasciitis right heel and is questioning if it is related to the back. Patient comments she knew the back pain was there when walking into session, reports having no pain start of session. PT-OP-G Mobility & Gait Start: 12/14/24 09:41 Freq: Status: Active Protocol: Document 12/14/24 09:43 MB (Rec: 12/14/24 10:27 MB Desktop) OP Gait Assessment Comments Gait Comments Gait training without AD: antalgic, flexed posture at hips and trunk, minimal arm swing with less arm movement forward and back and more arm movement with elbows bent and side to side, stiffness in upper spine and LB and SI joints. Pt states she has plantar fasciitis in right foot and she is wearing one orthotic and so ed pt to take out. PT-OP-J Posture/Palpation/Skin Start: 12/14/24 09:41 Freq: Status: Active Protocol: Document 12/14/24 09:43 MB (Rec: 12/14/24 10:27 MB Desktop) Posture Evaluation Comments Posture Comments Standing posture with shoes off: forward head, forward and rounded shoulders, Dowager's hump, mild left convexity of spine, left scapular winging and highter than the right, reduced lumbar lordosis, right iliac crest is higher than the left. Spinal movement in standing: Flexion: fingertips 8 from the floor and repeated flexion is okay but causes some discomfort in glutes Extension: 15 deg and no increased symptoms with repeated extension SB: stiffer on the right side to the right with SI area, right movement 15 deg and left 20 deg PT-OP-M Strength Start: 12/14/24 09:41 Freq: Status: Active Protocol: Document 12/14/24 09:43 MB (Rec: 12/14/24 10:27 MB Desktop) Hip Strength Hip Manual Muscle Testing Left Flexion (L2) 4+ Good+ Extension (S1) 4- Good- Abduction 4 Good Adduction 4+ Good+ Right Flexion (L2) 4+ Good+ Extension (S1) 4+ Good+ Abduction 4+ Good+ Adduction 4 Good Comments MMT in supine today. Pt denies numbness and tingling and just c/o pain in back of legs when she has symptoms. Knee Strength Knee Manual Muscle Testing Left Flexion (S2) 4 Good Extension (L3) 5 Normal Right Flexion (S2) 4 Good Extension (L3) 5 Normal Ankle/Foot Strength Ankle and Foot Manual Muscle Testing Right Dorsiflexion (L4) 5 Normal Left Dorsiflexion (L4) 5 Normal Toe Strength Toe Manual Muscle Testing Left Great Toe Extension 5 Normal Right Great Toe Extension 5 Normal PT-OP-Q Treatments Start: 12/14/24 09:41 Freq: Status: Active Protocol: Document 12/24/24 08:51 AB (Rec: 12/24/24 10:38 AB Laptop) Therapeutic Exercises Supine Exercises Modified Darren stretch Supine Exercise Name 1. one LE on bolster and pillow/opp on mat 2. one knee to chest opp off mat Reps/Minutes 60 sec each stretch each LE Comments verbal cues Breathing from diaphragm in mod rest pose Supine Exercise Name LE's elevated hips and knees 90 deg Reps/Minutes 4 min Comments VC breathing from diaphragm, pt ed rationale of this exercise Stretch Supine Exercise Name 1.HS for HEP and handout today 2. piriformis stretch Side bilateral Equipment Used Towel behind thigh, two pillows under head Reps/Minutes 30 APs Comments 1. review ankle pumps not knee flex for HS stretch 2. verbal cues for pirif Pelvic realignment exercises Supine Exercise Name HEP Side bilateral Equipment Used towel Reps/Minutes 3s hold, 5x2 Comments post exercises for all 3 alignment exercises Sidelying Exercises open book Sidelying Exercise Name HEP Reps/Minutes X 10 each side Comments verbal cues Sitting Exercises breathing from diaphragm Sitting Exercise Name with pillows on the lap HEP Comments verbal cues to expand core into pillows Therapeutic Activity Therapeutic Activity Log Roll Name from left and right HEP Comments verbal cues for LE's fully on mat prior to sit to sidelying, for log roll and for timing during sidelying to sit. Performed from left and right side. Patient ed to perform at home as and exercise slowly to left and right at home HEP PT-OP-T Assessment and Plan Start: 12/14/24 09:41 Freq: Status: Active Protocol: Document 12/24/24 08:51 AB (Rec: 12/24/24 10:38 AB Laptop) Physical Therapy Assessment Goals 4 Impairment Lack of HEP Nursing Home Goal (LTG) Pt will perform progressive HEP with I including pelvic realignment, posture, flexibility, breathing, strengthening and balance exercises to improve symptoms. LTG Duration 8 weeks 3 Impairment Evidence of imbalance Gmat Tutor Goal (LTG) Pt will perform WNLs on FGA or other standardized balance test to decrease fall risk. LTG Duration 8 weeks 2 Impairment Slow and painful gait Nursing Home Goal (LTG) Pt will gait train at least 1, 176 feet in 6 minutes to improve community ambulation. LTG Duration 8 weeks 1 Impairment Oswestry reflects 20% impairment Gmat Tutor Goal (LTG) Pt will present with an Oswestry score reflecting no more than 10% impairment to improve quality of life and pain. LTG Duration 8 weeks Assessment Summary Assessment Good return demonstration for log roll with inc cues to keep head on pillow initially. Patient reports she feels better end of session, post ambulation to exit. Physical Therapy Plan Frequency and Duration Frequency of Treatment 2x/Week Duration of treatment (weeks) 8 Plan of Care Start Date 12/14/24 Plan of Care End Date 02/14/25 Therapeutic Interventions Therapeutic Interventions Balance Training,Canalithic Repositioning,Coordination Training,Gait Training,Home Exercise Program,Joint Mobilizations,Manual Therapy, Neuromuscular Re-education, Patient/Caregiver Education, Self-Care/Home Management,Soft Tissue Mobilization,Taping, Therapeutic Activities, Therapeutic Exercises Modalities Cold Pack/Ice Massage,Electric Stimulation,Hot Packs, Ultrasound Next Visit Focus/Plan Next Note Type Treatment Note Next Visit Plan Flexibility exercises should be very gentle given possible radiculopathy Progress core, LE strengthening and balance
--- NOTE | 2024-12-28 15:44 | PT.OTN ---
Current Diagnoses Other chronic pain (12/28/24) Low back pain, unspecified (12/28/24) Physical Therapy Treatment Note PT-OP-A Visit Information Start: 12/14/24 09:41 Freq: Status: Active Protocol: Document 12/28/24 13:47 AB (Rec: 12/28/24 15:44 AB Laptop) Out-Patient Physical Therapy Visit Information Visit Information Visit Type Treatment Note Visit Note 12/13 before KX Visit Start Time 13:47 Visit Stop Time 14:31 Visit Number 5( PN due by 01/14/2025) Number of EYEGLASS LENS CUTTER Visits 2 Precautions Precautions Fall risk, bruising and history of myelodysplastic syndrome PT-OP-B Current Condition Start: 12/14/24 09:41 Freq: Status: Active Protocol: Document 12/14/24 09:43 MB (Rec: 12/14/24 10:27 MB Desktop) Current Condition History of Current Condition Onset Date A little bit longer than a month Current Complaints B calf pain and back pain, all around discomfort around SI to anterior History of Current Pt reports that a little more than a month ago, she Condition started waking up d/t back ache and it hasn't gone away . Pt has a history of myelodysplastic syndrome, L2-3 disc surgery, has frequent falls and she assists him. He is not using RW as trained by OPPT. He hasn't been falling as much later. Pt has a history of right groin pain and PT sees a PT record in the chart but cannot access it this morning. This PT worked with pt's , Naeem, with pt's participation, and pt did have some trouble recalling training and education during 's PT course. Pt has appointment with Dr. Birch 03/11 about back pain . Prior Treatments and Lumbar x-ray 11/11/24: Tests L2-3 anterior/posterior fusion anatomic alignment no complication Degeneration Hip x-ray January 2025: IMPRESSION: 1. No acute bony abnormality. 2. 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 Treatment Goals Patient/Caregiver To decrease pain and to strengthen the whole area Goals PT-OP-C Subjective Start: 12/14/24 09:41 Freq: Status: Active Protocol: Document 12/28/24 13:47 AB (Rec: 12/28/24 15:44 AB Laptop) OP-PT Subjective Patient Comments Patient Comments Patient reports she no longer has back pain, requests review of supine to and from sit. Patient reports feeling tired, has a bad cold. PT-OP-G Mobility & Gait Start: 12/14/24 09:41 Freq: Status: Active Protocol: Document 12/14/24 09:43 MB (Rec: 12/14/24 10:27 MB Desktop) OP Gait Assessment Comments Gait Comments Gait training without AD: antalgic, flexed posture at hips and trunk, minimal arm swing with less arm movement forward and back and more arm movement with elbows bent and side to side, stiffness in upper spine and LB and SI joints. Pt states she has plantar fasciitis in right foot and she is wearing one orthotic and so ed pt to take out. PT-OP-J Posture/Palpation/Skin Start: 12/14/24 09:41 Freq: Status: Active Protocol: Document 12/14/24 09:43 MB (Rec: 12/14/24 10:27 MB Desktop) Posture Evaluation Comments Posture Comments Standing posture with shoes off: forward head, forward and rounded shoulders, Dowager's hump, mild left convexity of spine, left scapular winging and highter than the right, reduced lumbar lordosis, right iliac crest is higher than the left. Spinal movement in standing: Flexion: fingertips 8 from the floor and repeated flexion is okay but causes some discomfort in glutes Extension: 15 deg and no increased symptoms with repeated extension SB: stiffer on the right side to the right with SI area , right movement 15 deg and left 20 deg PT-OP-M Strength Start: 12/14/24 09:41 Freq: Status: Active Protocol: Document 12/14/24 09:43 MB (Rec: 12/14/24 10:27 MB Desktop) Hip Strength Hip Manual Muscle Testing Left Flexion (L2) 4+ Good+ Extension (S1) 4- Good- Abduction 4 Good Adduction 4+ Good+ Right Flexion (L2) 4+ Good+ Extension (S1) 4+ Good+ Abduction 4+ Good+ Adduction 4 Good Comments MMT in supine today. Pt denies numbness and tingling and just c/o pain in back of legs when she has symptoms . Knee Strength Knee Manual Muscle Testing Left Flexion (S2) 4 Good Extension (L3) 5 Normal Right Flexion (S2) 4 Good Extension (L3) 5 Normal Ankle/Foot Strength Ankle and Foot Manual Muscle Testing Right Dorsiflexion (L4) 5 Normal Left Dorsiflexion (L4) 5 Normal Toe Strength Toe Manual Muscle Testing Left Great Toe Extension 5 Normal Right Great Toe Extension 5 Normal PT-OP-Q Treatments Start: 12/14/24 09:41 Freq: Status: Active Protocol: Document 12/28/24 13:47 AB (Rec: 12/28/24 15:44 AB Laptop) Therapeutic Exercises Sitting Exercises seated hip abd with band Resistance Level 3 [place] band green band Reps/Minutes one min X 1 Comments SLS slightly improved one LE and decreased on opp LE ie overall no improvem breathing from diaphragm Sitting Exercise with pillows on the lap HEP with Xtra pillows to pos Name for breathlessness Comments verbal cues to expand core into pillows Therapeutic Activity Therapeutic Activity sit to and from stand Reps/Minutes post training 2X 5 HEP Comments Patient ed mech of sit to stand and use of self tactile cues for hip hinge Log Roll Name from left and right HEP Comments verbal cues for LE's fully on mat prior to sit to sidelying, for log roll and for timing during sidelying to sit. Performed from left and right side. Increased verbal cues for UE position Neuro Re-Education Treatment Balance Activities foam Details tandem with eyes closed, head turns, eyes closed and head turns Comments CGA VC to open eyes when feeling steady step up taps Details standing on foam to 6 inch step Reps/Duration X 10 Comments CGA hands above bars tandem stepping Reps/Duration 10 feet X 6 CGA hands above bars to use as needed SLS Reps/Duration X 3 X 2 CGA PT-OP-T Assessment and Plan Start: 12/14/24 09:41 Freq: Status: Active Protocol: Document 12/28/24 13:47 AB (Rec: 12/28/24 15:44 AB Laptop) Physical Therapy Assessment Goals 4 Impairment Lack of HEP Rn Social Services Goal (LTG) Pt will perform progressive HEP with I including pelvic realignment, posture, flexibility, breathing, strengthening and balance exercises to improve symptoms . LTG Duration 8 weeks 3 Impairment Evidence of imbalance Rn Social Services Goal (LTG) Pt will perform WNLs on FGA or other standardized balance test to decrease fall risk. LTG Duration 8 weeks 2 Impairment Slow and painful gait [facility] Goal (LTG) Pt will gait train at least 1,176 feet in 6 minutes to improve community ambulation. LTG Duration 8 weeks 1 Impairment Oswestry reflects 20% impairment Rn Social Services Goal (LTG) Pt will present with an Oswestry score reflecting no more than 10% impairment to improve quality of life and pain. LTG Duration 8 weeks Assessment Summary Assessment Patient reports having no pain end of session. End of session SLS R LE 8 sec L LE 2 seconds without UE use. Physical Therapy Plan Frequency and Duration Frequency of 2x/Week Treatment Duration of 8 treatment (weeks) Plan of Care Start 12/14/24 Date Plan of Care End 02/14/25 Date Next Visit Focus/Plan Next Note Type Treatment Note Next Visit Plan Flexibility exercises should be very gentle given possible radiculopathy Progress core, LE strengthening ( assess magy to sit to stand at home and form possibly inc to 3X 10 ) and balance
--- NOTE | 2025-01-07 17:09 | PT.OTN ---
Current Diagnoses Other chronic pain (01/07/25) Low back pain, unspecified (01/07/25) Physical Therapy Treatment Note PT-OP-A Visit Information Start: 12/14/24 09:41 Freq: Status: Active Protocol: Document 01/07/25 16:17 AB (Rec: 01/07/25 17:09 AB Laptop) Out-Patient Physical Therapy Visit Information Visit Information Visit Type Treatment Note Visit Note 12/13 before KX Visit Start Time 14:17 Visit Stop Time 17:01 Visit Number 6 Number of CORSET FITTER Visits 3 Precautions Precautions Fall risk, bruising and history of myelodysplastic syndrome PT-OP-B Current Condition Start: 12/14/24 09:41 Freq: Status: Active Protocol: Document 12/14/24 09:43 MB (Rec: 12/14/24 10:27 MB Desktop) Current Condition History of Current Condition Onset Date A little bit longer than a month Current Complaints B calf pain and back pain, all around discomfort around SI to anterior History of Current Pt reports that a little more than a month ago, she Condition started waking up d/t back ache and it hasn't gone away . Pt has a history of myelodysplastic syndrome, L2-3 disc surgery, has frequent falls and she assists him. He is not using RW as trained by OPPT. He hasn't been falling as much later. Pt has a history of right groin pain and PT sees a PT record in the chart but cannot access it this morning. This PT worked with pt's , Naeem, with pt's participation, and pt did have some trouble recalling training and education during 's PT course. Pt has appointment with Dr. Birch 03/11 about back pain . Prior Treatments and Lumbar x-ray 11/11/24: Tests L2-3 anterior/posterior fusion anatomic alignment no complication Degeneration Hip x-ray January 2025: IMPRESSION: 1. No acute bony abnormality. 2. 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 Treatment Goals Patient/Caregiver To decrease pain and to strengthen the whole area Goals PT-OP-C Subjective Start: 12/14/24 09:41 Freq: Status: Active Protocol: Document 01/07/25 16:17 AB (Rec: 01/07/25 17:09 AB Laptop) OP-PT Subjective Patient Comments Patient Comments Patient reports she didn't do the exercises as she has a cold, and has been tired. Patient reports her pain is almost gone, and feels balance is getting better. PT-OP-G Mobility & Gait Start: 12/14/24 09:41 Freq: Status: Active Protocol: Document 12/14/24 09:43 MB (Rec: 12/14/24 10:27 MB Desktop) OP Gait Assessment Comments Gait Comments Gait training without AD: antalgic, flexed posture at hips and trunk, minimal arm swing with less arm movement forward and back and more arm movement with elbows bent and side to side, stiffness in upper spine and LB and SI joints. Pt states she has plantar fasciitis in right foot and she is wearing one orthotic and so ed pt to take out. PT-OP-J Posture/Palpation/Skin Start: 12/14/24 09:41 Freq: Status: Active Protocol: Document 12/14/24 09:43 MB (Rec: 12/14/24 10:27 MB Desktop) Posture Evaluation Comments Posture Comments Standing posture with shoes off: forward head, forward and rounded shoulders, Dowager's hump, mild left convexity of spine, left scapular winging and highter than the right, reduced lumbar lordosis, right iliac crest is higher than the left. Spinal movement in standing: Flexion: fingertips 8 from the floor and repeated flexion is okay but causes some discomfort in glutes Extension: 15 deg and no increased symptoms with repeated extension SB: stiffer on the right side to the right with SI area , right movement 15 deg and left 20 deg PT-OP-M Strength Start: 12/14/24 09:41 Freq: Status: Active Protocol: Document 12/14/24 09:43 MB (Rec: 12/14/24 10:27 MB Desktop) Hip Strength Hip Manual Muscle Testing Left Flexion (L2) 4+ Good+ Extension (S1) 4- Good- Abduction 4 Good Adduction 4+ Good+ Right Flexion (L2) 4+ Good+ Extension (S1) 4+ Good+ Abduction 4+ Good+ Adduction 4 Good Comments MMT in supine today. Pt denies numbness and tingling and just c/o pain in back of legs when she has symptoms . Knee Strength Knee Manual Muscle Testing Left Flexion (S2) 4 Good Extension (L3) 5 Normal Right Flexion (S2) 4 Good Extension (L3) 5 Normal Ankle/Foot Strength Ankle and Foot Manual Muscle Testing Right Dorsiflexion (L4) 5 Normal Left Dorsiflexion (L4) 5 Normal Toe Strength Toe Manual Muscle Testing Left Great Toe Extension 5 Normal Right Great Toe Extension 5 Normal PT-OP-Q Treatments Start: 12/14/24 09:41 Freq: Status: Active Protocol: Document 01/07/25 16:17 AB (Rec: 01/07/25 17:09 AB Laptop) Therapeutic Exercises Supine Exercises Modified Darren stretch Supine Exercise Name one knee to chest and opp LE off mat Reps/Minutes 60 sec with AROM knee flexion X 10 Stretch Supine Exercise Name 1.HS for HEP 2. piriformis stretch HEP Side bilateral Equipment Used two pillows under head Comments HEP review as PT reports not feeling well and didn't perform HEp as much Pelvic realignment exercises Supine Exercise Name HEP Side bilateral Equipment Used towel Reps/Minutes 3s hold, 5x2 Comments post exercises for all 3 alignment exercises Sidelying Exercises open book Sidelying Exercise HEP Name Reps/Minutes X 10 each side Comments verbal cues Sitting Exercises seated hip abd with band Sitting Exercise HEP Name Resistance Level 3 red devil green band Reps/Minutes one min X 1 Comments SLS slightly improved one LE and decreased on opp LE ie overall no improvem Neuro Re-Education Treatment Balance Activities hurdles Details with therapads Reps/Duration 10 feet X 6 CGA to occ very minimal assist Comments hands above bars to use as needed balloon volley Details Romberg, and mod tandem Surface foam Reps/Duration 3-4 minutes Comments CGA SLS Reps/Duration X 3 X 2 CGA PT-OP-T Assessment and Plan Start: 12/14/24 09:41 Freq: Status: Active Protocol: Document 01/07/25 16:17 AB (Rec: 01/07/25 17:09 AB Laptop) Physical Therapy Assessment Goals 4 Impairment Lack of HEP Electronic Instrument Trades Worker Goal (LTG) Pt will perform progressive HEP with I including pelvic realignment, posture, flexibility, breathing, strengthening and balance exercises to improve symptoms . LTG Duration 8 weeks 3 Impairment Evidence of imbalance Electronic Instrument Trades Worker Goal (LTG) Pt will perform WNLs on FGA or other standardized balance test to decrease fall risk. LTG Duration 8 weeks 2 Impairment Slow and painful gait Electronic Instrument Trades Worker Goal (LTG) Pt will gait train at least 1,176 feet in 6 minutes to improve community ambulation. LTG Duration 8 weeks 1 Impairment Oswestry reflects 20% impairment Fpc Goal (LTG) Pt will present with an Oswestry score reflecting no more than 10% impairment to improve quality of life and pain. LTG Duration 8 weeks Assessment Summary Assessment Patient into sessions with reports of pain has decreased, but hasn't been performing HEP due to having a cold/tired. Reviewed all HEP and added piriformis to HEP. SLS L LE 4 sec R 2 sec pre glute med activation post 7 sec L 3 sec R. Physical Therapy Plan Frequency and Duration Frequency of 2x/Week Treatment Duration of 8 treatment (weeks) Plan of Care Start 12/14/24 Date Plan of Care End 02/14/25 Date Next Visit Focus/Plan Next Note Type Progress Note Next Visit Plan Patient does not have last appointment with a PT. Flexibility exercises should be very gentle given possible radiculopathy Progress core, LE strengthening ( assess magy to sit to stand at home and form possibly inc to 3X 10 ) and balance
--- NOTE | 2025-01-11 14:27 | PT.OTN ---
Current Diagnoses Other chronic pain (01/11/25) Low back pain, unspecified (01/11/25) Physical Therapy Treatment Note PT-OP-A Visit Information Start: 12/14/24 09:41 Freq: Status: Active Protocol: Document 01/11/25 13:47 MB (Rec: 01/11/25 14:23 MB Desktop) Out-Patient Physical Therapy Visit Information Visit Information Visit Type Progress Note Visit Note 02/12 before KX Visit Start Time 13:47 Visit Stop Time 14:27 Visit Number 7 Number of PROVIDER RELATIONS ADVOCATE Visits 0 Precautions Precautions Fall risk, bruising and history of myelodysplastic syndrome PT-OP-B Current Condition Start: 12/14/24 09:41 Freq: Status: Active Protocol: Document 12/14/24 09:43 MB (Rec: 12/14/24 10:27 MB Desktop) Current Condition History of Current Condition Onset Date A little bit longer than a month Current Complaints B calf pain and back pain, all around discomfort around SI to anterior History of Current Pt reports that a little more than a month ago, she Condition started waking up d/t back ache and it hasn't gone away . Pt has a history of myelodysplastic syndrome, L2-3 disc surgery, has frequent falls and she assists him. He is not using RW as trained by OPPT. He hasn't been falling as much later. Pt has a history of right groin pain and PT sees a PT record in the chart but cannot access it this morning. This PT worked with pt's , Naeem, with pt's participation, and pt did have some trouble recalling training and education during 's PT course. Pt has appointment with Dr. Birch 03/11 about back pain . Prior Treatments and Lumbar x-ray 11/11/24: Tests L2-3 anterior/posterior fusion anatomic alignment no complication Degeneration Hip x-ray January 2025: IMPRESSION: 1. No acute bony abnormality. 2. 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 Treatment Goals Patient/Caregiver To decrease pain and to strengthen the whole area Goals PT-OP-C Subjective Start: 12/14/24 09:41 Freq: Status: Active Protocol: Document 01/11/25 13:47 MB (Rec: 01/11/25 14:23 MB Desktop) OP-PT Subjective Patient Comments Patient Comments Pt states that her back is better since starting PT. She would like to work on a plan to do right when she wakes up. Pt reports plantar fasciitis pain for a week and that she got some orthotics. PT-OP-G Mobility & Gait Start: 12/14/24 09:41 Freq: Status: Active Protocol: Document 12/14/24 09:43 MB (Rec: 12/14/24 10:27 MB Desktop) OP Gait Assessment Comments Gait Comments Gait training without AD: antalgic, flexed posture at hips and trunk, minimal arm swing with less arm movement forward and back and more arm movement with elbows bent and side to side, stiffness in upper spine and LB and SI joints. Pt states she has plantar fasciitis in right foot and she is wearing one orthotic and so ed pt to take out. PT-OP-J Posture/Palpation/Skin Start: 12/14/24 09:41 Freq: Status: Active Protocol: Document 12/14/24 09:43 MB (Rec: 12/14/24 10:27 MB Desktop) Posture Evaluation Comments Posture Comments Standing posture with shoes off: forward head, forward and rounded shoulders, Dowager's hump, mild left convexity of spine, left scapular winging and highter than the right, reduced lumbar lordosis, right iliac crest is higher than the left. Spinal movement in standing: Flexion: fingertips 8 from the floor and repeated flexion is okay but causes some discomfort in glutes Extension: 15 deg and no increased symptoms with repeated extension SB: stiffer on the right side to the right with SI area , right movement 15 deg and left 20 deg PT-OP-M Strength Start: 12/14/24 09:41 Freq: Status: Active Protocol: Document 12/14/24 09:43 MB (Rec: 12/14/24 10:27 MB Desktop) Hip Strength Hip Manual Muscle Testing Left Flexion (L2) 4+ Good+ Extension (S1) 4- Good- Abduction 4 Good Adduction 4+ Good+ Right Flexion (L2) 4+ Good+ Extension (S1) 4+ Good+ Abduction 4+ Good+ Adduction 4 Good Comments MMT in supine today. Pt denies numbness and tingling and just c/o pain in back of legs when she has symptoms . Knee Strength Knee Manual Muscle Testing Left Flexion (S2) 4 Good Extension (L3) 5 Normal Right Flexion (S2) 4 Good Extension (L3) 5 Normal Ankle/Foot Strength Ankle and Foot Manual Muscle Testing Right Dorsiflexion (L4) 5 Normal Left Dorsiflexion (L4) 5 Normal Toe Strength Toe Manual Muscle Testing Left Great Toe Extension 5 Normal Right Great Toe Extension 5 Normal PT-OP-Q Treatments Start: 12/14/24 09:41 Freq: Status: Active Protocol: Document 01/11/25 13:47 MB (Rec: 01/11/25 14:23 MB Desktop) Gait Training Gait Activity 6MWT Comments Performed today and see goals for details, she surpasses gait distance goal and has high pain Self-Care/Home Management Treatment Education Patient Education Body Mechanics,Home Exercise Program,Joint Protection, Pain Management,Posture,Safety Other Education Reviewed exercises she can perform first thing in the morning in the bed per her request: pelvic realignment, knee rocking/lumbar rotation, diaphragm breathing, hip rotator stretch and knee to chest (she demonstrates). Ed that hamstring stretch may be too much in the morning Ed in likely lumbar radiculopathy and that causing calf and foot pain and possible follow-up with provider, spinal specialist and possible further testing like EMG . Ed pt in benefits of aquatic exercises for her spine and legs to help with pain and flexibility. PT-OP-T Assessment and Plan Start: 12/14/24 09:41 Freq: Status: Active Protocol: Document 01/11/25 13:47 MB (Rec: 01/11/25 14:23 MB Desktop) Physical Therapy Assessment Goals 4 Impairment Lack of HEP Prison Goal (LTG) Pt will perform progressive HEP with I including pelvic realignment, posture, flexibility, breathing, strengthening and balance exercises to improve symptoms . 01/11/25: Pt pulls out handouts and is performing exercises at home including lumbar rotation/rocking before getting OOB in the morning, reviewed all handouts. LTG Duration 8 weeks 3 Impairment Evidence of imbalance Prison Goal (LTG) Pt will perform WNLs on FGA or other standardized balance test to decrease fall risk. 01/11/25: Feet too painful today to perform properly LTG Duration 8 weeks 2 Impairment Slow and painful gait Prison Goal (LTG) Pt will gait train at least 1,176 feet in 6 minutes to improve community ambulation. 01/11/25: Pt gait trains 1300 feet in 6 minutes with c/o 6-7/10 back pain in back, calves and feet. LTG Duration Met 1 Impairment Oswestry reflects 20% impairment Lag Screwer Goal (LTG) Pt will present with an Oswestry score reflecting no more than 10% impairment to improve quality of life and pain. 01/11/25: Oswestry score reflects 6% impairment LTG Duration Met Assessment Summary Assessment Pt reports 6-7/10 pain in back, calves and feet with 6MWT today and she surpasses gait distance goal. She also meets Oswestry score goal and unsure if pt fully understands reporting given ongoing high complaints of pain. Pt likely has anatomical changes including lumbar radiculopathy and this may explain symptoms and symptoms worse with gait. May benefit from tree specialist referral/possible further dxs such as EMG. Physical Therapy Plan Frequency and Duration Frequency of 2x/Week Treatment Duration of 8 treatment (weeks) Plan of Care Start 12/14/24 Date Plan of Care End 02/14/25 Date Therapeutic Interventions Therapeutic Balance Training,Canalithic Repositioning,Coordination Interventions Training,Gait Training,Home Exercise Program,Joint Mobilizations,Manual Therapy,Neuromuscular Re-education ,Patient/Caregiver Education,Self-Care/Home Management, Soft Tissue Mobilization,Taping,Therapeutic Activities, Therapeutic Exercises Modalities Cold Pack/Ice Massage,Electric Stimulation,Hot Packs, Ultrasound Other Referrals/Consults Referrals/Consults Consider EMG if radiculopathy is ongoing concern Recommended Next Visit Focus/Plan Next Note Type Treatment Note Next Visit Plan Consider calf stretches for back and plantar feet symptoms, progress core and LE strengthening, con't per plan. Consider reviewing all exercises with pt to make sure she understands form and when to perform. Likely d/c at end of current treatment course and asked her to schedule last one with another PT to prepare for d/c
--- NOTE | 2025-01-14 15:20 | PT.OTN ---
Current Diagnoses Other chronic pain (01/14/25) Low back pain, unspecified (01/14/25) Physical Therapy Treatment Note PT-OP-A Visit Information Start: 12/14/24 09:41 Freq: Status: Active Protocol: Document 01/14/25 13:34 AB (Rec: 01/14/25 14:45 AB Laptop) Out-Patient Physical Therapy Visit Information Visit Information Visit Type Treatment Note Visit Note 03/15 before KX Visit Start Time 13:50 Visit Stop Time 14:33 Visit Number 8 (PN by 02/10/25) Number of BLAST FURNACE HELPER Visits 1 Precautions Precautions Fall risk, bruising and history of myelodysplastic syndrome PT-OP-B Current Condition Start: 12/14/24 09:41 Freq: Status: Active Protocol: Document 12/14/24 09:43 MB (Rec: 12/14/24 10:27 MB Desktop) Current Condition History of Current Condition Onset Date A little bit longer than a month Current Complaints B calf pain and back pain, all around discomfort around SI to anterior History of Current Pt reports that a little more than a month ago, she Condition started waking up d/t back ache and it hasn't gone away . Pt has a history of myelodysplastic syndrome, L2-3 disc surgery, has frequent falls and she assists him. He is not using RW as trained by OPPT. He hasn't been falling as much later. Pt has a history of right groin pain and PT sees a PT record in the chart but cannot access it this morning. This PT worked with pt's , Naeem, with pt's participation, and pt did have some trouble recalling training and education during 's PT course. Pt has appointment with Dr. Birch 03/11 about back pain . Prior Treatments and Lumbar x-ray 11/11/24: Tests L2-3 anterior/posterior fusion anatomic alignment no complication Degeneration Hip x-ray January 2025: IMPRESSION: 1. No acute bony abnormality. 2. 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 Treatment Goals Patient/Caregiver To decrease pain and to strengthen the whole area Goals PT-OP-C Subjective Start: 12/14/24 09:41 Freq: Status: Active Protocol: Document 01/14/25 13:34 AB (Rec: 01/14/25 14:45 AB Laptop) OP-PT Subjective Patient Comments Patient Comments Patient requests review of HEP. Patient repots she is feeling good today, heel that was bothering is getting better. Patient reports the back hurts a little bit, but it is no longer debilitating. PT-OP-G Mobility & Gait Start: 12/14/24 09:41 Freq: Status: Active Protocol: Document 12/14/24 09:43 MB (Rec: 12/14/24 10:27 MB Desktop) OP Gait Assessment Comments Gait Comments Gait training without AD: antalgic, flexed posture at hips and trunk, minimal arm swing with less arm movement forward and back and more arm movement with elbows bent and side to side, stiffness in upper spine and LB and SI joints. Pt states she has plantar fasciitis in right foot and she is wearing one orthotic and so ed pt to take out. PT-OP-J Posture/Palpation/Skin Start: 12/14/24 09:41 Freq: Status: Active Protocol: Document 12/14/24 09:43 MB (Rec: 12/14/24 10:27 MB Desktop) Posture Evaluation Comments Posture Comments Standing posture with shoes off: forward head, forward and rounded shoulders, Dowager's hump, mild left convexity of spine, left scapular winging and highter than the right, reduced lumbar lordosis, right iliac crest is higher than the left. Spinal movement in standing: Flexion: fingertips 8 from the floor and repeated flexion is okay but causes some discomfort in glutes Extension: 15 deg and no increased symptoms with repeated extension SB: stiffer on the right side to the right with SI area , right movement 15 deg and left 20 deg PT-OP-M Strength Start: 12/14/24 09:41 Freq: Status: Active Protocol: Document 12/14/24 09:43 MB (Rec: 12/14/24 10:27 MB Desktop) Hip Strength Hip Manual Muscle Testing Left Flexion (L2) 4+ Good+ Extension (S1) 4- Good- Abduction 4 Good Adduction 4+ Good+ Right Flexion (L2) 4+ Good+ Extension (S1) 4+ Good+ Abduction 4+ Good+ Adduction 4 Good Comments MMT in supine today. Pt denies numbness and tingling and just c/o pain in back of legs when she has symptoms . Knee Strength Knee Manual Muscle Testing Left Flexion (S2) 4 Good Extension (L3) 5 Normal Right Flexion (S2) 4 Good Extension (L3) 5 Normal Ankle/Foot Strength Ankle and Foot Manual Muscle Testing Right Dorsiflexion (L4) 5 Normal Left Dorsiflexion (L4) 5 Normal Toe Strength Toe Manual Muscle Testing Left Great Toe Extension 5 Normal Right Great Toe Extension 5 Normal PT-OP-Q Treatments Start: 12/14/24 09:41 Freq: Status: Active Protocol: Document 01/14/25 13:34 AB (Rec: 01/14/25 14:45 AB Laptop) Therapeutic Exercises Supine Exercises Breathing from diaphragm in mod rest pose Supine Exercise Name LE's elevated hips and knees 90 deg Reps/Minutes 1 min Comments VC breathing from diaphragm, pt ed rationale of this exercise Knee rocking in hook lying Supine Exercise Name Added to HEP today Side bilateral Reps/Minutes one min (pt ed motion is lotion for joints) Comments Patient ed also to perform knee flex ext, and hip IR ER to prior to OOB Stretch Supine Exercise Name 1.HS for HEP 2. piriformis stretch HEP Side bilateral Equipment Used two pillows under head Comments Patient ed to dec HS to every other day, cont daily until 2025 daily pirif Sidelying Exercises open book Sidelying Exercise HEP Name Reps/Minutes X 10 each side Comments verbal cues Sitting Exercises breathing from diaphragm Reps/Minutes one min Comments review Standing Exercises calf stretches Standing Exercise Gastroc and soleus ( at wall added to HEP) Name Side bilateral Reps/Minutes 60 sec each LE on stairs with UE sup then at wall each stretch each LE Comments verbal cues and visual ceus Therapeutic Activity Therapeutic Activity sit to and from stand Reps/Minutes X 10 X2 Comments review buttocks back first Neuro Re-Education Treatment Balance Activities SLS Reps/Duration X 3 X 2 CGA PT-OP-T Assessment and Plan Start: 12/14/24 09:41 Freq: Status: Active Protocol: Document 01/14/25 13:34 AB (Rec: 01/14/25 14:45 AB Laptop) Physical Therapy Assessment Rehab Potential Rehabilitation Fair Potential Evaluation Complexity Number of Personal 1-2 Factors/ Comorbidities Number of Body 3 Systems Impaired Clinical Evolving Presentation at Evaluation Impairments Impairments Balance,Functional Activities,Functional Mobility,Gait, Pain,Posture,ROM,Soft Tissue Mobility,Strength Goals 4 Impairment Lack of HEP Intermediate Goal (LTG) Pt will perform progressive HEP with I including pelvic realignment, posture, flexibility, breathing, strengthening and balance exercises to improve symptoms . 01/11/25: Pt pulls out handouts and is performing exercises at home including lumbar rotation/rocking before getting OOB in the morning, reviewed all handouts. LTG Duration 8 weeks 3 Impairment Evidence of imbalance Intermediate Goal (LTG) Pt will perform WNLs on FGA or other standardized balance test to decrease fall risk. 01/11/25: Feet too painful today to perform properly LTG Duration 8 weeks Assessment Summary Assessment Patient reports having no pain end of session. Patient repeatedly expresses being grateful for review of HEP. Physical Therapy Plan Frequency and Duration Frequency of 2x/Week Treatment Duration of 8 treatment (weeks) Plan of Care Start 12/14/24 Date Plan of Care End 02/14/25 Date Next Visit Focus/Plan Next Note Type Treatment Note Next Visit Plan progress core and LE strengthening, con't per plan. Consider reviewing all exercises with pt to make sure she understands form and when to perform. Likely d/c at end of current treatment course and asked her to schedule last one with another PT to prepare for d/c
--- NOTE | 2025-01-19 17:26 | PT.OTN ---
Current Diagnoses Other chronic pain (01/19/25) Low back pain, unspecified (01/19/25) Physical Therapy Treatment Note PT-OP-A Visit Information Start: 12/14/24 09:41 Freq: Status: Active Protocol: Document 01/19/25 13:43 AB (Rec: 01/19/25 14:31 AB Laptop) Out-Patient Physical Therapy Visit Information Visit Information Visit Type Treatment Note Visit Note 04/15 before KX Access Code: [email or web address] Visit Start Time 13:48 Visit Stop Time 14:31 Visit Number 9 (PN by 02/10/25) Number of CLAM TREADER Visits 2 Precautions Precautions Fall risk, bruising and history of myelodysplastic syndrome PT-OP-B Current Condition Start: 12/14/24 09:41 Freq: Status: Active Protocol: Document 12/14/24 09:43 MB (Rec: 12/14/24 10:27 MB Desktop) Current Condition History of Current Condition Onset Date A little bit longer than a month Current Complaints B calf pain and back pain, all around discomfort around SI to anterior History of Current Pt reports that a little more than a month ago, she Condition started waking up d/t back ache and it hasn't gone away . Pt has a history of myelodysplastic syndrome, L2-3 disc surgery, has frequent falls and she assists him. He is not using RW as trained by OPPT. He hasn't been falling as much later. Pt has a history of right groin pain and PT sees a PT record in the chart but cannot access it this morning. This PT worked with pt's , Naeem, with pt's participation, and pt did have some trouble recalling training and education during 's PT course. Pt has appointment with Dr. Birch 03/11 about back pain . Prior Treatments and Lumbar x-ray 11/11/24: Tests L2-3 anterior/posterior fusion anatomic alignment no complication Degeneration Hip x-ray January 2025: IMPRESSION: 1. No acute bony abnormality. 2. 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 Treatment Goals Patient/Caregiver To decrease pain and to strengthen the whole area Goals PT-OP-C Subjective Start: 12/14/24 09:41 Freq: Status: Active Protocol: Document 01/19/25 13:43 AB (Rec: 01/19/25 14:31 AB Laptop) OP-PT Subjective Patient Comments Patient Comments Patient reports back is better. Patient reports she does her exercises before she gets out of bed, moves all day long without thinking about it. Patient rates R back pain 2/10 start of session. PT-OP-G Mobility & Gait Start: 12/14/24 09:41 Freq: Status: Active Protocol: Document 12/14/24 09:43 MB (Rec: 12/14/24 10:27 MB Desktop) OP Gait Assessment Comments Gait Comments Gait training without AD: antalgic, flexed posture at hips and trunk, minimal arm swing with less arm movement forward and back and more arm movement with elbows bent and side to side, stiffness in upper spine and LB and SI joints. Pt states she has plantar fasciitis in right foot and she is wearing one orthotic and so ed pt to take out. PT-OP-J Posture/Palpation/Skin Start: 12/14/24 09:41 Freq: Status: Active Protocol: Document 12/14/24 09:43 MB (Rec: 12/14/24 10:27 MB Desktop) Posture Evaluation Comments Posture Comments Standing posture with shoes off: forward head, forward and rounded shoulders, Dowager's hump, mild left convexity of spine, left scapular winging and highter than the right, reduced lumbar lordosis, right iliac crest is higher than the left. Spinal movement in standing: Flexion: fingertips 8 from the floor and repeated flexion is okay but causes some discomfort in glutes Extension: 15 deg and no increased symptoms with repeated extension SB: stiffer on the right side to the right with SI area , right movement 15 deg and left 20 deg PT-OP-M Strength Start: 12/14/24 09:41 Freq: Status: Active Protocol: Document 12/14/24 09:43 MB (Rec: 12/14/24 10:27 MB Desktop) Hip Strength Hip Manual Muscle Testing Left Flexion (L2) 4+ Good+ Extension (S1) 4- Good- Abduction 4 Good Adduction 4+ Good+ Right Flexion (L2) 4+ Good+ Extension (S1) 4+ Good+ Abduction 4+ Good+ Adduction 4 Good Comments MMT in supine today. Pt denies numbness and tingling and just c/o pain in back of legs when she has symptoms . Knee Strength Knee Manual Muscle Testing Left Flexion (S2) 4 Good Extension (L3) 5 Normal Right Flexion (S2) 4 Good Extension (L3) 5 Normal Ankle/Foot Strength Ankle and Foot Manual Muscle Testing Right Dorsiflexion (L4) 5 Normal Left Dorsiflexion (L4) 5 Normal Toe Strength Toe Manual Muscle Testing Left Great Toe Extension 5 Normal Right Great Toe Extension 5 Normal PT-OP-Q Treatments Start: 12/14/24 09:41 Freq: Status: Active Protocol: Document 01/19/25 13:43 AB (Rec: 01/19/25 14:31 AB Laptop) Therapeutic Exercises Supine Exercises Modified Darren stretch Supine Exercise Name one knee to chest and opp LE off mat Reps/Minutes 60 sec with AROM knee flexion X 10 Stretch Supine Exercise Name 1.HS for HEP 2. piriformis stretch HEP Side bilateral Equipment Used two pillows under head Comments Patient ed to dec HS to every other day, cont daily until 2025 daily pirif Pelvic realignment exercises Supine Exercise Name HEP Side bilateral Equipment Used towel Reps/Minutes 3s hold, 5x2 Comments post exercises for all 3 alignment exercises Sidelying Exercises quadratus lumborum stretch Side bilateral Reps/Minutes 60 sec each side Comments verbal and visual cues open book Sidelying Exercise HEP Name Reps/Minutes X 10 each side Comments verbal cues Manual Therapy Treatment Consent Patient gave verbal Yes consent for manual treatment Soft Tissue Mobilization quadratus lumborum Body Location R and lumbar paraspinals Mobilization Type Cross-Friction,Rolling,Strumming Intensity/Depth Moderate Body Position Sidelying Glute med Body Location R glute med, piriformis, Mobilization Type Myofascial Release,Rolling,Trigger Point Release Intensity/Depth Superficial Body Position L sidelying Comments significant trigger points to R glute med PT-OP-T Assessment and Plan Start: 12/14/24 09:41 Freq: Status: Active Protocol: Document 01/19/25 13:43 AB (Rec: 01/19/25 14:31 AB Laptop) Physical Therapy Assessment Goals 4 Impairment Lack of HEP Proposal Review Analyst Goal (LTG) Pt will perform progressive HEP with I including pelvic realignment, posture, flexibility, breathing, strengthening and balance exercises to improve symptoms . 01/11/25: Pt pulls out handouts and is performing exercises at home including lumbar rotation/rocking before getting OOB in the morning, reviewed all handouts. LTG Duration 8 weeks 3 Impairment Evidence of imbalance Senior Care Goal (LTG) Pt will perform WNLs on FGA or other standardized balance test to decrease fall risk. 01/11/25: Feet too painful today to perform properly LTG Duration 8 weeks Assessment Summary Assessment Patient rates pain 0/10 end of session. Physical Therapy Plan Frequency and Duration Frequency of 2x/Week Treatment Duration of 8 treatment (weeks) Plan of Care Start 12/14/24 Date Plan of Care End 02/14/25 Date Next Visit Focus/Plan Next Note Type Treatment Note Next Visit Plan progress core and LE strengthening, con't per plan. Consider reviewing all exercises with pt to make sure she understands form and when to perform. Likely d/c at end of current treatment course and asked her to schedule last one with another PT to prepare for d/c
--- NOTE | 2025-01-26 18:13 | PT.OTN ---
Current Diagnoses Other chronic pain (01/26/25) Low back pain, unspecified (01/26/25) Physical Therapy Treatment Note PT-OP-A Visit Information Start: 12/14/24 09:41 Freq: Status: Active Protocol: Document 01/26/25 18:06 KW (Rec: 01/26/25 18:12 KW Laptop) Out-Patient Physical Therapy Visit Information Visit Information Visit Type Treatment Note Visit Note 04/15 before KX Access Code: [email or web address] Visit Start Time 14:30 Visit Stop Time 15:15 Visit Number 10 (PN by 02/10/25) Number of ADMINISTRATION CLERK Visits 2 Evaluation Information Evaluation Date 12/14/24 Precautions Precautions Fall risk, bruising and history of myelodysplastic syndrome PT-OP-B Current Condition Start: 12/14/24 09:41 Freq: Status: Active Protocol: Document 12/14/24 09:43 MB (Rec: 12/14/24 10:27 MB Desktop) Current Condition History of Current Condition Onset Date A little bit longer than a month Current Complaints B calf pain and back pain, all around discomfort around SI to anterior History of Current Pt reports that a little more than a month ago, she Condition started waking up d/t back ache and it hasn't gone away . Pt has a history of myelodysplastic syndrome, L2-3 disc surgery, has frequent falls and she assists him. He is not using RW as trained by OPPT. He hasn't been falling as much later. Pt has a history of right groin pain and PT sees a PT record in the chart but cannot access it this morning. This PT worked with pt's , Naeem, with pt's participation, and pt did have some trouble recalling training and education during 's PT course. Pt has appointment with Dr. Birch 03/11 about back pain . Prior Treatments and Lumbar x-ray 11/11/24: Tests L2-3 anterior/posterior fusion anatomic alignment no complication Degeneration Hip x-ray January 2025: IMPRESSION: 1. No acute bony abnormality. 2. 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 Treatment Goals Patient/Caregiver To decrease pain and to strengthen the whole area Goals PT-OP-C Subjective Start: 12/14/24 09:41 Freq: Status: Active Protocol: Document 01/26/25 18:06 KW (Rec: 01/26/25 18:12 KW Laptop) OP-PT Subjective Patient Comments Patient Comments trip to [place] coming up end of January, wants to be at her best PT-OP-G Mobility & Gait Start: 12/14/24 09:41 Freq: Status: Active Protocol: Document 12/14/24 09:43 MB (Rec: 12/14/24 10:27 MB Desktop) OP Gait Assessment Comments Gait Comments Gait training without AD: antalgic, flexed posture at hips and trunk, minimal arm swing with less arm movement forward and back and more arm movement with elbows bent and side to side, stiffness in upper spine and LB and SI joints. Pt states she has plantar fasciitis in right foot and she is wearing one orthotic and so ed pt to take out. PT-OP-J Posture/Palpation/Skin Start: 12/14/24 09:41 Freq: Status: Active Protocol: Document 12/14/24 09:43 MB (Rec: 12/14/24 10:27 MB Desktop) Posture Evaluation Comments Posture Comments Standing posture with shoes off: forward head, forward and rounded shoulders, Dowager's hump, mild left convexity of spine, left scapular winging and highter than the right, reduced lumbar lordosis, right iliac crest is higher than the left. Spinal movement in standing: Flexion: fingertips 8 from the floor and repeated flexion is okay but causes some discomfort in glutes Extension: 15 deg and no increased symptoms with repeated extension SB: stiffer on the right side to the right with SI area , right movement 15 deg and left 20 deg PT-OP-M Strength Start: 12/14/24 09:41 Freq: Status: Active Protocol: Document 12/14/24 09:43 MB (Rec: 12/14/24 10:27 MB Desktop) Hip Strength Hip Manual Muscle Testing Left Flexion (L2) 4+ Good+ Extension (S1) 4- Good- Abduction 4 Good Adduction 4+ Good+ Right Flexion (L2) 4+ Good+ Extension (S1) 4+ Good+ Abduction 4+ Good+ Adduction 4 Good Comments MMT in supine today. Pt denies numbness and tingling and just c/o pain in back of legs when she has symptoms . Knee Strength Knee Manual Muscle Testing Left Flexion (S2) 4 Good Extension (L3) 5 Normal Right Flexion (S2) 4 Good Extension (L3) 5 Normal Ankle/Foot Strength Ankle and Foot Manual Muscle Testing Right Dorsiflexion (L4) 5 Normal Left Dorsiflexion (L4) 5 Normal Toe Strength Toe Manual Muscle Testing Left Great Toe Extension 5 Normal Right Great Toe Extension 5 Normal PT-OP-Q Treatments Start: 12/14/24 09:41 Freq: Status: Active Protocol: Document 01/26/25 18:06 KW (Rec: 01/26/25 18:12 KW Laptop) Therapeutic Exercises Supine Exercises Modified Darren stretch Supine Exercise Name one knee to chest and opp LE off mat Reps/Minutes 60 sec with AROM knee flexion X 10 Breathing from diaphragm in mod rest pose Supine Exercise Name LE's elevated hips and knees 90 deg Reps/Minutes 1 min Comments VC breathing from diaphragm, pt ed rationale of this exercise Knee rocking in hook lying Supine Exercise Name Added to HEP today Side bilateral Reps/Minutes one min (pt ed motion is lotion for joints) Comments Patient ed also to perform knee flex ext, and hip IR ER to prior to OOB Stretch Supine Exercise Name 1.HS for HEP 2. piriformis stretch HEP Side bilateral Equipment Used two pillows under head Comments Patient ed to dec HS to every other day, cont daily until 2025 daily pirif Pelvic realignment exercises Supine Exercise Name HEP Side bilateral Equipment Used towel Reps/Minutes 3s hold, 5x2 Comments post exercises for all 3 alignment exercises Sidelying Exercises quadratus lumborum stretch Side bilateral Reps/Minutes 60 sec each side Comments verbal and visual cues open book Sidelying Exercise HEP Name Reps/Minutes X 10 each side Comments verbal cues Sitting Exercises seated hip abd with band Sitting Exercise HEP Name Resistance Level 3 [place] [place] green band Reps/Minutes one min X 1 Comments SLS slightly improved one LE and decreased on opp LE ie overall no improvem breathing from diaphragm Reps/Minutes one min Comments review Standing Exercises calf stretches Standing Exercise Gastroc and soleus ( at wall added to HEP) Name Side bilateral Reps/Minutes 60 sec each LE on stairs with UE sup then at wall each stretch each LE Comments verbal cues and visual ceus PT-OP-T Assessment and Plan Start: 12/14/24 09:41 Freq: Status: Active Protocol: Document 01/26/25 18:06 KW (Rec: 01/26/25 18:12 KW Laptop) Physical Therapy Assessment Rehab Potential Rehabilitation Fair Potential Evaluation Complexity Number of Personal 1-2 Factors/ Comorbidities Number of Body 3 Systems Impaired Clinical Evolving Presentation at Evaluation Impairments Impairments Balance,Functional Activities,Functional Mobility,Gait, Pain,Posture,ROM,Soft Tissue Mobility,Strength Goals 4 Impairment Lack of HEP Fha Underwriter Goal (LTG) Pt will perform progressive HEP with I including pelvic realignment, posture, flexibility, breathing, strengthening and balance exercises to improve symptoms . 01/11/25: Pt pulls out handouts and is performing exercises at home including lumbar rotation/rocking before getting OOB in the morning, reviewed all handouts. LTG Duration 8 weeks 3 Impairment Evidence of imbalance Fha Underwriter Goal (LTG) Pt will perform WNLs on FGA or other standardized balance test to decrease fall risk. 01/11/25: Feet too painful today to perform properly LTG Duration 8 weeks Assessment Summary Assessment Patient rates pain 0/10 end of session. Physical Therapy Plan Frequency and Duration Frequency of 2x/Week Treatment Duration of 8 treatment (weeks) Plan of Care Start 12/14/24 Date Plan of Care End 02/14/25 Date Therapeutic Interventions Therapeutic Balance Training,Canalithic Repositioning,Coordination Interventions Training,Gait Training,Home Exercise Program,Joint Mobilizations,Manual Therapy,Neuromuscular Re-education ,Patient/Caregiver Education,Self-Care/Home Management, Soft Tissue Mobilization,Taping,Therapeutic Activities, Therapeutic Exercises Modalities Cold Pack/Ice Massage,Electric Stimulation,Hot Packs, Ultrasound Other Referrals/Consults Referrals/Consults Consider EMG if radiculopathy is ongoing concern Recommended Next Visit Focus/Plan Next Note Type Treatment Note Next Visit Plan balance is quite poor, started on corner standing with chair in front, tandem stance, head turns. Could use a review.
--- NOTE | 2025-02-02 15:03 | PT.OTN ---
Current Diagnoses Other chronic pain (02/02/25) Low back pain, unspecified (02/02/25) Physical Therapy Treatment Note PT-OP-A Visit Information Start: 12/14/24 09:41 Freq: Status: Active Protocol: Document 02/02/25 14:44 KW (Rec: 02/02/25 15:03 KW Laptop) Out-Patient Physical Therapy Visit Information Visit Information Visit Type Discharge Summary Visit Note 04/15 before KX Access Code: [email or web address] Visit Start Time 14:30 Visit Stop Time 15:15 Visit Number 11 (PN by 02/10/25) Number of FINANCIAL ADVISOR TRAINEE Visits 2 Precautions Precautions Fall risk, bruising and history of myelodysplastic syndrome PT-OP-B Current Condition Start: 12/14/24 09:41 Freq: Status: Active Protocol: Document 12/14/24 09:43 MB (Rec: 12/14/24 10:27 MB Desktop) Current Condition History of Current Condition Onset Date A little bit longer than a month Current Complaints B calf pain and back pain, all around discomfort around SI to anterior History of Current Pt reports that a little more than a month ago, she Condition started waking up d/t back ache and it hasn't gone away . Pt has a history of myelodysplastic syndrome, L2-3 disc surgery, has frequent falls and she assists him. He is not using RW as trained by OPPT. He hasn't been falling as much later. Pt has a history of right groin pain and PT sees a PT record in the chart but cannot access it this morning. This PT worked with pt's , Naeem, with pt's participation, and pt did have some trouble recalling training and education during 's PT course. Pt has appointment with Dr. Birch 03/11 about back pain . Prior Treatments and Lumbar x-ray 11/11/24: Tests L2-3 anterior/posterior fusion anatomic alignment no complication Degeneration Hip x-ray January 2025: IMPRESSION: 1. No acute bony abnormality. 2. 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 Treatment Goals Patient/Caregiver To decrease pain and to strengthen the whole area Goals PT-OP-C Subjective Start: 12/14/24 09:41 Freq: Status: Active Protocol: Document 02/02/25 14:44 KW (Rec: 02/02/25 15:03 KW Laptop) OP-PT Subjective Patient Comments Patient Comments trip to [place], cancelled Patient Questionnaires Oswestry Low Back Index Oswestry Score 10 Oswestry Impairment 1 to 19% Impaired (Score 1-19) PT-OP-G Mobility & Gait Start: 12/14/24 09:41 Freq: Status: Active Protocol: Document 12/14/24 09:43 MB (Rec: 12/14/24 10:27 MB Desktop) OP Gait Assessment Comments Gait Comments Gait training without AD: antalgic, flexed posture at hips and trunk, minimal arm swing with less arm movement forward and back and more arm movement with elbows bent and side to side, stiffness in upper spine and LB and SI joints. Pt states she has plantar fasciitis in right foot and she is wearing one orthotic and so ed pt to take out. PT-OP-J Posture/Palpation/Skin Start: 12/14/24 09:41 Freq: Status: Active Protocol: Document 12/14/24 09:43 MB (Rec: 12/14/24 10:27 MB Desktop) Posture Evaluation Comments Posture Comments Standing posture with shoes off: forward head, forward and rounded shoulders, Dowager's hump, mild left convexity of spine, left scapular winging and highter than the right, reduced lumbar lordosis, right iliac crest is higher than the left. Spinal movement in standing: Flexion: fingertips 8 from the floor and repeated flexion is okay but causes some discomfort in glutes Extension: 15 deg and no increased symptoms with repeated extension SB: stiffer on the right side to the right with SI area , right movement 15 deg and left 20 deg PT-OP-M Strength Start: 12/14/24 09:41 Freq: Status: Active Protocol: Document 12/14/24 09:43 MB (Rec: 12/14/24 10:27 MB Desktop) Hip Strength Hip Manual Muscle Testing Left Flexion (L2) 4+ Good+ Extension (S1) 4- Good- Abduction 4 Good Adduction 4+ Good+ Right Flexion (L2) 4+ Good+ Extension (S1) 4+ Good+ Abduction 4+ Good+ Adduction 4 Good Comments MMT in supine today. Pt denies numbness and tingling and just c/o pain in back of legs when she has symptoms . Knee Strength Knee Manual Muscle Testing Left Flexion (S2) 4 Good Extension (L3) 5 Normal Right Flexion (S2) 4 Good Extension (L3) 5 Normal Ankle/Foot Strength Ankle and Foot Manual Muscle Testing Right Dorsiflexion (L4) 5 Normal Left Dorsiflexion (L4) 5 Normal Toe Strength Toe Manual Muscle Testing Left Great Toe Extension 5 Normal Right Great Toe Extension 5 Normal PT-OP-Q Treatments Start: 12/14/24 09:41 Freq: Status: Active Protocol: Document 02/02/25 14:44 KW (Rec: 02/02/25 15:03 KW Laptop) Cardio Equipment Recumbent Stepper (Sci-Fit) Duration (Minutes) 8 Resistance 3 Seat Position 12 Therapeutic Exercises Supine Exercises Modified Darren stretch Supine Exercise Name one knee to chest and opp LE off mat Reps/Minutes 60 sec with AROM knee flexion X 10 Breathing from diaphragm in mod rest pose Supine Exercise Name LE's elevated hips and knees 90 deg Reps/Minutes 1 min Comments VC breathing from diaphragm, pt ed rationale of this exercise Knee rocking in hook lying Side bilateral Reps/Minutes one min (pt ed motion is lotion for joints) Comments Patient ed also to perform knee flex ext, and hip IR ER to prior to OOB Stretch Supine Exercise Name 1.HS for HEP 2. piriformis stretch HEP Side bilateral Equipment Used two pillows under head Comments Patient ed to dec HS to every other day, cont daily until 2025 daily pirif Pelvic realignment exercises Supine Exercise Name HEP Side bilateral Equipment Used towel Reps/Minutes 3s hold, 5x2 Comments post exercises for all 3 alignment exercises Sidelying Exercises quadratus lumborum stretch Side bilateral Reps/Minutes 60 sec each side Comments verbal and visual cues open book Sidelying Exercise HEP - reviewed as was doing it from supine vs side Name lying Reps/Minutes X 10 each side Comments verbal cues Sitting Exercises seated hip abd with band Sitting Exercise HEP Name Resistance Level 3 [place] green band Reps/Minutes one min X 1 Comments SLS slightly improved one LE and decreased on opp LE ie overall no improvem Standing Exercises calf stretches Standing Exercise Gastroc and soleus ( at wall added to HEP) Name Side bilateral Reps/Minutes 60 sec each LE on stairs with UE sup then at wall each stretch each LE Comments verbal cues and visual ceus PT-OP-T Assessment and Plan Start: 12/14/24 09:41 Freq: Status: Active Protocol: Document 02/02/25 14:44 KW (Rec: 02/02/25 15:03 KW Laptop) Physical Therapy Assessment Rehab Potential Rehabilitation Fair Potential Evaluation Complexity Number of Personal 1-2 Factors/ Comorbidities Number of Body 3 Systems Impaired Clinical Evolving Presentation at Evaluation Impairments Impairments Balance,Functional Activities,Functional Mobility,Gait, Pain,Posture,ROM,Soft Tissue Mobility,Strength Goals 4 Impairment Lack of HEP Usp Goal (LTG) Pt will perform progressive HEP with I including pelvic realignment, posture, flexibility, breathing, strengthening and balance exercises to improve symptoms . 01/11/25: Pt pulls out handouts and is performing exercises at home including lumbar rotation/rocking before getting OOB in the morning, reviewed all handouts. - MET LTG Duration 8 weeks 3 Impairment Evidence of imbalance Usp Goal (LTG) Pt will perform WNLs on FGA or other standardized balance test to decrease fall risk. - MET LTG Duration 8 weeks Assessment Summary Assessment Patient rates pain 0/10 end of session. excellent compliance and participation. Ready to DC to [facility] Physical Therapy Plan Therapeutic Interventions Therapeutic Balance Training,Canalithic Repositioning,Coordination Interventions Training,Gait Training,Home Exercise Program,Joint Mobilizations,Manual Therapy,Neuromuscular Re-education ,Patient/Caregiver Education,Self-Care/Home Management, Soft Tissue Mobilization,Taping,Therapeutic Activities, Therapeutic Exercises Modalities Cold Pack/Ice Massage,Electric Stimulation,Hot Packs, Ultrasound Next Visit Focus/Plan Next Visit Plan DC
== END 2025-02-10 08:45 | disposition home or self-care (01) ==
LOC: PHYS 14:30
PROVIDERS: PCP Family Medicine; Referring Provider Family Medicine; Visit Provider Family Medicine
DX: G89.29 Other chronic pain (principal); M54.50 Low back pain, unspecified
CPT/HCPCS: 97110; 97112; 97116; 97140; 97162; 97530; 97535

== ENCOUNTER 2025-03-02 12:46 | Emergency (ER) | payer MEDICARE, SELFPAY ==
[2021-03-30 09:00] VITALS: BMI 28.4
[2025-03-02] VITALS (16 sets, daily range): BP systolic 122–142; BP diastolic 59–64; PULSE 55–69; RESP 14–25; TEMP 35.9; O2SAT 94–99; BMI 26.4
--- NOTE | 2025-03-02 12:50 | DI.RAD.S_ITS ---
PROCEDURE: XR CHEST 1V INDICATIONS: Chest Pain TECHNIQUE: One view of the chest was acquired. COMPARISON: [facility], CR, XR CHEST 2V, 12/18/2020, 13:43. FINDINGS: Surgical changes and devices: Lumbar spine fixation hardware is partially seen. Lungs and pleura: Lungs are clear. No pleural effusions or pneumothorax. Mediastinum: Mediastinal contours appear normal. Heart size is normal. Bones and chest wall: No suspicious bony lesions. Age-appropriate bony degenerative changes are seen. Overlying soft tissues appear unremarkable. IMPRESSION: Portable chest within normal limits for age. Postoperative and degenerative changes are seen. Dictated by: Efrem Dailey M.D. on 03/02/2025 at 12:13 Approved by: Efrem Dailey M.D. on 03/02/2025 at 12:14
--- NOTE | 2025-03-02 12:55 | EKG_ITS ---
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 Electronically Signed On 03-05-2025 9:40:28 PDT by Freedom Mishra
--- NOTE | 2025-03-02 13:11 | ED_ITS ---
HPI - Chest Pain General Chief Complaint: Chest Pain Stated Complaint: chest heaviness Time Seen by Provider: 03/02/25 13:04 Source: patient Mode of arrival: Ambulatory Limitations: no limitations History of Present Illness HPI narrative: 84-year-old woman with no prescription medications who states that she does see her doctor fairly regularly comes in with left-sided heaviness. She had an episode yesterday that was mild. Today she took her out for lunch and is they were getting in the car and driving back home she had some heaviness in the left upper chest not associated with dyspnea, diaphoresis or palpitations. Did seem to resolve without any further issues. She has no prior cardiac history. She does note that her 's dementia has been progressively worsening rapidly over the last few weeks with increased stressors for her. Apparently he woke up in the middle of the night and managed to drive all the way back to [place] and was eventually found by police to bring home safely. Related Data Previous Rx's ?Medication ?Instructions ?Recorded doxycycline hyclate 100 mg capsule 100 mg PO BID #14 c aps 03/02/25 Allergies Allergy/AdvReac Type Severity Reaction Status Date / Time No Known Drug Allergies Allergy Verified 03/02/25 12:56 Review of Systems Review of Systems Narrative: Pertinent positive and negative findings as per HPI Patient History Medical History Diverticulosis Chronic pain of right inguinal region MDS (myelodysplastic syndrome) COVID-19 virus infection (08/03/21) Chronic back pain Hepatitis A Anemia (~2014) Cancer of blood vessel (~2014) Screening for malignant neoplasm of colon Appetite impaired Abdominal pain Obesity BPPV (benign paroxysmal positional vertigo) Lumbago Elevated LFTs Goiter (~2013) Cervicalgia (~2013) Foot pain (~2006) Shingles (~2013) Mononucleosis (~1979) Chickenpox (~1949) Measles (~194) Mumps (~1946) Other dietary vitamin B12 deficiency anemia (~2013) Vitamin B12 deficiency (~2013) Thrombocytopenia Neutropenia (~2013) Abnormal Pap smear of cervix (~1983) Basal cell carcinoma, leg (~2013) Skin cancer (~2013) Osteopenia (02/21/17) 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) Hyperlipidemia (04/14/14) Impaired fasting glucose (08/24/13) Leukopenia (08/24/13) Surgical History Anesthesia History of cholecystectomy (~09/2021) Status post lumbar surgery (03/04/19) Hx of arthroscopy of left knee (~2017) History of airway aspiration (~07/19/14) Status post hysterectomy (~1989) Status post colonoscopy (~2009) Status post biopsy (~2013) S/P total abdominal hysterectomy and bilateral salpingo-oophorectomy (~1989) History of tonsillectomy Status post appendectomy (~1957) Status post arthroscopy (~2010) Family History Father Dementia CAD (coronary artery disease) Mother Pancreatic cancer Sister Osteoarthritis Dementia Mental health problem Grandfather Parkinson's disease Social History marital status: household members: spouse Smoking Status: Never smoker alcohol intake: current substance use type: does not use Smoking Status: Never smoker alcohol intake frequency: 0-2 drinks per day Exam Initial Vital Signs Initial Vital Signs: Vital Signs Temperature 96.6 F L 03/02/25 12:56 Pulse Rate 69 03/02/25 12:56 Respiratory Rate 18 03/02/25 12:56 Blood Pressure 136/61 03/02/25 12:56 Pulse Oximetry 99 03/02/25 12:56 Oxygen Delivery Method Room Air 03/02/25 12:56 General: Healthy appearing, in no acute distress. Able to give a complete and coherent history. Well-nourished well-developed HEENT: Moist mucous membranes, normal sclera with reactive pupils, Respiratory: Lungs are clear to auscultation, no wheezing no rales no rhonchi. Full and symmetrical air movement Cardiac: Regular rate and rhythm no murmurs no bruits Abdomen: Soft, nontender, no rebound or guarding, no flank pain Skin: Warm and dry, no rashes Neurologic: Grossly neurologically intact with no obvious asymmetries or abnormalities Extremities: No trauma, well perfused. Right great toe has irritation along the medial aspect of the great toenail with some minor drainage from the cuticle/paronychia. The great nail itself is somewhat long the toe is angled, there is surrounding erythema extending to the 1st joint. Psych: Cooperative, appropriate insight and affect, does become somewhat tearful when describing her recent stressors with her 's dementia Course Orders Ordered: ED Orders 03/02/25 12:50 XR chest 1V Stat EKG-12 Lead Stat 03/02/25 13:18 Consult to DOUBLE SURFACE OPERATOR - Eye Specialist Stat 03/02/25 13:27 Complete Blood Count AUTO DIFF Stat 03/02/25 16:36 Comprehensive Metabolic Panel Stat Lipase Stat Magnesium Stat NT-proBNP (BNP-Adult 18+) Stat PTT Partial Thromboplastin Andrew Stat Prothrombin Time INR Stat Troponin & CK Cardiac Panel Stat 03/02/25 18:40 Troponin I Stat Vital Signs Vital signs: Vital Signs - 8 hr 03/02/25 12:56 03/02/25 13:14 03/02/25 13:26 Temperature 96.6 F L Pulse Rate 69 69 Respiratory Rate 18 19 Blood Pressure 136/61 139/59 L Pulse Oximetry 99 Oxygen Delivery Method Room Air 03/02/25 13:26 03/02/25 13:30 03/02/25 13:31 Temperature Pulse Rate 65 66 65 Respiratory Rate 24 16 19 Blood Pressure Pulse Oximetry 98 97 97 Oxygen Delivery Method 03/02/25 13:31 03/02/25 14:00 03/02/25 14:00 Temperature Pulse Rate 61 Respiratory Rate 15 Blood Pressure 126/59 L 130/64 Pulse Oximetry 94 Oxygen Delivery Method 03/02/25 14:30 03/02/25 14:30 03/02/25 15:00 Temperature Pulse Rate 61 62 Respiratory Rate 24 18 Blood Pressure 142/64 H Pulse Oximetry 99 98 Oxygen Delivery Method 03/02/25 15:00 03/02/25 15:30 03/02/25 16:00 Temperature Pulse Rate 55 L 61 Respiratory Rate 16 25 H Blood Pressure 122/59 L Pulse Oximetry 96 97 Oxygen Delivery Method 03/02/25 16:30 03/02/25 17:00 03/02/25 17:30 Temperature Pulse Rate 59 L 61 65 Respiratory Rate 16 18 17 Blood Pressure Pulse Oximetry 98 97 97 Oxygen Delivery Method 03/02/25 18:00 03/02/25 18:30 03/02/25 19:00 Temperature Pulse Rate 59 L 62 59 L Respiratory Rate 16 14 19 Blood Pressure Pulse Oximetry 98 96 97 Oxygen Delivery Method MDM - Chest Pain Lab Data 03/02/25 13:27 03/02/25 16:36 Labs: Lab Results 03/02/25 03/02/25 03/02/25 Range/Units 13:27 16:36 18:40 WBC 3.2 L (4.5-11.0) X10^3/uL RBC 3.37 L (4.0-5.2) X10^6/uL Hgb 12.0 (12.0-16.0) g/dL Hct 33.8 L (36-46) % MCV 100.3 H (80-100) fL MCH 35.5 H (26-34) PG MCHC 35.4 (30-36) % RDW 13.6 (11.6-14.8) % Plt Count 93 L (150-400) X10^3/uL Neut % (Auto) 48.3 L (50-75) % Lymph % (Auto) 39.0 (25-40) % Sen[place] % (Auto) 10.4 (3-14) % Eos % (Auto) 1.6 L (2-4) % Baso % (Auto) 0.7 (0-2) % Neut # (Auto) 1500 (0418-7186) /uL Lymph # (Auto) 1200 (2277-3371) /uL Sen[place] # (Auto) 300 (0-900) /uL Eos # (Auto) 100 (0-450) /uL Baso # (Auto) 0 (0-100) /uL PT 10.8 (9.4-12.5) SECONDS INR 1.0 (0.9-1.3) APTT 27 (25.1-36.5) SECONDS Sodium 141 (137-145) mmol/L Potassium 4.3 (3.4-5.1) mmol/L Chloride 108 H (98-107) mmol/L Carbon Dioxide 23 (22-32) mmol/L BUN 25 H (7-17) mg/dL Creatinine 0.81 (0.52-1.04) mg/dL Estimated GFR > 60 (>60) mL/min BUN/Creatinine Ratio 30.9 H (6-22) Glucose 100 H (70-99) mg/dL Calcium 9.1 (8.4-10.2) mg/dL Magnesium 2.0 (1.6-2.3) mg/dL Total Bilirubin 0.7 (0.2-1.3) mg/dL AST 50 H (14-36) IU/L ALT 23 (<35) IU/L Alkaline Phosphatase 76 (38-126) U/L Total Creatine Kinase 188 H (30-135) U/L Troponin I 0.039 H 0.038 H (0.01-0.034) ng/mL NT-Pro-B Natriuret Pep 44 (<450) pg/mL Total Protein 6.7 (6.3-8.2) g/dL Albumin 3.9 (3.5-5.0) g/dL Globulin 2.8 (1.7-4.1) g/dL Albumin/Globulin Ratio 1.4 (1.0-2.8) Lipase 184 (23-300) U/L MDM Narrative Medical decision making narrative: CC: Left-sided chest pain Complicating co-morbidities: Remarkably healthy, on no prescription medications Data collected from: patient Social determinants of health that may influence the patients condition: 's dementia is escalating Differential considered: Acute coronary syndrome, pneumothorax, pneumonia, viral syndrome, anxiety Exam documented above, pertinent findings include: Exam is benign with no reproducible chest pain, incidentally noted the swollen right great toe Lab Test results independently reviewed as above. Pertinent findings: CBC is at her baseline with mild anemia, thrombocytopenia but hemoglobin stable at 12 Chemistries are Reassuring initial troponin minimally elevated 0.039 and repeat is 0.038 Independently reviewed EKG: Sinus rhythm at a rate of 66 without acute ischemic changes Imaging studies independently reviewed: Chest x-ray is unremarkable Consultations: DOUBLE SURFACE OPERATOR for assistance and recommendations for dementia care for her and help her herself Treatments: The medial aspect of the great toe is anesthetized with 1% lidocaine There is minimal actually ingrown toenail, it appears that the majority of the trauma is from the toenail being long and because of the angle of the nail itself there is increased pressure on the medial aspect of the nail bed. The nail is trimmed. I was able to fully see the entire medial edge of the nail once the swollen tissue and debris from the cuticle area was removed. This was not a significantly ingrown toenail. He is given 2 g of ceftriaxone eating for the remainder of her cardiac workup Discussion: 84-year-old woman with increasing stress and concern due to her 's dementia and increasing agitation and roaming. She developed some fleeting left-sided chest pain earlier today while they were driving after she took him up for lunch. Initial troponin is elevated. We will need to be repeated. Patient is aware if her troponin is increasing she likely will need hospitalization Incidentally appreciated was the right great toe. It does appear to be infected due to mechanical shear forces secondary to the shape of the toe in the great nail. The paronychial edge is anesthetized. The great toe nail is trimmed back and the paronychial portion is gently open up for drainage. She tolerated this procedure quite well. She is given initial dose of doxycycline in the emergency department if discharged home will need additional antibiotic course 610pm findings reviewed with the patient. Possibility of hospitalization discussed if 2nd troponin is increasing. Antibiotics started while you are waiting for further evaluation Patient care is transferred to talk to Jaret at change of shift Heart score = 3 Discharge Plan Departure Patient Disposition: Home Clinical Impression: Acute situational disturbance, Infection of great toe Chest pain Qualifiers: Chest pain type: unspecified Qualified Code(s): R07.9 - Chest pain, unspecified Instructions: DI for Cellulitis -- Adult, DI for Angina Activity Restrictions/Additional Instructions: Thank you for coming in today I did not see any evidence of a heart attack. I think it was absolutely appropriate to come to the emergency department and take care of yourself I suspect that the pain that you are having is related to anxiety, poor sleep overall stressors and difficulties with your . Is so difficult to watch our loved ones progress with dementia. You did meet with our long term care social worker and she did give you some dementia resources for both you and your Your great toe is infected. I did numb up the edge and lifted the cuticle away from the nail. It was not ingrown as I had suspected. It does look like the length and shape of the nail simply was pulling on the side wishes causing an infection. I did trim your toenail back a little bit to see if it can help with overall healing. Please do continue soaking your nail. I have given you a prescription for doxycycline to use for the next 7 days. If it seems that it is getting worse, you are having more swelling, foot pain or red streaks going up your leg, you do need to come back to the ER Prescriptions: New doxycycline hyclate 100 mg capsule 100 mg PO BID Qty: 14 0RF Referrals: Ace Kumar MD [Primary Care Provider, Family Practice] Stand Alone Forms: Patient Portal/API
[2025-03-02 13:44] LABS: Add Manual Diff / Slide Review NO; Hematocrit 33.8 % (36-46); Hemoglobin 12.0 g/dL (12.0-16.0); Lymphocytes Absolute Auto 1200 /uL (1100-4500); Mean Corpuscular HGB Conc 35.4 % (30-36); Mean Corpuscular Hemoglobin 35.5 PG (26-34); Mean Corpuscular Volume 100.3 fL (80-100); Platelet Count 93 X10^3/uL (150-400)
--- NOTE | 2025-03-02 14:27 | CM.SWNOTE ---
ED SWITCHER Note Patient is 84 y/o female who presents to the ED due to concern for chest discomfort. ED SWITCHER receives consult due to concern for patient's added stressors of caring for who spouse who has worsening dementia. It is reported that patient's spouse left via car in the middle of the night recently and drove to their old home in [place], it is reported he hasn't driven in two years. Patient's PCP is Dr. Kumar, patient has Medicare and [employer] insurance. SWITCHER enters room to meet with patient, present in room is patient's spouse. Patient presents as A/Ox4. Patient endorses that she is feeling better and believes this chest discomfort could have been anxiety. She reports that she does not like to leaver her spouse along and has hired a caregiver to be with him if she needs to leave the house as needed. She states that she had alarm installed at the front door. SWITCHER discusses hiring a caregiver more regularly as patient sees fit for her spouse. Patient reports that they have a son that lives in [place], [place] and a son in [facility]. It is reported that they are aware of patient's spouse and the potential for increase care needs. SWITCHER discusses starting have more conversations about his care plan and make decisions as a family. SWITCHER provides patient with lists of caregivers, senior resource guide, lists of LTC facilities, Dementia/Alzheimer's support group information, and information about [facility]. Patient reports that her spouse has a PCP appt with Dr. 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 SWITCHER offers to schedule a PCP appt for patient, patient declines and states that she can set the f/u appt herself. SWITCHER recommends discussing concern for her anxiety. Patient denies any further needs from SWITCHER. Plan: patient likely to d/c to home upon medical clearance, patient to f/u with PCP, patient to f/u with spouse's PCP and family to seek out higher level of care. Kirsten Loyola, BIOLOGICAL SCIENCES INSTRUCTOR
[2025-03-02 16:52] LABS: INR 1.0 (0.9-1.3); Prothrombin Time 10.8 SECONDS (9.4-12.5)
[2025-03-02 16:54] LABS: PTT Partial Thromboplastin Tim 27 SECONDS (25.1-36.5)
[2025-03-02 17:07] LABS: Alanine Aminotransferase 23 IU/L (<35); Albumin 3.9 g/dL (3.5-5.0); Albumin Globulin Ratio 1.4 (1.0-2.8); Alkaline Phosphatase 76 U/L (38-126); Blood Urea Nitrogen 25 mg/dL (7-17); Calcium 9.1 mg/dL (8.4-10.2); Carbon Dioxide 23 mmol/L (22-32); Chloride 108 mmol/L (98-107); Creatine Kinase 188 U/L (30-135); Estimated Glomerular Filt Rate > 60 mL/min (>60); Globulin 2.8 g/dL (1.7-4.1); Glucose 100 mg/dL (70-99); HEMOLYSIS 29 (0-50); Lipase 184 U/L (23-300); Magnesium 2.0 mg/dL (1.6-2.3); Potassium 4.3 mmol/L (3.4-5.1); Sodium 141 mmol/L (137-145); Total Protein 6.7 g/dL (6.3-8.2)
[2025-03-02 17:18] LABS: NT-proBNP (BNP-Adult 18+) 44 pg/mL (<450); Troponin I 0.039 ng/mL (0.01-0.034)
[2025-03-02 19:08] LABS: Troponin I 0.038 ng/mL (0.01-0.034)
[2025-03-02] MEDS: DOXYCYCLINE HYCLATE 100 MG TABLET PO (19:30)
== END 2025-03-02 19:32 | disposition home or self-care (01) ==
PROVIDERS: Emergency Provider Emergency Medicine; PCP Family Medicine
DX: R07.9 Chest pain, unspecified (principal); L08.9 Local infection of the skin and subcutaneous tissue, unspecified; F43.0 Acute stress reaction
CPT/HCPCS: 36415; 71045; 80053; 82550; 83690; 83735; 83880; 84484; 85025; 85610; 85730; 93005; 99284

== ENCOUNTER → 2025-07-24 10:53 | Outpatient (CLI) | payer MEDICARE, SELFPAY ==
[2025-03-17 07:54] VITALS: BMI 28.4
--- NOTE | 2025-07-24 10:56 | DI.MRI.S_ITS ---
PROCEDURE: MR LUMBAR SPINE WO CON INDICATIONS: L3/4 TL CHRISTIANNE TECHNIQUE: Noncontrast sagittal T1 spin echo and T2 fast echo, sagittal STIR, and T2 fast spin echo through the lumbar spine. In cases with scoliosis, additional coronal T2 fast spin echo may be performed. COMPARISON: None. FINDINGS: Alignment and Curvature: There is normal bony alignment. Bone Marrow: T11 compression fracture without marrow edema. Discectomy and fusion at L2-3 associated with degenerative endplate changes as well as posterior phil and screw instrumentation Spinal Cord: Conus medullaris terminates at the L1 level. Visualized cord demonstrates normal signal and size. Paraspinous Soft Tissues: No paravertebral masses. T12-L1: Normal appearance. L1-L2: Normal appearance. L2-L3: Discectomy and fusion. Right hemilaminotomy and facetectomy. No central stenosis. No foraminal stenosis. L3-L4: Disc bulge, facet hypertrophy, ligamentum flavum buckling. Severe central stenosis. Severe right and moderate left foraminal stenosis L4-L5: Disc bulge, facet arthropathy and flavum buckling. Severe central stenosis. Severe left and moderate right foraminal stenosis L5-S1: No central or foraminal stenosis IMPRESSION: Multilevel degenerative disc disease and arthropathy results in varying degrees of central and foraminal stenosis including severe central stenosis L3-4 and L4-5 Instrumented discectomy and fusion at L2-3 Chronic T11 compression fracture Approved by: Sam Cai M.D. on 07/25/2025 at 16:49
== END ==
LOC: MRI 10:55
PROVIDERS: PCP Family Medicine; Referring Provider Physical Medicine & Rehabilitation; Visit Provider Physical Medicine & Rehabilitation
DX: M51.16 Intervertebral disc disorders with radiculopathy, lumbar region (principal); M48.061 Spinal stenosis, lumbar region without neurogenic claudication; M47.26 Other spondylosis with radiculopathy, lumbar region; M48.54XA Collapsed vertebra, not elsewhere classified, thoracic region, initial encounter for fracture; Z98.890 Other specified postprocedural states; Z98.1 Arthrodesis status
CPT/HCPCS: 72148